=== PATIENT | female | born 1960 | race Two or more races ===

== ENCOUNTER 2024-09-30 10:41 | Inpatient (IN) | payer MEDICARE, SELFPAY ==
[2024-09-23 10:45] LABS: APTT 31.2 Sec (23.4-35.0); INR 0.97; PT 13.2 Sec (11.4-14.6)
[2024-09-23 10:46] LABS: Hematocrit 29.7 % (37.0-47.0); Hemoglobin 9.3 g/dL (12.0-16.0); Mean Corp Hgb Conc. 31.3 g/dL (33.0-37.0); Mean Corpuscular Hgb 27.7 pg (27.0-31.0); Mean Corpuscular Volume 88.4 fL (81.0-99.0); Mean Platelet Volume 10.7 fL (7.4-10.4); Platelet Count 271 10^3/uL (130-400); Red Blood Cell Count 3.36 10^6/uL (4.20-5.40); Red Cell Dist. Width 13.6 % (11.5-14.5); White Blood Cell Count 11.5 10^3/uL (4.8-10.8)
[2024-09-23 11:18] LABS: ALT (SGPT) 18 U/L (0-35); AST (SGOT) 22 U/L (14-36); Alkaline Phosphatase 56 U/L (38-126); Blood Urea Nitrogen 76 mg/dl (7-17); Calcium 9.8 mg/dl (8.4-10.2); Carbon Dioxide 19 mmol/L (22-30); Chloride 109 mmol/L (98-107); Glucose 121 mg/dl (70-99); Potassium 4.9 mmol/L (3.5-5.1); Sodium 141 mmol/L (135-145); Total Bilirubin 0.2 mg/dl (0.2-1.3); Total Protein 6.4 g/dl (6.3-8.2); eGFR 17.32
[2024-09-23 11:46] LABS: Glycohemoglobin (HgbA1c) 5.2 % (4.0-5.6)
[2024-09-23 13:53] VITALS: BMI 20.8
[2024-09-30] VITALS (9 sets, daily range): BP systolic 125–200; BP diastolic 72–98; BMI 20.8
[2024-09-30] MEDS: TYLENOL 1000 MG PO (11:43)
[2024-09-30] MEDS: ENTEREG 12 MG PO (11:43)
[2024-09-30] MEDS: HEPARIN 5000 UNITS SC (12:35)
[2024-09-30] MEDS: NORMOSOL-R/PLASMALYTE-A 1000 IV (12:53)
--- NOTE | 2024-09-30 16:44 | W.IMMPOSTOP ---
Surgical Immed Post Op Note
-
Primary Surgeon: Nacho Melendez MD
Glue Jointer Feeder: PRIYANK Concepcion
Pre-op Diagnosis: Recurrent rectal prolapse
Post-op Diagnosis: Same
Procedure Performed: Robotic ventral mesh rectopexy
Anesthesia Type: GET
Specimen / Cultures: None
Estimated Blood Loss: 15cc
Complications: None
Operative Findings: Rectal prolapse
Phasix ST mesh (tapered 4 to 3 cm x 10 cm)
[2024-09-30] MEDS: ZOFRAN 4 MG IV (16:52)
[2024-09-30] MEDS: DILAUDID 0.5 MG IV ×2 (16:54→17:09)
[2024-09-30] MEDS: APRESOLINE 5 MG IV (17:21)
[2024-09-30] MEDS: COMPAZINE 10 MG IV (17:23)
[2024-09-30] MEDS: TOPROL XL 100 MG PO (19:44)
[2024-09-30] MEDS: NSS 1000 IV (19:44)
[2024-09-30] MEDS: TYLENOL 650 MG PO (19:45)
[2024-09-30] MEDS: APRESOLINE 100 MG PO (21:46)
[2024-09-30] MEDS: CATAPRES 0.6 MG PO (21:46)
[2024-09-30] MEDS: NORVASC 10 MG PO (21:46)
[2024-09-30] MEDS: TYLENOL PO (23:24)
[2024-10-01 03:24] VITALS: BP 145/62
[2024-10-01] MEDS: TYLENOL 650 MG PO ×4 (04:06→19:51)
[2024-10-01] MEDS: NSS 1000 IV (05:10)
[2024-10-01] MEDS: ULTRAM 50 MG PO ×2 (05:13→22:41)
[2024-10-01 06:08] LABS: % Basophils 0.1 % (0-2); % Immature Granulocytes 0.6 % (0-0.5); % Lymphocytes 7.6 % (20.5-51.1); % Monocytes 9.7 % (1.7-9.3); Absolute Immature Granulocytes 0.1 10^3/uL (0-0.05); Absolute Lymphocytes 0.7 10^3/uL (1.2-3.4); Absolute Monocytes 0.8 10^3/uL (0.1-0.6); Hematocrit 24.3 % (37.0-47.0); Hemoglobin 7.6 g/dL (12.0-16.0); Mean Corp Hgb Conc. 31.3 g/dL (33.0-37.0); Mean Corpuscular Hgb 26.8 pg (27.0-31.0); Mean Corpuscular Volume 85.6 fL (81.0-99.0); Mean Platelet Volume 10.9 fL (7.4-10.4); Nucleated Red Blood Cells % 0 %; Platelet Count 219 10^3/uL (130-400); Red Blood Cell Count 2.84 10^6/uL (4.20-5.40); Red Cell Dist. Width 13.2 % (11.5-14.5); White Blood Cell Count 8.6 10^3/uL (4.8-10.8)
[2024-10-01 06:24] LABS: Blood Urea Nitrogen 46 mg/dl (7-17); Calcium 8.4 mg/dl (8.4-10.2); Carbon Dioxide 20 mmol/L (22-30); Chloride 107 mmol/L (98-107); Estimated Creatinine Clearance 22 ml/min; Glucose 121 mg/dl (70-99); Potassium 3.4 mmol/L (3.5-5.1); Sodium 138 mmol/L (135-145); eGFR 28.76
[2024-10-01 06:49] VITALS: BMI 21.4
[2024-10-01 07:30] VITALS: BP 108/73
[2024-10-01] MEDS: LIPITOR 20 MG PO (07:43)
[2024-10-01] MEDS: ORETIC 25 MG PO (07:43)
--- NOTE | 2024-10-01 09:32 | W.PN.GS2 ---
Today's Communication / Plan
-
-- LRD
-- Pain control: Tylenol, Tramadol
-- HLIV this afternoon after tolerating diet
-- Remove Rodriguez
-- Repeat labs in AM
Assessment / Plan
-
Patient is a 64 yo F POD#1 s/p robotic ventral mesh rectopexy with Phasix ST
AVSS
Labs notable for acute on chronic anemia likely secondary to CKD combined with operative blood loss and hemodilution, no evidence of acute blood loss based on HR and BP, hypokalemia (CKD with hyperkalemia noted preoperatively plan to monitor for
now), improved creatinine
Recovering well overall. Crampy abdominal discomfort not unsurprising and likely related to insufflation combined with RL BF. Plan for dietary advancement. Plan to monitor in the hospital setting given laboratory abnormalities noted above.
-- LRD
-- Pain control: Tylenol, Tramadol
-- HLIV this afternoon after tolerating diet
-- Remove Rodriguez
-- Home meds
-- DVT: SQH
-- Repeat labs in AM
Subjective Data
-
Date of Service: October 01, 2024
No major complaints. Reports some crampy upper abdominal discomfort. No nausea or vomiting. Passing small amounts of flatus, no BM. Minimal ambulation. Rodriguez in place.
Objective Data
-
Intake and Output
09/30/24 10/01/24 10/02/24
06:59 06:59 06:59
Intake Total 1860 / 1860
Output Total 725 / 725
Balance 1135 / 1135
Intake:
Oral fluids 900 / 900
IV fluids (Total) 960 / 960
Output:
Urine, Voided 725 / 725
Vital Signs
Temp Pulse Resp BP Pulse Ox
97.4 F 75 16 108/73 96
10/01/24 07:30 10/01/24 07:30 10/01/24 07:30 10/01/24 07:43 10/01/24 07:30
Lab Results
10/01/24 05:22
10/01/24 05:22
Calcium 8.4 mg/dl (8.4-10.2) 10/01/24 05:22
Total Bilirubin 0.2 mg/dl (0.2-1.3) 09/23/24 09:40
AST 22 U/L (14-36) 09/23/24 09:40
ALT 18 U/L (0-35) 09/23/24 09:40
Alkaline Phosphatase 56 U/L (38-126) 09/23/24 09:40
Total Protein 6.4 g/dl (6.3-8.2) 09/23/24 09:40
Albumin 4.0 g/dl (3.5-5.0) 09/23/24 09:40
Physical Exam
-
Gen: NAD
Abd: soft, mild tenderness, mild distension, non-peritoneal, incisions c/d/i - no erythema, ecchymosis or drainage
[2024-10-01 11:25] VITALS: BP 127/73
--- NOTE | 2024-10-01 11:58 | CM ---
Patient seen at bedside. Patient states that her son and his family lives with her. Patient states home is a 2 story home with a first floor set up for her. Patient states that she plans to go home with no needs but is open to having [facility] care if
needed as her daughter works for them. Patient PCP is Dr. Kolb and Dr. Ding. Patient is trying to stay off of HD. Patient stated that she would like to go home if possible. CM will continue to follow for discharge planning needs.
Plan; home with VN; would be open to [facility].
[2024-10-01] MEDS: CATAPRES PO (13:01)
[2024-10-01] MEDS: DIOVAN PO (13:01)
[2024-10-01] MEDS: APRESOLINE PO (13:01)
[2024-10-01] MEDS: HEPARIN SC (14:51)
[2024-10-01] MEDS: HEPARIN 5000 UNITS SC (14:52)
[2024-10-01] MEDS: TOPROL XL 100 MG PO ×2 (14:52→20:49)
[2024-10-01 15:30] VITALS: BP 150/91
[2024-10-01] MEDS: APRESOLINE 100 MG PO ×2 (16:22→22:41)
[2024-10-01] MEDS: TYLENOL PO (16:23)
[2024-10-01] MEDS: CATAPRES 0.6 MG PO ×2 (16:23→22:42)
--- NOTE | 2024-10-01 17:17 | PTCARENOTE ---
pt BP 108/73 during AM med pass. The only one med given was Hydrochlothiazide...she did not receive Metropl, Valsartan, Clonidine, Hydralazine. DRY CHARGE PROCESS ATTENDANT aware placed parameters on all meds. Also pt having multiple loose stools, Rodriguez removed. diet to LR
[2024-10-01 22:25] VITALS: BP 175/80
[2024-10-01] MEDS: NORVASC 10 MG PO (22:41)
[2024-10-02] MEDS: TYLENOL PO
[2024-10-02] MEDS: HEPARIN 5000 UNITS SC ×2 (00:12→08:23)
[2024-10-02] MEDS: TYLENOL 650 MG PO ×2 (04:03→08:19)
[2024-10-02 04:06] VITALS: BMI 21.6
[2024-10-02 05:47] LABS: Hematocrit 27.6 % (37.0-47.0); Hemoglobin 8.9 g/dL (12.0-16.0); Mean Corp Hgb Conc. 32.2 g/dL (33.0-37.0); Mean Corpuscular Hgb 27.6 pg (27.0-31.0); Mean Corpuscular Volume 85.7 fL (81.0-99.0); Mean Platelet Volume 10.9 fL (7.4-10.4); Platelet Count 224 10^3/uL (130-400); Red Blood Cell Count 3.22 10^6/uL (4.20-5.40); Red Cell Dist. Width 13.3 % (11.5-14.5); White Blood Cell Count 10.2 10^3/uL (4.8-10.8)
[2024-10-02 06:12] LABS: Blood Urea Nitrogen 41 mg/dl (7-17); Calcium 8.6 mg/dl (8.4-10.2); Carbon Dioxide 21 mmol/L (22-30); Chloride 110 mmol/L (98-107); Estimated Creatinine Clearance 23 ml/min; Glucose 102 mg/dl (70-99); Phosphorus 2.7 mg/dl (2.5-4.5); Potassium 3.7 mmol/L (3.5-5.1); Sodium 139 mmol/L (135-145); eGFR 30.69
[2024-10-02 07:05] VITALS: BP 173/80
[2024-10-02] MEDS: DIOVAN 320 MG PO (08:18)
[2024-10-02] MEDS: APRESOLINE 100 MG PO (08:19)
[2024-10-02] MEDS: LIPITOR 20 MG PO (08:19)
[2024-10-02] MEDS: CATAPRES 0.6 MG PO (08:20)
[2024-10-02] MEDS: ORETIC 25 MG PO (08:20)
[2024-10-02] MEDS: TOPROL XL 100 MG PO (08:21)
--- NOTE | 2024-10-02 08:38 | W.PN.GS2 ---
Addendum entered and electronically signed by Jaspal Chaudhary MD 10/02/24 08:52:
Patient seen and examined. Agree with assessment plan as documented below.
No complaints. Pain well-controlled. No nausea or vomiting. Passing flatus and loose stools. Ambulating. Voiding.
Gen: NAD
Abd: soft, mild tenderness, ND, non-peritoneal, incisions c/d/i - no erythema, ecchymosis or drainage
Patient is a 64 yo F POD#2 s/p robotic ventral mesh rectopexy with Phasix ST
AVSS
Labs notable for acute on chronic anemia likely secondary to CKD combined with operative blood loss and hemodilution, stable today
Hypokalemia resolved, Cr stable
Recovering well overall.
Evidence of good bowel recovery
Pain well managed
-- LRD
-- Pain control: Tylenol, Tramadol
-- Home meds
-- DVT: SQH
-- DC home
Original Note:
Today's Communication / Plan
-
dispo planning
Assessment / Plan
-
Patient is a 64 yo F POD#2 s/p robotic ventral mesh rectopexy with Phasix ST
AVSS
Labs notable for acute on chronic anemia likely secondary to CKD combined with operative blood loss and hemodilution, stable today
hypokalemia resolved, Cr stable
Recovering well overall.
Evidence of good bowel recovery
Pain well managed
-- LRD
-- Pain control: Tylenol, Tramadol
-- Home meds
-- DVT: SQH
-- Discharge to home
Subjective Data
-
Date of Service: October 02, 2024
Patient seen and examined at bedside with Dr. Chaudhary. Denies n/v. Tolerating diet. Passing flatus and some loose stools. Pain present to incision but well controlled. Voiding without difficulty.
Objective Data
-
Intake and Output
10/01/24 10/02/24 10/03/24
06:59 06:59 06:59
Intake Total 1860 / 1860 2300 / 2300
Output Total 725 / 725 950 / 950
Balance 1135 / 1135 1350 / 1350
Intake:
Oral fluids 900 / 900 1500 / 1500
IV fluids (Total) 960 / 960 800 / 800
Output:
Urine, Rodriguez 750 / 750
Urine, Voided 725 / 725 200 / 200
Other:
Number of approximated MODERATE 2
amounts of urine
Vital Signs
Temp Pulse Resp BP Pulse Ox
97.1 F 80 16 173/80 92
10/02/24 07:05 10/02/24 07:05 10/02/24 07:05 10/02/24 08:18 10/02/24 07:05
Lab Results
10/02/24 05:18
10/02/24 05:18
Calcium 8.6 mg/dl (8.4-10.2) 10/02/24 05:18
Phosphorus 2.7 mg/dl (2.5-4.5) 10/02/24 05:18
Magnesium 2.0 mg/dl (1.6-2.3) 10/02/24 05:18
Total Bilirubin 0.2 mg/dl (0.2-1.3) 09/23/24 09:40
AST 22 U/L (14-36) 09/23/24 09:40
ALT 18 U/L (0-35) 09/23/24 09:40
Alkaline Phosphatase 56 U/L (38-126) 09/23/24 09:40
Total Protein 6.4 g/dl (6.3-8.2) 09/23/24 09:40
Albumin 4.0 g/dl (3.5-5.0) 09/23/24 09:40
Physical Exam
-
Gen: NAD
Abd: soft, mild tenderness, no distension, non-peritoneal, incisions c/d/i - no erythema, ecchymosis or drainage
--- NOTE | 2024-10-02 10:30 | CM ---
Patient for discharge home today. [facility] aware and to follow. Patient with ride home and IMM completed, signed form on chart. CM will continue to follow for discharge planning needs.
Plan; home with home care to follow
--- NOTE | 2024-10-02 10:37 | CM ---
Patient seen at bedside. patient for discharge home today. Patient son to transport. Patient declined VN services, IMM completed and signed form on chart. CM will continue to follow for discharge planning needs.
Plan; home with no needs.
[2024-10-02] MEDS: ULTRAM 50 MG PO (10:51)
--- NOTE | 2024-10-02 11:09 | W.DCSUMMARY ---
Discharge Summary
Discharge Data
Date of Admission: 09/30/24
Date of Discharge: 10/02/24
-
Pending Results: No
Hospital Course
This is a 64 yo female with a history of recurrent rectal prolapse who presented for robotic ventral mesh rectopexy. Post operatively, she had good bowel recovery and diet was able to be advanced and well tolerated. Pain was well managed post
operatively. She was discharged to home with outpatient follow up planning in the coming weeks.
Discharge Plan
-
Patient Disposition: Home (Routine Discharge)
Discharge Diagnosis/Procedures: Robotic ventral mesh rectopexy
Condition: Good
Diet: As tolerated and Low Fiber
Activity: No strenuous activity
Additional Activity: Do no lift more than 10lbs (gallon of milk)
Driving Restrictions: Wait until comfortable twisting/off narcotics
Bathing Restrictions: OK to Shower
Wound Care: The glue will flake off your incisions over the next 2-3 weeks. Avoid scrubbing or picking it off.
Activity Restrictions/Additional Instructions:
Call your surgeon if you have worsening pain, nausea with vomiting or a fever >100.5
Referrals:
Pablo Melendez MD [Active] - in two to four weeks
Surekha Kolb DO [Family Provider] -
Additional Discharge Medication Instructions: Avoid straining for BM's. Take Miralax over the counter if your stools become hard or you are not passing daily BM's
Prescriptions:
Continued
cyclobenzaprine 10 mg Tablet
10 mg PO PRN PRN (Reason: sciatica)
atorvastatin 20 mg Tablet
20 mg PO DAILY
clonidine HCl 0.3 mg Tablet
0.6 mg PO TID
metoprolol succinate 100 mg Tablet Extended Release 24 Hr
100 mg PO BID
clopidogrel [Plavix] 75 mg Tablet
75 mg PO DAILY
tramadol 50 mg Tablet
50 mg PO BIDPRN PRN (Reason: pain)
amlodipine 10 mg Tablet
10 mg PO HS
hydralazine 100 mg Tablet
100 mg PO TID
acetaminophen 500 mg Capsule
1,000 mg PO Q6H PRN (Reason: pain)
valsartan-hydrochlorothiazide 320-25 mg Tablet
1 tab PO DAILY
Rx Instructions:
320-25mg
cholecalciferol (vitamin D3) [Vitamin D3] 25 mcg (1,000 unit) Tablet
25 mcg PO DAILY
av-zq-usoi-FA-Ca carb-vit K 18 mg iron-400 mcg-500 mg Tablet
1 tab PO DAILY
Discharge Orders:
Discharge Patient (As Directed); Ordered 10/02/24
Ordered By: Judith Varghese
Discharge Date and Time
Print Language: KITTITIAN
== END 2024-10-02 11:45 | disposition home or self-care (01) | DRG 330 ==
LOC: 2 SOUTH 10:41
PROVIDERS: Registered Nurse; ADMITTING PHYSICIAN Surgery; FAMILY PHYSICIAN Family Medicine
PROC: 0DUP4JZ Supplement Rectum with Synthetic Substitute, Percutaneous Endoscopic Approach (ICD-10-PCS; 2024-09-30)
PROC: 8E0W4CZ Robotic Assisted Procedure of Trunk Region, Percutaneous Endoscopic Approach (ICD-10-PCS; 2024-09-30)
PROC: 0DJD8ZZ Inspection of Lower Intestinal Tract, Via Natural or Artificial Opening Endoscopic (ICD-10-PCS; 2024-09-30)
PROC: 0DSP4ZZ Reposition Rectum, Percutaneous Endoscopic Approach (ICD-10-PCS; 2024-09-30)
DX: K62.3 Rectal prolapse (principal); D62 Acute posthemorrhagic anemia; Q43.8 Other specified congenital malformations of intestine; E78.00 Pure hypercholesterolemia, unspecified; I73.9 Peripheral vascular disease, unspecified; I12.9 Hypertensive chronic kidney disease with stage 1 through stage 4 chronic kidney disease, or unspecified chronic kidney disease; D63.1 Anemia in chronic kidney disease; E87.6 Hypokalemia; Z96.643 Presence of artificial hip joint, bilateral; N18.30 Chronic kidney disease, stage 3 unspecified; Z95.828 Presence of other vascular implants and grafts; Z79.02 Long term (current) use of antithrombotics/antiplatelets; Z79.899 Other long term (current) drug therapy; Z88.2 Allergy status to sulfonamides; Z95.820 Peripheral vascular angioplasty status with implants and grafts; Z87.891 Personal history of nicotine dependence
CPT/HCPCS: 36415; 80048; 80053; 83036; 83735; 84100; 85025; 85027; 85610; 85730; 86850; 86900; 86901; 93005; C1781; J1335

== ENCOUNTER 2024-10-24 20:37 | Inpatient (IN) | payer MEDICARE, SELFPAY ==
[2024-10-24 20:30] VITALS: BP 181/98
[2024-10-24 21:02] VITALS: BMI 21.6
--- NOTE | 2024-10-24 21:48 | HPS.HSE ---
Family Physician
-
Family Physician: Avril Leong MD
Chief Complaint
-
abdominal pain
History of Present Illness
64-year-old female past medical history of recurrent rectal prolapse status post ventral mesh rectopexy, hypertension, peripheral vascular disease, hypercholesteremia, anemia, CKD, renal artery stenosis status post left renal stent presenting as a
transfer from [facility] for abscess near sigmoid colon.
Patient originally had surgery for rectal prolapse more than a decade ago at [facility]. She has been having recurrent rectal prolapse and recently underwent repair on 09/[address] Melendez. She was started on fiber after the surgery and was
constipated. Approximately 6 days ago she developed severe abdominal pain across the lower belly associate with nausea vomiting and fevers and chills. She has had minimal bowel movements since this time and had a little bit of hard stool
yesterday. Pain radiates up to her lower chest.
She went to [facility] today and was found to have bowel perforation and was transferred here.
She drinks alcohol occasionally. Quit smoking 5 years ago.
Medical History
Past Medical History
Past Medical History: Reports Other (recurrent rectal prolapse status post ventral mesh rectopexy, hypertension, peripheral vascular disease, hypercholesteremia, anemia, CKD, renal artery stenosis status post left renal stent)
Past Surgical History: Reports Other (ventral mesh rectopexy, )
Social History
Tobacco: Former Smoker
Alcohol: Occasional
Drug: None
Family History
Family History: Not pertinent
Allergies / Home Medications
Allergies reflects when Allergies were last updated in [facility].
Home Medications with original date entered in [facility]
Allergy/Medication List:
Allergies
Allergy/AdvReac Type Severity Reaction Status Date / Time
NSAIDS (Non-Steroidal Allergy UNABLE TO Verified 09/30/24 11:32
Anti-Inflamma TAKE D/T
KIDNEY
INSUFFICIENCY
Sulfa (Sulfonamide Allergy Rash Verified 09/30/24 11:32
Antibiotics)
Home Medications
acetaminophen 500 mg capsule 1,000 mg PO Q6H PRN pain 09/26/24
amlodipine 10 mg tablet 10 mg PO HS 09/26/24
atorvastatin 20 mg tablet 20 mg PO DAILY 09/26/24
cholecalciferol (vitamin D3) 25 mcg (1,000 unit) tablet (Vitamin D3) 25 mcg PO DAILY 09/26/24
clonidine HCl 0.3 mg tablet 0.6 mg PO TID 09/26/24
clopidogrel 75 mg tablet (Plavix) 75 mg PO DAILY 09/26/24
cyclobenzaprine 10 mg tablet 10 mg PO PRN PRN sciatica 09/26/24
hydralazine 100 mg tablet 100 mg PO TID 09/26/24
metoprolol succinate 100 mg tablet,extended release 24 hr 100 mg PO BID 09/26/24
oinosvwb-xeq-mhbu-FA-Ca carb-vit K 18 mg iron-400 mcg-500 mg tablet 1 tab PO DAILY 09/26/24
tramadol 50 mg tablet 50 mg PO BIDPRN PRN pain 09/26/24
valsartan 320 mg-hydrochlorothiazide 25 mg tablet 1 tab PO DAILY 09/26/24
Review of Systems
-
History Source: Patient
A 12 point ROS was completed and negative except as noted: Yes
Constitutional: Reports No Symptoms
EENT: Reports No Symptoms
Respiratory: Reports No Symptoms
Cardiac: Reports No Symptoms
Abdomen/GI: Reports See HPI
: Reports No Symptoms
Musculoskeletal: Reports No Symptoms
Skin: Reports No Symptoms
Neurological: Reports No Symptoms
Endocrine: Reports No Symptoms
Hematologic/Lymphatic: Reports No Symptoms
Psych: Reports No Symptoms
Physical Exam
Vital Signs
Vital Signs
Temp Pulse Resp BP Pulse Ox
98.4 F 120 16 181/98 97
10/24/24 20:30 10/24/24 20:30 10/24/24 20:30 10/24/24 20:30 10/24/24 20:30
Physical Exam
General: Well Developed, Well Nourished and No Apparent Distress
HEENT: NormoCephalic, Moist mucous membranes and Atraumatic
Respiratory: Clear
Cardiac: S1/S2 and Regular Rhythm; No Murmur or Rub
GI: Soft, Non Distended, Normal Bowel Sounds and Tender; No Organomegaly
Rectal: Deferred by Provider
Musculoskeletal: No Clubbing, No Cyanosis and No Edema
Skin: No Rash
Neuro: Nonfocal/grossly intact
Data Reviewed
-
Lab Data: Labs Reviewed by me
Old Records: Reviewed
Impression/Plan
-
IMPRESSION:
PLAN:
# Perforated sigmoid colon with adjacent abscess formation
# History of recurrent rectal prolapse status post ventral mesh rectopexy with recent repair
# Likely partial small bowel obstruction
-Hemodynamically stable
-N.p.o. including oral medication
-IV fluids
-Zosyn
-Zofran
-Dilaudid
-Colorectal surgery consulted
# Uncontrolled hypertension secondary to pain
-IV Dilaudid
-As needed hydralazine if needed
# JACOB on CKD
-Creatinine at [facility] was reportedly 4 this morning, baseline of 2
-Recheck labs now
#Renal artery stenosis status post left renal artery stent more than 10 years ago
-Hold Plavix
Peripheral vascular disease
Hypercholesterolemia
-Hold statin
Chronic anemia
-Check CBC now
Former smoker
Full code
DVT prophylaxis�SCDs
N.p.o.
[2024-10-24] MEDS: NSS 1000 IV (22:05)
[2024-10-24] MEDS: DILAUDID 0.5 MG IV (22:05)
[2024-10-24] MEDS: ZOSYN 50 IV (22:06)
[2024-10-24 22:32] LABS: PT 14.5 Sec (11.4-14.6)
[2024-10-24 22:33] LABS: APTT 32.1 Sec (23.4-35.0)
[2024-10-24 22:41] LABS: Lactic Acid 1.2 mmol/L (0.7-2.0)
[2024-10-24 22:48] LABS: % Basophils 0.4 % (0-2); % Immature Granulocytes 0.4 % (0-0.5); % Lymphocytes 3.3 % (20.5-51.1); % Monocytes 7.3 % (1.7-9.3); % Neutrophils 88.6 % (42.2-75.2); Absolute Basophils 0.1 10^3/uL (0-0.2); Absolute Immature Granulocytes 0.1 10^3/uL (0-0.05); Absolute Lymphocytes 0.4 10^3/uL (1.2-3.4); Absolute Monocytes 0.9 10^3/uL (0.1-0.6); Absolute Neutrophils 11.2 10^3/uL (1.4-6.5); Hematocrit 34.6 % (37.0-47.0); Hemoglobin 11.4 g/dL (12.0-16.0); Mean Corp Hgb Conc. 32.9 g/dL (33.0-37.0); Mean Corpuscular Hgb 26.9 pg (27.0-31.0); Mean Corpuscular Volume 81.6 fL (81.0-99.0); Mean Platelet Volume 11.1 fL (7.4-10.4); Nucleated Red Blood Cells % 0.3 %; Platelet Count 358 10^3/uL (130-400); Red Blood Cell Count 4.24 10^6/uL (4.20-5.40); Red Cell Dist. Width 13.2 % (11.5-14.5); White Blood Cell Count 12.7 10^3/uL (4.8-10.8)
[2024-10-24 22:54] LABS: ALT (SGPT) 14 U/L (0-35); AST (SGOT) 26 U/L (14-36); Albumin 3.4 g/dl (3.5-5.0); Alkaline Phosphatase 155 U/L (38-126); Blood Urea Nitrogen 88 mg/dl (7-17); Calcium 8.7 mg/dl (8.4-10.2); Carbon Dioxide 15 mmol/L (22-30); Chloride 104 mmol/L (98-107); Estimated Creatinine Clearance 13 ml/min; Glucose 155 mg/dl (70-99); Potassium 3.2 mmol/L (3.5-5.1); Sodium 137 mmol/L (135-145); Total Bilirubin 0.4 mg/dl (0.2-1.3); Total Protein 6.1 g/dl (6.3-8.2); eGFR 15.39
[2024-10-24 23:15] VITALS: BP 199/104
[2024-10-24] MEDS: KCL 270 MEQ IV (23:32)
[2024-10-24 23:35] VITALS: BP 199/104
[2024-10-24 23:41] LABS: Magnesium 2.1 mg/dl (1.6-2.3)
[2024-10-24] MEDS: LOPRESSOR 5 MG IV (23:48)
[2024-10-25] VITALS (42 sets, daily range): BP systolic 94–209; BP diastolic 60–129; BMI 19.9
[2024-10-25] MEDS: NSS (PRESERVATIVE FREE) 0.25 ML IV ×2 (00:06→06:11)
[2024-10-25] MEDS: ATIVAN 0.5 MG IV ×2 (00:06→06:10)
--- NOTE | 2024-10-25 00:26 | TRANSFER ---
Received report from [facility] ED. Received patient in stretcher at 2034 dx post op infection. Pt AAOx3, able to make all needs known. c/o pain 07/21 to abdomen. Pt had sx in September (x4 lap sites EDIL w glue), belly is round and slightly distended. Pt
also reported using heating pad to manage abdominal pain at home and developed mottled skin as a result - the mottling extends over B/L upper anterior thighs and is not TTP. Hospitalist saw patient and placed new orders. Assessment ongoing.
[2024-10-25] MEDS: NSS 1000 IV ×2 (01:09→02:04)
[2024-10-25] MEDS: APRESOLINE 10 MG IV ×3 (01:26→07:45)
[2024-10-25] MEDS: ZOSYN 50 IV ×4 (04:09→22:58)
[2024-10-25] MEDS: DILAUDID 0.5 MG IV ×2 (05:02→16:43)
[2024-10-25] MEDS: LOPRESSOR 5 MG IV ×2 (05:02→06:31)
[2024-10-25] MEDS: CARDIZEM 125 IV (05:34)
--- NOTE | 2024-10-25 05:45 | W.PN.UPDATE ---
Update Note
Progress Note Update
Hx renal artery stenosis, CKD #3 baseline creatinine 1.51-1.54 now is 3.2 (awaiting am labs) NPO for poss OR for perf sig colon. other issue is bp takes amlodipine 10 mg HS, clonidine 0.6 mg TID, [id number] mg TID, Metoprolol succinate 100 mg
BID and ValsartanHCTZ daily (all po)so using IV lopressor 5mg q 6 and q4 prn, hydralazine 10 mg IV q4 prn with minimal improvement in bp (170-190/100-110) HR is 120s.ST with PVCs on EKG. Possible reflex tachycardia. Will send her to IMU for closer
monitoring. will add cardizem infusion at 15mg. Nephrology consult placed. Discussed bp via TT and recommendation was to titrate hydralazine IV doses to effectiveness. She does c/o VANEGAS so [facility] added, Ativan IV for anxiety and encouraged her to use
dilaudid IV if needed prn until bp stable.
[2024-10-25 06:00] LABS: ALT (SGPT) 13 U/L (0-35); AST (SGOT) 25 U/L (14-36); Alkaline Phosphatase 150 U/L (38-126); Blood Urea Nitrogen 84 mg/dl (7-17); Calcium 8.5 mg/dl (8.4-10.2); Carbon Dioxide 13 mmol/L (22-30); Chloride 110 mmol/L (98-107); Estimated Creatinine Clearance 14 ml/min; Glucose 155 mg/dl (70-99); Potassium 3.5 mmol/L (3.5-5.1); Sodium 141 mmol/L (135-145); Total Bilirubin 0.4 mg/dl (0.2-1.3); Total Protein 5.6 g/dl (6.3-8.2); eGFR 17.32
--- NOTE | 2024-10-25 06:10 | TRANSFER ---
Pt transferred to ICU for higher level of care. Report given to ASHU Camacho.
[2024-10-25 06:11] LABS: Hematocrit 31.4 % (37.0-47.0); Hemoglobin 10.7 g/dL (12.0-16.0); Mean Corp Hgb Conc. 34.1 g/dL (33.0-37.0); Mean Corpuscular Volume 79.3 fL (81.0-99.0); Mean Platelet Volume 11.1 fL (7.4-10.4); Platelet Count 315 10^3/uL (130-400); Red Blood Cell Count 3.96 10^6/uL (4.20-5.40); Red Cell Dist. Width 12.9 % (11.5-14.5); White Blood Cell Count 13.1 10^3/uL (4.8-10.8)
[2024-10-25] MEDS: OFIRMEV 100 IV (06:19)
--- NOTE | 2024-10-25 06:45 | PTCARENOTE ---
Received patient in room 3366 on Cardizem gtt at 15 mg/hr (15ml/hr) via 20g left hand, and normal saline at 125ml/hr via 20g right AC. Patient transferred to ICU bed. AAOx3 and able to make her needs known. MAEx4. Pupils are +3 and reactive. Plan of
care for the remainder of the shift reviewed with the patient.Sinus tach on the monitor with HR 115-120. SBP 187/89. Temp 98.4. Clear but diminished breath sounds. SpO2 at 96% on room air. Hypoactive bowel sounds. Abdomen is tender to light
palpation. 4x lap site is cdi with surgical glue intact and slight bruising. Bilateral thighs and abdomen are mottled. Patient cleansed with CHG bath wipes. The patient turns and repositions herself. Call cota and personal belongings are within
reach.
[id number]: Savanna Cabrera paged regarding Pt's SBP 180s/190s. Plan to continue hydralazine prn. PRN Lopressor and hydralazine administered. Cardizem gtt discontinued. Sodium bicarb 150mg in in sterile water 1000 ml ordered for Co2 13.
Hydralazine prn changed to Q1h per FLORY. Pt's SBP remains in the 200. Report provided to incoming RN. Awaiting Bicarb gtt from pharmacy.
[2024-10-25] MEDS: SODIUM BICARBONATE 1150 MEQ IV (07:45)
[2024-10-25] MEDS: ZOFRAN 4 MG IV (08:00)
--- NOTE | 2024-10-25 08:03 | PTCARENOTE ---
report received, assessments per work list. patient c/o mild abdominal tenderness, nausea. flat affect. monitor sinus tachycardia with pvc's. blood pressures remain elevated in spite of prn medications, scheduled medications administered. additional
hydralazine prn dose administered, Zofran administered. Hospitalist updated regarding unmanaged hypertension. orders pending. IVF changed to fluids with bicarb. skin with brown mottling across thighs, abdomen. lungs diminished at bases. pure wick in
place. call cota in reach
[2024-10-25] MEDS: CARDENE 200 IV (08:44)
--- NOTE | 2024-10-25 08:48 | CON.INTV ---
Consultation
Consultation Request
Date/Time Consultation Requested: 10/25/2024-9 AM
Date/Time Consultation Performed: 10/25/2024-9:30 AM
Requesting Provider: Hospitalist
Performing Provider: Dr. Villela
Reason for Consultation: Bowel perforation/abscess/critical care management
Medical History
-
Chief Complaint: Abdominal pain
History of Present Illness:
64-year-old female with history of hypertension, PAD, hyperlipidemia, chronic renal disease, renal artery stenosis status post stent who had a recent ventral mesh rectal plasty 09/30/2024 who presented to [facility] with abdominal
pain found to have perforation and abscess transferred back to [facility] and logging superintendent consulted for abdominal abscess/hypertensive emergency/critical care management 10/25/2024. Patient is easily arousable, no complaints of shortness of breath at
rest, chest congestion, productive cough, or pleurisy does admit to abdominal pain that is somewhat diffuse. She does not complain of focal weakness but has generalized weakness. She does not complain of increased leg swelling.
Past Medical History
Past Medical History: None (Hypertension. Hyperlipidemia. Anemia. PAD. Chronic kidney disease. Renal artery stenosis/stent. Ventral mesh rectopexy 09/30/2024.)
Social History
Tobacco: Former Smoker ([id number] quit 5 years ago)
Alcohol: Occasional
Drug: None
Living: With Family
Occupational Exposures: No known asbestos exposure
Environmental Exposures: No known tuberculosis exposure
Family History
Family History: Reviewed & Not Pertinent
Allergies / Home Medications
Allergies
Allergy/AdvReac Type Severity Reaction Status Date / Time
NSAIDS (Non-Steroidal Allergy UNABLE TO Verified 09/30/24 11:32
Anti-Inflamma TAKE D/T
KIDNEY
INSUFFICIENCY
Sulfa (Sulfonamide Allergy Rash Verified 09/30/24 11:32
Antibiotics)
Home Medications
�Medication �Instructions �Recorded �Confirmed �Last Taken �Type
acetaminophen 500 mg capsule 1,000 mg PO Q6H PRN pain 09/26/24 09/30/24 10/23/24 06:00 History
amlodipine 10 mg tablet 10 mg PO HS 09/26/24 09/30/24 10/23/24 22:00 History
atorvastatin 20 mg tablet 20 mg PO DAILY 09/26/24 09/30/24 10/24/24 06:00 History
cholecalciferol (vitamin D3) 25 25 mcg PO DAILY 09/26/24 09/30/24 10/24/24 06:00 History
mcg (1,000 unit) tablet (Vitamin
D3)
clonidine HCl 0.3 mg tablet 0.6 mg PO TID 09/26/24 09/30/24 10/24/24 06:00 History
clopidogrel 75 mg tablet (Plavix) 75 mg PO DAILY 09/26/24 09/30/24 10/24/24 06:00 History
cyclobenzaprine 10 mg tablet 10 mg PO PRN PRN sciatica 09/26/24 09/30/24 09/23/24 History
hydralazine 100 mg tablet 100 mg PO TID 09/26/24 09/30/24 10/24/24 06:00 History
metoprolol succinate 100 mg 100 mg PO BID 09/26/24 09/30/24 10/24/24 06:00 History
tablet,extended release 24 hr
bvupnlnh-uvs-oscr-FA-Ca carb-vit K 1 tab PO DAILY 09/26/24 09/30/24 10/23/24 06:00 History
18 mg iron-400 mcg-500 mg tablet
tramadol 50 mg tablet 50 mg PO BIDPRN PRN pain 09/26/24 09/30/24 10/24/24 06:00 History
valsartan 320 1 tab PO DAILY 09/26/24 09/30/24 10/24/24 06:00 History
mg-hydrochlorothiazide 25 mg tablet
Review of Systems
-
Unable to Obtain full review of systems at this time due to: Other (Per HPI)
Vitals / Labs / Diagnostic Testing
Vital Signs
Temp Pulse Resp BP Pulse Ox
99.4 F 114 22 200/92 93
10/25/24 08:00 10/25/24 07:45 10/25/24 07:15 10/25/24 07:45 10/25/24 07:01
Lab Data
10/25/24 05:16
10/25/24 05:16
Laboratory Results
10/24/24
22:15
PT 14.5
INR 1.10
APTT 32.1
Diagnostic Testing:
Physical Exam
-
Exam:
Well-nourished and well-developed in no apparent distress
HEENT-atraumatic, normocephalic
Neck-supple, no JVD, no bruit
Heart-regular rate and rhythm-no murmurs, rubs or gallops
Chest with diminished breath sounds, no crackles or wheezes
Back without tenderness
Abdomen-soft, mild distention, tenderness, no rebound or guarding
Extremities-no cyanosis, clubbing, edema and good peripheral pulses
Integument-intact, no rashes, lesions or ecchymosis
Neurology-alert and oriented, nonfocal motor and sensory exam
Assessment
-
64-year-old female with history of hypertension, PAD, hyperlipidemia, chronic renal disease, renal artery stenosis status post stent who had a recent ventral mesh rectal plasty 09/30/2024 who presented to [facility] with abdominal
pain found to have perforation and abscess transferred back to [facility] and logging superintendent consulted for abdominal abscess/hypertensive emergency/critical care management 10/25/2024.
Hypertensive emergency
Perforated sigmoid colon with pericolonic abscess and partial small bowel obstruction
Sepsis without hypotension
JACOB
Metabolic acidosis
Leukocytosis
Jbwkdi-idadsoyajw-lvwhdriaxv 10.7
Hyperglycemia
Conditions present prior to admission:
Hypertension.
Hyperlipidemia.
Anemia.
PAD.
Chronic kidney disease.
Renal artery stenosis/stent.
Former [id number]
Rectal prolapse/ventral mesh rectopexy 09/30/2024.
Plan
Patient will be admitted to medical intensive care
Supplemental oxygen if needed
Incentive spirometry
Nebulizers if needed-currently not bronchospastic
Monitor for end organ effect of severe hypertension
Hydralazine as needed
Labetalol as needed
Begin nicardipine drip
Nitroprusside less attractive with potential for cyanide toxicity especially with renal insufficiency
Nitroglycerin if cardiac issues
Nephrology evaluation
Monitor renal function
Intravenous fluids
Follow lactate
Norepinephrine and vasopressin if needed
Bicarb drip if needed
Consider workup of secondary causes including renal vascular/primary hyperaldosteronism/Carlos Alberto's/pheochromocytoma/etc. if hypertension is difficult to control
Report of CT abdomen from [facility]
Colorectal surgery consult
Probable OR 10/25/2024
Check cultures
Empiric antibiotics to cover abdominal sources
Monitor hemoglobin
Transfuse if needed
Monitor blood sugar
Insulin supplementation as needed
DVT prophylaxis
Early nutrition
Early mobilization
Outpatient pulm evaluation-with smoking history, PFT, yearly low-dose lung cancer screening CT chest
Critical care statement: A total of 40 minutes of critical care time was provided for this patient today. This includes management of unstable vital signs, evaluation of the patient at bedside, reviewing the patient's pertinent medical records
including radiographs, microbiology, laboratory evaluations, and discussion with primary team, consultants, pharmacy, nutrition, physical therapy, case management, charge nurse, critical care nursing, and respiratory therapy.
Diagnostic data:
Chest x-ray 10/25/2024-NAD
Data Reviewed
-
EKG: Report reviewed by me
Radiology: Image personally visualized and interpreted and Report reviewed by me
CT Scan: Report reviewed by me
Medical Tests (Nuc Med, Echo etc): Report reviewed by me
Labs: Labs reviewed by me
Old Records: Reviewed
Critical Care Time (in minutes): 65
--- NOTE | 2024-10-25 09:36 | WOUNDNOTE ---
WON RN NOTE: Stoma sited patient as requested, assessed lying and sitting, nurse assisted. Abdomen and thighs with chronic cox mottled skin due to heating pad use patient states. Identified rectus muscle, avoided creases and scars. Unable to site
lower quadrants, too many creases that became worse when sitting. LUQ marked 5.5cm from midline, 7cm proximal from umbilical line. RUQ marked 6.5cm from midline and 6cm proximal from umbilical line. Explained my role to patient and aware that
surgeon has final decision of ostomy location if needed. Will follow post op for any ostomy needs.
--- NOTE | 2024-10-25 09:40 | WOUNDNOTE ---
WON RN NOTE: Stoma sited patient as requested, assessed lying and sitting, nurse assisted. Abdomen and thighs with chronic cox mottled skin due to heating pad use patient states. Turned to sides, sacrum and heels intact, no discoloration of skin.
Identified rectus muscle, avoided creases and scars. Unable to site lower quadrants, too many creases that became worse when sitting. WENDY Wilcox made aware. LUQ marked 5.5cm from midline, 7cm proximal from umbilical line. RUQ marked 6.5cm
from midline and 6cm proximal from umbilical line. Explained my role to patient and aware that surgeon has final decision of ostomy location if needed. Will follow post op for any ostomy needs.
--- NOTE | 2024-10-25 09:43 | WOUNDNOTE ---
ABDOMEN AND UPPER THIGHS FROM HEATING PAD USE
--- NOTE | 2024-10-25 09:47 | W.PN.HOSP.TC ---
Today's Communication/Plan
-
Cardene drip for BP management
NPO/IVF/pain control/IV Abx; for urgent OR today for colonic perf/abscess
Assessment / Plan
Assessment / Plan
Assessment:
Accelerated hypertension with risk of developing hypertensive emergency
History of underlying Accelerated HTN with multi-drug regimen and history of PARI s/p L Renal artery stenting
- OP regimen includes Amlodipine, Clonidine, Hydralazine, Metoprolol, ARB, HCTZ
- currently NPO for acute abdomen with OR planned
- Started IV Cardene drip; requires monitoring per protocol for obtain SBP 140-160 range. Patient did not respond to multiple IV Hydralazine and BB doses.
- consider Clonidine patch; defer to nephrology
Perforated sigmoid colon with pericolonic abscess formation with partial SBO
Acute Sepsis (tachycardia, leukocytosis) from acute GI colonic source
- NPO
- IVF (bicarbonate)
- IV Zosyn
- pain control, anti-emetics
- CRS consulted; for urgent ex-lap surgery this morning
History of recurrent rectal prolapse status post ventral mesh rectopexy with recent repair
JACOB on CKD stage 3b
Acute metabolic acidosis
- suspect driven by accelerated HTN and critical illness
- Nephrology consulted
- continue IVF (bicarbonate)
history of PARI s/p L Renal artery stenting
Peripheral vascular disease
Hypercholesterolemia
- hold Plavix/Statin
Hypokalemia - replete prn
Chronic anemia
- follow CBC
Former smoker
DVT ppx: SCDs
Code: Full
Total Critical Care Time 45 minutes. I was immediately available to the patient and staff. I personally examined, reviewed labs, diagnostic images/reports, interpretations, treatment plans, discussed patient care with other providers and family
or caregivers (if patient is unable to make decisions), entered orders as appropriate and documented the medical record.
Anticipated Discharge: > 48 hours
Subjective/Interval History
-
Date of Service: October 25, 2024
no acute complaints
BP better controlled on Cardene drip started this AM
Objective Data
-
Labs:
Laboratory Results
10/24/24 10/24/24 10/24/24
21:41 21:42 22:15
WBC Cancelled 12.7 H
Hgb Cancelled 11.4 L
Hct Cancelled 34.6 L
Plt Count Cancelled 358
PT 14.5
INR 1.10
APTT 32.1
Sodium Cancelled 137
Potassium Cancelled 3.2 L
Chloride Cancelled 104
Carbon Dioxide Cancelled 15 L
BUN Cancelled 88 H
Creatinine Cancelled 3.2 H
Glucose Cancelled 155 H
Calcium Cancelled 8.7
Total Bilirubin Cancelled 0.4
AST Cancelled 26
ALT Cancelled 14
Alkaline Phosphatase Cancelled 155 H
10/25/24
05:16
WBC 13.1 H
Hgb 10.7 L
Hct 31.4 L
Plt Count 315
PT
INR
APTT
Sodium 141
Potassium 3.5
Chloride 110 H
Carbon Dioxide 13 L*
BUN 84 H
Creatinine 2.9 H
Glucose 155 H
Calcium 8.5
Total Bilirubin 0.4
AST 25
ALT 13
Alkaline Phosphatase 150 H
Vital Signs:
Vital Signs
Temp Pulse Resp BP Pulse Ox
99.4 F 116 12 159/81 95
10/25/24 08:00 10/25/24 09:15 10/25/24 09:15 10/25/24 09:15 10/25/24 09:15
I&O
10/24/24 10/25/24 10/26/24
06:59 06:59 06:59
Intake Total 1000 / 1000 320 / 320
Output Total 0 / 0
Balance 999 / 999 320 / 320
Physical Exam
-
General: No Apparent Distress
HEENT: Normocephalic and Atraumatic
Respiratory: Clear to Auscultation; Negative Wheezes
Cardiac: Regular Rhythm, S1/S2 and Tachycardic
GI: Nondistended and Tender
Musculoskeletal: No Edema
Neuro: AO x 3
Psych: Calm
Data Reviewed
-
Critical Care Time (in minutes): 45
Labs: Labs Reviewed by me
[2024-10-25 10:22] LABS: % Basophils 0.4 % (0-2); % Immature Granulocytes 0.6 % (0-0.5); % Lymphocytes 1.9 % (20.5-51.1); % Monocytes 7.3 % (1.7-9.3); % Neutrophils 89.8 % (42.2-75.2); Absolute Basophils 0.1 10^3/uL (0-0.2); Absolute Immature Granulocytes 0.1 10^3/uL (0-0.05); Absolute Lymphocytes 0.3 10^3/uL (1.2-3.4); Absolute Neutrophils 11.8 10^3/uL (1.4-6.5); Nucleated Red Blood Cells % 0.3 %
--- NOTE | 2024-10-25 10:57 | CON.CRS ---
Consultation
-
Date/Time Consultation Requested: 10/24/2024, 21:51
Date/Time Consultation Performed: 10/25/2024, 08:30
Requesting Provider: Avril Leong MD
Performing Provider: Galo Pat MD
Reason for Consultation: bowel perforation
Medical History
-
Chief Complaint: abdominal pain
History of Present Illness:
64-year-old female, with a past medical history of recent ventral mesh rectopexy by Dr. Melendez on 09/30/2024, was transferred from [facility] due to a 'perforation found on her CT scan'. Originally the patient had undergone a rectal
prolapse repair over 10 years ago at [facility] and due to recurrent rectal prolapse, underwent a ventral mesh rectopexy by Dr. Melendez on 09/30/2024. She tolerated the procedure well and was discharged 2 days later. About 6 days ago she had
developed severe abdominal pain that has worsened since yesterday. She states it was all across her lower abdomen and also upwards towards her rib cage. She had fevers and chills yesterday with associated nausea and vomiting. Due to the worsening
pain, she went to [facility] emergency room. There was a perforation noted in the sigmoid colon (no report available) and she was transferred to [facility] [address]. On admission to [facility] [address], her WBC was 12.7 and is 13.1 today. She has
remained afebrile. She has been hypertensive as high as 200/92. She has been started on a Cardene drip. She has remained tachycardic since her admission in the 110s to 120s. She is on Plavix at home and her last dose was yesterday. Given all
the above, we have been consulted for further surgical opinion.
Past Medical History
Past Medical History: Other (recurrent rectal prolapse status post ventral mesh rectopexy, hypertension, peripheral vascular disease, hypercholesteremia, anemia, CKD, renal artery stenosis status post left renal stent)
Past Surgical History: Other (ventral mesh rectopexy - Dr. Melendez 09/30/2024)
Social History
Tobacco: Former Smoker
Alcohol: Occasional
Drug: None
Family History
Family History: Reviewed & Not Pertinent
Allergies / Home Medications
Allergy/AdvReac Type Severity Reaction Status Date / Time
NSAIDS (Non-Steroidal Allergy UNABLE TO Verified 09/30/24 11:32
Anti-Inflamma TAKE D/T
KIDNEY
INSUFFICIENCY
Sulfa (Sulfonamide Allergy Rash Verified 09/30/24 11:32
Antibiotics)
�Medication �Instructions �Recorded �Confirmed �Type
acetaminophen 500 mg capsule 1,000 mg PO Q6H PRN pain 09/26/24 09/30/24 History
amlodipine 10 mg tablet 10 mg PO HS 09/26/24 09/30/24 History
atorvastatin 20 mg tablet 20 mg PO DAILY 09/26/24 09/30/24 History
cholecalciferol (vitamin D3) 25 25 mcg PO DAILY 09/26/24 09/30/24 History
mcg (1,000 unit) tablet (Vitamin
D3)
clonidine HCl 0.3 mg tablet 0.6 mg PO TID 09/26/24 09/30/24 History
clopidogrel 75 mg tablet (Plavix) 75 mg PO DAILY 09/26/24 09/30/24 History
cyclobenzaprine 10 mg tablet 10 mg PO PRN PRN sciatica 09/26/24 09/30/24 History
hydralazine 100 mg tablet 100 mg PO TID 09/26/24 09/30/24 History
metoprolol succinate 100 mg 100 mg PO BID 09/26/24 09/30/24 History
tablet,extended release 24 hr
mdpqgzzi-ovv-glcj-FA-Ca carb-vit K 1 tab PO DAILY 09/26/24 09/30/24 History
18 mg iron-400 mcg-500 mg tablet
tramadol 50 mg tablet 50 mg PO BIDPRN PRN pain 09/26/24 09/30/24 History
valsartan 320 1 tab PO DAILY 09/26/24 09/30/24 History
mg-hydrochlorothiazide 25 mg tablet
Review of Systems
-
History Source: Patient
Constitutional: Fever and Chills
Abdomen/GI: Abdominal Pain, Nausea and Vomiting
A 10 point review of systems was completed, and was negative except as per HPI.
Physical Exam
Vital Signs
Temp 99.4 F 10/25/24 08:00
Pulse 112 10/25/24 10:00
Resp Rate 24 10/25/24 10:00
Blood pressure 157/66 10/25/24 10:00
SaO2 94 10/25/24 10:00
10/24/24 10/25/24 10/26/24
06:59 06:59 06:59
Actual Weight 47.7 kg
Body Mass Index (BMI) 19.9
Lab Results / Allergies
10/25/24 05:16
10/25/24 05:16
WBC 13.1 10^3/uL (4.8-10.8) H 10/25/24 05:16
Hgb 10.7 g/dL (12.0-16.0) L 10/25/24 05:16
Hct 31.4 % (37.0-47.0) L 10/25/24 05:16
Plt Count 315 10^3/uL (130-400) 10/25/24 05:16
Abs Immat Gran (auto) 0.1 10^3/uL (0-0.05) H 10/25/24 05:16
Neutrophils % 89.8 % (42.2-75.2) H 10/25/24 05:16
Allergy/AdvReac Type Severity Reaction Status Date / Time
NSAIDS (Non-Steroidal Allergy UNABLE TO Verified 09/30/24 11:32
Anti-Inflamma TAKE D/T
KIDNEY
INSUFFICIENCY
Sulfa (Sulfonamide Allergy Rash Verified 09/30/24 11:32
Antibiotics)
Physical Exam
General: Well Developed and No Apparent Distress
GI: Tender (diffuse, more prominent on the right)
Skin: Warm and Dry
Neuro: AO x 3
Data Reviewed
-
CT Scan: Image Personally Visualized and interpreted, Discussed with Physician, Discussed with Nurse and Discussed with Patient
Labs: Labs Reviewed by me
Old Records: Reviewed
Assessment / Plan
-
Assessment: 64-year-old female, with recent ventral hernia repair with mesh, transferred to [facility] [address] due to a perforation found on CT at [facility]
Plan:
-CT from [facility] was interpreted by Dr. Philip and Dr. Pat. There appears to be a large amount of stool within the abdominal cavity. Given this finding, patient will need surgery today for a colectomy with possible stoma.
Discussed with this with the patient who is in agreement.
-Continue IV antibiotics.
-Stoma nurse has been consulted for stoma markings.
-Appreciate reinforced steel placing supervisor.
-Cardene per reinforced steel placing supervisor.
-Remain NPO.
-OR arrangements in this place for late morning/early afternoon.
--- NOTE | 2024-10-25 11:09 | W.CON.NEPH ---
Consultation
-
Date/Time Consultation Requested: October 25, 2024 at 2300 hrs.
Date/Time Consultation Performed: October 25, 2024 at 11 AM
Requesting Provider: Savanna RUTH
Performing Provider: Dr. Terrance coy
Reason for Consultation: Acute on chronic kidney disease
Medical History
-
Chief Complaint: Acute on chronic kidney disease
History of Present Illness:
64-year-old female past medical history of recurrent rectal prolapse status post ventral mesh rectopexy, hypertension, peripheral vascular disease, hypercholesteremia, anemia, CKD, renal artery stenosis status post left renal stent presenting as a
transfer from [facility] for abscess near sigmoid colon possible perforation.
Renal consult for acute on chronic kidney disease she follows with Dr. Edson Ding hand mounter [place]
Baseline creatinine appears to be between 1.8 and 2.0. She presented with a creatinine of 3.2 and a metabolic acidosis
She is on Cardene drip for hypertensive urgency unable to take p.o. medications as well as a bicarbonate drip
She is awake lethargic has a mild abdominal pain. She was seen in the ICU
Past Medical History
rectal prolapse status post ventral mesh rectopexy, hypertension, peripheral vascular disease, hypercholesteremia, anemia, CKD, renal artery stenosis status post left renal stent
Social History
Tobacco: Non-Smoker
Alcohol: None
Family History
Family History: Not Pertinent
Allergies / Home Medications
Allergy/AdvReac Type Severity Reaction Status Date / Time
NSAIDS (Non-Steroidal Allergy UNABLE TO Verified 09/30/24 11:32
Anti-Inflamma TAKE D/T
KIDNEY
INSUFFICIENCY
Sulfa (Sulfonamide Allergy Rash Verified 09/30/24 11:32
Antibiotics)
�Medication �Instructions �Recorded �Confirmed �Type
acetaminophen 500 mg capsule 1,000 mg PO Q6H PRN pain 09/26/24 09/30/24 History
amlodipine 10 mg tablet 10 mg PO HS 09/26/24 09/30/24 History
atorvastatin 20 mg tablet 20 mg PO DAILY 09/26/24 09/30/24 History
cholecalciferol (vitamin D3) 25 25 mcg PO DAILY 09/26/24 09/30/24 History
mcg (1,000 unit) tablet (Vitamin
D3)
clonidine HCl 0.3 mg tablet 0.6 mg PO TID 09/26/24 09/30/24 History
clopidogrel 75 mg tablet (Plavix) 75 mg PO DAILY 09/26/24 09/30/24 History
cyclobenzaprine 10 mg tablet 10 mg PO PRN PRN sciatica 09/26/24 09/30/24 History
hydralazine 100 mg tablet 100 mg PO TID 09/26/24 09/30/24 History
metoprolol succinate 100 mg 100 mg PO BID 09/26/24 09/30/24 History
tablet,extended release 24 hr
qbdqflyx-qdv-jjbs-FA-Ca carb-vit K 1 tab PO DAILY 09/26/24 09/30/24 History
18 mg iron-400 mcg-500 mg tablet
tramadol 50 mg tablet 50 mg PO BIDPRN PRN pain 09/26/24 09/30/24 History
valsartan 320 1 tab PO DAILY 09/26/24 09/30/24 History
mg-hydrochlorothiazide 25 mg tablet
Review of Systems
-
Lethargic with mild abdominal pain
All other systems: Negative unless noted
Physical Exam
Vital Signs
Vital Signs
Temp Pulse Resp BP Pulse Ox
99.4 F 112 24 157/66 94
10/25/24 08:00 10/25/24 10:00 10/25/24 10:00 10/25/24 10:00 10/25/24 10:00
Lab Results
WBC 13.1 10^3/uL (4.8-10.8) H 10/25/24 05:16
RBC 3.96 10^6/uL (4.20-5.40) L 10/25/24 05:16
Hgb 10.7 g/dL (12.0-16.0) L 10/25/24 05:16
Hct 31.4 % (37.0-47.0) L 10/25/24 05:16
Plt Count 315 10^3/uL (130-400) 10/25/24 05:16
Sodium 141 mmol/L (135-145) 10/25/24 05:16
Potassium 3.5 mmol/L (3.5-5.1) 10/25/24 05:16
Chloride 110 mmol/L (98-107) H 10/25/24 05:16
Carbon Dioxide 13 mmol/L (22-30) L* 10/25/24 05:16
BUN 84 mg/dl (7-17) H 10/25/24 05:16
Creatinine 2.9 mg/dL (0.6-1.0) H 10/25/24 05:16
eGFR 17.32 10/25/24 05:16
Glucose 155 mg/dl (70-99) H 10/25/24 05:16
Calcium 8.5 mg/dl (8.4-10.2) 10/25/24 05:16
Albumin 3.0 g/dl (3.5-5.0) L 10/25/24 05:16
Physical Exam
General no acute distress
HEENT no cephalic atraumatic extraocular muscle intact no scleral icterus no JVD neck supple
lungs clear to auscultation bilateral
heart regular S1-S2 positive
abdomen bowel sounds present tender to palpation
extremities no edema pulses present bilateral
Neurologically nonfocal alert and oriented x 3
Skin no lesions no abrasions no petechiae
Psych normal affect no bizarre behavior
Data Reviewed
-
Radiology: Image Personally Visualized and interpreted (No acute pathology chest x-ray)
Critical Care Time (in minutes): 35
Assessment/Plan
-
4-year-old female past medical history of recurrent rectal prolapse status post ventral mesh rectopexy, hypertension, peripheral vascular disease, hypercholesteremia, anemia, CKD, renal artery stenosis status post left renal stent presenting as a
transfer from [facility] for abscess near sigmoid colon possible perforation.
Renal consult for acute on chronic kidney disease she follows with Dr. Edson Ding hand mounter [place]
Baseline creatinine appears to be between 1.8 and 2.0. She presented with a creatinine of 3.2 and a metabolic acidosis
Impression:
Acute on chronic kidney disease.
Acute metabolic acidosis.
Hypertensive urgency.
Pericolonic abscess.
History of renal artery stenosis with left stent.
.
Plan:
Acuity of JACOB likely hemodynamically mediated with a blood pressure 200+ systolic
She is on Cardene drip for hypertensive urgency unable to take p.o. medications
Place Rodriguez catheter for critical I's and O
Pending OR.
Continue bicarbonate drip.
Continue Cardene.
Antibiotics.
Continue with IV antihypertensives
Consider Catapres transdermal going forward but will use IV for now until we see her for prognosis post OR
No acute need for dialysis at this time
Discussed with critical care team
Total Time Spent with Patient (in minutes): 35
--- NOTE | 2024-10-25 11:34 | PTCARENOTE ---
Addendum entered by Fern Montesinos RN 10/25/24 11:50:
transported to PACU/or holding area. hand off to BLOW DOWN OPERATOR
Original Note:
preop care provided, cardene titration per work list. telephone report given to OR staff
[2024-10-25] MEDS: LOPRESSOR IV ×2 (12:08→18:36)
--- NOTE | 2024-10-25 12:35 | PTCARENOTE ---
Pt recived from [facility], pt waiting in PACU to go to OR, Cardene drip infusing, titrated to keep SBP 140-160, sleeps if undisturbed.
--- NOTE | 2024-10-25 12:53 | W.PN.UPDATE ---
Update Note
Progress Note Update
The patient was seen and examined, and I reviewed the images and medical record. She appears to have a perforated colon possibly due to stercoral colitis. She does have a history of constipation but was not taking narcotics postoperatively. Other
possibilities include, but are not limited to, diverticulitis (she does have a history), ischemia given her PVD, or secondary to the surgery. I reviewed the current findings and recommend surgery. Without surgery her condition is unlikely to
improve. Surgery will involve a laparotomy with a possible bowel resection and ostomy (temporary). Risks include, but are not limited to, bleeding, infection, injury to other structures, hernias, adhesions, DVT, cardiopulmonary complications, mesh
infection, organ dysfunction, risks of anesthesia, and possibly . I also reviewed the possible recovery both in and out of the hospital, and the functional results. All questions answered and she wishes to proceed. Arrangement are in progress
for the OR.
--- NOTE | 2024-10-25 13:28 | CM ---
CM following re: discharge planning.
Reviewed pt's chart, met with pt.
Pt is a 64 year old female, admitted with primary dx of Abdominal pain. Per chart review, OR today.
Pt reports she lives with son and his family 2SH, 2 steps to enter, has 1st floor set up, known to [facility].
PCP: Salo Huffman
Pharmacy: [facility]
D/C byers: uncertain at this time and will depend on pt's progress.
CM will follow with discharge plan updates as hospitalization progresses
--- NOTE | 2024-10-25 16:08 | W.IMMPOSTOP ---
Documented by User: Renay Marcano STPA 10/25/24 16:19
Surgical Immed Post Op Note
-
Primary Surgeon: Nacho Melendez MD
Agricultural Equipment Operator: Carlos Bob
Pre-op Diagnosis: bowel perforation
Post-op Diagnosis: same, sigmoid colon secondary to stercoral colitis
Procedure Performed: exploratory laparotomy, open sigmoid colectomy, incidental appendectomy, and end sigmoid ostomy
Anesthesia Type: GET
Specimen / Cultures: sigmoid colon, appendix
Estimated Blood Loss: 100 cc
Complications: None
Operative Findings: sigmoid colon perforation
stercoral colitis

Documented by User: Pablo Melendez MD 10/25/24 16:40
Surgical Immed Post Op Note
-
Primary Surgeon: Nacho Melendez MD
Agricultural Equipment Operator: Carlos Bob
Pre-op Diagnosis: bowel perforation
Post-op Diagnosis: same, sigmoid colon secondary to stercoral colitis
Procedure Performed: exploratory laparotomy, open sigmoid colectomy, incidental appendectomy, and end sigmoid ostomy
Anesthesia Type: GET
Specimen / Cultures: sigmoid colon, appendix
Estimated Blood Loss: 100 cc
Complications: None
Operative Findings: sigmoid colon perforation
stercoral colitis
Left message on Jesus's voicemail
[2024-10-25 16:51] LABS: Hematocrit 23.5 % (37.0-47.0); Hemoglobin 7.9 g/dL (12.0-16.0); Mean Corp Hgb Conc. 33.6 g/dL (33.0-37.0); Mean Corpuscular Hgb 27.1 pg (27.0-31.0); Mean Corpuscular Volume 80.8 fL (81.0-99.0); Mean Platelet Volume 10.7 fL (7.4-10.4); Platelet Count 274 10^3/uL (130-400); Red Blood Cell Count 2.91 10^6/uL (4.20-5.40); Red Cell Dist. Width 13.1 % (11.5-14.5); White Blood Cell Count 4.4 10^3/uL (4.8-10.8)
[2024-10-25 17:02] LABS: Blood Urea Nitrogen 79 mg/dl (7-17); Carbon Dioxide 15 mmol/L (22-30); Chloride 106 mmol/L (98-107); Estimated Creatinine Clearance 14 ml/min; Glucose 182 mg/dl (70-99); Potassium 3.4 mmol/L (3.5-5.1); Sodium 136 mmol/L (135-145); eGFR 17.32
--- NOTE | 2024-10-25 17:03 | W.PN.UPDATE ---
Update Note
Progress Note Update
Upon awakening in the OR she was complaining of left leg pain. The leg is cool but not much different than the right. She has no sensation in the left foot, thigh and distal thigh. There is a calcified left femoral artery with no appreciable doppler
in the femoral and distal extremity. She is able to move the thigh and bend her knee. The right side has a palpable pulse in the femoral (?graft) and popliteal/DP/AT signals. She was supine during the operation and no retraction near the
iliacs/femoral artery. I consulted vascular surgery and Dr. Rodriguez is at the bedside. I updated the patient's son, Jesus.
[2024-10-25 17:11] LABS: Calcium 7.1 mg/dl (8.4-10.2)
--- NOTE | 2024-10-25 17:27 | CON.VAS ---
Addendum entered and electronically signed by Sonny Rodriguez III, MD 10/25/24 18:14:
This patient was seen and examined in the ICU with FLORY Henry. I agree with the history and physical exam as well as the assessment and plan.
Called emergently by Dr. Melendez to evaluate patient. Immediately postop from exploratory laparotomy with sigmoid colectomy and end colostomy. History of significant peripheral arterial disease. Previously cared for at [facility]
Patient complaining of 10 out of 10 left lower extremity pain immediately postop
Unable to move left foot or toes. No dorsiflexion. No plantarflexion. No gross sensation in the left foot.
With support of the thigh she is able to flex/extend at the knee but is weak compared to the right
Unable to obtain Doppler signals at the left popliteal, DP or PT
Nonpalpable left femoral pulse
Palpable right femoral pulse
Left foot pale compared to the right
Stat CTA of the abdomen, pelvis and bilateral lower extremity runoff obtained. I personally reviewed the images. The patient has an aortobifemoral bypass. The left iliac limb is thrombosed. The left common femoral artery is thrombosed. The
proximal profunda femoral artery and superficial femoral artery are thrombosed but distal reconstitution is identified in both. There is an occlusion of the popliteal artery distally. No enhancement of the tibial arteries is identified even on
delayed phase imaging.
I explained the imaging findings to the patient as well as her son Jesus via telephone. My recommendation is that we proceed to the operating room immediately for revascularization attempts. The technical aspects of this procedure were discussed
with her and her son in detail. The benefits and rationale for this approach were discussed with both of them in detail. Operative risks were discussed with them in detail including but not limited to bleeding/need for blood transfusion, heart
attack, , stroke, limb loss, infection, wound healing complications, distal embolization, need for additional procedures. I was very clear with both of them and explained that her risk of limb loss is high.
She expressed a clear understanding of our conversation as did her son Jesus over the telephone and both agreed to proceed with surgery as detailed above.
Sonny Rodriguez III, MD
[facility]
[phone] (cell)
Original Note:
Consultation
Consultation Request
Performing Provider: Michael
Reason for Consultation: Left lower extremity ischemia
Medical History
-
Chief Complaint: Left lower extremity pain
History of Present Illness:
64-year-old female with past medical history of recurrent rectal prolapse status post ventral mesh rectoplasty, hypertension, PVD, hypercholesterolemia, anemia, CKD, renal artery stent. Patient transferred here from [facility] for abscess near
the sigmoid colon. Patient having having recurrent rectal prolapse and recently underwent repair on 09/[address] Melendez. About 6 days ago patient had developed severe abdominal pain associated nausea/vomiting/fevers/chills. Patient had presented
to [facility] with the symptoms and was found to have a bowel perforation and was transferred here for surgery. Today patient had exploratory laparotomy, open sigmoid colectomy, incidental appendectomy, and end sigmoid ostomy with Dr. Melendez.
Upon waking from surgery patient was noted to have left lower extremity weakness/pain and left foot drop. Patient was also noted not have any Doppler signals in the left lower extremity. Vascular consulted for these findings
Patient seen at bedside in the ICU with Dr. Rodriguez. Upon examination we could not appreciate any Doppler signals of the left lower extremity, foot is slightly cooler than right. Patient is able to kick the leg up from the knee but cannot move the
foot at the ankle.
Past Medical History
Past Medical History: Other (See above)
Past Surgical History: Other (See above)
Social History
Tobacco: Former Smoker (Quit 5 years ago)
Family History
Family History: Reviewed & Not Pertinent
Allergies / Home Medications
Allergy/AdvReac Type Severity Reaction Status Date / Time
NSAIDS (Non-Steroidal Allergy UNABLE TO Verified 09/30/24 11:32
Anti-Inflamma TAKE D/T
KIDNEY
INSUFFICIENCY
Sulfa (Sulfonamide Allergy Rash Verified 09/30/24 11:32
Antibiotics)
�Medication �Instructions �Recorded �Confirmed �Type
acetaminophen 500 mg capsule 1,000 mg PO Q6H PRN pain 09/26/24 09/30/24 History
amlodipine 10 mg tablet 10 mg PO HS 09/26/24 09/30/24 History
atorvastatin 20 mg tablet 20 mg PO DAILY 09/26/24 09/30/24 History
cholecalciferol (vitamin D3) 25 25 mcg PO DAILY 09/26/24 09/30/24 History
mcg (1,000 unit) tablet (Vitamin
D3)
clonidine HCl 0.3 mg tablet 0.6 mg PO TID 09/26/24 09/30/24 History
clopidogrel 75 mg tablet (Plavix) 75 mg PO DAILY 09/26/24 09/30/24 History
cyclobenzaprine 10 mg tablet 10 mg PO PRN PRN sciatica 09/26/24 09/30/24 History
hydralazine 100 mg tablet 100 mg PO TID 09/26/24 09/30/24 History
metoprolol succinate 100 mg 100 mg PO BID 09/26/24 09/30/24 History
tablet,extended release 24 hr
ildleeeo-idh-kdxp-FA-Ca carb-vit K 1 tab PO DAILY 09/26/24 09/30/24 History
18 mg iron-400 mcg-500 mg tablet
tramadol 50 mg tablet 50 mg PO BIDPRN PRN pain 09/26/24 09/30/24 History
valsartan 320 1 tab PO DAILY 09/26/24 09/30/24 History
mg-hydrochlorothiazide 25 mg tablet
Review of Systems
-
Unable to obtain full review of systems at this time due to: Acuity
History Source: Patient
Vascular: Reports Leg Pain / Claudication (?) and Numbness
Physical Exam
Vital Signs
Temp Pulse Resp BP Pulse Ox
99.3 F 142 19 115/67 100
10/25/24 11:39 10/25/24 16:08 10/25/24 16:08 10/25/24 16:08 10/25/24 16:08
Lab Results
10/25/24 16:43
Physical Exam
General: Pain
HEENT: Normocephalic and Atraumatic
Respiratory: Non Labored Respirations (On mask)
Cardiac: Negative JVD
GI: Soft, Tender and Other (JEAN drain and dressing from today surgery intact)
Musculoskeletal: No Clubbing, Cyanosis and No Edema
Skin: Other
Neuro: Awake, Alert and Oriented
Psych: Agitated
Pulses: Right Femoral: +2
Assessment / Plan
-
64-year-old female here with bowel perforation status post exploratory laparotomy, open sigmoid colectomy, incidental appendectomy, and end sigmoid ostomy with Dr. Melendez today
Now has left lower extremity ischemia
Plan:
-CTA with runoff stat
-May require open surgical procedure to reperfuse left lower extremity
-Will follow-up after scan
Data Reviewed
-
Labs: Labs Reviewed by me
--- NOTE | 2024-10-25 18:18 | PTCARENOTE ---
patient received from OR direst back@1630. patient received writhing in bed, increase pain left leg. numb to above knee, unable to move left leg. +foot drop. Dr Melendez at bedside, only able to obtain femoral pulse by Doppler. leg cool. stat consult
to vascular MD. vascular team at bedside.medicated with dilaudid without efect. patient sinus tachycardia, rate 140's with frequent pvc. left radial arterial line with cuff correlation. stat labs sent. right abdomen JEAN with large amount bloody
drainage. Dr Melendez at bedside, aware. colostomy in place, small amount stool in bag. jorge draining scant urine. taken and returned from CT scan. Dr Jorge at bedside. patient to return to OR. Dr jorge updated son on phone, consent obtained. report
given to vascular OR team, unit PRBC initiated. care transfer to vascular OR team who have transported patient to vascular OR
--- NOTE | 2024-10-25 18:46 | W.SUR.PREOP ---
Pre-Operative Surgical Note
-
I have examined this patient prior to the performance of the scheduled procedure.
The patient's condition is unchanged from the time of the current History and
Physical and the patient is able to undergo the scheduled procedure.
[2024-10-25 19:14] LABS: B.E. - POC -8.5 mmol/L; Glucose - POC 166 mg/dl (70-99); HCO3 - POC 18 mmol/L (21-28); Hematocrit - POC 23 % PCV (37-47); Hemodilution- POC No; Hemoglobin Calculated - POC 7.9; Ionized Calcium - POC 0.99 mmol/L (1.15-1.33); Lactate - POC 1.35 mmol/L (0.36-0.75); O2 Saturation %Calculated-POC 99.8 % (94-98); PCO2 - POC 43 mmHg (35-48); PO2 - POC 258 mmHg (83-108); Potassium - POC 3.1 mmol/L (3.5-5.1); Sodium - POC 138 mmol/L (136-145); Specimen Type - POC Arterial; pH - POC 7.24 (7.35-7.45)
[2024-10-25 20:01] LABS: ACT-LR - POC 265 Seconds (116-155)
[2024-10-25 20:24] LABS: Glucose - POC 151 mg/dl (70-99); HCO3 - POC 19 mmol/L (21-28); Hematocrit - POC 26 % PCV (37-47); Hemodilution- POC Yes; Hemoglobin Calculated - POC 8.7; Ionized Calcium - POC 1.13 mmol/L (1.15-1.33); Lactate - POC 1.07 mmol/L (0.36-0.75); O2 Saturation %Calculated-POC 99.8 % (94-98); PCO2 - POC 33 mmHg (35-48); PO2 - POC 250 mmHg (83-108); Potassium - POC 4.3 mmol/L (3.5-5.1); Sodium - POC 139 mmol/L (136-145); Specimen Type - POC Arterial; pH - POC 7.38 (7.35-7.45)
--- NOTE | 2024-10-25 21:52 | OR.RPT ---
Operative Report
Operative Report
Date of Operation: 10/25/2024
Pre Op Diagnosis:
1. Acute limb ischemia, left lower extremity
2. Occlusion of left iliac limb of aortobifemoral bypass
3. Occlusion of left common femoral artery, profunda femoral artery and superficial femoral artery
Post Op Diagnosis:
1. Acute limb ischemia, left lower extremity
2. Occlusion of left iliac limb of aortobifemoral bypass
3. Occlusion of left common femoral artery, profunda femoral artery and superficial femoral artery
Procedure:
1. Thrombectomy of occluded left iliac limb of aortobifemoral bypass
2. Left common femoral artery endarterectomy
3. Revision of left femoral anastomosis of aortobifemoral bypass using 8 mm Dacron graft
4. Balloon angioplasty and stenting of left iliac limb of aortobifemoral bypass using 2 overlapping 8 mm x 59 mm [place] VBX stents
5. Left lower extremity arteriogram
6. Reoperation, left groin from prior aortobifemoral bypass
Surgeon: Sonny Rodriguez III, MD
Bull Gang Worker: Colby Dumont MD PGY1:
Anesthesia: General
Complications: None
Estimated Blood Loss: 150 cc
History and Indications for Procedure: 64-year-old female with acute limb ischemia following exploratory laparotomy, colectomy and colostomy creation. Cross-sectional imaging demonstrated occlusion of the left iliac limb of her aortobifemoral
bypass.
Procedure in Detail: Radha Aguilera was correctly identified and placed supine on the operating table. After adequate induction of anesthesia her lower abdomen, pelvis, bilateral groins and left lower extremity circumferentially were prepped
and draped in the usual sterile fashion. She received preoperative antibiotics. A timeout procedure was performed with nursing and anesthesia staff confirming the patient's identity as well as the nature and laterality of the procedure.
Systemic heparin was administered at the beginning of the case. A vertical incision was made in the left groin. Electrocautery and sharp dissection were used to expose the left femoral anastomosis of the aortobifemoral bypass. The graft in the
left groin was exposed first and proximal control was obtained with a vessel loop under the inguinal ligament. There was no pulse in the graft. The femoral anastomosis to the common femoral artery was exposed with careful sharp dissection. The
common femoral artery was diffusely and densely calcified. Sharp dissection continued distally to expose the femoral bifurcation, proximal superficial femoral artery and proximal profunda femoral artery. The proximal superficial femoral artery and
profunda femoral artery were soft and each was encircled with a vessel loop.
A therapeutic ACT was confirmed. I made a transverse incision on the lacey of the graft at the left femoral anastomosis. Well-organized chronic appearing thrombus was visualized in the graft and in the common femoral artery at the anastomosis.
This was removed with forceps. A #5 Bassam catheter was passed retrograde through the iliac limb. Multiple passes were made with the #5 Bassam balloon. A mix of chronic appearing thrombus and more acute thrombus was removed from the left iliac
limb. Multiple passes were made with this Bassam catheter until no further thrombus was retrieved. On each pass I met resistance within the left iliac limb that did not resolve. Weak pulsatile inflow was obtained. The limb was flushed with
heparinized saline and a clamp was applied.
I then opened the graft distally onto the common femoral artery using an 11 blade and Rosa scissors. Dense calcified plaque was encountered in the common femoral artery extending to the femoral bifurcation. I extended the arteriotomy onto the
proximal superficial femoral artery beyond the plaque. The femoral anastomotic suture line was removed with scissors and an 11 blade. The graft anastomosis was disconnected. An endarterectomy was performed with a Derwent elevator. There were
several points of extremely thinned out common femoral artery along the back wall with a few full-thickness tears and therefore I elected not to proceed with patch angioplasty. I completed the femoral endarterectomy at the femoral bifurcation. The
plaque was everted from the proximal profunda femoral artery. Backbleeding was demonstrated from the proximal profunda femoral artery. I did pass a #3 Bassam balloon down the profunda femoral artery but did not return any thrombus. The artery
was flushed with heparinized saline solution and the Vesseloops secured. The distal plaque endpoint feathered quite nicely on the proximal superficial femoral artery with no distal intimal flap identified. Similarly I passed the #3 Bassam balloon
down the superficial femoral artery. The Bassam balloon catheter was easily advanced until it was hubbed. Several passes were made with the #3 Bassam balloon catheter but no thrombus was returned. Backbleeding was identified. The superficial
femoral artery was then flushed with heparinized saline solution and the vessel loop reapplied.
I brought onto the field and 8 mm Dacron graft. The distal end of the 8 mm graft was beveled in a cobra head fashion to match the size of the endarterectomized femoral bifurcation and proximal superficial femoral artery. This anastomosis was
created using a running 5-0 Prolene suture. Following this anastomosis the proximal aspect of this graft was shortened appropriately. The distal end of the old iliac limb of the aorto by femoral bypass was shortened. An end-to-end anastomosis was
created between these 2 grafts using a running 5-0 Prolene suture. Prior to the completion of this end to end anastomosis the proximal clamp was temporarily released as well as the distal vessel loops. The area under the anastomosis was flushed
vigorously with heparinized saline solution to remove any potential thrombus or debris. The anastomosis was completed. The proximal clamp and the distal vessel loops were released. There was a very weak pulse in the graft consistent with the
prior inflow following thrombectomy. I therefore proceeded with endovascular evaluation of the left iliac limb.
Under direct visualization I punctured the graft in the left groin in a retrograde orientation using a micropuncture needle. I then upsized to a 7 Irish sheath over a Bentson wire. The Bentson wire was easily navigated into the abdominal aorta.
A esposito's hook catheter was advanced into the abdominal aorta and a diagnostic aortobiiliac arteriogram was performed. The abdominal aorta was patent. A small peripherally calcified abdominal aortic aneurysm was identified. The proximal
anastomosis of the aortobifemoral bypass was patent with no stenosis. The right iliac limb was patent. At the proximal aspect of the left iliac limb there was residual thrombus identified with poor distal flow.
I exchanged out for a [place] wire. Under roadmap guidance I then relined the left iliac limb from the flow divider down to the inguinal ligament using 2 overlapping 8 mm x 59 mm [place] VBX stents. Following deployment of the stents there was an
excellent pulse within the graft in the left groin. Strong pulses were easily palpable in the proximal profunda femoral artery and superficial femoral artery. A completion arteriogram demonstrated widely patent left iliac limb stents with no
residual stenosis identified. A runoff arteriogram of the left lower extremity was performed which demonstrated widely patent left femoral anastomotic reconstruction with brisk outflow through the profunda femoral artery and superficial femoral
artery. The popliteal artery was patent. Three-vessel tibial artery runoff was identified in the proximal calf. The peroneal artery was patent to the ankle. The posterior tibial artery continued across the ankle and into the foot. Sluggish flow
was identified through the anterior tibial artery.
Satisfied with this result we then concluded the endovascular portion of the procedure. The 7 Irish sheath and wire were removed from the access site. The graft puncture site was repaired primarily with 5-0 Prolene suture. All suture lines were
closely inspected for hemostasis which was achieved. Protamine was administered. Hemostasis was achieved in the wound bed. The left groin wound was irrigated with copious amounts of warm saline solution. The wound was then closed in multiple
layers and a sterile JAYME dressing was applied.
The patient tolerated the procedure well and was taken to the intensive care unit in stable condition. DP and PT Doppler signals in the left foot were marked at the skin.
Attestation: I was present and responsible for the entire procedure
Signed:
Sonny Rodriguez III, MD
[facility] Surgery
[phone] (cell)
--- NOTE | 2024-10-25 22:01 | W.IMMPOSTOP ---
Surgical Immed Post Op Note
-
Primary Surgeon: Michael
Assisting Surgeon: Julia
Pre-op Diagnosis: Acute limb threatening ischemia
Post-op Diagnosis: Acute limb threatening ischemia of L aorto-fem graft
Procedure Performed: L fem graft embolectomy, fem graft endarterectomy with graft repair
Anesthesia Type: General
Specimen / Cultures: None
Estimated Blood Loss: 100 cc
Complications: None
Operative Findings: Acute on chronic thrombus in L aorto-fem graft. Embolectomy with endarterectomy and graft repair.
[2024-10-25] MEDS: SUBLIMAZE 50 MCG IV (22:56)
[2024-10-25] MEDS: SUBLIMAZE 100 IV (22:57)
[2024-10-25] MEDS: LR 1000 IV (23:19)
[2024-10-25 23:31] LABS: B.E. -8.5 mmol/L; HCO3 17.3 mmol/L (21-28); O2 Saturation % 99.1 % (94-98); PCO2 36 mmHg (32-35); PO2 206 mmHg (83-108); pH 7.29 (7.35-7.45)
[2024-10-25 23:37] LABS: O2 Therapy VENT
[2024-10-25 23:41] LABS: Hematocrit 28.9 % (37.0-47.0); Hemoglobin 9.6 g/dL (12.0-16.0); Mean Corp Hgb Conc. 33.2 g/dL (33.0-37.0); Mean Corpuscular Hgb 28.2 pg (27.0-31.0); Mean Corpuscular Volume 84.8 fL (81.0-99.0); Mean Platelet Volume 10.9 fL (7.4-10.4); Platelet Count 218 10^3/uL (130-400); Red Blood Cell Count 3.41 10^6/uL (4.20-5.40); Red Cell Dist. Width 14.7 % (11.5-14.5); White Blood Cell Count 11.4 10^3/uL (4.8-10.8)
[2024-10-25 23:50] LABS: Blood Urea Nitrogen 72 mg/dl (7-17); Calcium 7.3 mg/dl (8.4-10.2); Carbon Dioxide 17 mmol/L (22-30); Chloride 103 mmol/L (98-107); Glucose 185 mg/dl (70-99); Magnesium 2.4 mg/dl (1.6-2.3); Phosphorus 6.3 mg/dl (2.5-4.5); Potassium 4.6 mmol/L (3.5-5.1); Sodium 136 mmol/L (135-145)
[2024-10-26] LABS: Estimated Creatinine Clearance 16 ml/min; eGFR 19.74
--- NOTE | 2024-10-26 | PTCARENOTE ---
received pt from OR around 2244 and got bedside report, pt intubated, levo gtt off, L rad A-line was disconnected with mod amount of blood loss, OR nurse retightened A-line and zeroed, pt unresponsive pupils 4 sluggish, B/L wrist restraints applied,
no movement of extremities, Sinus tach on the monitor, doppler left pedal, weak left popliteal, normal left fem, weak right pedal, trace anasarca, #7 ETT 22 @ lip on R, AC 14/400/5/50 SpO2 100% lungs diminished and coarse, BSx4 hypoactive, NGT 65cm
R nare to continuos suction per order, jorge yellow output, R JEAN emptied for 80ml, wounds per worklist, R IJ TL, 20G L hand and wrist, 20G RAC, otherwise refer to documentation.
[2024-10-26] MEDS: LOPRESSOR 5 MG IV ×4 (00:15→23:21)
[2024-10-26] MEDS: SODIUM BICARBONATE 1150 MEQ IV (00:21)
[2024-10-26] MEDS: SUBLIMAZE 50 MCG IV ×5 (00:50→07:52)
[2024-10-26] MEDS: SODIUM BICARBONATE 50 MEQ IV (01:23)
[2024-10-26] MEDS: NSS 1000 IV (01:23)
[2024-10-26] MEDS: CALCIUM GLUCONATE 100 IV (01:40)
[2024-10-26] MEDS: ZOSYN 50 IV ×4 (03:40→23:21)
[2024-10-26 03:52] LABS: B.E. -0.9 mmol/L; HCO3 23.2 mmol/L (21-28); O2 Saturation % 99.4 % (94-98); PCO2 35 mmHg (32-35); PO2 196 mmHg (83-108); pH 7.43 (7.35-7.45)
[2024-10-26 03:58] LABS: Hematocrit 24.7 % (37.0-47.0); Hemoglobin 8.3 g/dL (12.0-16.0); Mean Corp Hgb Conc. 33.6 g/dL (33.0-37.0); Mean Corpuscular Hgb 27.9 pg (27.0-31.0); Mean Corpuscular Volume 82.9 fL (81.0-99.0); Mean Platelet Volume 10.6 fL (7.4-10.4); Platelet Count 186 10^3/uL (130-400); Red Blood Cell Count 2.98 10^6/uL (4.20-5.40); Red Cell Dist. Width 14.5 % (11.5-14.5); White Blood Cell Count 9.6 10^3/uL (4.8-10.8)
[2024-10-26 04:25] LABS: ALT (SGPT) 117 U/L (0-35); AST (SGOT) 231 U/L (14-36); Albumin 1.6 g/dl (3.5-5.0); Alkaline Phosphatase 180 U/L (38-126); Blood Urea Nitrogen 70 mg/dl (7-17); Calcium 7.3 mg/dl (8.4-10.2); Carbon Dioxide 25 mmol/L (22-30); Chloride 105 mmol/L (98-107); Estimated Creatinine Clearance 15 ml/min; Glucose 87 mg/dl (70-99); Magnesium 2.1 mg/dl (1.6-2.3); Potassium 3.5 mmol/L (3.5-5.1); Sodium 141 mmol/L (135-145); Total Bilirubin 0.5 mg/dl (0.2-1.3); Total Protein 3.2 g/dl (6.3-8.2); eGFR 18.06
[2024-10-26] MEDS: ATIVAN 0.5 MG IV (04:47)
--- NOTE | 2024-10-26 04:51 | PTCARENOTE ---
systems reviewed, pt restless mouthing when is the tube coming out, pain meds given per MAR and education provided, WASH TANK TENDER @ bedside pt mouthed for something to calm her down, Ativan given per order, gtts titrated per worklist, pt making 5ml/hr of urine
WASH TANK TENDER made aware, otherwise refer to documentation
[2024-10-26] MEDS: NSS (PRESERVATIVE FREE) 0.25 ML IV (05:21)
[2024-10-26] MEDS: LOPRESSOR IV (05:25)
[2024-10-26] MEDS: PRECEDEX 100 IV (05:26)
[2024-10-26 05:29] VITALS: BMI 19.9
[2024-10-26] MEDS: ALBUMIN 5% 250 IV ×2 (06:23→08:07)
[2024-10-26] MEDS: KCL 160 MEQ IV (06:29)
--- NOTE | 2024-10-26 07:15 | PTCARENOTE ---
Received pt intubated, with bilateral soft wrist restraints intact. Right IL TL CVC with Fentanyl @75mcg/hr, Precedex@0.9mcg/kg/hr, IVF @125ml/hr. Handoff NV assessment with + bilateral DP/PT pulses, weak palpable left femoral pulse with PICOT
dressing. She is awake and RODARTE. Mouthing words. PERRLA +2, sluggishly reactive. Right AC#20g site flushed and patent, Left wrist #22g and left hand #20g both flushed and patent. Lungs CTA posteriorly dim in the bases. #7 ETT secured 22cm left lip.
AC 14/400/.40/+5. Absent BSX4. Right Nare Dodge Sump secured 65cm, to continuous wall suction @80mmHg. Scant amount of green bilious secretions. Flushed as ordered. Indwelling Rodriguez catheter secured. Scant amount of yellow urine in collection bag.
Abdominal incision TICKET CLERK with anju approximated. Left abdominal colostomy moderate amount of brown stool and gas. Unable to visualize bud due to stool. Right lower abdominal JEAN drain with SS drainage. Gauze dressing CDI. She had a patterned
discoloration to her abdomen and upper thighs bilaterally. Fatuma hugger to her L/E's on moderate setting. Rectal temperature 98.1. Optifoam dressing to her sacrum intact. She was informed of the plan of care to wake her up a bit and place her on an
SBT via the ventilator and hopefully remove the endotracheal tube later today. SHe was continuing to mouth words and use hand gestures. Safe environment maintained.
--- NOTE | 2024-10-26 07:35 | W.PN.INTV ---
Today's Communication / Plan
Recommendations
Spontaneous breathing trial
Analgesia-avoid oversedation
Neurovascular checks of left lower extremity revascularization
Nasogastric tube per surgery
Antibiotics
Intravenous fluids
Assessment
-
64-year-old female with history of hypertension, PAD, hyperlipidemia, chronic renal disease, renal artery stenosis status post stent who had a recent ventral mesh rectal plasty 09/30/2024 who presented to [facility] with abdominal
pain found to have perforation and abscess transferred back to [facility] and automatic fancy machine operator consulted for abdominal abscess/hypertensive emergency/critical care management 10/25/2024.
Hypertensive emergency
Perforated sigmoid colon with pericolonic abscess and partial small bowel obstruction
Status post exploratory laparotomy, sigmoid colon resection with end colostomy and incidental appendectomy
Postoperative acute limb ischemia-left lower extremity with occlusion left iliac limb of aortobifem bypass
Status post emergent revascularization-thrombectomy of occluded left iliac limb of aortofemoral bypass, left common femoral endarterectomy, revision of femoral anastomosis and balloon angioplasty-Dr. Rodriguez-10/25/2024
Ventilator dependent respiratory failure postoperatively
Intubated 10/25/2024
Extubated
Sepsis without hypotension
JACOB
Metabolic acidosis
Leukocytosis
[id number]-[id number] 10.7
Hyperglycemia
Conditions present prior to admission:
Hypertension.
Hyperlipidemia.
Anemia.
PAD.
Chronic kidney disease.
Renal artery stenosis/stent.
Former [id number] 2019
Rectal prolapse/ventral mesh rectopexy 09/30/2024.
Plan
Patient remains critically ill on a ventilator postoperatively
Ventilator settings reviewed
Pulmonary airway pressures reviewed
ABGs reviewed
Attempt spontaneous breathing trial
Hope to extubate
Supplemental oxygen if needed
Incentive spirometry
Nebulizers if needed-currently not bronchospastic
Monitor blood pressure closely
Hydralazine as needed
Labetalol as needed
Monitor renal function
Nephrology following-correspondence reviewed
Nicardipine drip if needed
Norepinephrine and vasopressin if needed postoperatively
Bicarb drip if needed
Report of CT abdomen from [facility] noted
Colorectal surgery following-operation 10/25/2024 noted and summarized above
Vascular surgery following-postoperative limb ischemia
Status post revascularization 10/25/2024
Neurovascular checks
Cultures reviewed
Abdominal abscess nqogqjb-uykm-rtfchbmo bacilli
Empiric antibiotics to cover abdominal sources
Monitor hemoglobin
Transfuse if needed
Monitor blood sugar
Insulin supplementation as needed
DVT prophylaxis-on heparin drip
GI prophylaxis if on ventilator greater than 24 hours with hypotension
Early nutrition
Early mobilization
Outpatient pulm evaluation-with smoking history, PFT, yearly low-dose lung cancer screening CT chest
Critical care statement: A total of 45 minutes of critical care time was provided for this patient today. This includes management of unstable vital signs, evaluation of the patient at bedside, reviewing the patient's pertinent medical records
including radiographs, ventilator management, spontaneous breathing trial management, pressor management, microbiology, laboratory evaluations, and discussion with primary team, consultants, pharmacy, nutrition, physical therapy, case management,
charge nurse, critical care nursing, and respiratory therapy.
Diagnostic data:
Chest x-ray 10/25/2024-NAD
Subjective Dataa
Subjective Data
Date of Service:
Date of Service: October 26, 2024
Chief Complaint: Hatchery Manager Follow Up, Pulmonary Follow Up and Vent Management Follow Up
Subjective:
Events noted, no increase secretions, now arousable, blood pressure stable, pain controlled
Review of Systems
General: Unobtainable - Sedation
Objective Data
Data Reviewed
Vital Signs / I&O / Oxygen:
Vital Signs
Temp Pulse Resp BP Pulse Ox
98.2 F 85 14 104/59 100
10/26/24 07:24 10/26/24 06:00 10/26/24 06:00 10/26/24 05:25 10/26/24 06:00
Intake and Output
10/25/24 10/26/24 10/27/24
06:59 06:59 06:59
Intake Total 1000 / 1000 4060.9 / 4060.9
Output Total 800 / 800
Balance 1000 / 1000 3260.9 / 3260.9
SaO2 [A/C] 100
SaO2 100
Physical Exam
General: Respiratory Distress (n) and Comfortable
HEENT: Normocephalic, Anicteric and Moist Mucous Membranes
Cardiovascular: Regular Rhythm
Respiratory: Wheeze (n), Crackles, Rhonchi (n), Non-Labored Respirations, Accessory Resp Muscle Use (n) and ET Tube
GI: Soft and Distended
Neurology: Awake, Alert and No Motor Deficits
Skin: Warm, Good Color, Cyanosis (n) and Jaundice (n)
Labs/Micro/Reports
Lab Data
10/26/24 03:46
10/26/24 03:46
Laboratory Results
10/25/24 10/26/24
23:26 03:46
pH 7.29 L 7.43
pCO2 36 H 35
pO2 206 H 196 H
HCO3 17.3 L 23.2
O2 Delivery Level Vent
Microbiology
10/25/24 14:11 Abdomen Gram Stain - Preliminary
--- NOTE | 2024-10-26 08:10 | W.PN.NEPH.PH ---
Today's Communication / Plan
-
Follow BMP
Maintain MAP of 65 or greater
Closely monitoring hemodynamics
Assessment/Plan
-
4^-year-old female past medical history of recurrent rectal prolapse status post ventral mesh rectopexy, hypertension, peripheral vascular disease, hypercholesteremia, anemia, CKD, renal artery stenosis status post left renal stent presenting as a
transfer from [facility] for abscess near sigmoid colon possible perforation.
Renal consult for acute on chronic kidney disease she follows with Dr. Edson Ding pattern generator operator [place]
Baseline creatinine appears to be between 1.8 and 2.0. She presented with a creatinine of 3.2 and a metabolic acidosis
Impression:
Acute on chronic kidney disease.
Acute metabolic acidosis.
Hypertensive urgency.
Pericolonic abscess.
History of renal artery stenosis with left stent.
.
Plan:
Status post OR last evening with left lower extremity requiring thrombectomy of occluded left iliac limb of aortobifemoral bypass with left common femoral artery enterectomy
Acuity of JACOB likely hemodynamically mediated with a blood pressure 200+ systolic
More hypotensive now, creatinine at 2.8, oliguric, on norepinephrine
BP remains labile
Metabolic acidosis corrected following bicarbonate administration
Zosyn renally dosed
Maintain Rodriguez catheter
Will likely require reinitiation of IV antihypertensives once her blood pressure recovers
Would add Catapres transdermal going forward once bp rebounds as she is on unbelievably high doses of clonidine as outpatient
No acute need for dialysis at this time but given multiple nephrotoxic insults will have to be monitored closely
Discussed with critical care nursing
Patient critically ill with pressor requiring hypotension intubation
Maintain MAP of 65 or greater to augment renal artery perfusion
Total Time Spent with Patient (in minutes): 31-minute
-
-
Date of Service: October 26, 2024
CC / HPI / ROS
-
Chief Complaint:
JACOB
History of Present Illness:
Creatinine at 2.8
Blood pressure profoundly hemodynamically labile now on norepinephrine for hypotension overnight
Remains intubated but awake and alert
Review of Systems:
Oliguric via Rodriguez catheter
No fevers
FiO2 stable on vent
Weight stable
Labs
-
Labs:
WBC 9.6 10^3/uL (4.8-10.8) 10/26/24 03:46
RBC 2.98 10^6/uL (4.20-5.40) L 10/26/24 03:46
Hgb 8.3 g/dL (12.0-16.0) L 10/26/24 03:46
Hct 24.7 % (37.0-47.0) L 10/26/24 03:46
Plt Count 186 10^3/uL (130-400) 10/26/24 03:46
Sodium 141 mmol/L (135-145) 10/26/24 03:46
Potassium 3.5 mmol/L (3.5-5.1) 10/26/24 03:46
Chloride 105 mmol/L (98-107) 10/26/24 03:46
Carbon Dioxide 25 mmol/L (22-30) 10/26/24 03:46
BUN 70 mg/dl (7-17) H 10/26/24 03:46
Creatinine 2.8 mg/dL (0.6-1.0) H 10/26/24 03:46
eGFR 18.06 10/26/24 03:46
Glucose 87 mg/dl (70-99) 10/26/24 03:46
Calcium 7.3 mg/dl (8.4-10.2) L 10/26/24 03:46
Phosphorus 6.3 mg/dl (2.5-4.5) H 10/25/24 23:26
Albumin 1.6 g/dl (3.5-5.0) L 10/26/24 03:46
Physical Exam
-
Vital Signs:
Vital Signs
Temp Pulse Resp BP Pulse Ox
98.2 F 85 14 104/59 100
10/26/24 07:24 10/26/24 06:00 10/26/24 06:00 10/26/24 05:25 10/26/24 07:36
Cardiovascular:: Regular rate and rhythm
Respiratory:: Bilateral: CTA
Lung Excursion:: Normal
Abdomen:: Distended and Tender
Bowel Sounds:: Decreased
Extremity Edema:: None: Bilateral:
Rodriguez Catheter: Yes
Other Findings::
General: Intubated but awake and alert and interactive
--- NOTE | 2024-10-26 08:34 | W.PN.VS ---
Addendum entered and electronically signed by Sloitario Hodges MD 10/26/24 12:24:
Seen and examined earlier this a.m. with COLDFUSION Cortes. Agree with findings as noted below. Patient still intubated at that time. Abdomen soft. Left groin dressing clean dry and intact. No hematoma. Feet both warm. Palpable DP pulse bilaterally.
Calf compartments left leg soft. Plan/as discussed and noted below. Note hemoglobin returned as very low subsequent to seeing her. Will transfuse blood. Will initiate heparin as well given thrombotic event.
Original Note:
Today's Communication / Plan
-
Patient seen and examined at bedside with Dr. Solitario Hodges, below plan reviewed with attending.
Assessment/Plan
-
Assessment: 64-year-old female POD #1 Thrombectomy of occluded left iliac limb of aortobifemoral bypass. Left common femoral artery endarterectomy. Revision of left femoral anastomosis of aortobifemoral bypass using 8 mm Dacron graft. Balloon
angioplasty and stenting of left iliac limb of aortobifemoral bypass using 2 overlapping 8 mm x 59 mm [place] VBX stents. Left lower extremity arteriogram. Reoperation, left groin from prior aortobifemoral bypass for occlusion of left iliac limb of
aortobifemoral bypass, left common femoral artery, left profunda artery, and left superficial femoral artery following colorectal surgery.
Plan:
Given occlusion from acute thrombectomy would prefer to initiate anticoagulation as soon as possible, reviewed with colorectal surgeon Dr. Melendez who cleared for initiation of heparin at low dose 12 units/kg with no bolus
Continue neurovascular checks
Appreciate slurry man for management of ventilator
Once tolerating p.o. intake should reinitiate antiplatelet medication
Subjective Data
-
Date of Service: October 26, 2024
Patient seen and examined at bedside, remains intubated. Does attempt to mouth words over ET tube and moves all extremities.
Objective Data
-
Vital Signs
Temp Pulse Resp BP Pulse Ox
98.2 F 85 14 104/59 100
10/26/24 07:24 10/26/24 06:00 10/26/24 06:00 10/26/24 05:25 10/26/24 08:10
Intake and Output
10/25/24 10/26/24 10/27/24
06:59 06:59 06:59
Intake Total 1000 / 1000 4060.9 / 4204.7 143.8 / 143.8
Output Total 800 / 800
Balance 1000 / 1000 3260.9 / 3404.7 143.8 / 143.8
Intake:
IV fluids (Total) 1000 / 1000 3620.9 / 3764.7 143.8 / 143.8
LR bolus 1000 / 1000
NS bolus 1000 / 1000
Nss 1,000 ml @ 125 mls/hr IV . 250 / 250
Q8H LAKEISHA Rx#:[id number]
Sterile Water For Injection 1200 / 1325 125 / 125
1000 ml 1,000 ml @ 125 mls/hr
IV .Q9H12M LAKEISHA with Sodium
Bicarbonate 150 Meq Rx#:
[id number]
cardene 47.5 / 47.5
dex 60.9 / 72.2 11.3 / 11.3
fent 47.5 / 55.0 7.5 / 7.5
levo
IV piggybacks 350 / 350
Amount instilled into GI Tube (
Total)
Gautier Sump 90 /
Output:
Drain Output (Total) 570 / 570
Right Abdomen Shamar-Adams 570 / 570
Urine, Rodriguez 230 / 230
Urine, Voided 0 / 0
Other:
Number of approximated SMALL 1
amounts of urine
How many times incontinent 1
SMALL amount urine
Lab Results
10/26/24 03:46
10/26/24 03:46
Calcium 7.3 mg/dl (8.4-10.2) L 10/26/24 03:46
Phosphorus 6.3 mg/dl (2.5-4.5) H 10/25/24 23:26
Magnesium 2.1 mg/dl (1.6-2.3) 10/26/24 03:46
Total Bilirubin 0.5 mg/dl (0.2-1.3) 10/26/24 03:46
AST 231 U/L (14-36) H 10/26/24 03:46
ALT 117 U/L (0-35) H 10/26/24 03:46
Alkaline Phosphatase 180 U/L (38-126) H 10/26/24 03:46
Total Protein 3.2 g/dl (6.3-8.2) L D 10/26/24 03:46
Albumin 1.6 g/dl (3.5-5.0) L 10/26/24 03:46
Physical Exam
-
Intubated on Precedex infusion and fentanyl infusion, moves all extremities
No tachycardia
Left groin dressing CDI, no evidence of hematoma, extremity warm, warm, patient with full range of motion at left foot, calf soft
Left DP pulse palpable
--- NOTE | 2024-10-26 10:04 | W.PN.CRS1 ---
Today's Communication / Plan
-
extubate per primary team
hep gtt starting today
continue antibiotics
wound RN
continue NGT
Assessment/Plan
-
POD#1 open sigmoid colectomy, incidental appendectomy, and end sigmoid ostomy
POD#1 Thrombectomy of occluded left iliac limb of aortobifemoral bypass/Left common femoral artery endarterectomy
WBC: 9.6 (11.4), Hgb 8.3 (9.6)
Vitals: hypotensive (on norepi), afebrile (on sin hugger due to temp 96), mildly tachy 100's
-Extubation per Prescription Clerk
-Wean norepi gtt
-OOB per vascular (okay from our perspective)
-Wound RN for colostomy care
-Keep NGT if extubated
-OR pathology pending
-Heparin gtt starting by vascular today - discussed with vascular
-Continue jorge for I/O's
-Continue IV antibiotics
-Surgical JEAN drain in place
-Appreciate hospitalist, vascular, nephrology, cold roll packer sheet iron
Subjective Data
Procedure
10/25/2024- open sigmoid colectomy, incidental appendectomy, and end sigmoid ostomy
10/25/2024- Thrombectomy of occluded left iliac limb of aortobifemoral bypass/Left common femoral artery endarterectomy
Subjective Data
Date of Service: October 26, 2024
Patient is intubated and partially sedated. When asked if she has pain, she nods her head 'no'. Otherwise, she is not able to communicate. She is in no acute distress.
Objective Data
-
Vital Signs
Temp Pulse Resp BP Pulse Ox
98.2 F 104 15 104/59 100
10/26/24 07:24 10/26/24 08:45 10/26/24 08:45 10/26/24 05:25 10/26/24 08:45
Intake & Output
10/25/24 10/26/24 10/27/24
06:59 06:59 06:59
Intake Total 1000 / 1000 4060.9 / 4204.7 567.6 / 567.6
Output Total 800 / 800 / 65
Balance 1000 / 1000 3260.9 / 3404.7 502.6 / 502.6
Intake:
IV fluids (Total) 1000 / 1000 3620.9 / 3764.7 287.6 / 287.6
LR bolus 1000 / 1000
NS bolus 1000 / 1000
Nss 1,000 ml @ 125 mls/hr IV . 250 / 250
Q8H LAKEISHA Rx#:[id number]
Sterile Water For Injection 1200 / 1325 250 / 250
1000 ml 1,000 ml @ 125 mls/hr
IV .Q9H12M LAKEISHA with Sodium
Bicarbonate 150 Meq Rx#:
[id number]
cardene 47.5 / 47.5
dex 60.9 / 72.2 22.6 / 22.6
fent 47.5 / 55.0 15.0 / 15.0
levo
IV piggybacks 350 / 350 250 / 250
Amount instilled into GI Tube ( 90 / 90 30 / 30
Total)
Nunda Sump 90 / 90 30 / 30
Output:
Drain Output (Total) 570 / 570
Right Abdomen Shamar-Adams 570 / 570
Urine, Jorge 230 / 230
Urine, Voided 0 / 0
Other:
Number of approximated SMALL 1
amounts of urine
How many times incontinent 1
SMALL amount urine
Lab Results
10/26/24 03:46
Physical Exam
-
General: No Acute Distress and Other (intubated)
Abdomen: Soft, Non Distended, Non Tender and Other (colostomy warm, stool in bag)
Wound: Dressing in Place
Incision: Clear, Dry, Intact
[2024-10-26] MEDS: LR 1000 IV (10:45)
[2024-10-26] MEDS: HEPARIN 25000 UNITS/250 ML IV ×2 (10:46→11:25)
[2024-10-26 11:01] LABS: Hematocrit 19.8 % (37.0-47.0); Hemoglobin 6.8 g/dL (12.0-16.0); Mean Corp Hgb Conc. 34.3 g/dL (33.0-37.0); Mean Corpuscular Hgb 27.9 pg (27.0-31.0); Mean Corpuscular Volume 81.1 fL (81.0-99.0); Mean Platelet Volume 10.9 fL (7.4-10.4); Platelet Count 158 10^3/uL (130-400); Red Blood Cell Count 2.44 10^6/uL (4.20-5.40); Red Cell Dist. Width 13.9 % (11.5-14.5); White Blood Cell Count 11.5 10^3/uL (4.8-10.8)
[2024-10-26 11:03] LABS: APTT 37.4 Sec (23.4-35.0)
[2024-10-26 11:43] VITALS: BP 166/78
--- NOTE | 2024-10-26 11:48 | W.PN.HOSP.TC ---
Today's Communication/Plan
-
2 unit PRBC
continue NPO/NGT
continue IV Zosyn
continue IV heparin
possible extubation today
Assessment / Plan
Assessment / Plan
Assessment:
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
- Thrombectomy of occluded left iliac limb of aortobifemoral bypass/Left common femoral artery endarterectomy performed 10/25
- continue IV Heparin - requires intensive monitoring of PTTs
- continue neurovascular checks
- Vascular following
Perforated sigmoid colon with pericolonic abscess formation with partial SBO
Acute Sepsis (tachycardia, leukocytosis) from acute GI colonic source
- s/p open sigmoid colectomy, incidental appendectomy, and end sigmoid ostomy 10/25
- continue IV Zosyn, day 2
- continue NPO/NGT
- pain control, anti-emetics
- CRS following
Intubation for acute surgical procedures
VDRF
- extubation planned today
Acute blood loss anemia on chronic anemia
- 2 unit PRBC ordered; monitor Hb
Shock - multifactorial from hemorrhagic and sepsis
- wean pressors as able
Accelerated hypertension with risk of developing hypertensive emergency
History of underlying Accelerated HTN with multi-drug regimen and history of PARI s/p L Renal artery stenting
- OP regimen includes Amlodipine, Clonidine, Hydralazine, Metoprolol, ARB, HCTZ
- currently NPO
- consider resumption of IV Cardene drip; requires monitoring per protocol for obtain SBP 140-160 range. Patient did not respond to multiple IV Hydralazine and BB doses.
- consider Clonidine patch; defer to nephrology
History of recurrent rectal prolapse status post ventral mesh rectopexy with recent repair
JACOB on CKD stage 3b
Acute metabolic acidosis
- suspect driven by accelerated HTN and critical illness
- Nephrology following
- maintain Rodriguez for critical I/Os
history of PARI s/p L Renal artery stenting
Peripheral vascular disease
Hypercholesterolemia
- hold Plavix/Statin
Hypokalemia - replete prn
Former smoker
DVT ppx: SCDs
Code: Full
Total Critical Care Time 42 minutes. I was immediately available to the patient and staff. I personally examined, reviewed labs, diagnostic images/reports, interpretations, treatment plans, discussed patient care with other providers and family
or caregivers (if patient is unable to make decisions), entered orders as appropriate and documented the medical record.
Anticipated Discharge: > 48 hours
Subjective/Interval History
-
Date of Service: October 26, 2024
s/p colorectal and urgent vascular thrombectomy/endarterectomy procedure last evening
remains intubated, lightly sedated
Hb 6.8 - 2 units ordered and IV heparin dose reduced
Objective Data
-
Labs:
Laboratory Results
10/25/24 10/25/24 10/26/24
17:16 23:26 03:46
WBC Cancelled 9.6
Hgb Cancelled 8.3 L
Hct Cancelled 24.7 L
Plt Count Cancelled 186
APTT
HCO3 23.2
Sodium 136 141
Potassium 4.6 D 3.5
Chloride 103 105
Carbon Dioxide 17 L 25
BUN 72 H 70 H
Creatinine 2.6 H 2.8 H
Glucose 185 H 87
Calcium 7.3 L 7.3 L
Total Bilirubin 0.5
AST 231 H
ALT 117 H
Alkaline Phosphatase 180 H
10/26/24 10/26/24
10:42 16:45
WBC 11.5 H
Hgb 6.8 L*
Hct 19.8 L*
Plt Count 158
APTT 37.4 H Pending
HCO3
Sodium
Potassium
Chloride
Carbon Dioxide
BUN
Creatinine
Glucose
Calcium
Total Bilirubin
AST
ALT
Alkaline Phosphatase
Vital Signs:
Vital Signs
Temp Pulse Resp BP Pulse Ox
99.1 F 117 11 166/78 100
10/26/24 11:43 10/26/24 11:43 10/26/24 11:43 10/26/24 11:43 10/26/24 11:43
I&O
10/25/24 10/26/24 10/27/24
06:59 06:59 06:59
Intake Total 1000 / 1000 4060.9 / 4204.7 838.9 / 838.9
Output Total 800 / 807 80 / 80
Balance 1000 / 1000 3260.9 / 3397.7 758.9 / 758.9
Physical Exam
-
General: Intubated
HEENT: Normocephalic and Atraumatic
Respiratory: Negative Wheezes
Cardiac: Regular Rhythm
GI: Soft and Tender
Musculoskeletal: No Edema
Neuro: AO x 3
Psych: Calm
Data Reviewed
-
Critical Care Time (in minutes): 42
Labs: Labs Reviewed by me
[2024-10-26 11:58] VITALS: BP 182/85
--- NOTE | 2024-10-26 12:08 | CM ---
CM following re: discharge planning.
Discussed in Rounds, reviewed pt's chart, met with pt.
Per rounds meeting, pt is POD#1 open sigmoid colectomy, POD#1 Thrombectomy of occluded left iliac limb of aortobifemoral bypass, intubated yesterday, plan to extubate today, continue supportive care.
Pt lives with son and his family 2SH, 2 steps to enter, has 1st floor set up, known to [facility].
D/C byers: uncertain at this time and will depend on pt's progress.
CM will follow with discharge plan updates as hospitalization progresses
[2024-10-26] MEDS: CARDENE 200 IV (12:19)
[2024-10-26 12:24] LABS: ACT-LR - POC > 397 Seconds (116-155)
[2024-10-26] MEDS: SUBLIMAZE 25 MCG IV ×5 (13:07→18:05)
[2024-10-26 13:17] VITALS: BP 142/72
--- NOTE | 2024-10-26 13:30 | WOUNDNOTE ---
WOC RN NOTE: Patient with new colostomy, currently intubated. Ostomy functioning with brownish/green liquid output. Appliance intact, ostomy supplies at bedside. Will continue to follow with patient for ostomy care/teaching.
[2024-10-26 13:35] LABS: B.E. -0.3 mmol/L; O2 Saturation % 98.9 % (94-98); PCO2 37 mmHg (32-35); PO2 146 mmHg (83-108); pH 7.42 (7.35-7.45)
[2024-10-26 13:44] VITALS: BP 138/73
[2024-10-26 14:02] VITALS: BP 145/71
--- NOTE | 2024-10-26 14:06 | PTCARENOTE ---
pt extubated to 5 liters nasal cannula. Immediately asked for 'something for my throat'. She was provided another oral swab. Restraints also removed at this time. She was instructed not to pull at any of her tubes, IV's or tubings. She verbalized
her understanding.
--- NOTE | 2024-10-26 15:23 | W.PN.ANS.POP ---
Anesthesia Post Operative
- Anesthesia Post Op Note
Vital Signs Stable-See Nursing Note: Yes (cont on cardene gtt)
Airway Patent: Yes (extubated toleratihng NC O2)
Adequate Pain Control: Yes
Change in Mental Status: No
Current Postoperative Nausea & Vomiting: No
Anesthesia Complications: No
General Anesthetic Recall: No
Unplanned Admission: No
Post Op Hydration Adequate: Yes
[2024-10-26 15:38] VITALS: BP 125/66
[2024-10-26] MEDS: CATAPRES-TTS-3 0.3 MG TRANSDERM (16:39)
[2024-10-26 18:16] LABS: Hematocrit 30.9 % (37.0-47.0); Hemoglobin 10.9 g/dL (12.0-16.0); Mean Corp Hgb Conc. 35.3 g/dL (33.0-37.0); Mean Corpuscular Hgb 28.7 pg (27.0-31.0); Mean Corpuscular Volume 81.3 fL (81.0-99.0); Mean Platelet Volume 10.4 fL (7.4-10.4); Platelet Count 182 10^3/uL (130-400); Red Cell Dist. Width 14.1 % (11.5-14.5); White Blood Cell Count 18.3 10^3/uL (4.8-10.8)
--- NOTE | 2024-10-26 18:28 | PTCARENOTE ---
No change in heparin drip for PTT 78, will obtain PTT in 6 hours per protocol. Pt was instructed on the use if the IS fr the prevention of PNA and atelectasis, especially since she had 2 surgeries, and has large abdominal incision with immobility.
SHe demonstrated the use of the IS to 500ml's.
[2024-10-26] MEDS: DILAUDID 1 MG IV ×2 (20:01→23:22)
--- NOTE | 2024-10-26 20:30 | PTCARENOTE ---
Assumed care, pt arousable verbally, drowsy and lethargic, RODARTE, Ox3, c/o 04/20 abd pain refer to MAR, Sinus tach c PVCs on the monitor, + radials, weak R pedal, + popliteal, weak L femoral, trace anasarca, L rad A-line zeroed, 94% on RA, lungs
diminished and coarse, BSx4 hypoactive L colostomy stoma budded with brown soft stool, R nare NGT 65cm continuos suction per order brown output, Rodriguez yellow output, RR abd JEAN, refer to worklist for wounds, Fatuma hugger off to low extremities core
temp 99.5, 20 L hand, 22 L wrist, 20 RAC, R TL IJ, dex, Cardene, hep, LR gtts titrated per worklist, call cota within reach, pt able to make needs known, otherwise refer to documentation.
[2024-10-27] VITALS (21 sets, daily range): BP systolic 137–189; BP diastolic 78–103; BMI 22.1
--- NOTE | 2024-10-27 00:09 | PTCARENOTE ---
systems reviewed, refer to MAR for pain management, gtts titrated per worklist, PTT sent, CHG bath mouth care, call cota within reach otherwise refer to documentation.
[2024-10-27] MEDS: CARDENE 200 IV (00:38)
[2024-10-27 00:59] LABS: APTT 76.1 Sec (23.4-35.0)
[2024-10-27] MEDS: DILAUDID 1 MG IV ×6 (02:47→23:38)
[2024-10-27] MEDS: ZOSYN 50 IV ×4 (02:55→21:31)
[2024-10-27] MEDS: LR 1000 IV (04:31)
[2024-10-27 05:35] LABS: Hemoglobin 10.6 g/dL (12.0-16.0); Mean Corp Hgb Conc. 34.2 g/dL (33.0-37.0); Mean Corpuscular Hgb 27.5 pg (27.0-31.0); Mean Corpuscular Volume 80.5 fL (81.0-99.0); Mean Platelet Volume 10.9 fL (7.4-10.4); Platelet Count 211 10^3/uL (130-400); Red Blood Cell Count 3.85 10^6/uL (4.20-5.40); Red Cell Dist. Width 14.5 % (11.5-14.5); White Blood Cell Count 23.5 10^3/uL (4.8-10.8)
[2024-10-27] MEDS: LOPRESSOR 5 MG IV ×4 (05:42→21:30)
[2024-10-27 05:50] LABS: APTT 75.8 Sec (23.4-35.0)
--- NOTE | 2024-10-27 05:58 | PTCARENOTE ---
systems reviewed, labs sent, A-line dressing changed, no change from previous assessment, otherwise refer to documentation.
[2024-10-27 06:55] LABS: ALT (SGPT) 203 U/L (0-35); AST (SGOT) 683 U/L (14-36); Albumin 2.3 g/dl (3.5-5.0); Alkaline Phosphatase 161 U/L (38-126); Blood Urea Nitrogen 78 mg/dl (7-17); Calcium 7.3 mg/dl (8.4-10.2); Carbon Dioxide 21 mmol/L (22-30); Chloride 104 mmol/L (98-107); Estimated Creatinine Clearance 12 ml/min; Glucose 50 mg/dl (70-99); Potassium 3.9 mmol/L (3.5-5.1); Sodium 142 mmol/L (135-145); Total Bilirubin 0.6 mg/dl (0.2-1.3); Total Protein 4.2 g/dl (6.3-8.2); eGFR 14.31
--- NOTE | 2024-10-27 07:08 | PTCARENOTE ---
Lab reported glucose 50, finger stick 52. Dr. Armijo notified via TT.
[2024-10-27] MEDS: DEXTROSE 50% SYRINGE 25 GRAMS IV (07:10)
[2024-10-27 07:15] LABS: Glucose - Point of Care 52 mg/dl (70-99)
[2024-10-27 07:38] LABS: Glucose - Point of Care 123 mg/dl (70-99)
[2024-10-27 07:48] LABS: Glucose - Point of Care 126 mg/dl (70-99)
--- NOTE | 2024-10-27 07:48 | W.PN.INTV ---
Today's Communication / Plan
Recommendations
Antibiotics
Monitor colostomy stoma-might require revision
Fluid bolus
Add D5
Heparin drip
Neurovascular left lower extremity checks
Keep in ICU
Assessment
-
64-year-old female with history of hypertension, PAD, hyperlipidemia, chronic renal disease, renal artery stenosis status post stent who had a recent ventral mesh rectal plasty 09/30/2024 who presented to [facility] with abdominal
pain found to have perforation and abscess transferred back to [facility] and corporate specialist consulted for abdominal abscess/hypertensive emergency/critical care management 10/25/2024.
Hypertensive emergency
Perforated sigmoid colon with pericolonic abscess and partial small bowel obstruction
Status post exploratory laparotomy, sigmoid colon resection with end colostomy and incidental appendectomy
Postoperative acute limb ischemia-left lower extremity with occlusion left iliac limb of aortobifem bypass
Status post emergent revascularization-thrombectomy of occluded left iliac limb of aortofemoral bypass, left common femoral endarterectomy, revision of femoral anastomosis and balloon angioplasty-Dr. Rodriguez-10/25/2024
Ventilator dependent respiratory failure postoperatively
Intubated 10/25/2024
Extubated
Sepsis without hypotension
JACOB
Metabolic acidosis
Leukocytosis
Ojtnnj-urjlrlujyc-czlbtcearj 10.7
Hyperglycemia
Conditions present prior to admission:
Hypertension.
Hyperlipidemia.
Anemia.
PAD.
Chronic kidney disease.
Renal artery stenosis/stent.
Former [id number]
Rectal prolapse/ventral mesh rectopexy 09/30/2024.
Plan
Patient remains critically ill off ventilator, hemodynamic instability and ischemic stoma
Tolerated extubation
Wean FiO2
Nebulizers if needed
Aspiration precautions
Monitor hemodynamics closely
Hydralazine as needed
Labetalol as needed
Monitor renal function
Nephrology following-correspondence reviewed
Nicardipine drip discontinued
Norepinephrine and vasopressin currently not needed
Bicarb drip as needed
Report of CT abdomen from [facility] noted
Colorectal surgery following-operation 10/25/2024 noted and summarized above
Stoma appears ischemic
Bedside scope with viable tissue below fascia-no emergent OR yet for revision
Vascular surgery following-postoperative limb ischemia-correspondence reviewed
Status post revascularization 10/25/2024
Neurovascular checks continue
Heparin drip continues-eventually transition to oral anticoagulant
Once tolerating p.o. intake should reinitiate antiplatelet therapy
Cultures reviewed
Abdominal abscess joqgsou-avql-pityryqj bacilli-E. coli and Streptococcus species
Empiric antibiotics to cover abdominal sources-Zosyn continues
Monitor leukocytosis
Monitor renal function
Lasix on hold
Nephrology following-correspondence reviewed
No acute dialysis requirements
Monitor hemoglobin
Transfuse if needed
Monitor blood sugar-episodes of hypoglycemia
Add D5
Insulin supplementation as needed
DVT prophylaxis-on heparin drip
GI prophylaxis if on ventilator greater than 24 hours with hypotension
Early nutrition
Early mobilization
Dr. Villela updated brother at the bedside in detail and on multidisciplinary rounds 10/27/2024
Outpatient pulm evaluation-with smoking history, PFT, yearly low-dose lung cancer screening CT chest
Critical care statement: A total of 42 minutes of critical care time was provided for this patient today. This includes management of unstable vital signs, evaluation of the patient at bedside, reviewing the patient's pertinent medical records
including radiographs, pressor management, microbiology, laboratory evaluations, and discussion with primary team, consultants, pharmacy, nutrition, physical therapy, case management, charge nurse, critical care nursing, and respiratory therapy.
Diagnostic data:
Chest x-ray 10/25/2024-NAD
CT abdomen 10/25/2024-occlusion of left limb aortobifem bypass
Subjective Dataa
Subjective Data
Date of Service:
Date of Service: October 27, 2024
Chief Complaint: [employer]ing [employer] Follow Up, Pulmonary Follow Up and Vent Management Follow Up
Subjective:
Tolerated extubation, complains of thirst, no complaints of chest pain, productive cough, abdominal pain controlled
Review of Systems
General: Other (Per HPI)
Objective Data
Data Reviewed
Vital Signs / I&O / Oxygen:
Vital Signs
Temp Pulse Resp BP Pulse Ox
99.1 F 107 15 138/61 94
10/27/24 07:32 10/27/24 06:00 10/27/24 06:00 10/27/24 05:42 10/27/24 07:32
Intake and Output
10/26/24 10/27/24 10/28/24
06:59 06:59 06:59
Intake Total 4060.9 / 4204.7 2998.9 / 2998.9
Output Total 800 / 807 1185 / 1185
Balance 3260.9 / 3397.7 1813.9 / 1813.9
SaO2 [CPAP/PSV] 100
SaO2 [A/C] 100
SaO2 94
Nasal Cannula flow liters per 3
minute
Physical Exam
General: Respiratory Distress (n) and Comfortable
HEENT: Normocephalic, Anicteric and Moist Mucous Membranes
Cardiovascular: Regular Rhythm
Respiratory: Wheeze (n), Crackles, Rhonchi (n), Non-Labored Respirations and Accessory Resp Muscle Use (n)
GI: Soft and Distended
Neurology: Awake, Alert and No Motor Deficits
Skin: Warm, Good Color, Cyanosis (n) and Jaundice (n)
Labs/Micro/Reports
Lab Data
10/27/24 05:22
10/27/24 05:22
Laboratory Results
10/26/24 10/26/24 10/26/24
10:42 13:17 18:02
APTT 37.4 H 78.0 H
pH 7.42
pCO2 37 H
pO2 146 H
HCO3 24.0
O2 Delivery Level
10/27/24 10/27/24
00:03 05:22
APTT 76.1 H 75.8 H
pH
pCO2
pO2
HCO3
O2 Delivery Level
Microbiology
10/25/24 14:11 Abdomen Wound Culture - Preliminary
Gram negative bacilli
10/25/24 14:11 Abdomen Gram Stain - Preliminary
10/25/24 14:11 Abdomen Anaerobic Culture - Preliminary
Culture pending. Anaerobic cultures are examined after 3
days incubation. Additional information to follow.
--- NOTE | 2024-10-27 07:49 | W.PN.VS ---
Addendum entered and electronically signed by Solitario Hodges MD 10/27/24 13:36:
Seen and examined earlier this a.m. with MATEUSZ Kobl. Agree with findings as noted below. Left groin flat, no hematoma. Dressing clean dry and intact. No evidence of bleeding. Feet both warm. Good Doppler signals. Calves soft bilaterally.
Plan/as discussed and noted below.
Original Note:
Today's Communication / Plan
-
Patient seen and examined at bedside with Dr. Solitario Hodges below plan reviewed with attending
Assessment/Plan
-
Assessment: 64-year-old female POD #2 Thrombectomy of occluded left iliac limb of aortobifemoral bypass. Left common femoral artery endarterectomy. Revision of left femoral anastomosis of aortobifemoral bypass using 8 mm Dacron graft. Balloon
angioplasty and stenting of left iliac limb of aortobifemoral bypass using 2 overlapping 8 mm x 59 mm [place] VBX stents. Left lower extremity arteriogram. Reoperation, left groin from prior aortobifemoral bypass for occlusion of left iliac limb of
aortobifemoral bypass, left common femoral artery, left profunda artery, and left superficial femoral artery following colorectal surgery.
Plan:
Hemoglobin responded appropriately following transfusion of 2 units packed red blood cell yesterday, continue monitoring with at least daily CBC
Continue heparin infusion until p.o. status initiated then will transition to oral anticoagulation
Once tolerating p.o. intake should reinitiate antiplatelet medication
Subjective Data
-
Date of Service: October 27, 2024
Patient seen and examined at bedside, denies pain at left foot or calf. Does endorse great desire for p.o. intake, otherwise does not offer any other complaints.
Objective Data
-
Vital Signs
Temp Pulse Resp BP Pulse Ox
99.1 F 107 15 138/61 94
10/27/24 07:32 10/27/24 06:00 10/27/24 06:00 10/27/24 05:42 10/27/24 07:32
Intake and Output
10/26/24 10/27/24 10/28/24
06:59 06:59 06:59
Intake Total 4060.9 / 4204.7 2998.9 / 2998.9
Output Total 800 / 807 1185 / 1185
Balance 3260.9 / 3397.7 1813.9 / 1813.9
Intake:
IV fluids (Total) 3620.9 / 3764.7 2048.9 / 2048.9
Heparin 90 / 90
LR bolus 1000 / 1000
Lr 1,000 ml @ 60 mls/hr IV . 1140 / 1140
[id number] [place] Rx#:[id number]
NS bolus 1000 / 1000
Nss 1,000 ml @ 125 mls/hr IV . 250 / 250
Q8H [place] Rx#:[id number]
Sterile Water For Injection 1200 / 1325 500 / 500
1000 ml 1,000 ml @ 125 mls/hr
IV .Q9H12M [place] with Sodium
Bicarbonate 150 Meq Rx#:
[id number]
cardene 47.5 / 47.5 215.0 / 215.0
dex 60.9 / 72.2 88.9 / 88.9
fent 47.5 / 55.0 15.0 / 15.0
levo 15 / 15
IV piggybacks 350 / 350 300 / 300
Amount instilled into GI Tube ( 90 / 90 150 / 150
Total)
[place] Sump 90 / 90 150 / 150
Blood Product Amount Infused ( 500 / 500
mL)
Packed Rbc Leukoreduced Unit 250 / 250
[id number]
Packed Rbc Leukoreduced Unit 250 / 250
[id number]
Output:
Liquid stool amount 460 / 460
Colostomy 460 / 460
Drain Output (Total) 570 / 570 260 / 260
Right Abdomen Shamar-Adams 570 / 570 260 / 260
Gastrointestinal tube output ( 50 / 50
Total)
[place] Sump 50 / 50
Urine, Rodriguez 230 / 237 415 / 415
Urine, Voided 0 / 0
Other:
How many times incontinent 1
SMALL amount urine
Lab Results
10/27/24 05:22
10/27/24 05:22
Calcium 7.3 mg/dl (8.4-10.2) L 10/27/24 05:22
Phosphorus 6.3 mg/dl (2.5-4.5) H 10/25/24 23:26
Magnesium 2.1 mg/dl (1.6-2.3) 10/26/24 03:46
Total Bilirubin 0.6 mg/dl (0.2-1.3) 10/27/24 05:22
AST 683 U/L (14-36) H* 10/27/24 05:22
ALT 203 U/L (0-35) H 10/27/24 05:22
Alkaline Phosphatase 161 U/L (38-126) H 10/27/24 05:22
Total Protein 4.2 g/dl (6.3-8.2) L D 10/27/24 05:22
Albumin 2.3 g/dl (3.5-5.0) L 10/27/24 05:22
Physical Exam
-
No apparent distress, awake and alert resting in bed comfortably
No dyspnea
NG tube to suction
Left groin dressing CDI, no evidence of hematoma, extremity warm, warm, patient with full range of motion at left foot, calf soft
Left DP/PT pulse by Doppler, right DP pulse by Doppler, bilateral feet warm
--- NOTE | 2024-10-27 08:52 | W.PN.NEPH.PH ---
Today's Communication / Plan
-
No acute dialysis requirement
Holding Lasix at this time
Blood pressure reasonable on IV metoprolol and clonidine patch
Okay to continue lactated Ringer's IVFs while npo
Assessment/Plan
-
4^-year-old female past medical history of recurrent rectal prolapse status post ventral mesh rectopexy, hypertension, peripheral vascular disease, hypercholesteremia, anemia, CKD, renal artery stenosis status post left renal stent presenting as a
transfer from [facility] for abscess near sigmoid colon possible perforation.
Renal consult for acute on chronic kidney disease she follows with Dr. Edson Ding television actor [place]
Baseline creatinine appears to be between 1.8 and 2.0. She presented with a creatinine of 3.2 and a metabolic acidosis
Impression:
Acute on chronic kidney disease.
Acute metabolic acidosis.
Hypertensive urgency.
Pericolonic abscess.
History of renal artery stenosis with left stent.
Postop sigmoid colectomy incidental appendectomy and end sigmoid ostomy
Postop thrombectomy of occluded left iliac limb of aortobifemoral bypass\\left common femoral artery endarterectomy
.
Plan:
Status post OR with left lower extremity agniogram requiring thrombectomy of occluded left iliac limb of aortobifemoral bypass with left common femoral artery enterectomy
Acuity of JACOB likely hemodynamically mediated with a blood pressure 200+ systolic and contrast inducted nephropathy
Creatinine worsening to 3.4, BUN up to 78, oliguric ~400cc,weights up
Patient now with blood coming from ostomy and may have to return to the OR
BP remains acceptable on clonidine patch, IV Lopressor (patient remains npo)
Metabolic acidosis corrected following bicarbonate administration
Zosyn renally dosed
Maintain Rodriguez catheter
Anemia improved following 2 unit transfusion on 10/26/2024
Remains on heparin infusion
No acute need for dialysis at this time but given multiple nephrotoxic insults will have to be monitored closely
Patient remains at high clinical risk with worsening renal failure
Okay to continue lactated Ringer's at this time, patient NPO, no hyperkalemia
Holding Lasix for now
High risk for continued renal decline and possible dialysis requirement within next 24 to 48 hours
Patient with possible underlying bleeding on heparin drip
Discussed with critical care nursing
-
-
Date of Service: October 27, 2024
CC / HPI / ROS
-
Chief Complaint:
JACOB
History of Present Illness:
Creatinine worsening to 3.4
Hemodynamically stable on IV metoprolol and clonidine patch
Now extubated
Hemoglobin up to 10.6 following 2 unit blood transfusion yesterday
Review of Systems:
Oliguric via Rodriguez catheter
No fevers
Black liquid stool in ostomy
Weight up
NG tube
Labs
-
Labs:
WBC 23.5 10^3/uL (4.8-10.8) H 10/27/24 05:22
RBC 3.85 10^6/uL (4.20-5.40) L 10/27/24 05:22
Hgb 10.6 g/dL (12.0-16.0) L 10/27/24 05:22
Hct 31.0 % (37.0-47.0) L 10/27/24 05:22
Plt Count 211 10^3/uL (130-400) 10/27/24 05:22
Sodium 142 mmol/L (135-145) 10/27/24 05:22
Potassium 3.9 mmol/L (3.5-5.1) 10/27/24 05:22
Chloride 104 mmol/L (98-107) 10/27/24 05:22
Carbon Dioxide 21 mmol/L (22-30) L 10/27/24 05:22
BUN 78 mg/dl (7-17) H 10/27/24 05:22
Creatinine 3.4 mg/dL (0.6-1.0) H 10/27/24 05:22
eGFR 14.31 10/27/24 05:22
Glucose 50 mg/dl (70-99) L* 10/27/24 05:22
Calcium 7.3 mg/dl (8.4-10.2) L 10/27/24 05:22
Phosphorus 6.3 mg/dl (2.5-4.5) H 10/25/24 23:26
Albumin 2.3 g/dl (3.5-5.0) L 10/27/24 05:22
Physical Exam
-
Vital Signs:
Vital Signs
Temp Pulse Resp BP Pulse Ox
99.1 F 107 15 138/61 94
10/27/24 07:32 10/27/24 06:00 10/27/24 06:00 10/27/24 05:42 10/27/24 07:32
Cardiovascular:: Regular rate and rhythm
Respiratory:: Bilateral: CTA
Lung Excursion:: Normal
Abdomen:: Distended and Tender
Bowel Sounds:: None
Extremity Edema:: None: Bilateral:
Rodriguez Catheter: Yes
Other Findings::
HEENT: NGT
Ostomy with black liquid stool
--- NOTE | 2024-10-27 09:00 | PTCARENOTE ---
Notified by colorectal team of black stoma. Awaiting orders for possible surgical intervention, for now will continue with Heparin drip. Pt and her brother is also aware of the plan of care.
--- NOTE | 2024-10-27 09:00 | PTCARENOTE ---
Receive pt with Precedex & Cardene off. Heparin @ 500units/hr and LR@60ml/hr. Pt asking for physician to drink. She was informed that typically pt's are NPO for several days to allow bowels to heal and wake up. She was informed of the plan of care
to remove arterial line and increase bed mobility. She verbalized her understanding.
[2024-10-27 09:56] LABS: Glucose - Point of Care 79 mg/dl (70-99)
--- NOTE | 2024-10-27 10:18 | PTCARENOTE ---
Preparing for bedside scope. Summer NGUYEN & Dr. Espinoza @ bedside. Pt aware of the plan of care.
[2024-10-27] MEDS: ZOFRAN 4 MG IV ×2 (10:33→20:00)
[2024-10-27] MEDS: DILAUDID 0.5 MG IV (10:33)
[2024-10-27] MEDS: LR 500 IV (11:02)
[2024-10-27] MEDS: D5LR 1000 IV ×2 (11:03→22:05)
--- NOTE | 2024-10-27 11:09 | W.PN.HOSP.TC ---
Today's Communication/Plan
-
continue IV Heparin
continue IV Zosyn
continue IV Metoprolol/Clonidine patch
monitor Labs
Assessment / Plan
Assessment / Plan
Assessment:
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
- Thrombectomy of occluded left iliac limb of aortobifemoral bypass/Left common femoral artery endarterectomy performed 10/25
- continue IV Heparin - requires intensive monitoring of PTTs
- continue neurovascular checks
- Vascular following
Perforated sigmoid colon with pericolonic abscess formation with partial SBO
Acute Sepsis (tachycardia, leukocytosis) from acute GI colonic source
- s/p open sigmoid colectomy, incidental appendectomy, and end sigmoid ostomy 10/25
- continue IV Zosyn, day 3
- continue NPO/NGT
- pain control, anti-emetics
- CRS following
- 10/27: concern for bleeding/necrosis of bowel; await final report of bedside scope
Intubation for acute surgical procedures
VDRF
- s/p extubation 10/26
Acute blood loss anemia on chronic anemia
- s/p 2 unit PRBCs; Hb 10.6 most recently.
Shock - multifactorial from hemorrhagic and sepsis
- wean pressors as able
Accelerated hypertension with risk of developing hypertensive emergency
History of underlying Accelerated HTN with multi-drug regimen and history of PARI s/p L Renal artery stenting
- OP regimen includes Amlodipine, Clonidine, Hydralazine, Metoprolol, ARB, HCTZ.
- currently NPO
- continue IV Metoprolol and Clonidine patch. s/p Cardene drip.
History of recurrent rectal prolapse status post ventral mesh rectopexy with recent repair
JACOB on CKD stage 3b
Acute metabolic acidosis
- suspect driven by accelerated HTN and critical illness
- Nephrology following
- maintain Rodriguez for critical I/Os
- continue IVF
history of PARI s/p L Renal artery stenting
Peripheral vascular disease
Hypercholesterolemia
- hold Plavix/Statin
Hypokalemia - replete prn
Former smoker
Hypoglycemia
- check accu-checks q6h
- dextrose IVF
DVT ppx: SCDs
Code: Full
Total Critical Care Time 47 minutes. I was immediately available to the patient and staff. I personally examined, reviewed labs, diagnostic images/reports, interpretations, treatment plans, discussed patient care with other providers and family
or caregivers (if patient is unable to make decisions), entered orders as appropriate and documented the medical record.
Anticipated Discharge: > 48 hours
Subjective/Interval History
-
Date of Service: October 27, 2024
concern for stoma bleeding/necrosis but verbally reported that bedside scope with viable bowel; no need for OR
reports neck pain, anxiety
Objective Data
-
Labs:
Laboratory Results
10/27/24 10/27/24
00:03 05:22
WBC 23.5 H
Hgb 10.6 L
Hct 31.0 L
Plt Count 211
APTT 76.1 H 75.8 H
Sodium 142
Potassium 3.9
Chloride 104
Carbon Dioxide 21 L
BUN 78 H
Creatinine 3.4 H
Glucose 50 L*
Calcium 7.3 L
Total Bilirubin 0.6
AST 683 H*
ALT 203 H
Alkaline Phosphatase 161 H
Vital Signs:
Vital Signs
Temp Pulse Resp BP Pulse Ox
99.1 F 116 17 150/87 96
10/27/24 07:32 10/27/24 10:00 10/27/24 10:00 10/27/24 08:44 10/27/24 10:00
I&O
10/26/24 10/27/24 10/28/24
06:59 06:59 06:59
Intake Total 4060.9 / 4204.7 2998.9 / 3063.9 320 / 320
Output Total 800 / 807 1185 / 1198 129 / 129
Balance 3260.9 / 3397.7 1813.9 / 1865.9 191 / 191
Physical Exam
-
General: No Apparent Distress
HEENT: Normocephalic, Atraumatic and Other (+NGT)
Respiratory: Clear to Auscultation; Negative Wheezes or Rales
Cardiac: Regular Rhythm and S1/S2
GI: Soft and Ostomy
Neuro: AO x 3
Psych: Calm
Data Reviewed
-
Critical Care Time (in minutes): 47
Labs: Labs Reviewed by me
--- NOTE | 2024-10-27 11:17 | PTCARENOTE ---
Pt c/o neck stiffness and insomnia, she also stated she was very anxious. Dr. Armijo arrived in the room and made aware of the pt's concern. IVF bolus infusing, IVF changed as ordered. Safe environment maintained.
[2024-10-27 11:21] LABS: Glucose - Point of Care 80 mg/dl (70-99)
--- NOTE | 2024-10-27 11:28 | W.PN.CRS1 ---
Today's Communication / Plan
-
flex sig
keep ngt, okay for ice chips
Assessment/Plan
-
POD#2 open sigmoid colectomy, incidental appendectomy, and end sigmoid ostomy
POD#2 Thrombectomy of occluded left iliac limb of aortobifemoral bypass/Left common femoral artery endarterectomy
WBC: 23.5 (18.3), Hgb 10.6 (10.9)
Vitals: hypertensive (on cardene), afebrile, tachy cardiac in the 100's
-Given the way the stoma looks in appearance, will plan on bedside flex/sig with Dr. Espinoza
-Wean cardene gtt
-OOB per vascular (okay from our perspective)
-Wound RN for colostomy care
-Continue NGT. Okay for ice chips.
-OR pathology pending
-On heparin gtt per vascular
-Continue jorge for I/O's
-Continue IV antibiotics
-Surgical JEAN drain in place
-Appreciate hospitalist, vascular, nephrology, revenue stamper
Subjective Data
Procedure
10/25/2024- open sigmoid colectomy, incidental appendectomy, and end sigmoid ostomy
10/25/2024- Thrombectomy of occluded left iliac limb of aortobifemoral bypass/Left common femoral artery endarterectomy
Subjective Data
Date of Service: October 27, 2024
Objective Data
-
Vital Signs
Temp Pulse Resp BP Pulse Ox
99.1 F 117 18 155/79 96
10/27/24 07:32 10/27/24 11:00 10/27/24 11:00 10/27/24 10:39 10/27/24 11:00
Intake & Output
10/26/24 10/27/24 10/28/24
06:59 06:59 06:59
Intake Total 4060.9 / 4204.7 2998.9 / 3063.9 905 / 905
Output Total 800 / 807 1185 / 1198 169 / 169
Balance 3260.9 / 3397.7 1813.9 / 1865.9 736 / 736
Intake:
IV fluids (Total) 3620.9 / 3764.7 2048.9 / 2113.9 345 / 345
D5lr 1,000 ml @ 80 mls/hr IV . 80 / 80
[id number] [place] Rx#:[id number]
Heparin 90 / 95 25 / 25
LR bolus 1000 / 1000
Lr 1,000 ml @ 60 mls/hr IV . 1140 / 1200 240 / 240
[id number] [place] Rx#:[id number]
NS bolus 1000 / 1000
Nss 1,000 ml @ 125 mls/hr IV . 250 / 250
Q8H [place] Rx#:[id number]
Sterile Water For Injection 1200 / 1325 500 / 500
1000 ml 1,000 ml @ 125 mls/hr
IV .Q9H12M [place] with Sodium
Bicarbonate 150 Meq Rx#:
[id number]
cardene 47.5 / 47.5 215.0 / 215.0
dex 60.9 / 72.2 88.9 / 88.9
fent 47.5 / 55.0 15.0 / 15.0
levo 15 / 15
IV piggybacks 350 / 350 300 / 300 500 / 500
Amount instilled into GI Tube ( 90 / 90 150 / 150 60 / 60
Total)
[place] Sump 90 / 90 150 / 150 60 / 60
Blood Product Amount Infused ( 500 / 500
mL)
Packed Rbc Leukoreduced Unit 250 / 250
[id number]
Packed Rbc Leukoreduced Unit 250 / 250
[id number]
Output:
Liquid stool amount 460 / 460
Colostomy 460 / 460
Drain Output (Total) 570 / 570 260 / 260 120 / 120
Right Abdomen Magda 570 / 570 260 / 260 120 / 120
Gastrointestinal tube output ( 50 / 50
Total)
[place] Sump 50 / 50
Urine, Jorge 230 / 237 415 / 428 49 / 49
Urine, Voided 0 / 0
Other:
How many times incontinent 1
SMALL amount urine
Lab Results
10/27/24 05:22
10/27/24 05:22
Physical Exam
-
General: No Acute Distress and AOx3
Abdomen: Soft, Non Distended, Tender (mild around incision) and Other (Stoma black, but warm, some stool in bag. JEAN drain serous. )
Skin: Warm and Dry
Wound: Dressing in Place
--- NOTE | 2024-10-27 11:32 | W.PN.INTV ---
Today's Communication / Plan
Recommendations
Flexible sigmoidoscopy tomorrow
Trend serum creatinine, as per nephro may require dialysis if creatinine continues to rise
Wean off nicardipine infusion
Blood sugar optimization
Hypoglycemia protocol
Assessment
-
IMPRESSION
Ms. Sheridan is a 64-year-old female ,drinks alcohol occasionally,quit smoking 5 years ago with past medical history of recurrent rectal prolapse status post ventral mesh rectopexy, hypertension, peripheral vascular disease, hypercholesteremia,
anemia, CKD, renal artery stenosis status post left renal stent presenting as a transfer from [facility] for an abscess near sigmoid colon.
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
Assessment
Perforated sigmoid colon with pericolonic abscess formation with partial SBO
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
s/p extubation 10/26
Acute blood loss anemia on chronic anemia
JACOB
Hyperglycemia
Plan
Perforated sigmoid colon with pericolonic abscess formation with partial SBO
As per colorectal surgery the possible causes were sterile coral colitis, diverticulitis, ischemia, consequence of the surgery
Patient underwent exploratory laprotomy for perforated sigmoid colon with bowel resection and temporary ostomy
Patient remained critically ill on a ventilator postoperatively-Extubated on 10/26/2024
Patient complained of nausea, decreased appetite, pain at the ostomy site
Colorectal surgery consult appreciated-bedside scope done through ostomy-lots of mucus sloughing, mucosa appears pink suggesting appropriate perfusion
Continue to observe on daily basis the ostomy site for any necrotic tissue/infection
Has NG tube in place, colorectal surgery gave okay for ice chips
Bedside flexible sigmoidoscopy planned tomorrow by colorectal surgery
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
Immediately post laparotomy, patient complained of pain in left leg, numb, painful movements, nonpalpable femoral pulse in left thigh
Stat CTA of abdomen pelvis and bilateral lower extremity runoff obtained, aorto bifemoral bypass was in place
Appreciate vascular surgery:Thrombectomy of occluded left iliac limb of aortobifemoral bypas done along with revision of left femoral anastomosis of aortobifemoral bypass
Heparin infusion was started
Plan to continue heparin infusion until patient able to tolerate oral anticoagulation
Based on vascular surgery evaluation, patient is recovering well with no evidence of hematoma, extremity being well-perfused and no issues at the moment
Continue neurovascular checks
s/p extubation 10/26
Patient underwent intubation for acute surgical procedures
Vent dependent respiratory failure
Able to extubate on 10/26
Currently maintaining saturation on 3 L of oxygen
Acute blood loss anemia/underlying chronic anemia
Patient had the laparotomy done on October 25, hemoglobin dropped significantly
Received 2 packs of RBC on October 26, 2024, responded appropriately with increase in hemoglobin by 2 g
Patient's hemoglobin currently stable around 10
Monitor hemoglobin
JACOB
Baseline creatinine between 1.8-2
Presented with creatinine of 3.2 and acute metabolic acidosis
Could be secondary to hypertensive emergency with a systolic blood pressure of 200
Received bicarb infusion for metabolic acidosis
Nephrology consult appreciated-suggested to keep mean arterial pressure of 65 or greater to augment renal artery perfusion
Patient is currently on IV metoprolol and clonidine patch as unable to tolerate oral medications
As per nephro-multiple nephrotoxic insults including fluctuating blood pressure, surgery, oliguria, stress, resulted in creatinine derangement
Lasix on hold
As per today-nephro suggested that there is a high risk for continued renal decline and possible dialysis requirement within the next 24-40
Hypertensive emergency
Monitor blood pressure closely
Initially patient presented with hypertensive emergency, then required vasopressors,Now,Blood pressures are on higher side
On nicardipine infusion-taper as able
Stable on IV metoprolol and clonidine patch
Shock -
multifactorial from hemorrhagic and sepsis
Patient is currently off vasopressors and maintaining blood pressure
Abdominal abscess idestrr-xfwo-beknllgc bacilli
Empiric antibiotics to cover abdominal sources
TLC count 23.5-rising trend
Source most likely the ostomy site
Continue IV Zosyn
History of diabetes mellitus
Initially blood sugar levels were high
September 2024, HbA1c 5.2
Morning BSR-50 mg, hypoglycemia protocol initiated
Monitor blood sugar levels and manage accordingly
Other medical conditions
Hypertension. Taper off nicardipine
Hyperlipidemia. Continue meds as able
PAD. History of biaortofemoral bypass
Chronic kidney disease. Baseline creatinine 1.8-2
Renal artery stenosis/stent.
Former [id number] 2019
Rectal prolapse/ventral mesh rectopexy 09/30/2024.
DVT prophylaxis-on heparin drip
Full code
Subjective Dataa
Subjective Data
Date of Service:
Date of Service: October 27, 2024
Chief Complaint: Fuel Manager Follow Up, Pulmonary Follow Up and Vent Management Follow Up
Objective Data
Data Reviewed
Vital Signs / I&O / Oxygen:
Vital Signs
Temp Pulse Resp BP Pulse Ox
99.1 F 117 18 155/79 96
10/27/24 07:32 10/27/24 11:00 10/27/24 11:00 10/27/24 10:39 10/27/24 11:00
Intake and Output
10/26/24 10/27/24 10/28/24
06:59 06:59 06:59
Intake Total 4060.9 / 4204.7 2998.9 / 3063.9 905 / 905
Output Total 800 / 807 1185 / 1198 169 / 169
Balance 3260.9 / 3397.7 1813.9 / 1865.9 736 / 736
SaO2 [CPAP/PSV] 100
SaO2 [A/C] 100
SaO2 96
Nasal Cannula flow liters per 3
minute
Physical Exam
General: Comfortable and Other (On 3 L of oxygen via nasal cannula)
HEENT: Normocephalic, Anicteric and Moist Mucous Membranes
Cardiovascular: S1-S2, Regular Rhythm and Murmur (No murmurs or rubs)
Respiratory: Clear and Non-Labored Respirations
GI: Soft, Tender and Other (Ostomy site painful)
Neurology: Awake, Alert and No Motor Deficits
Skin: Warm and Good Color
Labs/Micro/Reports
Lab Data
10/27/24 05:22
10/27/24 05:22
Laboratory Results
10/26/24 10/26/24 10/27/24
13:17 18:02 00:03
APTT 78.0 H 76.1 H
pH 7.42
pCO2 37 H
pO2 146 H
HCO3 24.0
O2 Delivery Level
10/27/24
05:22
APTT 75.8 H
pH
pCO2
pO2
HCO3
O2 Delivery Level
Microbiology
10/25/24 14:11 Abdomen Wound Culture - Preliminary
Escherichia coli
Streptococcus species
10/25/24 14:11 Abdomen Gram Stain - Preliminary
10/25/24 14:11 Abdomen Anaerobic Culture - Preliminary
Culture pending. Anaerobic cultures are examined after 3
days incubation. Additional information to follow.
[2024-10-27] MEDS: LIDOCAINE 4% PATCH 1 PATCH TOPICAL (11:54)
[2024-10-27] MEDS: VALIUM INJECTION 2 MG IV ×2 (11:58→21:31)
--- NOTE | 2024-10-27 13:07 | CM ---
CM following re: discharge planning.
Discussed in Rounds, reviewed pt's chart, met with pt.
Per rounds meeting, pt is POD#2 open sigmoid colectomy, POD#2 Thrombectomy of occluded left iliac limb of aortobifemoral bypass, extubated yesterday, continue supportive care.
Pt lives with son and his family 2SH, 2 steps to enter, has 1st floor set up, known to [facility].
PT and OT will evaluate the pt to determine a level of acre at discharge,.
D/C byers: possible home with resumptions of [facility] and family support. PT/OT to confirm.
CM will follow with discharge plan updates as hospitalization progresses
--- NOTE | 2024-10-27 13:30 | PTCARENOTE ---
Repositioned pt for comfort. Analgesia administered. Poor UOP despite fluid bolus. Ice pack to posterior neck. She was informed that analgesia can slow motility. Left abdominal colostomy with small amount loose brown/green stool. Right nare Daggett
sump intact to 80mHg continuous suction, green brown drainage with dark flecks noted.
--- NOTE | 2024-10-27 14:20 | PTCARENOTE ---
Judy Villela and Zofia aware poor UOP/oliguric despite IVF bolus and increase of IVF rate.
--- NOTE | 2024-10-27 15:40 | PTCARENOTE ---
pt with multiple brown stained tissues on her bedside table. She has not been over doing ice chips. Nora monterroso flushed, as ordered. Pt was instructed to hold off on any more ice chip for now Summer NGUYEN notified via TT.
--- NOTE | 2024-10-27 15:58 | OR.RPT ---
Operative Report
Operative Report
DATE OF OPERATION: 10/27/2024
SURGEON: Reid Espinoza MD
PREOPERATIVE DIAGNOSIS: Ischemia of colostomy, s/p Pathak's procedure, perforated stercoral colitis
POSTOPERATIVE DIAGNOSIS: Ischemia of colostomy, s/p Pathak's procedure, perforated stercoral colitis
OPERATION: Bedside ileoscopy
ASSISTANTS:
1. None
ANESTHESIA: None
ESTIMATED BLOOD LOSS: 0 mL
FINDINGS:
1. Significant stool and mucus within bowel lumen below the level of the fascia; irrigated and suctioned
2. Able to visualize bowel lumen circumferentially, which appeared pink and well-perfused up to the level of the skin; ischemia is limited to the colostomy bud, above the level of the skin
SPECIMENS:
1. None
DRAINS: None
COMPLICATIONS: No immediate complications.
INDICATIONS: The patient is a 64-year-old female who presented as a transfer from [facility] after discovery of perforated stercoral colitis at the level of the sigmoid colon. She underwent urgent exploratory laparotomy with sigmoidectomy and
creation of end colostomy. In the recovery room, she was found to have left leg pain with decreased pulses. She underwent urgent revascularization of her aortobifemoral bypass by vascular surgery on the same day. Postoperatively, she was
transferred to the ICU, had worsening JACOB, but her left lower extremity function started to improve. Due to hypertension, she required a Cardene drip. This morning, on evaluation of her colostomy, the bud appeared ischemic, purple/dhillon in color.
Therefore, I recommended further evaluation of the limb of the colostomy leading up to the abdominal wall for evidence of ischemia or necrosis. The procedure was discussed with the patient in detail, including the risks, benefits and alternatives.
My plan is to evaluate the colon lumen below the level of fascia to confirm adequate perfusion. Risks described included, but not limited to, bleeding, bloating, pain and colostomy perforation. The patient understood and agreed to proceed. The
consent was signed and placed in the chart.
PROCEDURE IN DETAIL: The patient was placed in supine position on her ICU bed. The endoscopic tower with gastroscope was assembled. A timeout was performed verifying the correct patient and procedure. The ostomy bag was removed from the wafer
and the colostomy was lubricated. A gastroscope was slowly advanced, maintaining adequate visualization of the lumen. I advanced about 5 cm and encountered thick mucus and stool. This was copiously irrigated in order to reveal the bowel lumen. I
removed the gastroscope and used a gloved finger to break up the mucus and stool immediately below the level of the fascia. I readvanced the gastroscope down the colostomy. My visualization was significantly improved. I advanced the gastroscope
about 10 cm before encountering stool that was too thick to work around. I slowly withdrew and visualized the colon mucosa, which appeared pink and well-perfused. There was no signs of ischemia or necrosis. Normal colon mucosa was seen until
encountering the bud at the level of the skin. This confirmed adequate perfusion to the intra-abdominal component of the colostomy as well as the colostomy within the abdominal wall. The procedure was complete. The gastroscope was removed. The
patient tolerated the procedure well without any pain.
The results of the procedure were discussed with the patient in real-time.
DICTATED BY: Reid Espinoza MD
--- NOTE | 2024-10-27 16:32 | W.PN.UPDATE ---
Update Note
Progress Note Update
UOP less then 400cc
will give 80mg IV times one to assess
[2024-10-27] MEDS: LASIX 80 MG IV (18:04)
[2024-10-27 18:45] LABS: Glucose - Point of Care 119 mg/dl (70-99)
--- NOTE | 2024-10-27 21:49 | PTCARENOTE ---
Received patient AAOx3, following commands, reporting 9/10 pain in abdomen, dilaudid given. Normal sinus/sinus tach 90s-100s, BP high 180s/80s, APPLICATIONS DEVELOPER aware, PRN metoprolol given. Doppler DP and PT pulses, normothermic. +2 LLE, +1 RLE. On 3 liters nasal
cannula, 92-95%. Lung sounds diminished. LUQ colostomy, putting out liquid brown stool. Stoma black. Right nare NG tube at 65 to continuous suction, flushed with tap water Q4. Right abdominal JEAN putting out serosanguineous fluid. Midline abdominal
incision, anju intact, ecchymosis surrounding incision. JAYME dressing on left groin with old drainage, blinking green. RIJ TL patent, WNL. IVF and heparin gtt ongoing per order. PIVs patent, WNL. Call cota within reach. Repositioned, jorge care
done.
[2024-10-28] VITALS (32 sets, daily range): BP systolic 95–189; BP diastolic 49–120; PULSE 107–108; O2SAT 94–95; BMI 22.9
[2024-10-28] MEDS: LOPRESSOR 5 MG IV ×5 (00:04→17:56)
[2024-10-28 00:14] LABS: Glucose - Point of Care 126 mg/dl (70-99)
--- NOTE | 2024-10-28 01:32 | PTCARENOTE ---
Dilaudid given for pain, scheduled metoprolol given. Otherwise patient assessment unchanged from previous.
[2024-10-28] MEDS: DILAUDID 1 MG IV ×3 (02:09→16:39)
[2024-10-28] MEDS: ZOSYN 50 IV ×2 (04:07→09:37)
--- NOTE | 2024-10-28 04:11 | PTCARENOTE ---
Labs sent, patient assessment unchanged from previous otherwise. Call cota within reach.
[2024-10-28 04:37] LABS: Hematocrit 30.1 % (37.0-47.0); Hemoglobin 10.4 g/dL (12.0-16.0); Mean Corp Hgb Conc. 34.6 g/dL (33.0-37.0); Mean Corpuscular Hgb 27.9 pg (27.0-31.0); Mean Corpuscular Volume 80.7 fL (81.0-99.0); Mean Platelet Volume 10.2 fL (7.4-10.4); Platelet Count 191 10^3/uL (130-400); Red Blood Cell Count 3.73 10^6/uL (4.20-5.40); Red Cell Dist. Width 14.6 % (11.5-14.5); White Blood Cell Count 28.8 10^3/uL (4.8-10.8)
[2024-10-28 04:46] LABS: APTT 99.9 Sec (23.4-35.0)
[2024-10-28 04:53] LABS: ALT (SGPT) 138 U/L (0-35); AST (SGOT) 490 U/L (14-36); Albumin 2.6 g/dl (3.5-5.0); Alkaline Phosphatase 190 U/L (38-126); Blood Urea Nitrogen 79 mg/dl (7-17); Calcium 7.8 mg/dl (8.4-10.2); Carbon Dioxide 28 mmol/L (22-30); Chloride 101 mmol/L (98-107); Glucose 139 mg/dl (70-99); Magnesium 2.2 mg/dl (1.6-2.3); Potassium 2.8 mmol/L (3.5-5.1); Sodium 142 mmol/L (135-145); Total Bilirubin 0.5 mg/dl (0.2-1.3); Total Protein 5.2 g/dl (6.3-8.2)
[2024-10-28 05:05] LABS: Estimated Creatinine Clearance 11 ml/min; eGFR 12.93
[2024-10-28] MEDS: KCL 100 IV (05:39)
[2024-10-28 06:41] LABS: Glucose - Point of Care 141 mg/dl (70-99)
--- NOTE | 2024-10-28 07:15 | PTCARENOTE ---
Patient received lying in bed, awake and alert. She is c/o pain in RLQ and nausea, she is anxious. Pain medication, Zofran and Valium given per order as needed. BLE pulses evaluated and detected via doppler. Left groin with PECO drain, green light.
RLQ JEAN drain with mostly serous drainage to bulb suction. Rodriguez catheter patent draining clear yellow urine. Midline Abdominal incision approximated with anju, CDI. No bowel sounds audible. NGT via right nare taped in place at 65cm. Currently not
connected to suction. Since patient c/o nausea, hooked NGT back to LCS. Large amount of dark bile drainage retrieved, flushed per protocol. P.A. Summer Wilcox notified. LUQ colostomy with dark stoma, dark brown loose stool output. BBS clear. S1S2
tachy, ST on CM. BP elevated. 180s/90s. Right IJ TLC with IVF and Heparin infusing. Krider currently infusing as well.
[2024-10-28] MEDS: HEPARIN 25000 UNITS/250 ML IV (07:20)
[2024-10-28 07:21] LABS: % Basophils 0.3 % (0-2); % Lymphocytes 3.3 % (20.5-51.1); % Monocytes 2.4 % (1.7-9.3); Absolute Basophils 0.1 10^3/uL (0-0.2); Absolute Immature Granulocytes 0.3 10^3/uL (0-0.05); Absolute Lymphocytes 0.9 10^3/uL (1.2-3.4); Absolute Monocytes 0.7 10^3/uL (0.1-0.6); Absolute Neutrophils 26.8 10^3/uL (1.4-6.5); Nucleated Red Blood Cells % 0.2 %
--- NOTE | 2024-10-28 07:43 | W.PN.INTV ---
Today's Communication / Plan
Recommendations
Continue antibiotics
Monitor colostomy stoma site
Heparin drip continues
Neurovascular checks
Assessment
-
64-year-old female with history of hypertension, PAD, hyperlipidemia, chronic renal disease, renal artery stenosis status post stent who had a recent ventral mesh rectal plasty 09/30/2024 who presented to [facility] with abdominal
pain found to have perforation and abscess transferred back to [facility] and [employer] fscm developer consulted for abdominal abscess/hypertensive emergency/critical care management 10/25/2024.
Hypertensive emergency
Perforated sigmoid colon with pericolonic abscess and partial small bowel obstruction
Status post exploratory laparotomy, sigmoid colon resection with end colostomy and incidental appendectomy
Postoperative acute limb ischemia-left lower extremity with occlusion left iliac limb of aortobifem bypass
Status post emergent revascularization-thrombectomy of occluded left iliac limb of aortofemoral bypass, left common femoral endarterectomy, revision of femoral anastomosis and balloon angioplasty-Dr. Rodriguez-10/25/2024
Ventilator dependent respiratory failure postoperatively
Intubated 10/25/2024
Extubated
Sepsis without hypotension
JACOB
Metabolic acidosis
Leukocytosis
Qowrca-dozmhprmty-wteufmclmm 10.7
Hyperglycemia
Conditions present prior to admission:
Hypertension.
Hyperlipidemia.
Anemia.
PAD.
Chronic kidney disease.
Renal artery stenosis/stent.
Former [id number] 2019
Rectal prolapse/ventral mesh rectopexy 09/30/2024.
Plan
Critically ill off ventilator, hemodynamic instability and ischemic stoma
Tolerated extubation
Wean FiO2
Incentive spirometry
Nebulizers if needed
Aspiration precautions
Chest x-ray 10/28/2024-minor atelectasis left lung base, no CHF or pneumonia
Monitor hemodynamics closely
Hydralazine as needed
Labetalol as needed
Monitor renal function
Nephrology following-correspondence reviewed
Nicardipine drip has been discontinued
Norepinephrine and vasopressin currently not needed
Bicarb drip as needed
Report of CT abdomen from [facility] noted
Colorectal surgery following-operation 10/25/2024 noted and summarized above
Stoma appears ischemic
Bedside scope 10/27/2024 with viable tissue below fascia-no emergent OR yet for revision
Vascular surgery following-postoperative limb ischemia-correspondence reviewed
Status post revascularization 10/25/2024
Neurovascular checks continue
Heparin drip continues-eventually transition to oral anticoagulant
Once tolerating p.o. intake should reinitiate antiplatelet therapy
Cultures reviewed
Abdominal abscess uoohxyl-kodx-twmhyqmv bacilli-E. coli and Streptococcus species
Empiric antibiotics to cover abdominal sources-Zosyn continues
Monitor leukocytosis
Monitor for additional intra-abdominal abscess formations-had significant fecal contamination with perforation
Repeat CT abdomen/pelvis if clinically indicated
Monitor renal function
Lasix on hold
Nephrology following-correspondence reviewed
No acute dialysis requirements
Monitor hemoglobin
Transfuse if needed
Monitor blood sugar-episodes of hypoglycemia
Add D5
Insulin supplementation as needed
DVT prophylaxis-on heparin drip
Nutrition per surgery
Bedside range of motion, eventual PT/OT
Dr. Villela updated brother at the bedside in detail and on multidisciplinary rounds 10/27/2024 and again in detail 10/28/2024
Outpatient pulm evaluation-with smoking history, PFT, yearly low-dose lung cancer screening CT chest
Critical care statement: A total of 45 minutes of critical care time was provided for this patient today. This includes management of unstable vital signs, evaluation of the patient at bedside, reviewing the patient's pertinent medical records
including radiographs, pressor management, microbiology, laboratory evaluations, and discussion with primary team, consultants, pharmacy, nutrition, physical therapy, case management, charge nurse, critical care nursing, and respiratory therapy.
Diagnostic data:
Chest x-ray 10/25/2024-NAD
Chest x-ray 10/28/2024-minor atelectasis left lung base, no CHF or pneumonia
CT abdomen 10/25/2024-occlusion of left limb aortobifem bypass
Subjective Dataa
Subjective Data
Date of Service:
Date of Service: October 28, 2024
Chief Complaint: Evaporator Helper Follow Up, Pulmonary Follow Up and Vent Management Follow Up
Subjective:
Alert, no complaints of shortness of breath, some chest congestion, minimal productive cough, states would like to have some chicken soup, abdominal pain controlled, hypertension labile
Review of Systems
General: Other (Per HPI)
Objective Data
Data Reviewed
Vital Signs / I&O / Oxygen:
Vital Signs
Temp Pulse Resp BP Pulse Ox
98.1 F 103 16 154/120 95
10/28/24 07:36 10/28/24 06:00 10/28/24 06:00 10/28/24 06:00 10/28/24 06:00
Intake and Output
10/27/24 10/28/24 10/29/24
06:59 06:59 06:59
Intake Total 2998.9 / 3063.9 2820 / 2820
Output Total 1185 / 1198 2463 / 2463
Balance 1813.9 / 1865.9 357 / 357
SaO2 [CPAP/PSV] 100
SaO2 [A/C] 100
SaO2 95
Nasal Cannula flow liters per 2
minute
Physical Exam
General: Respiratory Distress, Comfortable and Other (On 3 L of oxygen via nasal cannula)
HEENT: Normocephalic, Anicteric and Moist Mucous Membranes
Cardiovascular: Regular Rhythm and Murmur (No murmurs or rubs)
Respiratory: Clear and Non-Labored Respirations
GI: Soft, Distended, Tender and Other (Ostomy site painful)
Neurology: Awake, Alert and No Motor Deficits
Skin: Warm, Good Color, Cyanosis (n) and Jaundice (n)
Labs/Micro/Reports
Lab Data
10/28/24 04:17
Laboratory Results
10/28/24
04:17
APTT 99.9 H
Microbiology
10/25/24 14:11 Abdomen Wound Culture - Preliminary
Escherichia coli
Streptococcus species
10/25/24 14:11 Abdomen Gram Stain - Preliminary
10/25/24 14:11 Abdomen Anaerobic Culture - Preliminary
Culture pending. Anaerobic cultures are examined after 3
days incubation. Additional information to follow.
[2024-10-28] MEDS: LIDOCAINE 4% PATCH 1 PATCH TOPICAL (08:21)
[2024-10-28] MEDS: DILAUDID 0.5 MG IV (08:23)
[2024-10-28] MEDS: VALIUM INJECTION 2 MG IV (08:30)
[2024-10-28] MEDS: ZOFRAN 4 MG IV (08:31)
--- NOTE | 2024-10-28 09:49 | PN.CDI ---
CDI
- -
CDI:
Physician Documentation Request
Admit Date: 10/24/24 20:37
Dear Doctor Al,
Please review the following and provide your response in the progress notes.
Clinical Indicators:
Pt admitted with sepsis /perforation of intestine/abscess of colon /PSBO due to stercoral colitis
Documented per operative report , ' DESCRIPTION OF FINDINGS: 1. Large amount of formed stool in the pelvis secondary to a perforation of the distal sigmoid colon. 2. Large amount of inspissated stool proximally....found alarge amount of stool in
the pelvis. It is unclear if this was from the sigmoid colon or cecum. The cecum was severely distended...Upon exploration of the pelvis, there was approximately a 2 cm perforation of the distal sigmoid colon with stool emanating from it...The stool
was all brought out of the pelvis and around the abdomen. Copiousirrigation was performed. Once most of the contamination was under control..... She had a fair amount of inflammatory peel in the pelvis indicating this had been present most likely
for at least a couple of days....'
Pt on IV Zosyn /Wound culture abdomen Ecoli/Strep positive
Please provide a diagnosis for the above findings/ ABX use:
Bacterial peritonitis
Acute Generalized Peritonitis
Other ( please specify)
Use of terms such as suspected, likely, concern for, or probable (associated with a specific diagnosis that is being evaluated, monitored, or treated as if it exists) are acceptable and can be coded in the inpatient setting, when documented at the
time of discharge.
Thank you,
Yuliana Mascorro RN
CDI Specialist
[facility] [employer]
Please use your independent medical judgment in providing your response.
--- NOTE | 2024-10-28 10:00 | PTCARENOTE ---
Due to leukocytosis, byers cultures done. CXR performed, BC x 2 sets, UA sent. Repeat BMP done.
[2024-10-28] MEDS: D5LR 1000 IV (10:03)
--- NOTE | 2024-10-28 10:09 | PN.CDI ---
CDI
- -
CDI:
Physician Documentation Request
Admit Date: 10/24/24 20:37
Dear Doctor Zofia,
Please review the following and provide your response in the progress notes.
Clinical Indicators:
Pt admitted with sepsis /perforation of intestine/abscess of colon /PSBO due to stercoral colitis
Progress note 10/26, ' Shock - multifactorial from hemorrhagic and sepsis wean pressors as able
Liver functions trended below
10/24/24 10/25/24 10/26/24
22:15 05:16 03:46
AST 26 25 231 H
ALT 14 13 117 H
10/27/24 10/28/24
05:22 04:17
AST 683 H* 490 H
ALT 203 H 138 H
Based on the above, could you clarify in the progress notes, the appropriate diagnosis, if significant, that supports the above abnormalities and additional evaluation, monitoring and/or treatment rendered:
Shock liver
Elevated LFTs only
Other ( please specify)
Use of terms such as suspected, likely, concern for, or probable (associated with a specific diagnosis that is being evaluated, monitored, or treated as if it exists) are acceptable and can be coded in the inpatient setting, when documented at the
time of discharge.
Thank you,
Yuliana Mascorro RN
CDI Specialist
[facility] [employer]
Please use your independent medical judgment in providing your response.
[2024-10-28 10:40] LABS: Urine Albumin Trace (Neg - Trace); Urine Bilirubin Negative (Negative); Urine Character Clear (Clear); Urine Color Yellow; Urine Glucose Negative (Negative); Urine Ketone Negative (Negative); Urine Leukocyte Negative (Negative); Urine Nitrite Negative (Negative); Urine Occult Blood 4+ (Negative); Urine Urobilinogen Negative (Neg - 1+)
--- NOTE | 2024-10-28 11:00 | PTCARENOTE ---
Shift Leader, psychodramatist, vascular have all seen patient. Updated with patient status.
--- NOTE | 2024-10-28 11:09 | W.PN.VS ---
Addendum entered and electronically signed by Sonny Rodriguez III, MD 10/28/24 14:06:
This patient was seen and examined with FLORY Geronimo. I agree with the history and physical exam as well as the assessment and plan. I have the following additions:
Palpable left pedal pulses
Left foot warm
Motor sensory grossly intact
Left ortiz and calf soft and nontender.
Discussed antiplatelet administration with colorectal. Okay for rectal aspirin. Will ultimately plan for dual antiplatelet therapy but given n.p.o. status and presence of NG tube we will hold off on addition of Plavix for now. Continue heparin
drip along with aspirin for the time being.
We will follow along
Keep arias dressing for 7 days total. This will be EXTREMELY important in an effort to prevent surgical site contamination/infection from colostomy which is situated above the groin incision.
Call with clinical questions or concerns
Signed:
Sonny Rodriguez III, MD
[facility]
[phone] (yeje)
Original Note:
Today's Communication / Plan
-
Patient seen and examined at bedside with Dr. Sonny Rodriguez III, below plan reviewed with attending.
Assessment/Plan
-
Assessment: 64-year-old female POD #3 Thrombectomy of occluded left iliac limb of aortobifemoral bypass. Left common femoral artery endarterectomy. Revision of left femoral anastomosis of aortobifemoral bypass using 8 mm Dacron graft. Balloon
angioplasty and stenting of left iliac limb of aortobifemoral bypass using 2 overlapping 8 mm x 59 mm [place] VBX stents. Left lower extremity arteriogram. Reoperation, left groin from prior aortobifemoral bypass for occlusion of left iliac limb of
aortobifemoral bypass, left common femoral artery, left profunda artery, and left superficial femoral artery following colorectal surgery.
Plan:
Eventual plan once patient is tolerating p.o. is to initiate DAPT of Plavix 75 mg p.o. daily with aspirin 81 mg p.o. daily, in the meantime while patient is strict n.p.o. continue heparin infusion
Will place consult to infectious disease, patient with CT evidence of bowel perforation suspect contamination to pre-existing aortobifem patient will likely benefit from lifelong antibiotic suppression as she is at high risk of infection to aortic
graft
Arias dressings can continue for 7 days total, we will return Thursday to change arias dressing in place new arias on in hopes to protect left groin surgical incision from possible contaminants from ostomy
Subjective Data
-
Date of Service: October 28, 2024
Patient seen and examined at bedside, continues to report complete resolution of left foot pain and motor and sensation at baseline at left foot. Mostly concerned with n.p.o. intake and abdominal pain, but does endorse it is well-managed with
current pain medication regimen.
Objective Data
-
Vital Signs
Temp Pulse Resp BP Pulse Ox
98.1 F 109 18 126/108 93
10/28/24 07:36 10/28/24 09:30 10/28/24 09:30 10/28/24 09:00 10/28/24 09:30
Intake and Output
10/27/24 10/28/24 10/29/24
06:59 06:59 06:59
Intake Total 2998.9 / 3063.9 2820 / 2980 160 / 160
Output Total 1185 / 1198 2463 / 2463
Balance 1813.9 / 1865.9 357 / 517 160 / 160
Intake:
IV fluids (Total) 2048.9 / 2113.9 2070 / 2230 160 / 160
D5lr 1,000 ml @ 80 mls/hr IV . 1680 / 1760 80 / 80
[id number] [place] Rx#:[id number]
Heparin 90 / 95 125 / 130 5 / 5
Lr 1,000 ml @ 60 mls/hr IV . 1140 / 1200 240 / 240
[id number] [place] Rx#:[id number]
Sterile Water For Injection 500 / 500
1000 ml 1,000 ml @ 125 mls/hr
IV .Q9H12M [place] with Sodium
Bicarbonate 150 Meq Rx#:
[id number]
cardene 215.0 / 215.0
dex 88.9 / 88.9
fent 15.0 / 15.0
kcl 25 / 100 75 / 75
IV piggybacks 300 / 300 600 / 600
Amount instilled into GI Tube ( 150 / 150 150 / 150
Total)
[place] Sump 150 / 150 150 / 150
Blood Product Amount Infused ( 500 / 500
mL)
Packed Rbc Leukoreduced Unit 250 / 250
[id number]
Packed Rbc Leukoreduced Unit 250 / 250
[id number]
Output:
Liquid stool amount 460 / 460 675 / 675
Colostomy 460 / 460 675 / 675
Drain Output (Total) 260 / 260 345 / 345
Right Abdomen Shamar-Adams 260 / 260 345 / 345
Gastrointestinal tube output ( 50 / 50 185 / 185
Total)
[place] Sump 50 / 50 185 / 185
Urine, Rodriguez 415 / 428 1258 / 1258
Lab Results
10/28/24 04:17
Calcium Cancelled 10/28/24 10:18
Phosphorus 6.3 mg/dl (2.5-4.5) H 10/25/24 23:26
Magnesium 2.2 mg/dl (1.6-2.3) 10/28/24 04:17
Total Bilirubin 0.5 mg/dl (0.2-1.3) 10/28/24 04:17
AST 490 U/L (14-36) H 10/28/24 04:17
ALT 138 U/L (0-35) H 10/28/24 04:17
Alkaline Phosphatase 190 U/L (38-126) H 10/28/24 04:17
Total Protein 5.2 g/dl (6.3-8.2) L D 10/28/24 04:17
Albumin 2.6 g/dl (3.5-5.0) L 10/28/24 04:17
Physical Exam
-
No apparent distress, awake and alert resting in bed comfortably
No dyspnea
NG tube to suction
Left groin arias dressing CDI, no evidence of hematoma, extremity warm, warm, patient with full range of motion at left foot, calf soft
Left DP palpable, bilateral feet warm
--- NOTE | 2024-10-28 11:20 | W.PN.INTV ---
Documented by User: Monica Marcus MD, Resident 10/28/24 11:34
Today's Communication / Plan
Recommendations
Continue to monitor blood pressures
Trend TLC count and temperature charting
Work with colorectal surgery to assess for secondary abscesses in the abdomen
Continue Zosyn
Repeat BMP, and replete electrolytes as needed
Assessment
-
IMPRESSION
Ms. Sheridan is a 64-year-old female ,drinks alcohol occasionally,quit smoking 5 years ago with past medical history of recurrent rectal prolapse status post ventral mesh rectopexy, hypertension, peripheral vascular disease, hypercholesteremia,
anemia, CKD, renal artery stenosis status post left renal stent presenting as a transfer from [facility] for an abscess near sigmoid colon.
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
Assessment
Perforated sigmoid colon with pericolonic abscess formation with partial SBO
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
s/p extubation 10/26
Acute blood loss anemia on chronic anemia
JACOB
Hyperglycemia
Plan
#Perforated sigmoid colon with pericolonic abscess formation with partial SBO
As per colorectal surgery the possible causes were sterile coral colitis, diverticulitis, ischemia, consequence of the surgery
Patient underwent exploratory laprotomy for perforated sigmoid colon with bowel resection and temporary ostomy
Patient remained critically ill on a ventilator postoperatively-Extubated on 10/26/2024
Patient complained of nausea, decreased appetite, pain at the ostomy site
Colorectal surgery consult appreciated-bedside scope done through ostomy-lots of mucus sloughing, mucosa appears pink suggesting appropriate perfusion
Continue to observe on daily basis the ostomy site for any necrotic tissue/infection
Has NG tube in place, colorectal surgery gave okay for ice chips
Bedside flexible sigmoidoscopy planned today by colorectal surgery
#Acute vascular occlusions of L iliac limb of aortofem bypass
Immediately post laparotomy, patient complained of pain in left leg, numb, painful movements, nonpalpable femoral pulse in left thigh
Stat CTA of abdomen pelvis and bilateral lower extremity runoff obtained, aorto bifemoral bypass was in place
Appreciate vascular surgery:Thrombectomy of occluded left iliac limb of aortobifemoral bypas done along with revision of left femoral anastomosis of aortobifemoral bypass
Heparin infusion was started
Plan to continue heparin infusion until patient able to tolerate oral anticoagulation
Based on vascular surgery evaluation, patient is recovering well with no evidence of hematoma, extremity being well-perfused and no issues at the moment
Continue neurovascular checks
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
#s/p extubation 10/26
Patient underwent intubation for acute surgical procedures
Vent dependent respiratory failure
Able to extubate on 10/26
Currently maintaining saturation on 3 L of oxygen
#Acute blood loss anemia/underlying chronic anemia
Patient had the laparotomy done on October 25, hemoglobin dropped significantly
Received 2 packs of RBC on October 26, 2024, responded appropriately with increase in hemoglobin by 2 g
Patient's hemoglobin currently stable around 10
Monitor hemoglobin
#JACOB
Baseline creatinine between 1.8-2
Presented with creatinine of 3.2 and acute metabolic acidosis
Could be secondary to hypertensive emergency with a systolic blood pressure of 200
Received bicarb infusion for metabolic acidosis
Nephrology consult appreciated-suggested to keep mean arterial pressure of 65 or greater to augment renal artery perfusion
Patient is currently on IV metoprolol and clonidine patch as unable to tolerate oral medications
As per nephro-multiple nephrotoxic insults including fluctuating blood pressure, surgery, oliguria, stress, resulted in creatinine derangement
Patient responded well to single 80mg lasix dose yesterday,monitor rfts and consider diuresis
As per today-nephro suggested that there is a high risk for continued renal decline and possible dialysis requirement within the next 24-40
Patient's serum potassium dropped to 2.8 at 4am, 40 mEq potassium replaced, replete another 40 mEq and repeat BMP
Hypertensive emergency
Monitor blood pressure closely
Initially patient presented with hypertensive emergency, then required vasopressors,Now,Blood pressures are on higher side
On nicardipine infusion-taper as able
Stable on IV metoprolol and clonidine patch,
Patient's blood pressure running on higher side with a systolic blood pressure of greater than 180, if patient continues to have high blood pressure can consider IV hydralazine
Shock -
multifactorial from hemorrhagic and sepsis
Patient is currently off vasopressors and maintaining blood pressure
Abdominal abscess [id number] bacilli
Empiric antibiotics to cover abdominal sources
TLC count 28.8-rising trend
Source most likely the ostomy site
Continue IV Zosyn as the blood culture is sensitive to Zosyn and there are no signs of decompensation, could be secondary to abscess formation given the bowel perforation
History of diabetes mellitus
Initially blood sugar levels were high
September 2024, HbA1c 5.2
Morning BSR-50 mg, hypoglycemia protocol initiated
Monitor blood sugar levels and manage accordingly
Morning blood sugar today is 139
Other medical conditions
Hypertension. Taper off nicardipine
Hyperlipidemia. Continue meds as able
PAD. History of biaortofemoral bypass
Chronic kidney disease. Baseline creatinine 1.8-2
Renal artery stenosis/stent.
Former [id number]
Rectal prolapse/ventral mesh rectopexy 09/30/2024.
DVT prophylaxis-on heparin drip
Full code
Subjective Dataa
Subjective Data
Date of Service:
Date of Service: October 28, 2024
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
Subjective:
Patient had nausea and abdominal pain especially on the left side
Review of Systems
General: Other (Reviewed and negative)
Objective Data
Data Reviewed
Vital Signs / I&O / Oxygen:
Vital Signs
Temp Pulse Resp BP Pulse Ox
98.8 F 109 18 126/108 93
10/28/24 11:20 10/28/24 09:30 10/28/24 09:30 10/28/24 09:00 10/28/24 09:30
Intake and Output
10/27/24 10/28/24 10/29/24
06:59 06:59 06:59
Intake Total 2998.9 / 3063.9 2820 / 2980 160 / 160
Output Total 1185 / 1198 2463 / 2463
Balance 1813.9 / 1865.9 357 / 517 160 / 160
SaO2 [CPAP/PSV] 100
SaO2 [A/C] 100
SaO2 93
Nasal Cannula flow liters per 2
minute
Physical Exam
General: Pain (Very weak and cachectic, appears chronically ill and has pain in left side of abdomen) and Other (On 3 L of oxygen via nasal cannula)
HEENT: Normocephalic, Anicteric, Moist Mucous Membranes and Other (breathing on 3 liters of oxygen via nasal cannula)
Cardiovascular: S1-S2, Regular Rhythm and Murmur (No murmurs or rubs)
Respiratory: Clear and Non-Labored Respirations
GI: Soft, Tender and Other (Ostomy site painful, has greenish output through the nasogastric tube)
Neurology: No Motor Deficits and Lethargic (very weak and lethargic given her chronic condition)
Skin: Warm and Good Color
Labs/Micro/Reports
Lab Data
10/28/24 04:17
Laboratory Results
10/28/24
04:17
APTT 99.9 H
Microbiology
10/25/24 14:11 Abdomen Wound Culture - Preliminary
Escherichia coli
Streptococcus species
10/25/24 14:11 Abdomen Gram Stain - Preliminary
10/25/24 14:11 Abdomen Anaerobic Culture - Preliminary
Culture pending. Anaerobic cultures are examined after 3
days incubation. Additional information to follow.

Documented by User: Gamaliel Villela MD 10/28/24 12:59
Assessment
-
IMPRESSION
Ms. Sheridan is a 64-year-old female ,drinks alcohol occasionally,quit smoking 5 years ago with past medical history of recurrent rectal prolapse status post ventral mesh rectopexy, hypertension, peripheral vascular disease, hypercholesteremia,
anemia, CKD, renal artery stenosis status post left renal stent presenting as a transfer from [facility] for an abscess near sigmoid colon.
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
Assessment
Perforated sigmoid colon with pericolonic abscess formation with partial SBO
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
s/p extubation 10/26
Acute blood loss anemia on chronic anemia
JACOB
Hyperglycemia
Plan
#Perforated sigmoid colon with pericolonic abscess formation with partial SBO
As per colorectal surgery the possible causes were sterile coral colitis, diverticulitis, ischemia, consequence of the surgery
Patient underwent exploratory laprotomy for perforated sigmoid colon with bowel resection and temporary ostomy
Patient remained critically ill on a ventilator postoperatively-Extubated on 10/26/2024
Patient complained of nausea, decreased appetite, pain at the ostomy site
Colorectal surgery consult appreciated-bedside scope done through ostomy-lots of mucus sloughing, mucosa appears pink suggesting appropriate perfusion
Continue to observe on daily basis the ostomy site for any necrotic tissue/infection
Has NG tube in place, colorectal surgery gave okay for ice chips
Bedside flexible sigmoidoscopy planned today by colorectal surgery
#Acute vascular occlusions of L iliac limb of aortofem bypass
Immediately post laparotomy, patient complained of pain in left leg, numb, painful movements, nonpalpable femoral pulse in left thigh
Stat CTA of abdomen pelvis and bilateral lower extremity runoff obtained, aorto bifemoral bypass was in place
Appreciate vascular surgery:Thrombectomy of occluded left iliac limb of aortobifemoral bypas done along with revision of left femoral anastomosis of aortobifemoral bypass
Heparin infusion was started
Plan to continue heparin infusion until patient able to tolerate oral anticoagulation
Based on vascular surgery evaluation, patient is recovering well with no evidence of hematoma, extremity being well-perfused and no issues at the moment
Continue neurovascular checks
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
#s/p extubation 10/26
Patient underwent intubation for acute surgical procedures
Vent dependent respiratory failure
Able to extubate on 10/26
Currently maintaining saturation on 3 L of oxygen
#Acute blood loss anemia/underlying chronic anemia
Patient had the laparotomy done on October 25, hemoglobin dropped significantly
Received 2 packs of RBC on October 26, 2024, responded appropriately with increase in hemoglobin by 2 g
Patient's hemoglobin currently stable around 10
Monitor hemoglobin
#JACOB
Baseline creatinine between 1.8-2
Presented with creatinine of 3.2 and acute metabolic acidosis
Could be secondary to hypertensive emergency with a systolic blood pressure of 200
Received bicarb infusion for metabolic acidosis
Nephrology consult appreciated-suggested to keep mean arterial pressure of 65 or greater to augment renal artery perfusion
Patient is currently on IV metoprolol and clonidine patch as unable to tolerate oral medications
As per nephro-multiple nephrotoxic insults including fluctuating blood pressure, surgery, oliguria, stress, resulted in creatinine derangement
Patient responded well to single 80mg lasix dose yesterday,monitor rfts and consider diuresis
As per today-nephro suggested that there is a high risk for continued renal decline and possible dialysis requirement within the next 24-40
Patient's serum potassium dropped to 2.8 at 4am, 40 mEq potassium replaced, replete another 40 mEq and repeat BMP
Hypertensive emergency
Monitor blood pressure closely
Initially patient presented with hypertensive emergency, then required vasopressors,Now,Blood pressures are on higher side
On nicardipine infusion-taper as able
Stable on IV metoprolol and clonidine patch,
Patient's blood pressure running on higher side with a systolic blood pressure of greater than 180, if patient continues to have high blood pressure can consider IV hydralazine
Shock -
multifactorial from hemorrhagic and sepsis
Patient is currently off vasopressors and maintaining blood pressure
Abdominal abscess drytsqp-nimu-pbcdzvlz bacilli
Empiric antibiotics to cover abdominal sources
TLC count 28.8-rising trend
Source most likely the ostomy site
Continue IV Zosyn as the blood culture is sensitive to Zosyn and there are no signs of decompensation, could be secondary to abscess formation given the bowel perforation
History of diabetes mellitus
Initially blood sugar levels were high
September 2024, HbA1c 5.2
Morning BSR-50 mg, hypoglycemia protocol initiated
Monitor blood sugar levels and manage accordingly
Morning blood sugar today is 139
Other medical conditions
Hypertension. Taper off nicardipine
Hyperlipidemia. Continue meds as able
PAD. History of biaortofemoral bypass
Chronic kidney disease. Baseline creatinine 1.8-2
Renal artery stenosis/stent.
Former [id number] 2019
Rectal prolapse/ventral mesh rectopexy 09/30/2024.
DVT prophylaxis-on heparin drip
Full code
I reviewed this patients case independently and in conjunction with the resident. I personally examined the patient. Patient's complex medical history, laboratory evaluations, events over the last 24 hours, radiographs, microbiological data were
all personally reviewed.
Agree with documented assessment and plan
Gamaliel Villela MD, FCCP, [facility]
[2024-10-28 11:26] LABS: Urine Bacteria Few (Negative); Urine Squamous Cell 0-2 /LPF (Few); Urine White Cell 0-2 /HPF (0-5)
--- NOTE | 2024-10-28 11:30 | PTCARENOTE ---
Wound care here, evaluated, changed colostomy appliance. Partial cares performed, linens changed. Perineal care, jorge care. Skin care, back rub.
[2024-10-28 11:51] LABS: Glucose - Point of Care 135 mg/dl (70-99)
--- NOTE | 2024-10-28 12:00 | PTCARENOTE ---
Little change in patient assessment. BP slightly improved with occasional elevation.
--- NOTE | 2024-10-28 12:07 | W.PN.NEPH.PH ---
Today's Communication / Plan
-
Continue monitor urine output with hemodynamic support as indicated no acute need for dialysis at this time
Assessment/Plan
-
4^-year-old female past medical history of recurrent rectal prolapse status post ventral mesh rectopexy, hypertension, peripheral vascular disease, hypercholesteremia, anemia, CKD, renal artery stenosis status post left renal stent presenting as a
transfer from [facility] for abscess near sigmoid colon possible perforation.
Renal consult for acute on chronic kidney disease she follows with Dr. Edson Ding technical support director [place]
Baseline creatinine appears to be between 1.8 and 2.0. She presented with a creatinine of 3.2 and a metabolic acidosis
Impression:
Acute on chronic kidney disease.
Acute metabolic acidosis.
Hypertensive urgency.
Pericolonic abscess.
History of renal artery stenosis with left stent.
Postop sigmoid colectomy incidental appendectomy and end sigmoid ostomy
Postop thrombectomy of occluded left iliac limb of aortobifemoral bypass\\left common femoral artery endarterectomy
.
Plan:
Status post OR with left lower extremity agniogram requiring thrombectomy of occluded left iliac limb of aortobifemoral bypass with left common femoral artery enterectomy
Acuity of JACOB likely hemodynamically mediated with a blood pressure 200+ systolic and contrast inducted nephropathy
Creatinine worsening to 3.4>3.7 oliguric ~
BP remains acceptable on clonidine patch, IV Lopressor (patient remains npo)
Metabolic acidosis corrected following bicarbonate administration
Zosyn renally dosed
Maintain Rodriguez catheter
Anemia improved following 2 unit transfusion on 10/26/2024
Remains on heparin infusion
No acute need for dialysis at this time but given multiple nephrotoxic insults will have to be monitored closely
Patient remains at high clinical risk with worsening renal failure
Okay to continue lactated Ringer's at this time, patient NPO, no hyperkalemia
Holding Lasix for now
High risk for continued renal decline and possible dialysis requirement
Responded to 80 mg of IV Lasix yesterday
Having said that her creatinine has increased we will continue to monitor this
Total Time Spent with Patient (in minutes): 32
-
-
Date of Service: October 28, 2024
CC / HPI / ROS
-
Chief Complaint:
JACOB
History of Present Illness:
Creatinine worsening
Hemodynamically stable on IV metoprolol and clonidine patch
Now extubated
Hemoglobin up to 10.6 following 2 unit blood transfusion yesterday
Review of Systems:
Oliguric via Rodriguez catheter
No fevers
Black liquid stool in ostomy
Weight up
NG tube
Labs
-
Labs:
WBC 28.8 10^3/uL (4.8-10.8) H 10/28/24 04:17
RBC 3.73 10^6/uL (4.20-5.40) L 10/28/24 04:17
Hgb 10.4 g/dL (12.0-16.0) L 10/28/24 04:17
Hct 30.1 % (37.0-47.0) L 10/28/24 04:17
Plt Count 191 10^3/uL (130-400) 10/28/24 04:17
eGFR Cancelled 10/28/24 10:18
Phosphorus 6.3 mg/dl (2.5-4.5) H 10/25/24 23:26
Albumin 2.6 g/dl (3.5-5.0) L 10/28/24 04:17
Physical Exam
-
Vital Signs:
Vital Signs
Temp Pulse Resp BP Pulse Ox
98.8 F 109 18 126/108 93
10/28/24 11:20 10/28/24 09:30 10/28/24 09:30 10/28/24 09:00 10/28/24 09:30
Cardiovascular:: Regular rate and rhythm
Respiratory:: Bilateral: CTA
Lung Excursion:: Normal
Abdomen:: Distended and Tender
Bowel Sounds:: None
Extremity Edema:: None: Bilateral:
Rodriguez Catheter: Yes
Other Findings::
HEENT: NGT
Ostomy with black liquid stool
--- NOTE | 2024-10-28 12:09 | WOUNDNOTE ---
[facility] RN note: Patient s/p colostomy surgery 10/25/2024 and s/p bedside ileoscopy on 10/27 for necrotic appearing stoma.
See H&P for complete history.
PMH: HTN, hyperlipidemia, rectal prolapse, CKD
Ostomy location and type: Upper left quadrant colostomy
Instructed patient on pouch emptying and changing appliance using Dalton wafer #[id number] and barrier #[id number] and [place] seal. Peristomal skin intact, stoma flat and necrotic appearing. Per chart review, 10/27 ileoscopy revealed viable ostomy although
stoma is necrotic appearing. Patient agreeable to have Dalton Starter kit ordered to home. Will continue to follow with patient for ostomy teaching as able. Sacrum and heels intact. Will continue to follow as needed. Ostomy supplies at bedside
follow up with pouch change next or Thu.
Note to case management: VN services recommended for ostomy teaching if patient does not go to SNF.
Nursing care plan updated, will follow as needed.
--- NOTE | 2024-10-28 12:12 | W.PN.HOSP.TC ---
Today's Communication/Plan
-
ID consult
follow infectious workup, consider CT in 24-48 hours . Follow CRS
continue NGT
NPO
PT/OT
prn Hydralazine
Assessment / Plan
Assessment / Plan
Assessment:
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
- Thrombectomy of occluded left iliac limb of aortobifemoral bypass/Left common femoral artery endarterectomy performed 10/25
- continue IV Heparin - requires intensive monitoring of PTTs
- continue neurovascular checks
- Vascular following
Perforated sigmoid colon with pericolonic abscess formation with partial SBO
Acute Sepsis (tachycardia, leukocytosis) from acute GI colonic source
- s/p open sigmoid colectomy, incidental appendectomy, and end sigmoid ostomy 10/25
- continue IV Zosyn, day 4
- continue NPO/NGT
- pain control, anti-emetics
- CRS following; discussed further infectious workup. UA clear. CXR without PNA. Bcx pending. possible repeat CT imaging; defer to surgery. ID consulted
- 10/27: concern for bleeding/necrosis of bowel; bedside scope report indicates viable tissue beneath skin
Intubation for acute surgical procedures
VDRF
- s/p extubation 10/26
Acute blood loss anemia on chronic anemia
- s/p 2 unit PRBCs; Hb 10.4 most recently.
Shock - multifactorial from hemorrhagic and sepsis
- wean pressors as able
Accelerated hypertension with risk of developing hypertensive emergency
History of underlying Accelerated HTN with multi-drug regimen and history of PARI s/p L Renal artery stenting
- OP regimen includes Amlodipine, Clonidine, Hydralazine, Metoprolol, ARB, HCTZ.
- currently NPO
- continue IV Metoprolol and Clonidine patch. s/p Cardene drip. prn Hydralazine
History of recurrent rectal prolapse status post ventral mesh rectopexy with recent repair
JACOB on CKD stage 3b
Acute metabolic acidosis
- suspect driven by accelerated HTN and critical illness
- Nephrology following
- maintain Rodriguez for critical I/Os
- s/p IV Lasix x 1 yesterday
- continue IVF
history of PARI s/p L Renal artery stenting
Peripheral vascular disease
Hypercholesterolemia
- hold Plavix/Statin
Hypokalemia - replete prn
Former smoker
Hypoglycemia
- accu-checks q6h
- dextrose IVF
Elevated LFTs from shock liver
- trend
DVT ppx: SCDs
Code: Full
Total Critical Care Time 41 minutes. I was immediately available to the patient and staff. I personally examined, reviewed labs, diagnostic images/reports, interpretations, treatment plans, discussed patient care with other providers and family
or caregivers (if patient is unable to make decisions), entered orders as appropriate and documented the medical record.
Anticipated Discharge: > 48 hours
Subjective/Interval History
-
Date of Service: October 28, 2024
no new complaints presently
RN reports earlier NG clamped but had to be placed back on with 400 cc in container
Objective Data
-
Labs:
Laboratory Results
10/28/24 10/28/24 10/28/24
04:17 10:18 10:54
WBC 28.8 H
Hgb 10.4 L
Hct 30.1 L
Plt Count 191
APTT 99.9 H
Sodium 142 Cancelled Pending
Potassium 2.8 L D Cancelled Pending
Chloride 101 Cancelled Pending
Carbon Dioxide 28 Cancelled Pending
BUN 79 H Cancelled Pending
Creatinine 3.7 H Cancelled Pending
Glucose 139 H Cancelled Pending
Calcium 7.8 L Cancelled Pending
Total Bilirubin 0.5
AST 490 H
ALT 138 H
Alkaline Phosphatase 190 H
Vital Signs:
Vital Signs
Temp Pulse Resp BP Pulse Ox
98.8 F 109 18 126/108 93
10/28/24 11:20 10/28/24 09:30 10/28/24 09:30 10/28/24 09:00 10/28/24 09:30
I&O
10/27/24 10/28/24 10/29/24
06:59 06:59 06:59
Intake Total 2998.9 / 3063.9 2820 / 2980 160 / 160
Output Total 1185 / 1198 2463 / 2463
Balance 1813.9 / 1865.9 357 / 517 160 / 160
Physical Exam
-
General: No Apparent Distress
HEENT: Normocephalic, Atraumatic and Other (+NGT)
Respiratory: Negative Wheezes
Cardiac: Regular Rhythm, S1/S2 and Tachycardic
GI: Tender and Distended
Genito-urinary: No Costovertebral Tender
Musculoskeletal: No Edema
Neuro: AO x 3
Psych: Calm
Data Reviewed
-
Critical Care Time (in minutes): 41
Labs: Labs Reviewed by me
--- NOTE | 2024-10-28 12:30 | W.PN.CRS1 ---
Today's Communication / Plan
-
NG tube clamping trial
ID consult
Assessment/Plan
-
POD# 3 open sigmoid colectomy, incidental appendectomy, and end sigmoid ostomy
POD# 3 thrombectomy of occluded left iliac limb of aortobifemoral bypass/Left common femoral artery endarterectomy
POD #1 bedside flexible sigmoidoscopy revealing pink mucosa under the fascial level
WBC: 28.8 from 23.5, 10.4 from 10.6
Vitals: hypertensive, slightly tachycardic in the 100s, afebrile
-Monitor stoma appearance
-OOB as tolerated from our perspective
-Wound RN for colostomy care
-NG tube clamping trial today
-OR pathology pending
-On heparin gtt per vascular
-Continue jorge for I/O's
-Continue IV antibiotics
-Surgical JEAN drain in place
-Appreciate hospitalist, vascular, nephrology, archival studies professor
-ID consult placed
-Blood cultures pending
Subjective Data
Procedure
10/25/2024- open sigmoid colectomy, incidental appendectomy, and end sigmoid ostomy
10/25/2024- Thrombectomy of occluded left iliac limb of aortobifemoral bypass/Left common femoral artery endarterectomy
Subjective Data
Date of Service: October 28, 2024
Patient's pain is about the same. She has no nausea or vomiting. The NG tube is in place.
Objective Data
-
Vital Signs
Temp Pulse Resp BP Pulse Ox
98.8 F 109 18 126/108 93
10/28/24 11:20 10/28/24 09:30 10/28/24 09:30 10/28/24 09:00 10/28/24 09:30
Intake & Output
10/27/24 10/28/24 10/29/24
06:59 06:59 06:59
Intake Total 2998.9 / 3063.9 2820 / 2980 160 / 160
Output Total 1185 / 1198 2463 / 2463
Balance 1813.9 / 1865.9 357 / 517 160 / 160
Intake:
IV fluids (Total) 2048.9 / 2113.9 2070 / 2230 160 / 160
D5lr 1,000 ml @ 80 mls/hr IV . 1680 / 1760 80 / 80
[id number] LAKEISHA Rx#:[id number]
Heparin 90 / 95 125 / 130 5 / 5
Lr 1,000 ml @ 60 mls/hr IV . 1140 / 1200 240 / 240
[id number] LAKEISHA Rx#:[id number]
Sterile Water For Injection 500 / 500
1000 ml 1,000 ml @ 125 mls/hr
IV .Q9H12M LAKEISHA with Sodium
Bicarbonate 150 Meq Rx#:
[id number]
cardene 215.0 / 215.0
dex 88.9 / 88.9
fent 15.0 / 15.0
kcl 25 / 100 75 / 75
IV piggybacks 300 / 300 600 / 600
Amount instilled into GI Tube ( 150 / 150 150 / 150
Total)
Harrison Sump 150 / 150 150 / 150
Blood Product Amount Infused ( 500 / 500
mL)
Packed Rbc Leukoreduced Unit 250 / 250
[id number]
Packed Rbc Leukoreduced Unit 250 / 250
[id number]
Output:
Liquid stool amount 460 / 460 675 / 675
Colostomy 460 / 460 675 / 675
Drain Output (Total) 260 / 260 345 / 345
Right Abdomen Shamar-Adams 260 / 260 345 / 345
Gastrointestinal tube output ( 50 / 50 185 / 185
Total)
Harrison Sump 50 / 50 185 / 185
Urine, Jorge 415 / 428 1258 / 1258
Lab Results
10/28/24 04:17
Physical Exam
-
General: No Acute Distress and AOx3
Abdomen: Soft, Non Distended, Tender (Around incisions) and Other (Stoma is black with stool in bag, JEAN drain serous)
Skin: Warm
Incision: Clear, Dry, Intact
[2024-10-28 12:39] LABS: Blood Urea Nitrogen 76 mg/dl (7-17); Carbon Dioxide 30 mmol/L (22-30)
[2024-10-28] MEDS: ASPIRIN 300 MG RECTAL (13:08)
[2024-10-28 13:33] LABS: Calcium 7.2 mg/dl (8.4-10.2); Chloride 102 mmol/L (98-107); Estimated Creatinine Clearance 12 ml/min; Glucose 130 mg/dl (70-99); Potassium 3.3 mmol/L (3.5-5.1); Sodium 143 mmol/L (135-145); eGFR 13.36
--- NOTE | 2024-10-28 13:45 | PTCARENOTE ---
BMP results with K+ 3.3, Dr Marcus notified, new orders received. KCL ordered and given IVPB.
[2024-10-28] MEDS: APRESOLINE 5 MG IV (14:09)
--- NOTE | 2024-10-28 14:09 | CON.ID ---
Consultation
-
Date/Time Consultation Requested: 10/28/2024 1124
Date/Time Consultation Performed: 10/28/2024 1350
Requesting Provider: Bianca Kolb
Performing Provider: Dr. Srivastava
Reason for Consultation: Fecal peritonitis
Chief Complaint / Past History
History of Present Illness
Radha Aguilera is a 64-year-old female being evaluated at the request of Bianca Kolb regarding leukocytosis and potentially infected vascular graft. History is obtained from chart review, along with patient interview.
The patient has a significant past medical history of recurrent rectal prolapse and ventral mesh rectopexy who presented to [facility] from [facility] secondary to noted abscess near her sigmoid colon. According to reviewed notes the
patient underwent surgery for her rectal prolapse more than 10 years ago at an OSH. She had had recurrent prolapse and underwent repair on 09/30/2024 by CRS (Dr. Melendez). She developed severe abdominal pain around 10/17/2024 with associated nausea,
vomiting, fevers and chills. She initially went to [facility], found to have a perforated sigmoid colon, with pericolonic abscess and partial SBO, and was transferred to [facility] for further care. She was taken to the OR on 10/25 for ex lap,
open sigmoid colectomy, appendectomy and end sigmoid ostomy. Following the OR she complained of left leg pain. Dopplers were performed, without significant blood flow noted to the left extremity. She thereafter underwent angiography, with the
finding of occlusion of the left iliac limb of the aortobifemoral bypass. She underwent thrombectomy, left common femoral artery endarterectomy and revision of the left femoral anastomosis of the aortobifemoral bypass. The patient underwent
additional surgery on 10/27 secondary to ischemia of the colostomy. Prior intraoperative cultures have revealed growth of strep species, along with a pansensitive E. coli. Infectious Diseases is asked to comment upon further antimicrobial selection
and management.
Past History
Additional Past Medical History:
Recurrent rectal prolapse
HTN
PVD
Dyslipidemia
Anemia
CKD
Renal artery stenosis
Additional Past Surgical History:
Ventral mesh rectopexy
Left renal stenting
Allergy History:
NSAIDS (Non-Steroidal Anti-Inflamma Allergy (Verified 09/30/24 11:32)
UNABLE TO TAKE D/T KIDNEY INSUFFICIENCY
Sulfa (Sulfonamide Antibiotics) Allergy (Verified 09/30/24 11:32)
Rash
Medications Reviewed: Yes
Current Antibiotics:
Zosyn 2.25 g IV every 8 hours (day #5)
Social History
Tobacco: Former Smoker
Alcohol: Occasional
Drug: None
Living: With Family
Family History
Family History: Not Pertinent
Review of Systems
Vital Signs
Temp Pulse Resp BP Pulse Ox
98.8 F 106 16 189/98 93
10/28/24 11:20 10/28/24 14:00 10/28/24 14:00 10/28/24 14:00 10/28/24 14:00
Physical Exam
Physical Exam
Constitutional: Comfortable, Chronically Ill and Non-toxic
Head: Normocephalic
Eyes: Pupils Equal, Pupils Round, No Conjunctival Hemorrhage and Sclera Anicteric
Oral: Other (NG tube in place.)
Cardiovascular: Regular Rate and S1/S2; Negative S3/S4
Pulmonary: Clear and Non Labored; Negative Wheezes or Rales
Gastrointestinal: Soft, Tender, Distended (Mild), Decreased Bowel Sounds and Other (Right lower quadrant JEAN drain with cloudy serous drainage. Ostomy in place.)
Extremities: Edema; Negative Cyanosis or Erythema
Skin: Warm and Dry
Wound: Other (Anterior abdominal wound with anju in place. No periwound erythema. Left groin incisional wound with arias VAC in place)
Neurological: Awake and Alert
Psychological: Calm
Lab / Diagnostic Study Results
10/28/24 04:17
10/28/24 10:54
Abs Immat Gran (auto) 0.3 10^3/uL (0-0.05) H 10/28/24 04:17
Absolute Neuts (auto) 26.8 10^3/uL (1.4-6.5) H 10/28/24 04:17
Absolute Lymphs (auto) 0.9 10^3/uL (1.2-3.4) L 10/28/24 04:17
Absolute Monos (auto) 0.7 10^3/uL (0.1-0.6) H 10/28/24 04:17
Absolute Basos (auto) 0.1 10^3/uL (0-0.2) 10/28/24 04:17
Immature Gran % 1.0 % (0-0.5) H 10/28/24 04:17
Neutrophils % 93.0 % (42.2-75.2) H 10/28/24 04:17
Lymphocytes % 3.3 % (20.5-51.1) L 10/28/24 04:17
Monocytes % 2.4 % (1.7-9.3) 10/28/24 04:17
Eosinophils % 0.0 % (0-6) 10/28/24 04:17
Basophils % 0.3 % (0-2) 10/28/24 04:17
PT 14.5 Sec (11.4-14.6) 10/24/24 22:15
INR 1.10 10/24/24 22:15
Lactic Acid 1.2 mmol/L (0.7-2.0) 10/24/24 22:15
Ur Squamous Epith Cells 0-2 /LPF (Few) 10/28/24 09:48
Microbiology Results
Micro:
10/28/24 10:18 Blood Culture - Pending
Blood/Venous
10/25/24 14:11 Anaerobic Culture - Preliminary
Abdomen Culture pending. Anaerobic cultures are examined after 3
days incubation. Additional information to follow.
10/28/24 10:34 Blood Culture - Pending
Blood/Venous
10/25/24 14:11 Wound Culture - Preliminary
Abdomen Escherichia coli
Streptococcus species
Gram Stain - Preliminary
Imaging:
10/25/2024 CT abdomen angio with runoff: Occlusion of left limb of aorto femoral bypass. Severe stenosis along the proximal and distal right superficial femoral artery. There has been postevacuation of previously seen large volume extraluminal
stool within the pelvis. S/p partial colectomy with left-sided colostomy. Please see full dictation for additional detail.
Assessment / Plan
Sigmoid colon perforation secondary to stercoral colitis
- s/p ex lap/sig. colectomy/ end-sigmoid ostomy 10/25/24
Critical limb ischemia left leg (following above procedure)
- s/p (L) fem graft embolectomy, fem graft endarterectomy with graft repair 10/25/24
Fecal peritonitis
Leukocytosis; rising
JACOB on CKD
Transaminitis
HTN
Dyslipidemia
Anemia
Hx renal artery stenosis
Recommendations:
Rising white count concerning for possible developing intra-abdominal process.
Will empirically broaden to meropenem. Given jackelin stool noted in abdominal cavity, will add micafungin empirically
Trend white count. If continues to rise would consider repeat abdominal imaging.
Follow temperature curve.
--- NOTE | 2024-10-28 14:15 | PTCARENOTE ---
BP 189/98, Hydralazine given prn. Pain medication prn. NGT bridle loose, NGT maintained position, retaped. OOB to chair with PT. Repositioned for comfort. Po ice chips in small amounts as tolerated. Continues to drain from NGT. Dr. Bryant at bedside
to assess, updated with patient status.
[2024-10-28] MEDS: KCL 160 MEQ IV (14:29)
--- NOTE | 2024-10-28 15:02 | CM ---
CM following re: discharge planning.
Discussed in Rounds, reviewed pt's chart, met with pt.
Per rounds meeting, pt is POD#3 open sigmoid colectomy, POD#3 Thrombectomy of occluded left iliac limb of aortobifemoral bypass, NJ tube, JEAN drain, continue supportive care.
Pt lives with son and his family 2SH, 2 steps to enter, has 1st floor set up, known to [facility] care .
PT and OT will evaluate the pt hen clinically appropriate to determine a level of care at discharge.
CM spoke to pt's son Praneeth and pt's brother Alexis [phone] and both stated that will not be able to return back home if she needs help expressed their concerns regarding next level of care. Both pt's son and brother Alexis were assured that pt
probably will need a short term rehab. A list provided and pt's brother stated he will decide with pt by Thursday.
D/C byers: Preferred SNF.
CM will follow with discharge plan updates as hospitalization progresses
--- NOTE | 2024-10-28 16:00 | PTCARENOTE ---
Bowel sounds audible but hypoactive. NGT drainage has slowed. Occasional nausea persists. Currently OOB to chair. Tolerating fair to poor.
[2024-10-28] MEDS: MYCAMINE 105 MG IV (16:20)
[2024-10-28] MEDS: STERILE WATER FOR INJECTION 10 ML IV (16:24)
[2024-10-28] MEDS: MERREM 500 MG IV (16:25)
[2024-10-28 17:53] LABS: Glucose - Point of Care 149 mg/dl (70-99)
--- NOTE | 2024-10-28 19:05 | PTCARENOTE ---
Report given verbally to ASHU Amin. Questions answered.
[2024-10-28] MEDS: APRESOLINE 10 MG IV (20:30)
[2024-10-29] VITALS (27 sets, daily range): BP systolic 152–199; BP diastolic 71–136; BMI 23.0
[2024-10-29 00:08] LABS: Glucose - Point of Care 106 mg/dl (70-99)
[2024-10-29] MEDS: LOPRESSOR 5 MG IV ×6 (00:38→23:30)
[2024-10-29] MEDS: DILAUDID 1 MG IV ×2 (00:38→19:24)
[2024-10-29] MEDS: D5LR 1000 IV ×2 (00:50→13:37)
[2024-10-29 04:30] LABS: Hemoglobin 10.5 g/dL (12.0-16.0); Mean Corpuscular Hgb 28.5 pg (27.0-31.0); Mean Corpuscular Volume 81.5 fL (81.0-99.0); Mean Platelet Volume 10.3 fL (7.4-10.4); Platelet Count 187 10^3/uL (130-400); Red Blood Cell Count 3.68 10^6/uL (4.20-5.40); Red Cell Dist. Width 14.6 % (11.5-14.5); White Blood Cell Count 23.5 10^3/uL (4.8-10.8)
--- NOTE | 2024-10-29 04:36 | PTCARENOTE ---
received pt from [facility], assessment completed and charted, pt offers no c/o pain only tenderness to abdomen. patient c/o not being able to nap today because so many people in her room, wants pain medicine so she can sleep tonight.
abdominal inc jerald, anju intact, JAYME drain functioning/light on, JEAN drain patent for scant serosang fluid. colostomy bag emptied/burped for gas and small amount of dark black/green liquid stool.
NG tube clamped per GI, will trial to see if pt can tolerate being clamped for a few hours
--- NOTE | 2024-10-29 04:40 | PTCARENOTE ---
pt requesting PRN pain medication, effective results obtained, however pt is c/\\o nausea - hooked pt back up to int. suction, immediately 300ml off dark green liquid emptied from NG tube,
with in 15 min, pt states nausea is gone- abdomen feels much better, no need for zofran.
wanted to change sheets and bath patient, she refused said they were done today, when i told her there was a stain, pt states she does not want her linens changed or a bath at this time
0500- labs sent, no new orderers, patient sleeping
[2024-10-29] MEDS: MERREM 500 MG IV ×2 (05:00→16:20)
[2024-10-29] MEDS: STERILE WATER FOR INJECTION 10 ML IV ×2 (05:00→16:20)
[2024-10-29 06:07] LABS: APTT 93.1 Sec (23.4-35.0)
[2024-10-29 06:09] LABS: Blood Urea Nitrogen 71 mg/dl (7-17); Calcium 7.6 mg/dl (8.4-10.2); Carbon Dioxide 30 mmol/L (22-30); Chloride 103 mmol/L (98-107); Estimated Creatinine Clearance 15 ml/min; Glucose 118 mg/dl (70-99); Potassium 2.9 mmol/L (3.5-5.1); Sodium 144 mmol/L (135-145); eGFR 18.87
[2024-10-29 06:26] LABS: Glucose - Point of Care 123 mg/dl (70-99)
--- NOTE | 2024-10-29 07:19 | W.PN.ID1 ---
Date of Service
Date of Service: October 29, 2024
Today's Communication
Continue antibiotics.
Assessment / Plan
Sigmoid colon perforation secondary to stercoral colitis
- s/p ex lap/sig. colectomy/ end-sigmoid ostomy 10/25/24
Critical limb ischemia left leg (following above procedure)
- s/p (L) fem graft embolectomy, fem graft endarterectomy with graft repair 10/25/24
Fecal peritonitis
Leukocytosis; rising
JACOB on CKD
Transaminitis
HTN
Dyslipidemia
Anemia
Hx renal artery stenosis
Recommendations:
Leukocytosis somewhat improved today. Prior elevation may have been reactive, but will need to be followed quite closely.
Continue with meropenem and micafungin.
Trend white count. If remains elevated or begins to rise, would consider repeat abdominal imaging.
Follow temperature curve.
����������������������������������������������������������
Chief Complaint
-: Leukocytosis and Other (Perforated viscus (sigmoid colon); critical limb ischemia; fecal peritonitis)
Subjective / Review of Systems
Patient seen and examined. No significant changes overnight. NG tube remains in place.
Review of Systems: No Fever, No Chills and Abdominal Pain (Mild)
Vital Signs / Physical Exam
Vital Signs
Vital Signs
Temp Pulse Resp BP Pulse Ox
98.0 F 116 20 190/95 93
10/29/24 03:30 10/29/24 05:57 10/29/24 04:30 10/29/24 05:57 10/29/24 04:30
Physical Exam
Constitutional: No Acute Distress, Comfortable, Chronically Ill and Non-toxic
Eyes: No Conjunctival Hemorrhage and Sclera Anicteric
Oropharyngeal: Other (NG tube in place)
Cardiovascular: Regular Rate (Tachycardic) and S1/S2; Negative S3/S4
Pulmonary: Clear and Non Labored
Gastrointestinal: Soft, Tender, Non Distended, Decreased Bowel Sounds, No Guarding and Other (Ostomy in place. Right lower quadrant JEAN drain with cloudy serous drainage.)
Extremities: Edema; Negative Cyanosis or Erythema
Wound: Other (Anterior abdominal wound with anju in place. No periwound erythema. Left groin incisional wound with arias VAC in place)
Neurological: Awake and Alert
Psychological: Calm
Objective Data
Lab Data
Lab Results
10/29/24 03:57
10/29/24 03:57
PT 14.5 Sec (11.4-14.6) 10/24/24 22:15
INR 1.10 10/24/24 22:15
APTT 93.1 Sec (23.4-35.0) H 10/29/24 05:33
Estimated Creat Clear 15 ml/min 10/29/24 03:57
Lactic Acid 1.2 mmol/L (0.7-2.0) 10/24/24 22:15
Total Bilirubin 0.5 mg/dl (0.2-1.3) 10/28/24 04:17
AST 490 U/L (14-36) H 10/28/24 04:17
ALT 138 U/L (0-35) H 10/28/24 04:17
Alkaline Phosphatase 190 U/L (38-126) H 10/28/24 04:17
Most recent labs reviewed.
Micro Results:
10/28/24 10:18 Blood Culture - Pending
Blood/Venous
10/25/24 14:11 Anaerobic Culture - Preliminary
Abdomen Culture pending. Anaerobic cultures are examined after 3
days incubation. Additional information to follow.
10/28/24 10:34 Blood Culture - Pending
Blood/Venous
10/25/24 14:11 Wound Culture - Preliminary
Abdomen Escherichia coli
Streptococcus species
Gram Stain - Preliminary
Imaging:
10/25/2024 CT abdomen angio with runoff: Occlusion of left limb of aorto femoral bypass. Severe stenosis along the proximal and distal right superficial femoral artery. There has been postevacuation of previously seen large volume extraluminal
stool within the pelvis. S/p partial colectomy with left-sided colostomy. Please see full dictation for additional detail.
--- NOTE | 2024-10-29 08:24 | W.PN.INTV ---
Today's Communication / Plan
Recommendations
Continue to monitor blood pressure - may need to start cardene gtt, give prn IV meds for now
Trend WBC count
Abx per ID
Postoperative management as per vascular + colorectal surgery
Pain control
Starting PPI due to dark, black stool seen in ostomy bag
Trend sCr and monitor UOP
NPO for now; defer starting diet to surgery
Continue ICU level care for now, and if BP improved by tomorrow and she remains clinically stable then can consider downgrading to IMU vs tele
Assessment
-
64-year-old female with history of hypertension, PAD, hyperlipidemia, chronic renal disease, renal artery stenosis status post stent who had a recent ventral mesh rectal plasty 09/30/2024 who presented to [facility] with abdominal
pain found to have perforation and abscess transferred back to [facility] and metal cut off saw tender consulted for abdominal abscess/hypertensive emergency/critical care management 10/25/2024.
Hypertensive urgency
Perforated sigmoid colon with pericolonic abscess and partial small bowel obstruction
Status post exploratory laparotomy, sigmoid colon resection with end colostomy and incidental appendectomy
Postoperative acute limb ischemia-left lower extremity with occlusion left iliac limb of aortobifem bypass
Status post emergent revascularization-thrombectomy of occluded left iliac limb of aortofemoral bypass, left common femoral endarterectomy, revision of femoral anastomosis and balloon angioplasty-Dr. Rodriguez-10/25/2024
Ventilator dependent respiratory failure postoperatively - now on room air
Sepsis without hypotension
JACOB
Metabolic acidosis -resolved
Leukocytosis
[id number] 10.7
Hyperglycemia
Conditions present prior to admission:
Hypertension.
Hyperlipidemia.
Anemia.
PAD.
Chronic kidney disease.
Renal artery stenosis/stent.
Former [id number]
Rectal prolapse/ventral mesh rectopexy 09/30/2024.
Plan
Patient is improving although still having high blood pressure with hypertensive urgency
Previously tolerated extubation
Keep SpO2 >90%
Incentive spirometry
Nebulizers if needed
Aspiration precautions
Chest x-ray 10/28/2024-minor atelectasis left lung base, no CHF or pneumonia
Monitor hemodynamics closely
Hydralazine as needed
Labetalol as needed
Monitor renal function
Nephrology following-correspondence reviewed
Nicardipine drip has been discontinued
Norepinephrine and vasopressin currently not needed
Bicarb drip not needed as serum bicarbonate level is [address] abdomen [facility] noted
Colorectal surgery following-operation 10/25/2024 noted and summarized above
Stoma appears ischemic
Bedside scope 10/27/2024 with viable tissue below fascia-no emergent OR yet for revision
Vascular surgery following-postoperative limb ischemia-correspondence reviewed
Status post revascularization 10/25/2024
Neurovascular checks continue
Heparin drip continues-eventually transition to oral anticoagulant
Once tolerating p.o. intake should reinitiate antiplatelet therapy if cleared by surgery
Cultures reviewed
Abdominal abscess cqafgjo-lzak-npnnolrg bacilli-E. coli and Streptococcus species
Empiric antibiotics to cover abdominal sources-Zosyn changed to meropenem on 10/28/2024, and she is also now on micafungin since 10/28/2024 per ID
Monitor leukocytosis
Monitor for additional intra-abdominal abscess formations-had significant fecal contamination with perforation
Repeat CT abdomen/pelvis if clinically indicated
Monitor renal function
Lasix on hold
Nephrology following-correspondence reviewed
No acute dialysis requirements
Monitor hemoglobin
Transfuse if needed
Her stool inside her ostomy bag is very dark/black - PPI 40 mg IV twice daily started today
Monitor blood sugar with goal BG 140-180
Monitor for hypoglycemia
Insulin supplementation as needed
DVT prophylaxis-on heparin drip
Nutrition per surgery
Bedside range of motion, eventual PT/OT
Dr. Villela updated brother at the bedside in detail and on multidisciplinary rounds 10/27/2024 and again in detail 10/28/2024
Outpatient pulm evaluation-with smoking history, PFT, yearly low-dose lung cancer screening CT chest
Given patient's severely high blood pressure with possible need to restart Cardene drip, and severe sepsis with multiple recent procedures, continue with ICU level care.
Total time spent today was 76 minutes for this encounter. Time includes reviewing laboratory test/imaging results, reviewing pertinent medical records, obtaining and reviewing medical history, performing an appropriate exam, ordering medications,
tests and procedures. Time also includes documentation of this encounter, coordinating patient care and communicating with other healthcare professionals. Total time does not include separately billed tests performed on this date of service.
Diagnostic data:
Chest x-ray 10/25/2024-NAD
Chest x-ray 10/28/2024-minor atelectasis left lung base, no CHF or pneumonia
CT abdomen 10/25/2024-occlusion of left limb aortobifem bypass
Subjective Dataa
Subjective Data
Date of Service:
Date of Service: October 29, 2024
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
Subjective:
Patient seen and evaluated today at bedside. Eager to eat. Her son, Jesus, at bedside. All questions were answered. Currently, heart rate 114, BP 199/100, and saturating 95% on room air. Her NGT is on low intermittent wall suction. She denies
abdominal pain although does have some pain on exam during palpation. Also on heparin drip. Denies SOB, nausea, fevers or chills.
Review of Systems
General: Other (Negative unless mentioned above)
Objective Data
Data Reviewed
Vital Signs / I&O / Oxygen:
Vital Signs
Temp Pulse Resp BP Pulse Ox
98.3 F 108 18 190/99 95
10/29/24 08:03 10/29/24 07:30 10/29/24 07:30 10/29/24 07:00 10/29/24 07:30
Intake and Output
0110/29/24 10/30/24
06:59 06:59 06:59
Intake Total 2820 / 2980 2650 / 2735 170 / 170
Output Total 2463 / 2463 2755 / 2905 300 / 300
Balance 357 / 517 -105 / -170 -130 / -130
SaO2 [CPAP/PSV] 100
SaO2 [A/C] 100
SaO2 95
Nasal Cannula flow liters per 2
minute
Physical Exam
General: Respiratory Distress (negative), Comfortable, Chills (negative), Sweats (negative) and Other
HEENT: Normocephalic and Anicteric
Cardiovascular: S1-S2, Murmur (negative), Peripheral Edema (negative) and Other (Tachycardic)
Respiratory: Clear, Wheeze (negative), Crackles (negative), Rhonchi (negative) and Non-Labored Respirations
GI: Soft, Distended, Tender (Mildly tender to palpation in the periumbilical area) and Other (Ostomy site with loose, dark stool seen; hypoactive bowel sounds)
Neurology: AO x 3 and Tremors (negative)
Skin: Warm, Dry, Cyanosis (n) and Jaundice (n)
Labs/Micro/Reports
Lab Data
10/29/24 03:57
10/29/24 03:57
Laboratory Results
10/29/24
05:33
APTT 93.1 H
Microbiology
10/25/24 14:11 Abdomen Anaerobic Culture - Preliminary
Culture pending. Anaerobic cultures are examined after 3
days incubation. Additional information to follow.
10/25/24 14:11 Abdomen Wound Culture - Preliminary
Escherichia coli
Streptococcus species
10/25/24 14:11 Abdomen Gram Stain - Preliminary
[2024-10-29 08:30] LABS: % Basophils 0.3 % (0-2); % Immature Granulocytes 1.8 % (0-0.5); % Lymphocytes 3.1 % (20.5-51.1); % Monocytes 2.7 % (1.7-9.3); % Neutrophils 92.1 % (42.2-75.2); Absolute Basophils 0.1 10^3/uL (0-0.2); Absolute Immature Granulocytes 0.4 10^3/uL (0-0.05); Absolute Lymphocytes 0.7 10^3/uL (1.2-3.4); Absolute Monocytes 0.6 10^3/uL (0.1-0.6); Absolute Neutrophils 21.7 10^3/uL (1.4-6.5); Nucleated Red Blood Cells % 0.6 %
[2024-10-29] MEDS: KCL 100 IV (08:30)
[2024-10-29] MEDS: LIDOCAINE 4% PATCH 1 PATCH TOPICAL (08:30)
[2024-10-29] MEDS: ASPIRIN 300 MG RECTAL (08:30)
--- NOTE | 2024-10-29 08:31 | PTCARENOTE ---
0700 assumed care . pt in bed. heparin at 500/5ml PTT this am therapeutic. Next PTT tomorrow am infusing via brown port; D5LR at 80/hr via blue port.
AAO x3 Neuro check (see neuro check form )
ST 114; BP via Left UA: 152/82 MAP 104 RR 20; Core temp 98.4; 95RA
RR: RA Lungs diminished. RR even non labor. IS 250 will encourage
GI: Hypoactive BS. denies nausea. No vomiting. RT NJ to low intermittent suction dark brown output . Will monitor output ; RT Ostomy : stoma dusky dark( per report physician aware ) output dark brown liquid
Indwelli jorge draining clear yellow urine. Jorge care done . Will monitor Output
RT JEAN output light pink; PICCO left; Midline abdominal incision.
+2 edema b/l LE pedal pulses present via Doppler. b/l LE warm to touch. pt NPO
K-CL 40mew in 100cc adm for K 2.9. Mg WNL in am
call cota within reach
--- NOTE | 2024-10-29 09:15 | W.PN.VS ---
Today's Communication / Plan
-
start PO AC / DAPT when tolerating PO
Assessment/Plan
-
Assessment: 64-year-old female POD #4 Thrombectomy of occluded left iliac limb of aortobifemoral bypass. Left common femoral artery endarterectomy. Revision of left femoral anastomosis of aortobifemoral bypass using 8 mm Dacron graft. Balloon
angioplasty and stenting of left iliac limb of aortobifemoral bypass using 2 overlapping 8 mm x 59 mm Seneca VBX stents. Left lower extremity arteriogram. Reoperation, left groin from prior aortobifemoral bypass for occlusion of left iliac limb of
aortobifemoral bypass, left common femoral artery, left profunda artery, and left superficial femoral artery following colorectal surgery.
Plan:
Eventual plan once patient is tolerating p.o. is to initiate DAPT of Plavix 75 mg p.o. daily with aspirin 81 mg p.o. daily, in the meantime while patient is strict n.p.o. continue heparin infusion
f/u ID
Arias dressings can continue for 7 days total, we will return Thursday to change arisa dressing in place new arias on in hopes to protect left groin surgical incision from possible contaminants from ostomy
Subjective Data
-
Date of Service: October 29, 2024
NAEO. stool and gas in ostomy. Palpable DP
Objective Data
-
Vital Signs
Temp Pulse Resp BP Pulse Ox
98.3 F 108 18 190/99 95
10/29/24 08:03 10/29/24 07:30 10/29/24 07:30 10/29/24 07:00 10/29/24 07:30
Intake and Output
10/28/24 10/29/24 10/30/24
06:59 06:59 06:59
Intake Total 2820 / 2980 2650 / 2735 170 / 170
Output Total 2463 / 2463 2755 / 2905 300 / 300
Balance 357 / 517 -105 / -170 -130 / -130
Intake:
Oral fluids 120 / 120
IV fluids (Total) 2069 / 2199 170 / 170
D5lr 1,000 ml @ 80 mls/hr IV . 1680 / 1760 1919 / 1999 160 / 160
[id number] LA[place]HA Rx#:[id number]
Heparin 125 / 130 120 / 125 10 / 10
Lr 1,000 ml @ 60 mls/hr IV . 240 / 240
[id number] [place] Rx#:[id number]
kcl 25 / 100 75 / 75
IV piggybacks 600 / 600 265 / 265
Amount instilled into GI Tube ( 150 / 150 150 / 150
Total)
[place] Sump 150 / 150 150 / 150
Output:
Liquid stool amount 675 / 675
Colostomy 675 / 675
Drain Output (Total) 345 / 345 105 / 105
Right Abdomen Shamar-Adams 345 / 345 105 / 105
Gastrointestinal tube output ( 185 / 185 300 / 300
Total)
[place] Sump 185 / 185 300 / 300
Urine, Rodriguez 1258 / 1258 2350 / 2500 300 / 300
Lab Results
10/29/24 03:57
10/29/24 03:57
Calcium 7.6 mg/dl (8.4-10.2) L 10/29/24 03:57
Phosphorus 6.3 mg/dl (2.5-4.5) H 10/25/24 23:26
Magnesium 2.0 mg/dl (1.6-2.3) 10/29/24 03:57
Total Bilirubin 0.5 mg/dl (0.2-1.3) 10/28/24 04:17
AST 490 U/L (14-36) H 10/28/24 04:17
ALT 138 U/L (0-35) H 10/28/24 04:17
Alkaline Phosphatase 190 U/L (38-126) H 10/28/24 04:17
Total Protein 5.2 g/dl (6.3-8.2) L D 10/28/24 04:17
Albumin 2.6 g/dl (3.5-5.0) L 10/28/24 04:17
Physical Exam
-
LLE: incision C/D/I; palpable DP
--- NOTE | 2024-10-29 09:35 | W.PN.HOSP.TC ---
Addendum entered and electronically signed by Mayo Armijo MD 10/29/24 09:50:
correction, Merrem not Zosyn
Original Note:
Today's Communication/Plan
-
continue Zosyn/Micafungin
treat BP
encourage PT/OT/OOBTC
Assessment / Plan
Assessment / Plan
Assessment:
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
- Thrombectomy of occluded left iliac limb of aortobifemoral bypass/Left common femoral artery endarterectomy performed 10/25
- continue IV Heparin - requires intensive monitoring of PTTs
- continue neurovascular checks
- Vascular following
Perforated sigmoid colon with pericolonic abscess formation with partial SBO
Acute Sepsis (tachycardia, leukocytosis) from acute GI colonic source
- s/p open sigmoid colectomy, incidental appendectomy, and end sigmoid ostomy 10/25
- continue IV Zosyn day 5, Micafungin day 2. ID consulted.
- continue NPO/NGT
- pain control, anti-emetics
- CRS following
- 10/27: concern for bleeding/necrosis of bowel; bedside scope report indicates viable tissue beneath skin
Intubation for acute surgical procedures
VDRF
- s/p extubation 10/26
Acute blood loss anemia on chronic anemia
- s/p 2 unit PRBCs; Hb 10.5 most recently.
Shock - multifactorial from hemorrhagic and sepsis
- wean pressors as able
Accelerated hypertension with risk of developing hypertensive emergency
History of underlying Accelerated HTN with multi-drug regimen and history of PARI s/p L Renal artery stenting
- OP regimen includes Amlodipine, Clonidine, Hydralazine, Metoprolol, ARB, HCTZ.
- currently NPO
- continue IV Metoprolol and Clonidine patch. s/p Cardene drip. prn Hydralazine 10mg q4h prn and prn Metoprolol
History of recurrent rectal prolapse status post ventral mesh rectopexy with recent repair
JACOB on CKD stage 3b
Acute metabolic acidosis
- suspect driven by accelerated HTN and critical illness
- Nephrology following
- maintain Rodriguez for critical I/Os
- s/p IV Lasix x 1
- continue IVF
history of PARI s/p L Renal artery stenting
Peripheral vascular disease
Hypercholesterolemia
- hold Plavix/Statin
Hypokalemia - replete prn
Former smoker
Hypoglycemia
- accu-checks q6h
- dextrose IVF
Elevated LFTs from shock liver
- trend
DVT ppx: SCDs
Code: Full
Total Critical Care Time 41 minutes. I was immediately available to the patient and staff. I personally examined, reviewed labs, diagnostic images/reports, interpretations, treatment plans, discussed patient care with other providers and family
or caregivers (if patient is unable to make decisions), entered orders as appropriate and documented the medical record.
Anticipated Discharge: > 48 hours
Subjective/Interval History
-
Date of Service: October 29, 2024
resting comfortably, no complaints
RN reports dark material in ostomy output, Hb stable
Objective Data
-
Labs:
Laboratory Results
10/29/24 10/29/24
03:57 05:33
WBC 23.5 H
Hgb 10.5 L
Hct 30.0 L
Plt Count 187
APTT 93.1 H
Sodium 144
Potassium 2.9 L
Chloride 103
Carbon Dioxide 30
BUN 71 H
Creatinine 2.7 H
Glucose 118 H
Calcium 7.6 L
Vital Signs:
Vital Signs
Temp Pulse Resp BP Pulse Ox
98.3 F 108 18 190/99 95
10/29/24 08:03 10/29/24 07:30 10/29/24 07:30 10/29/24 07:00 10/29/24 07:30
I&O
10/28/24 10/29/24 10/30/24
06:59 06:59 06:59
Intake Total 2820 / 2980 2650 / 2735 170 / 170
Output Total 2463 / 2463 2755 / 2905 300 / 300
Balance 357 / 517 -105 / -170 -130 / -130
Physical Exam
-
General: No Apparent Distress
HEENT: Normocephalic and Atraumatic
Respiratory: Negative Wheezes
Cardiac: Regular Rhythm and S1/S2
GI: Soft, Nontender and Ostomy
Genito-urinary: No Costovertebral Tender
Musculoskeletal: No Edema
Neuro: AO x 3
Hematologic / Lymphatic: No Lymphadenopathy
Psych: Calm
Data Reviewed
-
Critical Care Time (in minutes): 41
Labs: Labs Reviewed by me
[2024-10-29] MEDS: LOPRESSOR IV (10:01)
[2024-10-29 10:39] LABS: ALT (SGPT) 137 U/L (0-35); AST (SGOT) 416 U/L (14-36); Albumin 2.2 g/dl (3.5-5.0); Alkaline Phosphatase 209 U/L (38-126); Total Bilirubin 0.3 mg/dl (0.2-1.3); Total Protein 4.6 g/dl (6.3-8.2)
--- NOTE | 2024-10-29 11:11 | W.PN.NEPH.PH ---
Today's Communication / Plan
-
Continue to monitor urine output maintenance IV fluid no changes from renal stand
Assessment/Plan
-
4^-year-old female past medical history of recurrent rectal prolapse status post ventral mesh rectopexy, hypertension, peripheral vascular disease, hypercholesteremia, anemia, CKD, renal artery stenosis status post left renal stent presenting as a
transfer from [facility] for abscess near sigmoid colon possible perforation.
Renal consult for acute on chronic kidney disease she follows with Dr. Edson [employer]
Baseline creatinine appears to be between 1.8 and 2.0. She presented with a creatinine of 3.2 and a metabolic acidosis
Impression:
Acute on chronic kidney disease.
Acute metabolic acidosis.
Hypertensive urgency.
Pericolonic abscess.
History of renal artery stenosis with left stent.
Postop sigmoid colectomy incidental appendectomy and end sigmoid ostomy
Postop thrombectomy of occluded left iliac limb of aortobifemoral bypass\\left common femoral artery endarterectomy
.
Plan:
Status post OR with left lower extremity agniogram requiring thrombectomy of occluded left iliac limb of aortobifemoral bypass with left common femoral artery enterectomy
Acuity of JACOB likely hemodynamically mediated with a blood pressure 200+ systolic and contrast inducted nephropathy
Creatinine peaked at 3.7 improving
BP remains acceptable on clonidine patch, IV Lopressor (patient remains npo)
Metabolic acidosis corrected following bicarbonate administration
Zosyn renally dosed
Maintain Rodriguez catheter
Anemia improved following 2 unit transfusion on 10/26/2024
Remains on heparin infusion
No acute need for dialysis at this time but given multiple nephrotoxic insults will have to be monitored closely
Good urine output over the last 24 hours..
Creatinine has improved down to 2.7.
Total Time Spent with Patient (in minutes): 32
-
-
Date of Service: October 29, 2024
CC / HPI / ROS
-
Chief Complaint:
JACOB
History of Present Illness:
Creatinine improved status post JACOB postoperative
Review of Systems:
Oliguric via Rodriguez catheter
No fevers
Black liquid stool in ostomy
NG tube
Labs
-
Labs:
WBC 23.5 10^3/uL (4.8-10.8) H 10/29/24 03:57
RBC 3.68 10^6/uL (4.20-5.40) L 10/29/24 03:57
Hgb 10.5 g/dL (12.0-16.0) L 10/29/24 03:57
Hct 30.0 % (37.0-47.0) L 10/29/24 03:57
Plt Count 187 10^3/uL (130-400) 10/29/24 03:57
Sodium 144 mmol/L (135-145) 10/29/24 03:57
Potassium 2.9 mmol/L (3.5-5.1) L 10/29/24 03:57
Chloride 103 mmol/L (98-107) 10/29/24 03:57
Carbon Dioxide 30 mmol/L (22-30) 10/29/24 03:57
BUN 71 mg/dl (7-17) H 10/29/24 03:57
Creatinine 2.7 mg/dL (0.6-1.0) H 10/29/24 03:57
eGFR 18.87 10/29/24 03:57
Glucose 118 mg/dl (70-99) H 10/29/24 03:57
Calcium 7.6 mg/dl (8.4-10.2) L 10/29/24 03:57
Phosphorus 6.3 mg/dl (2.5-4.5) H 10/25/24 23:26
Albumin 2.2 g/dl (3.5-5.0) L 10/29/24 03:57
Physical Exam
-
Vital Signs:
Vital Signs
Temp Pulse Resp BP Pulse Ox
98.3 F 114 18 186/94 95
10/29/24 08:03 10/29/24 10:01 10/29/24 07:30 10/29/24 10:01 10/29/24 07:30
Cardiovascular:: Regular rate and rhythm
Respiratory:: Bilateral: CTA
Lung Excursion:: Normal
Abdomen:: Soft
Bowel Sounds:: Decreased
Extremity Edema:: None: Bilateral:
Rodriguez Catheter: Yes
Other Findings::
HEENT: NGT
Ostomy with black liquid stool
[2024-10-29 12:24] LABS: Glucose - Point of Care 119 mg/dl (70-99)
[2024-10-29] MEDS: NSS (PRESERVATIVE FREE) 10 ML IV ×2 (13:44→19:24)
[2024-10-29] MEDS: PROTONIX IV 40 MG IV ×2 (13:44→19:24)
[2024-10-29] MEDS: DILAUDID 0.5 MG IV (13:45)
[2024-10-29] MEDS: APRESOLINE 10 MG IV ×2 (13:49→22:09)
[2024-10-29] MEDS: KCL 270 MEQ IV (14:03)
--- NOTE | 2024-10-29 14:03 | PTCARENOTE ---
BP 199/100. St 104 Metoprolol standard order and Hydralazine PRN order adm Rodriguez output 600
--- NOTE | 2024-10-29 14:57 | W.PN.GS2 ---
Addendum entered and electronically signed by Praneeth Ortiz MD 10/29/24 15:21:
Patient seen and examined. Son at bedside.
Complains of NG tube.
Denies abdominal pain.
No nausea, requesting p.o. intake
AF, stable tachycardia, normotensive
NG tube in place with dark gastric contents modest amount within canister
ABD: Soft, not overly distended, mild tenderness on palpation.
Left-sided ostomy with cyanotic mucosa but no retraction. Significant liquid stool and air within ostomy appliance.
A/P: Added PPI twice daily with NG tube in place and some pink color output
Continue to monitor returning GI function, likely will be able to remove NG tube tomorrow
Original Note:
Today's Communication / Plan
-
NPO/NGT
Assessment / Plan
-
Ms Sheridan is a 64 yo female s/ rectopexy on 09/30 who presented this admission with perforated sigmoid colon secondary to stercoral colitis taken for emergent exploratory laparotomy with left lower limb ischemia noted in pacu
POD# 4 open sigmoid colectomy, incidental appendectomy, and end sigmoid ostomy
POD# 4 thrombectomy of occluded left iliac limb of aortobifemoral bypass/Left common femoral artery endarterectomy
POD #2 necrotic layer over stoma; bedside flexible sigmoidoscopy revealing pink mucosa under the fascial level
Afebrile, tachycardic with hypertension
Leukocytosis present but trending down
H/H stable on heparin gtt
Hypokalemia present, elevated cr
NGT/Stool dark/suspect an element of GIB secondary to local irritation from NGT
Stoma pale but productive of stool/flatus. NGT clamp trial unsuccessful d/t high bilious residual
--Continue NPO/NGT at this time. If continues to do well, may be able to remove NGT tomorrow and start clears
--NPO, ok for some sips of clears for comfort
--Trend labs. Continue ABX as per ID
--Jroge as per nephrology
--IV PPI BID initiated
--IVF as per nephrology/ICU team
--Continue anticoagulation/antiplatelet therapy and ambulation as per vascular surgery
--Stoma/wound nurse following for stoma care
Subjective Data
-
Date of Service: October 29, 2024
Patient seen and examined at bedside with Dr. Ortiz. Denies n/v. Denies pain. Eager to have PO intake.
Objective Data
-
Intake and Output
10/28/24 10/29/24 10/30/24
06:59 06:59 06:59
Intake Total 2820 / 2980 2650 / 2735 595 / 595
Output Total 2463 / 2463 2755 / 2905 900 / 900
Balance 357 / 517 -105 / -170 -305 / -305
Intake:
Oral fluids 120 / 120
IV fluids (Total) 2070 / 2230 2115 / 2200 595 / 595
D5lr 1,000 ml @ 80 mls/hr IV . 1680 / 1760 1920 / 2000 560 / 560
[id number] [place] Rx#:[id number]
Heparin 125 / 130 120 / 125 35 / 35
Lr 1,000 ml @ 60 mls/hr IV . 240 / 240
[id number] [place] Rx#:[id number]
kcl 25 / 100 75 / 75
IV piggybacks 600 / 600 265 / 265
Amount instilled into GI Tube ( 150 / 150 150 / 150
Total)
[place] Sump 150 / 150 150 / 150
Output:
Liquid stool amount
Colostomy
Drain Output (Total) 345 / 345 105 / 105
Right Abdomen Shamar-Adams 345 / 345 105 / 105
Gastrointestinal tube output ( 185 / 185 300 / 300
Total)
[place] Sump 185 / 185 300 / 300
Urine, Jorge 1258 / 1258 2350 / 2500 900 / 900
Vital Signs
Temp Pulse Resp BP Pulse Ox
98.3 F 115 26 165/82 94
10/29/24 08:03 10/29/24 13:55 10/29/24 13:55 10/29/24 13:55 10/29/24 13:55
Lab Results
10/29/24 03:57
10/29/24 03:57
Calcium 7.6 mg/dl (8.4-10.2) L 10/29/24 03:57
Phosphorus 6.3 mg/dl (2.5-4.5) H 10/25/24 23:26
Magnesium 2.0 mg/dl (1.6-2.3) 10/29/24 03:57
Total Bilirubin 0.3 mg/dl (0.2-1.3) 10/29/24 03:57
AST 416 U/L (14-36) H 10/29/24 03:57
ALT 137 U/L (0-35) H 10/29/24 03:57
Alkaline Phosphatase 209 U/L (38-126) H 10/29/24 03:57
Total Protein 4.6 g/dl (6.3-8.2) L 10/29/24 03:57
Albumin 2.2 g/dl (3.5-5.0) L 10/29/24 03:57
Physical Exam
-
NAD
ABD soft, minimal distention, nt, NGT with coffee ground stained bile
Stoma pale with dark liquid stool/flatus outputs in appliance
Midline incision with intact staple line, well approximated
Jorge with clear, yellow urine
Patient has a jorge catheter: Yes
Patient has a central line: Yes
[2024-10-29] MEDS: TRANDATE 10 MG IV (16:18)
--- NOTE | 2024-10-29 16:24 | PTCARENOTE ---
labetolol
BP 183/87 SR 98 labetolol 10 mg IV per one time order adm
[2024-10-29] MEDS: MYCAMINE 105 MG IV (18:21)
[2024-10-29 18:37] LABS: Glucose - Point of Care 117 mg/dl (70-99)
--- NOTE | 2024-10-29 20:56 | PTCARENOTE ---
Pt received awake alert and oriented. c/o 8/10 pain lower abdomen-med with dilaudid IV. NG in place. Placed to suction as ordered. Flushed as ordered. L pedal pulse palpable. R pedal pulse weak on palpation. Assessment as charted.
[2024-10-29 23:41] LABS: Glucose - Point of Care 107 mg/dl (70-99)
[2024-10-30] VITALS (25 sets, daily range): BP systolic 90–189; BP diastolic 49–104; BMI 21.7
[2024-10-30] MEDS: D5LR 1000 IV ×2 (02:03→12:50)
[2024-10-30] MEDS: STERILE WATER FOR INJECTION 10 ML IV ×2 (03:23→17:01)
[2024-10-30] MEDS: APRESOLINE 10 MG IV ×2 (03:23→09:06)
[2024-10-30] MEDS: MERREM 500 MG IV ×2 (03:23→17:01)
[2024-10-30] MEDS: LOPRESSOR 5 MG IV (05:37)
[2024-10-30 05:38] LABS: % Basophils 0.2 % (0-2); % Eosinophils 0.1 % (0-6); % Immature Granulocytes 3.5 % (0-0.5); % Lymphocytes 3.7 % (20.5-51.1); % Monocytes 3.8 % (1.7-9.3); % Neutrophils 88.7 % (42.2-75.2); Absolute Immature Granulocytes 0.6 10^3/uL (0-0.05); Absolute Lymphocytes 0.7 10^3/uL (1.2-3.4); Absolute Monocytes 0.7 10^3/uL (0.1-0.6); Absolute Neutrophils 16.2 10^3/uL (1.4-6.5); Hemoglobin 8.2 g/dL (12.0-16.0); Mean Corp Hgb Conc. 32.8 g/dL (33.0-37.0); Mean Corpuscular Hgb 27.6 pg (27.0-31.0); Mean Corpuscular Volume 84.2 fL (81.0-99.0); Mean Platelet Volume 10.6 fL (7.4-10.4); Nucleated Red Blood Cells % 0.5 %; Platelet Count 194 10^3/uL (130-400); Red Blood Cell Count 2.97 10^6/uL (4.20-5.40); Red Cell Dist. Width 14.9 % (11.5-14.5); White Blood Cell Count 18.2 10^3/uL (4.8-10.8)
[2024-10-30 05:44] LABS: APTT 93.7 Sec (23.4-35.0)
[2024-10-30 06:22] LABS: AST (SGOT) 336 U/L (14-36); Blood Urea Nitrogen 50 mg/dl (7-17); Calcium 7.3 mg/dl (8.4-10.2); Carbon Dioxide 31 mmol/L (22-30); Chloride 107 mmol/L (98-107); Estimated Creatinine Clearance 21 ml/min; Glucose 111 mg/dl (70-99); Total Bilirubin 0.3 mg/dl (0.2-1.3); Total Protein 4.3 g/dl (6.3-8.2); eGFR 27.04
[2024-10-30 06:43] LABS: ALT (SGPT) 112 U/L (0-35); Alkaline Phosphatase 163 U/L (38-126); Potassium 3.1 mmol/L (3.5-5.1); Sodium 144 mmol/L (135-145)
--- NOTE | 2024-10-30 07:17 | W.PN.ID1 ---
Date of Service
Date of Service: October 30, 2024
Today's Communication
Continue antibiotics.
Assessment / Plan
Sigmoid colon perforation secondary to stercoral colitis
- s/p ex lap/sig. colectomy/ end-sigmoid ostomy (10/25/24)
Critical limb ischemia left leg (following above procedure)
- s/p (L) fem graft embolectomy, fem graft endarterectomy with graft repair (10/25/24)
Fecal peritonitis
-Cultures with E. coli and strep species
Leukocytosis;
JACOB on CKD
Transaminitis
HTN
Dyslipidemia
Anemia
Hx renal artery stenosis
Recommendations:
Leukocytosis with continued improvement today. Prior elevation may have been reactive, but will need to be followed quite closely.
Continue with meropenem and micafungin for today.
Trend white count.
Follow temperature curve.
����������������������������������������������������������
Chief Complaint
-: Leukocytosis and Other (Perforated viscus (sigmoid colon); critical limb ischemia; fecal peritonitis)
Subjective / Review of Systems
Patient seen and examined. Denies specific pain at this time. Notes ongoing NG tube discomfort.
Review of Systems: No Fever
Vital Signs / Physical Exam
Vital Signs
Vital Signs
Temp Pulse Resp BP Pulse Ox
99.5 F 103 25 181/89 93
10/30/24 04:00 10/30/24 06:00 10/30/24 06:00 10/30/24 06:00 10/30/24 06:00
Physical Exam
Constitutional: No Acute Distress, Comfortable, Chronically Ill and Non-toxic
Eyes: No Conjunctival Hemorrhage and Sclera Anicteric
Oropharyngeal: Other (NG tube in place)
Cardiovascular: Regular Rate (Tachycardic) and S1/S2; Negative S3/S4
Pulmonary: Clear and Non Labored
Gastrointestinal: Soft, Decreased Bowel Sounds and Other (Ostomy in place. Right lower quadrant JEAN drain with cloudy serous drainage.)
Extremities: Edema; Negative Cyanosis or Erythema
Skin: Warm and Dry
Wound: Other (Anterior abdominal wound with anju in place. No periwound erythema. Left groin incisional wound with arias VAC in place)
Neurological: Awake and Alert
Psychological: Calm
Objective Data
Lab Data
Lab Results
10/30/24 04:57
10/30/24 04:57
PT 14.5 Sec (11.4-14.6) 10/24/24 22:15
INR 1.10 10/24/24 22:15
APTT 93.7 Sec (23.4-35.0) H 10/30/24 04:57
Estimated Creat Clear 21 ml/min 10/30/24 04:57
Lactic Acid 1.2 mmol/L (0.7-2.0) 10/24/24 22:15
Total Bilirubin 0.3 mg/dl (0.2-1.3) 10/30/24 04:57
AST 336 U/L (14-36) H 10/30/24 04:57
ALT 112 U/L (0-35) H 10/30/24 04:57
Alkaline Phosphatase 163 U/L (38-126) H 10/30/24 04:57
Most recent labs reviewed.
Micro Results:
10/28/24 10:34 Blood Culture - Preliminary
Blood/Venous No Growth in 24 hours- Final report to follow
10/28/24 10:18 Blood Culture - Preliminary
Blood/Venous No Growth in 24 hours- Final report to follow
10/25/24 14:11 Anaerobic Culture - Preliminary
Abdomen Culture pending. Anaerobic cultures are examined after 3
days incubation. Additional information to follow.
10/25/24 14:11 Wound Culture - Preliminary
Abdomen Escherichia coli
Streptococcus species
Gram Stain - Preliminary
Imaging:
10/25/2024 CT abdomen angio with runoff: Occlusion of left limb of aorto femoral bypass. Severe stenosis along the proximal and distal right superficial femoral artery. There has been postevacuation of previously seen large volume extraluminal
stool within the pelvis. S/p partial colectomy with left-sided colostomy. Please see full dictation for additional detail.
--- NOTE | 2024-10-30 08:10 | W.PN.INTV ---
Today's Communication / Plan
Recommendations
Continue to monitor blood pressure with goal <140/90
Trend WBC count
Abx per ID
Postoperative management as per vascular + colorectal surgery
Pain control
Continue PPI per surgery due to dark, black stool seen in ostomy bag
Trend sCr and monitor UOP
Surgery okay with trial of clear liquids today, continue to monitor; ADAT per surgery
Patient is stable for downgrade out of ICU to IMU. She is on room air, saturating >95% and has no complaints of shortness of breath. No additional recommendations at this time. Tissue Inserter/Pulmonary service will now sign off. Please reconsult if
there are any additional questions/concerns, or if patient's respiratory status deteriorates.
Assessment
-
64-year-old female with history of hypertension, PAD, hyperlipidemia, chronic renal disease, renal artery stenosis status post stent who had a recent ventral mesh rectal plasty 09/30/2024 who presented to [facility] with abdominal
pain found to have perforation and abscess transferred back to [facility] and corporate counselor consulted for abdominal abscess/hypertensive emergency/critical care management 10/25/2024.
Impression:
Hypertensive urgency
Perforated sigmoid colon with pericolonic abscess and partial small bowel obstruction
Status post exploratory laparotomy, sigmoid colon resection with end colostomy and incidental appendectomy
Postoperative acute limb ischemia-left lower extremity with occlusion left iliac limb of aortobifem bypass
Status post emergent revascularization-thrombectomy of occluded left iliac limb of aortofemoral bypass, left common femoral endarterectomy, revision of femoral anastomosis and balloon angioplasty-Dr. Rodriguez-10/25/2024
Ventilator dependent respiratory failure postoperatively - now extubated and on room air
Sepsis without hypotension
JACOB
Metabolic acidosis -resolved
Leukocytosis
Anemia-microcytic
Hyperglycemia - resolved
Conditions present prior to admission:
Hypertension.
Hyperlipidemia.
Anemia.
PAD.
Chronic kidney disease.
Renal artery stenosis/stent.
Former [id number]
Rectal prolapse/ventral mesh rectopexy 09/30/2024.
Plan
Patient is improving, also with improved blood pressure
Previously tolerated extubation
Keep SpO2 >90% - now on room air and breathing comfortably
Nebulizers if needed
Aspiration precautions
Chest x-ray 10/28/2024-minor atelectasis left lung base, no CHF or pneumonia --> encourage incentive spirometer q1hr while awake
Monitor BP with goal <140/90mmHg
Hydralazine as needed
Labetalol as needed
Home meds resumed
Monitor renal function
Nephrology following-correspondence reviewed
Nicardipine drip has been discontinued
Norepinephrine and vasopressin currently not needed
Bicarb drip not needed as serum bicarbonate level is now [address] abdomen from [facility] noted
Colorectal surgery following-operation 10/25/2024 noted and summarized above
Stoma appears ischemic
Bedside scope 10/27/2024 with viable tissue below fascia-no emergent OR yet for revision
Postoperative management as per colorectal surgery
Pain control
Vascular surgery following-postoperative limb ischemia-correspondence reviewed
Status post revascularization 10/25/2024
Neurovascular checks continue
Heparin drip continues-eventually transition to oral anticoagulant
Once tolerating p.o. intake should reinitiate antiplatelet therapy if cleared by surgery
Postoperative management as per vascular surgery
Cultures reviewed
Abdominal abscess [id number] bacilli-E. coli and Streptococcus species
Empiric antibiotics to cover abdominal sources-Zosyn changed to meropenem on 10/28/2024, and she is also now on micafungin since 10/28/2024 per ID
Monitor leukocytosis
Monitor for additional intra-abdominal abscess formations-had significant fecal contamination with perforation
Repeat CT abdomen/pelvis if clinically indicated
Monitor renal function
Lasix on hold
Nephrology following-correspondence reviewed
No acute dialysis requirements
Monitor hemoglobin
Transfuse if needed to keep Hb>7g/dL; keep plt>50k (given her dark stool)
Her stool inside her ostomy bag is very dark/black - PPI 40 mg IV twice daily started today
Monitor blood sugar with goal BG 140-180
Monitor for hypoglycemia
DC D5-LR IVF now that she is eating
Insulin supplementation as needed
DVT prophylaxis-on heparin drip
Nutrition per surgery
Bedside range of motion; recommend PT/OT
Dr. Villela updated brother at the bedside in detail and on multidisciplinary rounds 10/27/2024 and again in detail 10/28/2024
Outpatient pulm evaluation-with smoking history, PFT, yearly low-dose lung cancer screening CT chest
.
Patient is stable for downgrade out of ICU to IMU. She is on room air, saturating >95% and has no complaints of shortness of breath. No additional recommendations at this time. Tissue Inserter/Pulmonary service will now sign off. Thank you for
allowing us to be involved in the care of this patient. Please reconsult if there are any additional questions/concerns, or if patient's respiratory status deteriorates.
Total time spent today was 37 minutes for this encounter. Time includes reviewing laboratory test/imaging results, reviewing pertinent medical records, obtaining and reviewing medical history, performing an appropriate exam, ordering medications,
tests and procedures. Time also includes documentation of this encounter, coordinating patient care and communicating with other healthcare professionals. Total time does not include separately billed tests performed on this date of service.
Diagnostic data:
Chest x-ray 10/25/2024-NAD
Chest x-ray 10/28/2024-minor atelectasis left lung base, no CHF or pneumonia
CT abdomen 10/25/2024-occlusion of left limb aortobifem bypass
Subjective Dataa
Subjective Data
Date of Service:
Date of Service: October 30, 2024
Chief Complaint: Tissue Inserter Follow Up and Pulmonary Follow Up
Subjective:
Patient seen today at bedside. Started on clears and tolerating it well. Sitting in chair and in no acute distress on room air breathing comfortably, saturating 97% with heart rate 109, BP: 155/81. Currently on heparin drip. Denies chest pain,
SOB, nausea, fevers or chills.
Review of Systems
General: Other (Negative unless mentioned above)
Objective Data
Data Reviewed
Vital Signs / I&O / Oxygen:
Vital Signs
Temp Pulse Resp BP Pulse Ox
99.5 F 105 25 170/82 93
10/30/24 08:16 10/30/24 09:06 10/30/24 06:00 10/30/24 09:06 10/30/24 06:00
Intake and Output
10/29/24 10/30/24 10/31/24
06:59 06:59 06:59
Intake Total 2650 / 2735 2120 / 2120
Output Total 2755 / 2905 3325 / 3325
Balance -105 / -170 -1205 / -1205
SaO2 [CPAP/PSV] 100
SaO2 [A/C] 100
SaO2 93
Nasal Cannula flow liters per 2
minute
Physical Exam
General: Respiratory Distress (negative), Comfortable, Chills (negative) and Sweats (negative)
HEENT: Normocephalic and Anicteric
Cardiovascular: S1-S2, Murmur (negative), Peripheral Edema (negative) and Other (Tachycardic)
Respiratory: Wheeze ([place] upon expiration in the left anterior hemithorax), Crackles (negative), Rhonchi (negative), Non-Labored Respirations and Stridor (n)
GI: Soft, Distended, Tender (Mildly tender to palpation in the periumbilical area) and Other (Ostomy site with loose, dark stool seen; hypoactive bowel sounds)
Neurology: AO x 3 and Tremors (negative)
Skin: Warm, Dry, Cyanosis (n) and Jaundice (n)
Labs/Micro/Reports
Lab Data
10/30/24 04:57
10/30/24 04:57
Laboratory Results
10/30/24
04:57
APTT 93.7 H
Microbiology
10/28/24 10:34 Blood/Venous Blood Culture - Preliminary
No Growth in 24 hours- Final report to follow
10/28/24 10:18 Blood/Venous Blood Culture - Preliminary
No Growth in 24 hours- Final report to follow
10/25/24 14:11 Abdomen Anaerobic Culture - Preliminary
Culture pending. Anaerobic cultures are examined after 3
days incubation. Additional information to follow.
10/25/24 14:11 Abdomen Wound Culture - Preliminary
Escherichia coli
Streptococcus species
10/25/24 14:11 Abdomen Gram Stain - Preliminary
[2024-10-30] MEDS: ASPIRIN 300 MG RECTAL (09:05)
[2024-10-30] MEDS: NSS (PRESERVATIVE FREE) 10 ML IV ×2 (09:06→19:10)
[2024-10-30] MEDS: PROTONIX IV 40 MG IV ×2 (09:06→19:10)
[2024-10-30] MEDS: KCL 270 MEQ IV (09:06)
[2024-10-30] MEDS: LIDOCAINE 4% PATCH 1 PATCH TOPICAL (09:08)
[2024-10-30] MEDS: HEPARIN 25000 UNITS/250 ML IV (09:09)
--- NOTE | 2024-10-30 09:23 | W.PN.VS ---
Today's Communication / Plan
-
start oral AC/DAPT when tolerating PO
Assessment/Plan
-
Assessment: 64-year-old female POD #5 Thrombectomy of occluded left iliac limb of aortobifemoral bypass. Left common femoral artery endarterectomy. Revision of left femoral anastomosis of aortobifemoral bypass using 8 mm Dacron graft. Balloon
angioplasty and stenting of left iliac limb of aortobifemoral bypass using 2 overlapping 8 mm x 59 mm Snyder VBX stents. Left lower extremity arteriogram. Reoperation, left groin from prior aortobifemoral bypass for occlusion of left iliac limb of
aortobifemoral bypass, left common femoral artery, left profunda artery, and left superficial femoral artery following colorectal surgery.
Plan:
Eventual plan once patient is tolerating p.o. is to initiate DAPT of Plavix 75 mg p.o. daily with aspirin 81 mg p.o. daily, in the meantime while patient is strict n.p.o. continue heparin infusion
f/u ID
Arias dressings can continue for 7 days total, we will return Thursday to change arias dressing in place new arias on in hopes to protect left groin surgical incision from possible contaminants from ostomy
Subjective Data
-
Date of Service: October 30, 2024
NAEO. resting comfortably. WBC trending down
Objective Data
-
Vital Signs
Temp Pulse Resp BP Pulse Ox
99.5 F 105 25 170/82 93
10/30/24 08:16 10/30/24 09:06 10/30/24 06:00 10/30/24 09:06 10/30/24 06:00
Intake and Output
10/29/24 10/30/24 10/31/24
06:59 06:59 06:59
Intake Total 2650 / 2735 2120 / 2120
Output Total 2755 / 2905 3325 / 3325
Balance -105 / -170 -1205 / -1205
Intake:
Oral fluids 120 / 120
IV fluids (Total) 2114
D5lr 1,000 ml @ 80 mls/hr IV . 1919
[id number] [facility] Rx#:[id number]
Heparin 120 / 125 120 / 120
kcl 75 / 75
IV piggybacks 265 / 265
Amount instilled into GI Tube ( 150 / 150 80 / 80
Total)
[place] Sump 150 / 150 80 / 80
Output:
Liquid stool amount 350 / 350
Colostomy 350 / 350
Drain Output (Total) 105 / 105 400 / 400
Right Abdomen Shamar-Adams 105 / 105 400 / 400
Gastrointestinal tube output ( 300 / 300 450 / 450
Total)
[place] Sump 300 / 300 450 / 450
Urine, Rodriguez 2350 / 2500 2124
Lab Results
10/30/24 04:57
10/30/24 04:57
Calcium 7.3 mg/dl (8.4-10.2) L 10/30/24 04:57
Phosphorus 6.3 mg/dl (2.5-4.5) H 10/25/24 23:26
Magnesium 2.0 mg/dl (1.6-2.3) 10/29/24 03:57
Total Bilirubin 0.3 mg/dl (0.2-1.3) 10/30/24 04:57
AST 336 U/L (14-36) H 10/30/24 04:57
ALT 112 U/L (0-35) H 10/30/24 04:57
Alkaline Phosphatase 163 U/L (38-126) H 10/30/24 04:57
Total Protein 4.3 g/dl (6.3-8.2) L 10/30/24 04:57
Albumin 2.0 g/dl (3.5-5.0) L 10/30/24 04:57
Physical Exam
-
L groin - ARIAS in place
Left leg - warm and well perfused
--- NOTE | 2024-10-30 10:24 | W.PN.GS2 ---
Addendum entered and electronically signed by Praneeth Ortiz MD 10/30/24 10:46:
Patient seen and examined.
Denies nausea or vomiting
Postoperative abdominal incisional pain controlled
Thirsty
Afebrile, stable low-grade tachycardia
NAD AAOx3
ABD: Soft, nondistended. Midline laparotomy incision clean with anju. NG tube with light bilious, no blood or coffee-ground
Left lower quadrant ostomy superficially sloughing but not necrotic. Ostomy is not retracted either. Dark stool contents in ostomy bag
A/P: Remove NG tube
Trial of clear liquids today
Continue JEAN
Continue PPI
Original Note:
Today's Communication / Plan
-
D/C NGT and trial on clears
Assessment / Plan
-
Ms Sheridan is a 64 yo female s/ rectopexy on 09/30 who presented this admission with perforated sigmoid colon secondary to stercoral colitis taken for emergent exploratory laparotomy with left lower limb ischemia noted in pacu
POD# 5 open sigmoid colectomy, incidental appendectomy, and end sigmoid ostomy
POD# 5 thrombectomy of occluded left iliac limb of aortobifemoral bypass/Left common femoral artery endarterectomy
POD #3 necrotic layer over stoma; bedside flexible sigmoidoscopy revealing pink mucosa under the fascial level
Afebrile, tachycardic with hypertension
Leukocytosis present but continues to trend down
H/H dropped overnight, likely given GI losses.
NGT without evidence of further bleeding since initiation of PPI. Stool dark but more green tinged today
Stoma pale but productive of stool/flatus.
--D/C NGT and start clear liquids
--Trend labs. Continue ABX as per ID
--Continue PPI BID
--IVF/jorge as per nephrology/ICU team
--C/W JEAN drain
--Continue anticoagulation/antiplatelet therapy and ambulation as per vascular surgery
--Stoma/wound nurse following for stoma care
Subjective Data
-
Date of Service: October 30, 2024
Patient seen and examined at bedside with Dr. Ortiz. Notes she is quite thirsty. Denies pain, nausea or vomiting.
Objective Data
-
Intake and Output
10/29/24 10/30/24 10/31/24
06:59 06:59 06:59
Intake Total 2650 / 2735 2119
Output Total 2755 / 2905 3325 / 3325
Balance -105 / -170 -1205 / -1205
Intake:
Oral fluids 120 / 120
IV fluids (Total) 2114
D5lr 1,000 ml @ 80 mls/hr IV . 1919
[id number] [facility] Rx#:[id number]
Heparin 120 / 125 120 / 120
kcl 75 / 75
IV piggybacks 265 / 265
Amount instilled into GI Tube ( 150 / 150 80 / 80
Total)
[place] Sump 150 / 150 80 / 80
Output:
Liquid stool amount 350 / 350
Colostomy 350 / 350
Drain Output (Total) 105 / 105 400 / 400
Right Abdomen Shamar-Adams 105 / 105 400 / 400
Gastrointestinal tube output ( 300 / 300 450 / 450
Total)
Davis Sump 300 / 300 450 / 450
Urine, Jorge 2350 / 2500 2124
Vital Signs
Temp Pulse Resp BP Pulse Ox
99.5 F 105 25 170/82 93
10/30/24 08:16 10/30/24 09:06 10/30/24 06:00 10/30/24 09:06 10/30/24 06:00
Lab Results
10/30/24 04:57
10/30/24 04:57
Calcium 7.3 mg/dl (8.4-10.2) L 10/30/24 04:57
Phosphorus 6.3 mg/dl (2.5-4.5) H 10/25/24 23:26
Magnesium 2.0 mg/dl (1.6-2.3) 10/29/24 03:57
Total Bilirubin 0.3 mg/dl (0.2-1.3) 10/30/24 04:57
AST 336 U/L (14-36) H 10/30/24 04:57
ALT 112 U/L (0-35) H 10/30/24 04:57
Alkaline Phosphatase 163 U/L (38-126) H 10/30/24 04:57
Total Protein 4.3 g/dl (6.3-8.2) L 10/30/24 04:57
Albumin 2.0 g/dl (3.5-5.0) L 10/30/24 04:57
Physical Exam
-
NAD
ABD soft, ND, nt, NGT with light green outputs
Stoma pale but now slightly pink, functional with dark liquid green stool/flatus outputs in appliance
Midline incision with intact staple line, well approximated, JEAN with SSF
Jorge with clear, yellow urine
Patient has a jorge catheter: Yes
Patient has a central line: Yes
--- NOTE | 2024-10-30 10:36 | W.PN.HOSP.TC ---
Addendum entered and electronically signed by Mayo Armijo MD 10/30/24 10:45:
correction, Merrem not Zosyn
Original Note:
Today's Communication/Plan
-
continue IV heparin
resume PO hydralazine and Metoprolol (short acting)
continue Clonidine patch
prn anti-hypertensives
s/p NGT. clears
PT/OT
transfer IMU
Assessment / Plan
Assessment / Plan
Assessment:
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
- Thrombectomy of occluded left iliac limb of aortobifemoral bypass/Left common femoral artery endarterectomy performed 10/25
- continue IV Heparin - requires intensive monitoring of PTTs
- continue neurovascular checks
- Vascular following
Perforated sigmoid colon with pericolonic abscess formation with partial SBO
Acute Sepsis (tachycardia, leukocytosis) from acute GI colonic source
- s/p open sigmoid colectomy, incidental appendectomy, and end sigmoid ostomy 10/25
- continue IV Zosyn day 6, Micafungin day 3. ID following.
- s/p NGT
- diet: clears
- pain control, anti-emetics
- CRS following
- 10/27: concern for bleeding/necrosis of bowel; bedside scope report indicates viable tissue beneath skin
Intubation for acute surgical procedures
VDRF
- s/p extubation 10/26
Acute blood loss anemia on chronic anemia
- s/p 2 unit PRBCs; Hb 8.2 most recently (likely diluational drop)
Shock - multifactorial from hemorrhagic and sepsis
- off pressors
Accelerated hypertension with risk of developing hypertensive emergency
History of underlying Accelerated HTN with multi-drug regimen and history of PARI s/p L Renal artery stenting
- OP regimen includes Amlodipine, Clonidine, Hydralazine, Metoprolol, ARB, HCTZ.
- with diet started, will introduct back PO Hydralazine, shorting acting BB. continue Clonidine patch. s/p Cardene drip. prn Hydralazine 10mg q4h prn and prn Metoprolol
History of recurrent rectal prolapse status post ventral mesh rectopexy with recent repair
JACOB on CKD stage 3b
Acute metabolic acidosis
- suspect driven by accelerated HTN and critical illness
- Nephrology following
- maintain Rodriguez for critical I/Os
- s/p IV Lasix x 1
- continue IVF, Cr improving
history of PARI s/p L Renal artery stenting
Peripheral vascular disease
Hypercholesterolemia
- hold Plavix/Statin
Hypokalemia - replete prn
Former smoker
Hypoglycemia
- accu-checks q6h
- dextrose IVF
Elevated LFTs from shock liver
- trend
DVT ppx: SCDs
Code: Full
Total Critical Care Time 41 minutes. I was immediately available to the patient and staff. I personally examined, reviewed labs, diagnostic images/reports, interpretations, treatment plans, discussed patient care with other providers and family
or caregivers (if patient is unable to make decisions), entered orders as appropriate and documented the medical record.
Anticipated Discharge: > 48 hours
Subjective/Interval History
-
Date of Service: October 30, 2024
sitting in chair
NGT removed, clears started
denies any other complaints
Objective Data
-
Labs:
Laboratory Results
10/30/24
04:57
WBC 18.2 H
Hgb 8.2 L D
Hct 25.0 L
Plt Count 194
APTT 93.7 H
Sodium 144
Potassium 3.1 L
Chloride 107
Carbon Dioxide 31 H
BUN 50 H
Creatinine 2.0 H
Glucose 111 H
Calcium 7.3 L
Total Bilirubin 0.3
AST 336 H
ALT 112 H
Alkaline Phosphatase 163 H
Vital Signs:
Vital Signs
Temp Pulse Resp BP Pulse Ox
99.5 F 105 25 170/82 93
10/30/24 08:16 10/30/24 09:06 10/30/24 06:00 10/30/24 09:06 10/30/24 06:00
I&O
10/29/24 10/30/24 10/31/24
06:59 06:59 06:59
Intake Total 2650 / 2735 2120 / 2120
Output Total 2755 / 2905 3325 / 3325
Balance -105 / -170 -1205 / -1205
Physical Exam
-
General: No Apparent Distress
HEENT: Normocephalic and Atraumatic
Respiratory: Negative Wheezes
Cardiac: Regular Rhythm and S1/S2
GI: Soft
Genito-urinary: No Costovertebral Tender
Neuro: AO x 3
Hematologic / Lymphatic: No Lymphadenopathy
Psych: Calm
Data Reviewed
-
Critical Care Time (in minutes): 41
Labs: Labs Reviewed by me
--- NOTE | 2024-10-30 11:36 | PTCARENOTE ---
0700 assumed care. patient in bed. SBP 170's
Transfer to chair one person assist Rodriguez draining clear kasey urine. NJ tube removed by surgery team. pt tolerating clear liquid diet without nausea and vomiting. Left PICCO dressing intact. RT JEAN serocenquincess drainage. +2 edema to b/l LE
pulses check via doppler
[2024-10-30 11:47] LABS: Glucose - Point of Care 145 mg/dl (70-99)
--- NOTE | 2024-10-30 11:53 | W.PN.NEPH.PH ---
Today's Communication / Plan
-
Change Catapres patch to p.o. clonidine
Assessment/Plan
-
4^-year-old female past medical history of recurrent rectal prolapse status post ventral mesh rectopexy, hypertension, peripheral vascular disease, hypercholesteremia, anemia, CKD, renal artery stenosis status post left renal stent presenting as a
transfer from [facility] for abscess near sigmoid colon possible perforation.
Renal consult for acute on chronic kidney disease she follows with Dr. Edson Ding advertisement compositor [place]
Baseline creatinine appears to be between 1.8 and 2.0. She presented with a creatinine of 3.2 and a metabolic acidosis
Impression:
Acute on chronic kidney disease.
Acute metabolic acidosis.
Hypertensive urgency.
Pericolonic abscess.
History of renal artery stenosis with left stent.
Postop sigmoid colectomy incidental appendectomy and end sigmoid ostomy
Postop thrombectomy of occluded left iliac limb of aortobifemoral bypass\\left common femoral artery endarterectomy
.
Plan:
Status post OR with left lower extremity agniogram requiring thrombectomy of occluded left iliac limb of aortobifemoral bypass with left common femoral artery enterectomy
Acuity of JACOB likely hemodynamically mediated with a blood pressure 200+ systolic and contrast inducted nephropathy
Creatinine peaked at 3.7 improving
BP remains acceptable on clonidine patch, IV Lopressor (patient remains npo)
Metabolic acidosis corrected following bicarbonate administration
Zosyn renally dosed
okay with discontinuing Rodriguez cath
Anemia improved following 2 unit transfusion on 10/26/2024
Remains on heparin infusion
No acute need for dialysis at this time but given multiple nephrotoxic insults will have to be monitored closely
Good urine output over the last 24 hours..
Creatinine has improved down to 2.7.>2
Now tolerating clear liquids back on her p.o. medication
I will discontinue the Catapres patch and put her back on her clonidine at 0.3 3 times daily she is on significantly high doses of 0.6 3 times daily but will work her way up with that
-
-
Date of Service: October 30, 2024
CC / HPI / ROS
-
Chief Complaint:
JACOB
History of Present Illness:
Creatinine improved status post JACOB postoperative
Review of Systems:
nonOliguric via Rodriguez catheter
No fevers
NG tube tolerate p.o.
Labs
-
Labs:
WBC 18.2 10^3/uL (4.8-10.8) H 10/30/24 04:57
RBC 2.97 10^6/uL (4.20-5.40) L 10/30/24 04:57
Hgb 8.2 g/dL (12.0-16.0) L D 10/30/24 04:57
Hct 25.0 % (37.0-47.0) L 10/30/24 04:57
Plt Count 194 10^3/uL (130-400) 10/30/24 04:57
Sodium 144 mmol/L (135-145) 10/30/24 04:57
Potassium 3.1 mmol/L (3.5-5.1) L 10/30/24 04:57
Chloride 107 mmol/L (98-107) 10/30/24 04:57
Carbon Dioxide 31 mmol/L (22-30) H 10/30/24 04:57
BUN 50 mg/dl (7-17) H 10/30/24 04:57
Creatinine 2.0 mg/dL (0.6-1.0) H 10/30/24 04:57
eGFR 27.04 10/30/24 04:57
Glucose 111 mg/dl (70-99) H 10/30/24 04:57
Calcium 7.3 mg/dl (8.4-10.2) L 10/30/24 04:57
Phosphorus 6.3 mg/dl (2.5-4.5) H 10/25/24 23:26
Albumin 2.0 g/dl (3.5-5.0) L 10/30/24 04:57
Physical Exam
-
Vital Signs:
Vital Signs
Temp Pulse Resp BP Pulse Ox
99.5 F 105 25 170/82 93
10/30/24 08:16 10/30/24 09:06 10/30/24 06:00 10/30/24 09:06 10/30/24 06:00
Cardiovascular:: Regular rate and rhythm
Respiratory:: Bilateral: CTA
Lung Excursion:: Normal
Abdomen:: Soft
Bowel Sounds:: Decreased
Extremity Edema:: None: Bilateral:
Rodriguez Catheter: Yes
--- NOTE | 2024-10-30 12:47 | PTCARENOTE ---
Catapres patch Left shoulder
Catatpres patch left shoulder removed
[2024-10-30] MEDS: LOPRESSOR 25 MG PO ×2 (12:50→18:20)
[2024-10-30] MEDS: APRESOLINE 100 MG PO ×3 (12:51→21:22)
[2024-10-30] MEDS: DILAUDID 0.5 MG IV (12:55)
[2024-10-30] MEDS: CATAPRES 0.3 MG PO ×2 (17:01→21:23)
[2024-10-30] MEDS: MYCAMINE 105 MG IV (17:06)
[2024-10-30 17:19] LABS: Glucose - Point of Care 105 mg/dl (70-99)
--- NOTE | 2024-10-30 19:00 | PTCARENOTE ---
Vital signs pulled from 0700. Unable to verify vitals from [id number].
[2024-10-30 21:37] LABS: Glucose - Point of Care 106 mg/dl (70-99)
[2024-10-31] VITALS (35 sets, daily range): BP systolic 90–144; BP diastolic 46–86
[2024-10-31] MEDS: LOPRESSOR PO ×3 (01:05→23:59)
[2024-10-31] MEDS: STERILE WATER FOR INJECTION 10 ML IV ×2 (03:56→15:34)
[2024-10-31] MEDS: MERREM 500 MG IV ×2 (03:56→15:34)
[2024-10-31 04:32] LABS: % Basophils 0.2 % (0-2); % Eosinophils 0.2 % (0-6); % Immature Granulocytes 2.7 % (0-0.5); % Lymphocytes 5.5 % (20.5-51.1); % Neutrophils 88.4 % (42.2-75.2); Absolute Immature Granulocytes 0.5 10^3/uL (0-0.05); Absolute Lymphocytes 0.9 10^3/uL (1.2-3.4); Absolute Monocytes 0.5 10^3/uL (0.1-0.6); Absolute Neutrophils 15.1 10^3/uL (1.4-6.5); Hematocrit 21.6 % (37.0-47.0); Mean Corp Hgb Conc. 32.4 g/dL (33.0-37.0); Mean Corpuscular Hgb 27.7 pg (27.0-31.0); Mean Corpuscular Volume 85.4 fL (81.0-99.0); Mean Platelet Volume 10.7 fL (7.4-10.4); Nucleated Red Blood Cells % 0.6 %; Platelet Count 198 10^3/uL (130-400); Red Blood Cell Count 2.53 10^6/uL (4.20-5.40); Red Cell Dist. Width 15.2 % (11.5-14.5); White Blood Cell Count 17.1 10^3/uL (4.8-10.8)
[2024-10-31 04:43] LABS: APTT 67.8 Sec (23.4-35.0)
[2024-10-31 04:51] LABS: ALT (SGPT) 76 U/L (0-35); AST (SGOT) 202 U/L (14-36); Albumin 1.9 g/dl (3.5-5.0); Alkaline Phosphatase 133 U/L (38-126); Blood Urea Nitrogen 39 mg/dl (7-17); Calcium 7.1 mg/dl (8.4-10.2); Carbon Dioxide 26 mmol/L (22-30); Chloride 106 mmol/L (98-107); Estimated Creatinine Clearance 22 ml/min; Glucose 93 mg/dl (70-99); Potassium 2.9 mmol/L (3.5-5.1); Sodium 139 mmol/L (135-145); Total Bilirubin 0.2 mg/dl (0.2-1.3); Total Protein 4.1 g/dl (6.3-8.2); eGFR 28.76
--- NOTE | 2024-10-31 05:55 | PTCARENOTE ---
FELI Salamanca notified of Low Hgb 7.0. Also Potassium 2.9. New orders received to repeat H/H. Also Hemoccult testing of stool. Stool OB positive.
[2024-10-31 07:15] LABS: Hematocrit 18.4 % (37.0-47.0); Hemoglobin 6.1 g/dL (12.0-16.0)
--- NOTE | 2024-10-31 07:27 | PTCARENOTE ---
Report given verbally to RN assuming care Ian. Questions answered.
--- NOTE | 2024-10-31 08:03 | W.PN.VS ---
Addendum entered and electronically signed by Solitario Hodges MD 10/31/24 08:27:
Seen and examined with MATEUSZ Kolb. Agree with findings as noted below. Patient without specific complaints on evaluation this a.m. Denies any abdominal pain. On exam her abdomen is soft, nondistended, nontender. Incision is clean dry and intact.
Her ostomy output appears green. Nonbloody. Left groin dressing (Arias) is clean dry and intact. Groin is flat. No hematoma. Left foot is warm. Compartments left calf soft. Plan/as discussed and noted below. Hemoglobin dropped, would
recommend transfusion. Will hold heparin. Continue aspirin. Ideally dual antiplatelet, but if bleeding risks is outweighing the benefit can consider otherwise. CT scan noncontrast abdomen/pelvis for now to rule out any RP bleeding source.
Addendum entered and electronically signed by FLORY Geronimo 10/31/24 08:22:
Although low suspicion for arterial bleed given physical exam will out of an abundance of caution yet CT abdomen pelvis without contrast to evaluate for RP bleed.
Original Note:
Today's Communication / Plan
-
Patient seen and examined at bedside with Dr. Solitario Hodges, below plan reviewed with attending.
Assessment/Plan
-
Assessment: 64-year-old female POD #5 Thrombectomy of occluded left iliac limb of aortobifemoral bypass. Left common femoral artery endarterectomy. Revision of left femoral anastomosis of aortobifemoral bypass using 8 mm Dacron graft. Balloon
angioplasty and stenting of left iliac limb of aortobifemoral bypass using 2 overlapping 8 mm x 59 mm Lad[place]mith VBX stents. Left lower extremity arteriogram. Reoperation, left groin from prior aortobifemoral bypass for occlusion of left iliac limb of
aortobifemoral bypass, left common femoral artery, left profunda artery, and left superficial femoral artery following colorectal surgery.
Plan:
Patient with noted decreased hemoglobin this a.m. to 6.1, agree with transfusion, unclear of source but no evidence of bleeding at left surgical incision site, would recommend to continue trend of hemoglobin
Given patient is tolerating p.o. will discontinue heparin infusion/rectal aspirin, and add DAPT of Plavix 75 mg p.o. daily with aspirin 81 mg p.o. daily
Arias dressings can continue for 7 days total, we will return Thursday to change arias dressing in place new arias on in hopes to protect left groin surgical incision from possible contaminants from ostomy
Subjective Data
-
Date of Service: October 31, 2024
Patient seen and examined at bedside, does endorse pain to left lower extremity surgical incisions with ambulation but otherwise reports well-managed postoperative pain and denies pain in left lower extremity with rest. Endorses that she is
improving with ambulation and has at least walked around her room. Reports she is tolerating p.o. intake.
Objective Data
-
Vital Signs
Temp Pulse Resp BP Pulse Ox
99.8 F 104 31 93/52 98
10/31/24 07:06 10/31/24 06:50 10/31/24 05:00 10/31/24 06:50 10/31/24 05:00
Intake and Output
10/30/24 10/31/24 11/01/24
06:59 06:59 06:59
Intake Total 2119 518 / 518
Output Total 3325 / 3325 1505 / 1505
Balance -1205 / -1205 -987 / -987
Intake:
Oral fluids 420 / 420
IV fluids (Total) 2039 98 / 98
D5lr 1,000 ml @ 80 mls/hr IV . 1919 0 / 0
[id number] LAKEISHA Rx#:[id number]
Heparin 120 / 120
Amount instilled into GI Tube ( 80 / 80
Total)
[place] Sump 80 / 80
Output:
Liquid stool amount 350 / 350 750 / 750
Colostomy 350 / 350 750 / 750
Drain Output (Total) 400 / 400 5 / 5
Right Abdomen Shamar-Adams 400 / 400 5 / 5
Gastrointestinal tube output ( 450 / 450
Total)
[place] Sump 450 / 450
Urine, Rodriguez 5 / 5 750 / 750
Lab Results
10/31/24 06:41
10/31/24 04:02
Calcium 7.1 mg/dl (8.4-10.2) L 10/31/24 04:02
Phosphorus 6.3 mg/dl (2.5-4.5) H 10/25/24 23:26
Magnesium 2.0 mg/dl (1.6-2.3) 10/29/24 03:57
Total Bilirubin 0.2 mg/dl (0.2-1.3) 10/31/24 04:02
AST 202 U/L (14-36) H 10/31/24 04:02
ALT 76 U/L (0-35) H 10/31/24 04:02
Alkaline Phosphatase 133 U/L (38-126) H 10/31/24 04:02
Total Protein 4.1 g/dl (6.3-8.2) L 10/31/24 04:02
Albumin 1.9 g/dl (3.5-5.0) L 10/31/24 04:02
Physical Exam
-
No apparent distress, awake and alert resting in bed comfortably
No dyspnea
Left groin arias dressing CDI, no evidence of hematoma, extremity warm, warm, patient with full range of motion at left foot, calf soft
Left DP palpable, bilateral feet warm
--- NOTE | 2024-10-31 08:25 | W.PN.HOSP.TC ---
Today's Communication/Plan
-
2 unit PRBC
Replace potassium
Follow-up CT AP report
Follow-up hemoglobin/potassium level
Continue clear liquid diet
Assessment / Plan
Assessment / Plan
Acute left limb threatening ischemia
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
- Thrombectomy of occluded left iliac limb of aortobifemoral bypass/Left common femoral artery endarterectomy performed 10/25
- Discussed with vascular surgeon and patient will be switched to aspirin/Plavix. Patient having some likely luminal GI blood loss and anemic today, requiring 2 units of blood transfusion.
- CT a/p has been ordered
Perforated sigmoid colon with pericolonic abscess formation with partial SBO
Acute Sepsis (tachycardia, leukocytosis) from acute GI colonic source
- s/p open sigmoid colectomy, incidental appendectomy, and end sigmoid ostomy 10/25
- 10/27: concern for bleeding/necrosis of bowel; bedside scope report indicates viable tissue beneath skin
- Currently on Merrem/micafungin, ID managing and help appreciated. Day 8 of abx today.
- NGT has been removed and on CL diet.
- CRS following
Intubation for acute surgical procedures
VDRF
- s/p extubation 10/26
- on RA
Acute blood loss anemia on chronic anemia
- Patient having Hemoccult positive stool. Black liquid stool in the bag in the morning as
- For hemoglobin of 6.1, 2 more units of PRBC ordered 10/31
Hypokalemia
- replace with 60meq of K for K 2.9 in AM today.
Shock - multifactorial from hemorrhagic and sepsis
- off pressors
Accelerated hypertension with risk of developing hypertensive emergency
History of underlying Accelerated HTN with multi-drug regimen and history of PARI s/p L Renal artery stenting
- OP regimen includes Amlodipine, Clonidine, Hydralazine, Metoprolol, ARB, HCTZ.
- with diet started, will introduct back PO Hydralazine, shorting acting BB. continue Clonidine patch. s/p Cardene drip. prn Hydralazine 10mg q4h prn and prn Metoprolol
History of recurrent rectal prolapse status post ventral mesh rectopexy with recent repair
JACOB on CKD stage 3b
Acute metabolic acidosis
- suspect driven by accelerated HTN and critical illness
- Nephrology following
- maintain Rodriguez for critical I/Os
- s/p IV Lasix x 1
- Cr peak of 3.7, trending down and 1.9 today
history of PARI s/p L Renal artery stenting
Peripheral vascular disease
Hypercholesterolemia
- plavix being resumed on 10/31
Former smoker
Hypoglycemia
- accu-checks q6h
- dextrose IVF
Elevated LFTs from shock liver
- trend
DVT ppx: SCDs
Code: Full
Case discussed with CRS
Total time spent : 52 mins
I personally saw and examined the patient.
I have reviewed all diagnostic interpretations and treatment plans as written.
Time includes patient management by me, time spent at the patients bedside, time to review lab and imaging results, discussing patient care, documentation in the medical record, and time spent with the family or caregiver and discussing care plan
with RN/Consultants.
Anticipated Discharge: > 48 hours
Subjective/Interval History
-
Date of Service: October 31, 2024
Resting comfortably in bed
Denies having any dyspnea
No dizziness/chest discomfort
Patient have liquid black stool in the stoma bag
Afebrile overnight
Objective Data
-
Labs:
Laboratory Results
10/31/24 10/31/24
04:02 06:41
WBC 17.1 H
Hgb 7.0 L 6.1 L*
Hct 21.6 L 18.4 L*
Plt Count 198
APTT 67.8 H
Sodium 139
Potassium 2.9 L
Chloride 106
Carbon Dioxide 26
BUN 39 H
Creatinine 1.9 H
Glucose 93
Calcium 7.1 L
Total Bilirubin 0.2
AST 202 H
ALT 76 H
Alkaline Phosphatase 133 H
Vital Signs:
Vital Signs
Temp Pulse Resp BP Pulse Ox
99.8 F 104 31 93/52 98
10/31/24 07:06 10/31/24 06:50 10/31/24 05:00 10/31/24 06:50 10/31/24 05:00
I&O
10/30/24 10/31/24 11/01/24
06:59 06:59 06:59
Intake Total 2120 / 2120 518 / 518
Output Total 3325 / 3325 1505 / 1505
Balance -1205 / -1205 -987 / -987
Review of Systems
-
Respiratory: Reports No Symptoms
Cardiac: Reports No Symptoms
Abdomen/GI: Denies Abdominal Pain, Nausea or Vomiting
Physical Exam
-
General: Comfortable
HEENT: Negative Oxygen
Cardiac: Regular Rhythm, S1/S2 and Tachycardic; Negative Murmur
GI: Soft, Ostomy (Black liquid stool ) and Other (Midline surgical scar with anju, )
Genito-urinary: Other (Left groin dressing in place with JAYME drain)
Neuro: Awake, Alert, Oriented and No Motor Deficits
Psych: Calm
--- NOTE | 2024-10-31 08:46 | W.PN.CRS1 ---
Today's Communication / Plan
-
continue clears
2 units prbcs
trend hemoglobin
Assessment/Plan
-
64 yo female s/ rectopexy on 09/30 who presented this admission with perforated sigmoid colon secondary to stercoral colitis taken for emergent exploratory laparotomy with left lower limb ischemia noted in pacu
POD# 6 open sigmoid colectomy, incidental appendectomy, and end sigmoid ostomy
POD# 6 thrombectomy of occluded left iliac limb of aortobifemoral bypass/Left common femoral artery endarterectomy
POD #4 necrotic layer over stoma; bedside flexible sigmoidoscopy revealing pink mucosa under the fascial level
Afebrile, tachycardic with hypotension
WBC 17.1 from 18.2
Hgb 6.1 from 7.0
Stoma dusky, flatus in bag
--Continue clear liquid diet
--Getting 2 units PRBCs, continue to trend hemoglobin
--Trend labs. Continue ABX as per ID
--Continue PPI BID
--IVF/jorge as per nephrology/ICU team
--C/W JEAN drain, will remove prior to d/c
--Continue anticoagulation/antiplatelet therapy and ambulation as per vascular surgery
--Stoma/wound nurse following for stoma care
Subjective Data
Procedure
10/25/2024- open sigmoid colectomy, incidental appendectomy, and end sigmoid ostomy
10/25/2024- Thrombectomy of occluded left iliac limb of aortobifemoral bypass/Left common femoral artery endarterectomy
Subjective Data
Date of Service: October 31, 2024
Patient states she feels 'pretty good'. She has the same abdominal pain as before, unchanged. She denies nausea or vomiting. She has been tolerating clears.
Objective Data
-
Vital Signs
Temp Pulse Resp BP Pulse Ox
99.8 F 104 31 93/52 98
10/31/24 07:06 10/31/24 06:50 10/31/24 05:00 10/31/24 06:50 10/31/24 05:00
Intake & Output
10/30/24 10/31/24 11/01/24
06:59 06:59 06:59
Intake Total 2119 518 / 518
Output Total 3325 / 3325 1505 / 1505
Balance -1205 / -1205 -987 / -987
Intake:
Oral fluids 420 / 420
IV fluids (Total) 2039 98 98
D5lr 1,000 ml @ 80 mls/hr IV . 1919 0 / 0
[id number] LAKEISHA Rx#:[id number]
Heparin 120 / 120
Amount instilled into GI Tube ( 80 / 80
Total)
[place] Sump 80 / 80
Output:
Liquid stool amount 350 / 350 750 / 750
Colostomy 350 / 350 750 / 750
Drain Output (Total) 400 / 400 5 / 5
Right Abdomen Shamar-Adams 400 / 400 5 / 5
Gastrointestinal tube output ( 450 / 450
Total)
[place] Sump 450 / 450
Urine, Jorge 5 / 212 750 / 750
Lab Results
10/31/24 06:41
10/31/24 04:02
Physical Exam
-
General: No Acute Distress and AOx3
Abdomen: Soft, Non Distended, Tender (mild lower quadrants) and Other (ileostomy dusky, JEAN serous)
Skin: Warm and Dry
Incision: Clear, Dry, Intact (anju in place)
[2024-10-31] MEDS: CATAPRES 0.3 MG PO ×3 (09:11→21:51)
[2024-10-31] MEDS: APRESOLINE 100 MG PO ×3 (09:11→21:50)
[2024-10-31] MEDS: NSS (PRESERVATIVE FREE) 10 ML IV ×2 (09:11→19:50)
[2024-10-31] MEDS: PROTONIX IV 40 MG IV ×2 (09:11→19:50)
--- NOTE | 2024-10-31 09:11 | W.PN.UPDATE ---
Update Note
Progress Note Update
CT scan reviewed. There does appear to be a hematoma in the right retroperitoneum. It looks to be more so in the right upper retroperitoneum just inferior to the margin of the liver (which is intraperitoneal, but it is about at that level). I am
not sure that this is a vascular phenomenon, related to any of her intervention. Her surgical site was in the left groin performing thrombectomy. Stent was placed in the left common iliac. There does not appear to be any hematoma around the
sites. However, given recent bowel surgery, certainly wonder rule out any evidence of graft infection. It seems less likely based on my interpretation of the CT scan presence of hematoma and location. However cannot rule it out. I think it is
imperative therefore that we get the CT angiogram especially given that such a situation would be potentially catastrophic if not identified. Therefore I think the risk of contrast outweighs the risk of renal issues with contrast administration. I
have updated colorectal surgery team as well to the finding. We will all follow-up on CT scan imaging.
[2024-10-31] MEDS: LIDOCAINE 4% PATCH 1 PATCH TOPICAL (09:12)
[2024-10-31 09:17] LABS: Glucose - Point of Care 102 mg/dl (70-99)
--- NOTE | 2024-10-31 09:17 | W.PN.NEPH.PH ---
Today's Communication / Plan
-
follow BMP
Assessment/Plan
-
64-year-old female past medical history of recurrent rectal prolapse status post ventral mesh rectopexy, hypertension, peripheral vascular disease, hypercholesteremia, anemia, CKD, renal artery stenosis status post left renal stent presenting as a
transfer from [facility] for abscess near sigmoid colon possible perforation.
Renal consult for acute on chronic kidney disease she follows with Dr. Edson Ding oil and gas drafter [place]
Baseline creatinine appears to be between 1.8 and 2.0. She presented with a creatinine of 3.2 and a metabolic acidosis
Impression:
Acute on chronic kidney disease.
Acute metabolic acidosis.
Hypertensive urgency.
Pericolonic abscess.
History of renal artery stenosis with left stent.
Postop sigmoid colectomy incidental appendectomy and end sigmoid ostomy
Postop thrombectomy of occluded left iliac limb of aortobifemoral bypass\\left common femoral artery endarterectomy
Plan:
meds continue for BP
transfuse PRBC
for CTA. will give bicarb IVF with CT contrast
follow BMP carefully
follow CBC
-
-
Date of Service: October 31, 2024
CC / HPI / ROS
-
Chief Complaint:
JACOB
History of Present Illness:
Creatinine improved status post JACOB postoperative to 1.9
BP low today on many drugs
K low 2.9
Hgb dropping to 6.[address] with hematoma
Review of Systems:
nonoliguric via Rodriguez catheter
No fevers
tolerating clears
Labs
-
Labs:
WBC 17.1 10^3/uL (4.8-10.8) H 10/31/24 04:02
RBC 2.53 10^6/uL (4.20-5.40) L 10/31/24 04:02
Hgb 6.1 g/dL (12.0-16.0) L* 10/31/24 06:41
Hct 18.4 % (37.0-47.0) L* 10/31/24 06:41
Plt Count 198 10^3/uL (130-400) 10/31/24 04:02
Sodium 139 mmol/L (135-145) 10/31/24 04:02
Potassium 2.9 mmol/L (3.5-5.1) L 10/31/24 04:02
Chloride 106 mmol/L (98-107) 10/31/24 04:02
Carbon Dioxide 26 mmol/L (22-30) 10/31/24 04:02
BUN 39 mg/dl (7-17) H 10/31/24 04:02
Creatinine 1.9 mg/dL (0.6-1.0) H 10/31/24 04:02
eGFR 28.76 10/31/24 04:02
Glucose 93 mg/dl (70-99) 10/31/24 04:02
Calcium 7.1 mg/dl (8.4-10.2) L 10/31/24 04:02
Phosphorus 6.3 mg/dl (2.5-4.5) H 10/25/24 23:26
Albumin 1.9 g/dl (3.5-5.0) L 10/31/24 04:02
Physical Exam
-
Vital Signs:
Vital Signs
Temp Pulse Resp BP Pulse Ox
99.8 F 104 31 93/52 98
10/31/24 07:06 10/31/24 06:50 10/31/24 05:00 10/31/24 06:50 10/31/24 05:00
Cardiovascular:: Regular rate and rhythm
Respiratory:: Bilateral: Coarse
Lung Excursion:: Normal
Abdomen:: Nontender and Soft
Bowel Sounds:: Normal
Extremity Edema:: None: Bilateral:
--- NOTE | 2024-10-31 09:49 | W.PN.ID1 ---
Date of Service
Date of Service: October 31, 2024
Today's Communication
Continue antibiotics
Assessment / Plan
Sigmoid colon perforation secondary to stercoral colitis
- s/p ex lap/sig. colectomy/ end-sigmoid ostomy (10/25/24)
Critical limb ischemia left leg (following above procedure)
- s/p (L) fem graft embolectomy, fem graft endarterectomy with graft repair (10/25/24)
Fecal peritonitis
-Cultures with E. coli and Strep spp.
Leukocytosis
JACOB on CKD
Transaminitis
Anemia
HTN
Dyslipidemia
Anemia
Hx renal artery stenosis
Recommendations:
Leukocytosis with continued improvement today. Prior elevation may have been reactive, but will need to be followed quite closely.
Continue with meropenem and micafungin for today.
LFTs slowly improving.
Trend white count / Hb
Follow temperature curve.
����������������������������������������������������������
Chief Complaint
-: Leukocytosis and Other (Perforated viscus (sigmoid colon); critical limb ischemia; fecal peritonitis)
Subjective / Review of Systems
Patient seen and examined. Reports no complaints this a.m. No fevers or chills, but patient notes she always feels cold.
Review of Systems: No Fever
Vital Signs / Physical Exam
Vital Signs
Vital Signs
Temp Pulse Resp BP Pulse Ox
99.8 F 104 31 93/52 98
10/31/24 07:06 10/31/24 06:50 10/31/24 05:00 10/31/24 06:50 10/31/24 05:00
Physical Exam
Constitutional: No Acute Distress, Comfortable, Chronically Ill and Non-toxic
Eyes: No Conjunctival Hemorrhage and Sclera Anicteric
Cardiovascular: Regular Rate (Tachycardic) and S1/S2; Negative S3/S4
Pulmonary: Coarse and Non Labored
Gastrointestinal: Soft, Decreased Bowel Sounds and Other (Ostomy in place. Right lower quadrant JEAN drain with cloudy serous drainage.)
Extremities: Edema; Negative Cyanosis or Erythema
Skin: Warm and Dry
Wound: Other (Anterior abdominal wound with anju in place. No periwound erythema. Left groin incisional wound with arias VAC in place)
Neurological: Awake and Alert
Psychological: Calm
Objective Data
Lab Data
Lab Results
10/31/24 06:41
10/31/24 04:02
PT 14.5 Sec (11.4-14.6) 10/24/24 22:15
INR 1.10 10/24/24 22:15
APTT 67.8 Sec (23.4-35.0) H 10/31/24 04:02
Estimated Creat Clear 22 ml/min 10/31/24 04:02
Lactic Acid 1.2 mmol/L (0.7-2.0) 10/24/24 22:15
Total Bilirubin 0.2 mg/dl (0.2-1.3) 10/31/24 04:02
AST 202 U/L (14-36) H 10/31/24 04:02
ALT 76 U/L (0-35) H 10/31/24 04:02
Alkaline Phosphatase 133 U/L (38-126) H 10/31/24 04:02
Most recent labs reviewed.
Micro Results:
10/28/24 10:34 Blood Culture - Preliminary
Blood/Venous No Growth in 48 hours- Final report to follow
10/25/24 14:11 Wound Culture - Final
Abdomen Escherichia coli
Streptococcus species
Gram Stain - Final
10/25/24 14:11 Anaerobic Culture - Final
Abdomen
10/28/24 10:18 Blood Culture - Preliminary
Blood/Venous No Growth in 48 hours- Final report to follow
Imaging:
10/25/2024 CT abdomen angio with runoff: Occlusion of left limb of aorto femoral bypass. Severe stenosis along the proximal and distal right superficial femoral artery. There has been postevacuation of previously seen large volume extraluminal
stool within the pelvis. S/p partial colectomy with left-sided colostomy. Please see full dictation for additional detail.
[2024-10-31] MEDS: SODIUM BICARBONATE 1150 MEQ IV (09:53)
[2024-10-31] MEDS: PLAVIX PO (09:56)
[2024-10-31] MEDS: LOW STRENGTH ASPIRIN 81 MG PO (09:56)
[2024-10-31] MEDS: KCL 40 MEQ PO (09:57)
[2024-10-31] MEDS: ASPIRIN RECTAL (11:58)
--- NOTE | 2024-10-31 12:18 | W.PN.UPDATE ---
Update Note
Progress Note Update
CT angiogram images reviewed. Patent aortobifemoral bypass and stented left iliac limb. No obvious signs of any graft infection or anastomotic issues. No evidence of active extravasation into the hematoma which sits in the retroperitoneum just
inferior to the right kidney. Does not appear to be related to major vascular issue. I have asked colorectal to take a look to see if it may be related to recent surgery combined with the administration of anticoagulation. Continue to hold
anticoagulation for now.
[2024-10-31] MEDS: KCL 20 MEQ PO (13:19)
[2024-10-31] MEDS: LOPRESSOR 25 MG PO ×2 (13:19→17:51)
[2024-10-31 13:56] LABS: Glucose - Point of Care 108 mg/dl (70-99)
--- NOTE | 2024-10-31 14:13 | CM ---
CM following re: discharge planning.
Discussed in Rounds, reviewed pt's chart, met with pt.
Pt lives with son and his family 2SH, 2 steps to enter, has 1st floor set up, known to [facility].
PT and OT evaluations noted - SNF vs VN recommended. Pt reports she is very weak and she preferred going to a SNF for a short term rehab. A list of SNFs provided to the pt and she preferred following SNFs in [facility]: [facility],
[facility].
A referral to above SNFs made. Awaiting for determination.
D/C [place]: Preferred SNF when medically stable. .
CM will follow with discharge plan updates as hospitalization progresses
[2024-10-31] MEDS: MYCAMINE 105 MG IV (15:35)
[2024-10-31] MEDS: DILAUDID 1 MG IV (15:40)
[2024-10-31 17:11] LABS: Hematocrit 25.3 % (37.0-47.0); Hemoglobin 8.8 g/dL (12.0-16.0)
--- NOTE | 2024-10-31 18:00 | PTCARENOTE ---
Pt received in bed @ 0700. AAOx3. PRN Dilaudid 2mg IV given x1 for pain throughout shift. Otherwise pt stating abdominal pain as 'tolerable.' SaO2 96% on room air. Harsh nonproductive moist cough. Sinus tach/Sinus rhythm throughout shift. +2 LE
edema. All scheduled antihypertensives administered. MAP > 65 without pressors. Neurovascular assessment as documented. Colostomy with liquid mucoidal stool output. Tested heme (+). Rodriguez catheter removed. 500ml yellow urine for shift. Due to void
by midnight.
Morning Hgb resulted 6.1 Heparin gtt discontinued. 2 units of PRBC's administered without reaction. Follow up Hgb resulted 8.8. CT abd/pelv angio obtained. Sodium Bicarb gtt hung per Nephro for CT Angio contrast now completed.
[2024-10-31 18:04] LABS: Glucose - Point of Care 111 mg/dl (70-99)
[2024-10-31] MEDS: DILAUDID 0.5 MG IV (20:00)
--- NOTE | 2024-10-31 20:00 | PTCARENOTE ---
Patient received Lying in bed, appears to be sleeping comfortably with eyes closed, lying still, respirations nonlabored. She rouses easily to name called. Afebrile, VSS.. She c/o RLQ/right sided abdominal discomfort 04/20. Prn Dilaudid given. BBS
clear except Right base diminished with crackles. Saturating well on RA. Encouraged to use IS and deep breathe and cough. Left groin JAYME dressing, green light. RLQ JEAN drain to bulb suction with small amount of serous drainage. BLE pedal/ankle edema
2+. RLE pulses weak, LLE pulses normal. Midline abdominal incision with anju CDI. LUQ colostomy with dark mucoid liquid stool. Stoma remains dark. S1S2 regular with positive murmur, PN60s-KZ low 100s on CM, occasional to frequent PVCs,
quadrigeminy PVCs. Right IJ TLC with all ports flushing easily. Right AC SL flushes well.
[2024-10-31 22:11] LABS: Glucose - Point of Care 130 mg/dl (70-99)
--- NOTE | 2024-10-31 23:45 | PTCARENOTE ---
Patient is requesting medication for anxiety and c/o Lower abdominal discomfort 06/21. States, 'I just want to sleep.' Prn Dilaudid and prn Ativan given per order. Labs drawn. Hgb noted stable, K 3.5. Calcium 6.5--critical low. GIRLS TENNIS COACH Sc[place]horn
notified, new orders received for Calcium Gluconate.
[2024-11-01] VITALS (24 sets, daily range): BP systolic 93–132; BP diastolic 49–109; PULSE 78–86; O2SAT 98–100; BMI 23.4
[2024-11-01] MEDS: DILAUDID 1 MG IV ×2 (00:07→07:12)
[2024-11-01] MEDS: ATIVAN 0.5 MG IV ×2 (00:08→13:01)
[2024-11-01 00:52] LABS: Hematocrit 24.6 % (37.0-47.0); Hemoglobin 8.6 g/dL (12.0-16.0); Mean Corpuscular Hgb 28.9 pg (27.0-31.0); Mean Corpuscular Volume 82.6 fL (81.0-99.0); Platelet Count 153 10^3/uL (130-400); Red Blood Cell Count 2.98 10^6/uL (4.20-5.40); Red Cell Dist. Width 14.7 % (11.5-14.5); White Blood Cell Count 15.4 10^3/uL (4.8-10.8)
[2024-11-01 01:02] LABS: Blood Urea Nitrogen 36 mg/dl (7-17); Calcium 6.5 mg/dl (8.4-10.2); Carbon Dioxide 27 mmol/L (22-30); Chloride 101 mmol/L (98-107); Estimated Creatinine Clearance 25 ml/min; Glucose 91 mg/dl (70-99); Potassium 3.5 mmol/L (3.5-5.1); Sodium 132 mmol/L (135-145); eGFR 32.87
[2024-11-01] MEDS: MERREM 500 MG IV ×2 (03:31→15:35)
[2024-11-01] MEDS: CALCIUM GLUCONATE 100 IV ×2 (03:31→13:01)
[2024-11-01] MEDS: STERILE WATER FOR INJECTION 10 ML IV ×2 (03:32→15:35)
[2024-11-01] MEDS: LOPRESSOR 25 MG PO ×3 (06:13→17:39)
[2024-11-01 06:34] LABS: % Basophils 0.2 % (0-2); % Eosinophils 0.7 % (0-6); % Immature Granulocytes 1.8 % (0-0.5); % Lymphocytes 6.7 % (20.5-51.1); % Monocytes 4.5 % (1.7-9.3); % Neutrophils 86.1 % (42.2-75.2); Absolute Eosinophils 0.1 10^3/uL (0-0.7); Absolute Immature Granulocytes 0.3 10^3/uL (0-0.05); Absolute Lymphocytes 1.1 10^3/uL (1.2-3.4); Absolute Monocytes 0.8 10^3/uL (0.1-0.6); Absolute Neutrophils 14.5 10^3/uL (1.4-6.5); Hematocrit 25.1 % (37.0-47.0); Hemoglobin 8.8 g/dL (12.0-16.0); Mean Corp Hgb Conc. 35.1 g/dL (33.0-37.0); Mean Corpuscular Hgb 28.9 pg (27.0-31.0); Mean Corpuscular Volume 82.3 fL (81.0-99.0); Mean Platelet Volume 10.8 fL (7.4-10.4); Nucleated Red Blood Cells % 0.3 %; Platelet Count 159 10^3/uL (130-400); Red Blood Cell Count 3.05 10^6/uL (4.20-5.40); White Blood Cell Count 16.8 10^3/uL (4.8-10.8)
[2024-11-01 06:53] LABS: ALT (SGPT) 48 U/L (0-35); AST (SGOT) 104 U/L (14-36); Albumin 1.6 g/dl (3.5-5.0); Alkaline Phosphatase 97 U/L (38-126); Blood Urea Nitrogen 35 mg/dl (7-17); Calcium 6.7 mg/dl (8.4-10.2); Carbon Dioxide 29 mmol/L (22-30); Chloride 102 mmol/L (98-107); Estimated Creatinine Clearance 22 ml/min; Glucose 78 mg/dl (70-99); Potassium 3.5 mmol/L (3.5-5.1); Sodium 135 mmol/L (135-145); Total Bilirubin 0.4 mg/dl (0.2-1.3); Total Protein 3.7 g/dl (6.3-8.2); eGFR 28.76
--- NOTE | 2024-11-01 07:39 | PTCARENOTE ---
Report given verbally to oncoming shift, ASHU Patel. Questions answers.
--- NOTE | 2024-11-01 08:00 | PTCARENOTE ---
recd handoff in room, aware of plans for the day, no distress, med for pain per pt request.
[2024-11-01] MEDS: CATAPRES 0.3 MG PO ×3 (08:04→22:03)
[2024-11-01] MEDS: LOW STRENGTH ASPIRIN 81 MG PO (08:05)
[2024-11-01] MEDS: APRESOLINE 100 MG PO ×3 (08:05→22:02)
[2024-11-01] MEDS: LIDOCAINE 4% PATCH 1 PATCH TOPICAL (08:07)
[2024-11-01] MEDS: PROTONIX IV 40 MG IV ×2 (08:07→19:30)
[2024-11-01] MEDS: NSS (PRESERVATIVE FREE) 10 ML IV ×2 (08:07→19:30)
--- NOTE | 2024-11-01 08:51 | W.PN.CRS1 ---
Today's Communication / Plan
-
As below
Assessment/Plan
-
64-year-old female with PMH of recurrent rectal prolapse (first prolapse repair 20 years ago, recent robotic VMR by Dr. Melendez on 09/30/2025), HTN, HLD, PVD s/p aortobifem bypass, CKD, renal artery stenosis s/p left renal stent, [id number] smoking
history who developed constipation and abdominal pain 6 days prior to admission. She went to [facility] and a CT scan was done showing contained sigmoid perforation. She was transferred to [place]. Upon review with [place] radiology,
there was a sigmoid perforation with likely spillage of stool. She was taken urgently to the operating room for likely perforated stercoral colitis.
POD 6 ex lap, sigmoid resection with end colostomy, incidental appendectomy; found to have left leg pain with decreased pulses in PACU
POD 6 thrombectomy of left iliac limb of aortobifem bypass with revision of the left femoral anastomosis and stenting of the left iliac limb, left SPOTLIGHT OPERATOR endarterectomy
10/31 - drop in Hb and BP, CTA - large right RP hematoma, no active extrav; s/p pRBCx2
AF, HR and SBP wnl
WBC WBC 16.8 from 15.4 (from 17.1 yesterday), Hb 8.8 from 8.6 from 8.8 from 6.1, Cr 1.9
�R RP hematoma, no active extrav; s/p pRBC x2
-Hb now stable
-Uncertain etiology; hold AC except ASA, appreciate vascular; would favor holding AC for total of 48hours prior to restarting
� Ischemia of colostomy bud, s/p endoscopy with adequate perfusion below the level of the skin
�Still with ischemic changes but improving and sloughing
� Advance to low residue
� JACOB, improving
� Persistent leukocytosis, currently asymptonatic (ie- tolerating diet with ostomy function)
-Continue IV antibiotics with meropenem and micafungin, appreciate ID
� Continue pain control with Dilaudid as needed
� Appreciate hospitalist/x ray equipment servicer
Subjective Data
Procedure
10/25/2024- open sigmoid colectomy, incidental appendectomy, and end sigmoid ostomy
10/25/2024- Thrombectomy of occluded left iliac limb of aortobifemoral bypass/Left common femoral artery endarterectomy
Subjective Data
Date of Service: November 01, 2024
Pain controlled.
Denies nausea/vomiting, feeling hungry. Tolerating diet.
+ Ostomy function +voiding
Pt is OOB.
Objective Data
-
Vital Signs
Temp Pulse Resp BP Pulse Ox
99.2 F 90 23 131/66 95
11/01/24 04:00 11/01/24 08:05 11/01/24 08:00 11/01/24 08:05 11/01/24 08:00
Intake & Output
10/31/24 11/01/24 11/02/24
06:59 06:59 06:59
Intake Total 518 / 518 2100 / 2100
Output Total 1505 / 1505 1025 / 1025
Balance -987 / -987 1075 / 1075
Intake:
Oral fluids 420 / 420 600 / 600
IV fluids (Total)
D5lr 1,000 ml @ 80 mls/hr IV . 0 / 0
[id number] [facility] Rx#:[id number]
Heparin 98 / 98
IV piggybacks 1000 / 1000
Blood Product Amount Infused ( 500 / 500
mL)
Packed Rbc Leukoreduced Unit 250 / 250
[id number]
Packed Rbc Leukoreduced Unit 250 / 250
[id number]
Output:
Liquid stool amount 750 / 750 375 / 375
Colostomy 750 / 750 375 / 375
Drain Output (Total) 5 / 5 0 / 0
Right Abdomen Shamar-Adams 5 / 5 0 / 0
Urine, Rodriguez 750 / 750 500 / 500
Urine, Voided 150 / 150
Lab Results
11/01/24 06:22
11/01/24 06:22
Physical Exam
-
General: No Acute Distress and AOx3
Abdomen: Soft, Distended (Minimally to mildly distended, not tympanitic), Tender (Appropriately tender), No Guarding, No Rebound and Other (Ostomy dhillon/white with sloughing of the mucosa)
Skin: Warm and Dry
Wound: No Signs of Infection, No Skin Erythema and Other (JEAN-minimal output; midline incision with intermittent anju, well-approximated without erythema or drainage; left groin dressing intact without strikethrough)
--- NOTE | 2024-11-01 09:24 | W.PN.VS ---
Addendum entered and electronically signed by Sonny Rodriguez III, MD 11/01/24 11:04:
This patient was seen and examined with FLORY Geronimo and FLORY Henry. I agree with the history and physical exam as well as the assessment and plan.
CT angiogram from yesterday reviewed. Left iliac limb stents widely patent. Left femoral reconstruction widely patent. No evidence of stenosis. No evidence of suture line extravasation in the left groin.
Continue aspirin monotherapy for now.
Resume dual antiplatelet therapy when safe from colorectal perspective
JAYME dressing. Protect incision in left groin from ostomy contamination at all times.
Signed:
Sonny Rodriguez III, MD
[facility]
[phone] (wskh)
Original Note:
Today's Communication / Plan
-
See below.
Assessment/Plan
-
Assessment: 64-year-old female POD #6 Thrombectomy of occluded left iliac limb of aortobifemoral bypass. Left common femoral artery endarterectomy. Revision of left femoral anastomosis of aortobifemoral bypass using 8 mm Dacron graft. Balloon
angioplasty and stenting of left iliac limb of aortobifemoral bypass using 2 overlapping 8 mm x 59 mm [place] VBX stents. Left lower extremity arteriogram. Reoperation, left groin from prior aortobifemoral bypass for occlusion of left iliac limb of
aortobifemoral bypass, left common femoral artery, left profunda artery, and left superficial femoral artery following colorectal surgery.
Plan:
Hemoglobin remained stable following transfusion of 2 units packed red blood cell, CT angio with no evidence of active extravasation, Plavix 75 mg p.o. currently on hold until cleared for reinitiation by colorectal/hospitalist team, please continue
81 mg of aspirin p.o. daily while Plavix is on hold, and then when safe to reinitiate she is to continue on DAPT of aspirin 81 mg p.o. daily with Plavix 75 mg p.o. daily
Jayme dressing replaced, this is a 7-day dressing and will stay in place until 11/08/2024 at that time he can be removed and completely discarded including battery pack and surgical site can be left open to air or covered with gauze if concern for
ostomy contamination
Patient is cleared for PT and OT from vascular surgery standpoint, restriction of no lifting greater than 10 pounds
Follow-up appointment placed in discharge instructions
We will sign off please call with questions or concerns
Subjective Data
-
Date of Service: November 01, 2024
Patient seen and examined at bedside, offers no complaints. Reports well-managed postoperative pain at left groin site. Endorses she is excited that she has been cleared for solid food.
Objective Data
-
Vital Signs
Temp Pulse Resp BP Pulse Ox
98.0 F 90 23 131/66 95
11/01/24 07:30 11/01/24 08:05 11/01/24 08:00 11/01/24 08:05 11/01/24 08:00
Intake and Output
10/31/24 11/01/24 11/02/24
06:59 06:59 06:59
Intake Total 518 / 518 2100 / 2100
Output Total 1505 / 1505 1025 / 1025
Balance -987 / -987 1075 / 1075
Intake:
Oral fluids 420 / 420 600 / 600
IV fluids (Total)
D5lr 1,000 ml @ 80 mls/hr IV . 0 / 0
[id number] [facility] Rx#:[id number]
Heparin
IV piggybacks 1000 / 1000
Blood Product Amount Infused ( 500 / 500
mL)
Packed Rbc Leukoreduced Unit 250 / 250
[id number]
Packed Rbc Leukoreduced Unit 250 / 250
[id number]
Output:
Liquid stool amount 750 / 750 375 / 375
Colostomy 750 / 750 375 / 375
Drain Output (Total) 0 / 0
Right Abdomen Shamar-Adams 0 / 0
Urine, Rodriguez 750 / 750 500 / 500
Urine, Voided 150 / 150
Lab Results
11/01/24 06:22
11/01/24 06:22
Calcium 6.7 mg/dl (8.4-10.2) L* 11/01/24 06:22
Phosphorus 6.3 mg/dl (2.5-4.5) H 10/25/24 23:26
Magnesium 2.0 mg/dl (1.6-2.3) 10/29/24 03:57
Total Bilirubin 0.4 mg/dl (0.2-1.3) 11/01/24 06:22
AST 104 U/L (14-36) H 11/01/24 06:22
ALT 48 U/L (0-35) H 11/01/24 06:22
Alkaline Phosphatase 97 U/L (38-126) 11/01/24 06:22
Total Protein 3.7 g/dl (6.3-8.2) L 11/01/24 06:22
Albumin 1.6 g/dl (3.5-5.0) L 11/01/24 06:22
Physical Exam
-
No apparent distress, awake and alert resting in bed comfortably
No dyspnea
Left groin jayme dressing removed, staple sites CDI and well-approximated, no evidence of hematoma or seroma, extremity warm, warm, patient with full range of motion at left foot, calf soft, jayme dressing replaced with new
Left DP palpable, bilateral feet warm
--- NOTE | 2024-11-01 10:36 | PTCARENOTE ---
oob in recliner, room dark, comfortable at present. Using IS, 750-1000 with encouragement. ambulated with PT and RW
[2024-11-01] MEDS: DILAUDID 0.5 MG IV (11:22)
[2024-11-01 11:57] LABS: Glucose - Point of Care 146 mg/dl (70-99)
--- NOTE | 2024-11-01 12:07 | CM ---
CM following re: discharge planning.
Discussed in Rounds, reviewed pt's chart, met with pt. Pt is POD #6 Thrombectomy of occluded left iliac limb of aortobifemoral bypass, continue supportive care.
Pt lives with son and his family 2SH, 2 steps to enter, has 1st floor set up, known to [facility].
PT and OT continue recommending SNF level of care. Pt reports she is very weak and she preferred going to a SNF for a short term rehab. A referral made yesterday to following SNFs in [facility] area: [facility],
[facility].
[facility] SNF denied a referral.
[facility] offered a bed.
CM spoke to [facility] liaison Betsy, pt's face sheet faxed to [phone]. Awaiting for determination.
D/C byers: Preferred SNF when medically stable: [facility] or [facility].
CM will follow with discharge plan updates as hospitalization progresses
--- NOTE | 2024-11-01 12:12 | W.PN.NEPH.PH ---
Today's Communication / Plan
-
follow BMP
Assessment/Plan
-
64-year-old female past medical history of recurrent rectal prolapse status post ventral mesh rectopexy, hypertension, peripheral vascular disease, hypercholesteremia, anemia, CKD, renal artery stenosis status post left renal stent presenting as a
transfer from [facility] for abscess near sigmoid colon possible perforation.
Renal consult for acute on chronic kidney disease she follows with Dr. Edson Ding radiation physicist daniels
Baseline creatinine appears to be between 1.8 and 2.0. She presented with a creatinine of 3.2 and a metabolic acidosis
Impression:
Acute on chronic kidney disease.
Acute metabolic acidosis.
Hypertensive urgency.
Pericolonic abscess.
History of renal artery stenosis with left stent.
Postop sigmoid colectomy incidental appendectomy and end sigmoid ostomy
Postop thrombectomy of occluded left iliac limb of aortobifemoral bypass\\left common femoral artery endarterectomy
Plan:
meds continue for BP
transfuse PRBC prn
s/p bicarb IVF for CTA 10/31
follow BMP carefully
replete calcium
-
-
Date of Service: November 01, 2024
CC / HPI / ROS
-
Chief Complaint:
JACOB
History of Present Illness:
JACOB/Cr stable 1.9
s/p CTA LE 10/31
BP low stable
K better at 3.5
Hgb stable 8.8
Review of Systems:
nonoliguric via Rodriguez catheter
No fevers
tolerating clears
Labs
-
Labs:
WBC 16.8 10^3/uL (4.8-10.8) H 11/01/24 06:22
RBC 3.05 10^6/uL (4.20-5.40) L 11/01/24 06:22
Hgb 8.8 g/dL (12.0-16.0) L 11/01/24 06:22
Hct 25.1 % (37.0-47.0) L 11/01/24 06:22
Plt Count 159 10^3/uL (130-400) 11/01/24 06:22
Sodium 135 mmol/L (135-145) 11/01/24 06:22
Potassium 3.5 mmol/L (3.5-5.1) 11/01/24 06:22
Chloride 102 mmol/L (98-107) 11/01/24 06:22
Carbon Dioxide 29 mmol/L (22-30) 11/01/24 06:22
BUN 35 mg/dl (7-17) H 11/01/24 06:22
Creatinine 1.9 mg/dL (0.6-1.0) H 11/01/24 06:22
eGFR 28.76 11/01/24 06:22
Glucose 78 mg/dl (70-99) 11/01/24 06:22
Calcium 6.7 mg/dl (8.4-10.2) L* 11/01/24 06:22
Phosphorus 6.3 mg/dl (2.5-4.5) H 10/25/24 23:26
Albumin 1.6 g/dl (3.5-5.0) L 11/01/24 06:22
Physical Exam
-
Vital Signs:
Vital Signs
Temp Pulse Resp BP Pulse Ox
98.0 F 89 19 102/55 95
11/01/24 07:30 11/01/24 11:22 11/01/24 09:00 11/01/24 11:22 11/01/24 08:00
Cardiovascular:: Regular rate and rhythm
Respiratory:: Bilateral: Coarse
Lung Excursion:: Normal
Abdomen:: Nontender and Soft
Bowel Sounds:: Normal
Extremity Edema:: +1: Bilateral:
--- NOTE | 2024-11-01 13:16 | PTCARENOTE ---
back to bed, gait slow, steady. positioned for comfort, all pillows placed, call cota/phone/tissues in reach. med with ativan for anxiety.
--- NOTE | 2024-11-01 13:23 | W.PN.ID1 ---
Date of Service
Date of Service: November 01, 2024
Today's Communication
Continue antibiotics
Assessment / Plan
Sigmoid colon perforation secondary to stercoral colitis
- s/p ex lap/sig. colectomy/ end-sigmoid ostomy (10/25/24)
Critical limb ischemia left leg (following above procedure)
- s/p (L) fem graft embolectomy, fem graft endarterectomy with graft repair (10/25/24)
Fecal peritonitis
-Cultures with E. coli and Strep spp.
Leukocytosis
JACOB on CKD
Transaminitis
Anemia
HTN
Dyslipidemia
Anemia
Hx renal artery stenosis
Recommendations:
Leukocytosis with continued improvement today. Prior elevation may have been reactive, but will need to be followed quite closely.
Continue with meropenem (d#5) and micafungin (d#5) for today.
LFTs slowly improving.
Trend white count / Hb
Follow temperature curve.
����������������������������������������������������������
Chief Complaint
-: Leukocytosis and Other (Perforated viscus (sigmoid colon); critical limb ischemia; fecal peritonitis)
Subjective / Review of Systems
Patient seen and examined. Reports feeling somewhat improved today overall.
Review of Systems: No Fever and No Chills
Vital Signs / Physical Exam
Vital Signs
Vital Signs
Temp Pulse Resp BP Pulse Ox
97.5 F 88 22 115/58 99
11/01/24 11:35 11/01/24 13:00 11/01/24 13:00 11/01/24 13:00 11/01/24 13:00
Physical Exam
Constitutional: No Acute Distress, Comfortable and Non-toxic
Eyes: No Conjunctival Hemorrhage and Sclera Anicteric
Cardiovascular: Regular Rate (Tachycardic) and S1/S2; Negative S3/S4
Pulmonary: Coarse and Non Labored
Gastrointestinal: Soft, Normal Bowel Sounds and Other (Ostomy in place. )
Extremities: Edema; Negative Cyanosis or Erythema
Skin: Warm and Dry
Neurological: Awake and Alert
Psychological: Calm
Objective Data
Lab Data
Lab Results
11/01/24 06:22
11/01/24 06:22
PT 14.5 Sec (11.4-14.6) 10/24/24 22:15
INR 1.10 10/24/24 22:15
APTT 67.8 Sec (23.4-35.0) H 10/31/24 04:02
Estimated Creat Clear 22 ml/min 11/01/24 06:22
Lactic Acid 1.2 mmol/L (0.7-2.0) 10/24/24 22:15
Total Bilirubin 0.4 mg/dl (0.2-1.3) 11/01/24 06:22
AST 104 U/L (14-36) H 11/01/24 06:22
ALT 48 U/L (0-35) H 11/01/24 06:22
Alkaline Phosphatase 97 U/L (38-126) 11/01/24 06:22
Most recent labs reviewed.
Micro Results:
10/28/24 10:34 Blood Culture - Preliminary
Blood/Venous No Growth in 4 days- Final report to follow
10/28/24 10:18 Blood Culture - Preliminary
Blood/Venous No Growth in 4 days- Final report to follow
10/25/24 14:11 Wound Culture - Final
Abdomen Escherichia coli
Streptococcus species
Gram Stain - Final
10/25/24 14:11 Anaerobic Culture - Final
Abdomen
Imaging:
10/25/2024 CT abdomen angio with runoff: Occlusion of left limb of aorto femoral bypass. Severe stenosis along the proximal and distal right superficial femoral artery. There has been postevacuation of previously seen large volume extraluminal
stool within the pelvis. S/p partial colectomy with left-sided colostomy. Please see full dictation for additional detail.
--- NOTE | 2024-11-01 15:26 | WOUNDNOTE ---
WON RN NOTE: Appliance changed today, patient very groggy, unable to do more teaching with patient today. Nurse Deonna stated patient had something for anxiety earlier. Stoma cleaned revealing pink on proximal part of stoma, remainder slough- see
photo. Convex wafer with Mello seal and pouch applied. Will follow for further teaching when patient more alert towards end of week if able.
[2024-11-01] MEDS: MYCAMINE 105 MG IV (15:36)
--- NOTE | 2024-11-01 16:02 | W.PN.HOSP.TC ---
Today's Communication/Plan
-
Monitor hemoglobin
Pain medication adjusted
PT OT ordered
abx per ID
Assessment / Plan
Assessment / Plan
Acute left limb threatening ischemia
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
-Thrombectomy of occluded left iliac limb of aortobifemoral bypass/Left common femoral artery endarterectomy performed 10/25
-Jayme drain has been changed today,
-Vascular surgery was signed off
-Patient to be resumed back on Plavix once cleared from CRS
Perforated sigmoid colon with pericolonic abscess formation with partial SBO
Acute Sepsis (tachycardia, leukocytosis) from acute GI colonic source
- s/p open sigmoid colectomy, incidental appendectomy, and end sigmoid ostomy 10/25
- 10/27: concern for bleeding/necrosis of bowel; bedside scope report indicates viable tissue beneath skin
- Currently on Merrem/micafungin, ID managing and help appreciated. Day 8 of abx today.
- CRS following
- Diet has been advanced to low residue
Intubation for acute surgical procedures
VDRF
- s/p extubation 10/26
- on RA
Acute blood loss anemia on chronic anemia
Retroperitoneal hematoma
-CTAP on 10/31 showing right retroperitoneal hematoma and mild complex abdominal pelvic ascites/mobility
-Follow-up CT angio did not show any acute bleeder
-CRS recommended patient to be kept off of heparin drip/Plavix for 48 hours
-Patient got 2 unit of PRBC and hemoglobin 8.8 today, continue monitoring
Hypokalemia
- replace prn
Shock - multifactorial from hemorrhagic and sepsis
- off pressors
Accelerated hypertension with risk of developing hypertensive emergency
History of underlying Accelerated HTN with multi-drug regimen and history of PARI s/p L Renal artery stenting
-Required Cardene drip in ICU
-Blood pressure controlled on regimen of clonidine/hydralazine/metoprolol
History of recurrent rectal prolapse status post ventral mesh rectopexy with recent repair
JACOB on CKD stage 3b
Acute metabolic acidosis
- suspect driven by accelerated HTN and critical illness
- Nephrology following
- maintain Rodriguez for critical I/Os
- s/p IV Lasix x 1
- Cr peak of 3.7, trending down.
history of PARI s/p L Renal artery stenting
Peripheral vascular disease
Hypercholesterolemia
-plavix remains on hold
Former smoker
Hypoglycemia
- accu-checks q6h
- dextrose IVF
Elevated LFTs from shock liver
- trend
DVT ppx: SCDs
Code: Full
Case discussed with CRS
Total time spent : 53 mins
I personally saw and examined the patient.
I have reviewed all diagnostic interpretations and treatment plans as written.
Time includes patient management by me, time spent at the patients bedside, time to review lab and imaging results, discussing patient care, documentation in the medical record, and time spent with the family or caregiver and discussing care plan
with RN/Consultants.
Anticipated Discharge: > 48 hours
Subjective/Interval History
-
Date of Service: November 01, 2024
Denies having any abdominal pain/nausea/vomiting
Liquid black output from ostomy site
No acute issues reported overnight
Objective Data
-
Labs:
Laboratory Results
11/01/24
06:22
WBC 16.8 H
Hgb 8.8 L
Hct 25.1 L
Plt Count 159
Sodium 135
Potassium 3.5
Chloride 102
Carbon Dioxide 29
BUN 35 H
Creatinine 1.9 H
Glucose 78
Calcium 6.7 L*
Total Bilirubin 0.4
AST 104 H
ALT 48 H
Alkaline Phosphatase 97
Vital Signs:
Vital Signs
Temp Pulse Resp BP Pulse Ox
98.9 F 79 16 123/64 97
11/01/24 15:55 11/01/24 15:41 11/01/24 14:00 11/01/24 15:41 11/01/24 14:00
I&O
10/31/24 11/01/24 11/02/24
06:59 06:59 06:59
Intake Total 518 / 518 2099 / 2099
Output Total 1505 / 1505 1025 / 1025
Balance -987 / -987 1075 / 1075
Review of Systems
-
Respiratory: Reports No Symptoms
Cardiac: Reports No Symptoms
Abdomen/GI: Reports No Symptoms
Physical Exam
-
General: Comfortable
HEENT: Negative Oxygen
Cardiac: Regular Rhythm, S1/S2 and Tachycardic; Negative Murmur
GI: Soft, Ostomy (Black liquid stool ) and Other (Midline surgical scar with anju, )
Genito-urinary: Other (Left groin dressing in place with JAYME drain)
Neuro: Awake, Alert, Oriented and No Motor Deficits
Psych: Calm
[2024-11-01 16:33] LABS: Glucose - Point of Care 104 mg/dl (70-99)
--- NOTE | 2024-11-01 18:33 | PTCARENOTE ---
reluctantly OOB for dinner, to chair. legs weak initially, did much better on return to bed with RW. positioned for comfort. call cota in reach.
[2024-11-01] MEDS: ROXICODONE 10 MG PO (19:29)
--- NOTE | 2024-11-01 20:00 | PTCARENOTE ---
unable to locate lido patch
--- NOTE | 2024-11-01 20:37 | PTCARENOTE ---
On assessment pt AAOx3, denies pain and SOB at this time, SR on the monitor, 97% RA, colostomy with dark stoma aware from dayshift, purwick in place, L groin with JAYME dressing, midline with anju, R JEAN, call cota in reach
[2024-11-01 22:17] LABS: Glucose - Point of Care 138 mg/dl (70-99)
[2024-11-02] VITALS (13 sets, daily range): BP systolic 94–178; BP diastolic 53–86; BMI 24.1
[2024-11-02] MEDS: LOPRESSOR PO (00:07)
[2024-11-02] MEDS: STERILE WATER FOR INJECTION 10 ML IV ×2 (04:02→16:11)
[2024-11-02] MEDS: MERREM 500 MG IV ×2 (04:02→16:11)
[2024-11-02] MEDS: ROXICODONE 10 MG PO ×4 (04:02→23:18)
[2024-11-02 04:09] LABS: Hematocrit 23.8 % (37.0-47.0); Hemoglobin 8.2 g/dL (12.0-16.0); Mean Corp Hgb Conc. 34.5 g/dL (33.0-37.0); Mean Corpuscular Hgb 28.8 pg (27.0-31.0); Mean Corpuscular Volume 83.5 fL (81.0-99.0); Mean Platelet Volume 10.5 fL (7.4-10.4); Platelet Count 180 10^3/uL (130-400); Red Blood Cell Count 2.85 10^6/uL (4.20-5.40); Red Cell Dist. Width 15.8 % (11.5-14.5); White Blood Cell Count 14.3 10^3/uL (4.8-10.8)
[2024-11-02 04:43] LABS: Blood Urea Nitrogen 39 mg/dl (7-17); Calcium 6.8 mg/dl (8.4-10.2); Carbon Dioxide 24 mmol/L (22-30); Chloride 104 mmol/L (98-107); Estimated Creatinine Clearance 25 ml/min; Glucose 93 mg/dl (70-99); Potassium 3.3 mmol/L (3.5-5.1); Sodium 133 mmol/L (135-145); eGFR 32.87
--- NOTE | 2024-11-02 05:33 | PTCARENOTE ---
DIRECTOR OF EARLY CHILDHOOD EDUCATION paged about morning labs
calcium 6.8 and potassium 3.3
[2024-11-02] MEDS: LOPRESSOR 25 MG PO ×3 (06:47→17:45)
[2024-11-02] MEDS: CALCIUM GLUCONATE 100 IV (06:48)
[2024-11-02] MEDS: LOW STRENGTH ASPIRIN 81 MG PO (07:39)
[2024-11-02] MEDS: CATAPRES 0.3 MG PO ×3 (07:39→22:59)
[2024-11-02] MEDS: APRESOLINE 100 MG PO ×3 (07:39→22:59)
[2024-11-02] MEDS: PROTONIX IV 40 MG IV ×2 (07:40→19:45)
[2024-11-02] MEDS: LIDOCAINE 4% PATCH TOPICAL (07:40)
[2024-11-02] MEDS: NSS (PRESERVATIVE FREE) 10 ML IV ×2 (07:40→19:42)
--- NOTE | 2024-11-02 08:43 | PTCARENOTE ---
recd pt, repositioned in bed, ate part of breakfast in bed then incont. oob to chair with RW and 2 person min assist. using IS. med for pain as noted, initially requested IV but agreeable to oxy as ordered for pain rating 8. urine on pad was
kasey, mod amount. able to move about in bed, prefers bundled up and undisturbed. call cota in reach. presently finishing up breakfast in recliner chair. calcium rider infused, took am meds easily with sip water, denied need for lidoderm patch.
--- NOTE | 2024-11-02 09:13 | W.PN.CRS1 ---
Today's Communication / Plan
-
as below
Assessment/Plan
-
64-year-old female with PMH of recurrent rectal prolapse (first prolapse repair 20 years ago, recent robotic VMR by Dr. Melendez on 09/30/2025), HTN, HLD, PVD s/p aortobifem bypass, CKD, renal artery stenosis s/p left renal stent, [id number] smoking
history who developed constipation and abdominal pain 6 days prior to admission. She went to [facility] and a CT scan was done showing contained sigmoid perforation. She was transferred to [place]. Upon review with [place] radiology,
there was a sigmoid perforation with likely spillage of stool. She was taken urgently to the operating room for likely perforated stercoral colitis.
POD 6 ex lap, sigmoid resection with end colostomy, incidental appendectomy; found to have left leg pain with decreased pulses in PACU
POD 6 thrombectomy of left iliac limb of aortobifem bypass with revision of the left femoral anastomosis and stenting of the left iliac limb, left MINER endarterectomy
10/31 - drop in Hb and BP, CTA - large right RP hematoma, no active extrav; s/p pRBCx2
AFVSS
WBC 14.3 from 16.8, Hb 8.2 from 8.8, Cr 1.7
�R RP hematoma, no active extrav; s/p pRBC x2
-Hb overall stable; continue to trend daily
-Appreciate vascular for restarting AC; would prefer waiting 1 more day with repeat CBC tomorrow
� Ischemia of colostomy bud, s/p endoscopy with adequate perfusion below the level of the skin
�Mucosa now with evidence of improved perfusion
� Continue low residue
� JACOB, improving
-Continue IV antibiotics with meropenem and micafungin, appreciate ID
� Continue pain control with Dilaudid as needed
� Appreciate hospitalist/bag liner
Subjective Data
Procedure
10/25/2024- open sigmoid colectomy, incidental appendectomy, and end sigmoid ostomy
10/25/2024- Thrombectomy of occluded left iliac limb of aortobifemoral bypass/Left common femoral artery endarterectomy
Subjective Data
Date of Service: November 02, 2024
No overnight events.
Pain controlled.
Denies nausea/vomiting. Tolerating diet.
+ Ostomy function +voiding
Objective Data
-
Vital Signs
Temp Pulse Resp BP Pulse Ox
98.4 F 93 20 133/62 97
11/02/24 08:00 11/02/24 07:39 11/02/24 07:00 11/02/24 07:39 11/02/24 08:00
Intake & Output
11/01/24 11/02/24 11/03/24
06:59 06:59 06:59
Intake Total 2100 / 2100 960 / 960
Output Total 1025 / 1025 880 / 880
Balance 1075 / 1075 80 / 80
Intake:
Oral fluids 600 / 600 660 / 660
IV piggybacks 1000 / 1000 300 / 300
Blood Product Amount Infused ( 500 / 500
mL)
Packed Rbc Leukoreduced Unit 250 / 250
[id number]
Packed Rbc Leukoreduced Unit 250 / 250
[id number]
Output:
Liquid stool amount 375 / 375 625 / 625
Colostomy 375 / 375 625 / 625
Drain Output (Total) 0 / 0 5 / 5
Right Abdomen Shamar-Adams 0 / 0 5 / 5
Urine, Rodriguez 500 / 500
Urine, Voided 150 / 150 250 / 250
Lab Results
11/02/24 03:59
11/02/24 03:59
Physical Exam
-
General: No Acute Distress and AOx3
HEENT: Grossly Normal
Abdomen: Soft, Non Distended, Tender (Appropriately tender near midline incision) and Other (Ostomy with sloughing mucosa centrally, edges now pink, stool within bag; JEAN- 5mL serosang)
Skin: Warm and Dry
Wound: No Signs of Infection and No Skin Erythema (Midline incision well-approximated with intermittent anju, no surrounding erythema or drainage)
--- NOTE | 2024-11-02 09:53 | W.PN.NEPH.PH ---
Today's Communication / Plan
-
Follow BMP no change
Assessment/Plan
-
64-year-old female past medical history of recurrent rectal prolapse status post ventral mesh rectopexy, hypertension, peripheral vascular disease, hypercholesteremia, anemia, CKD, renal artery stenosis status post left renal stent presenting as a
transfer from [facility] for abscess near sigmoid colon possible perforation.
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
Baseline creatinine appears to be between 1.8 and 2.0. She presented with a creatinine of 3.2 and a metabolic acidosis
Impression:
Acute on chronic kidney disease.
Acute metabolic acidosis.
Hypertensive urgency.
Pericolonic abscess.
History of renal artery stenosis with left stent.
Postop sigmoid colectomy incidental appendectomy and end sigmoid ostomy
Postop thrombectomy of occluded left iliac limb of aortobifemoral bypass\\left common femoral artery endarterectomy
Plan:
meds continue for BP
transfuse PRBC prn
s/p bicarb IVF for CTA 10/31 with stable creatinine
Renal function remains stable she is oliguric but put out 625 from ostomy.
Total Time Spent with Patient (in minutes): 31
-
-
Date of Service: November 02, 2024
CC / HPI / ROS
-
Chief Complaint:
JACOB
History of Present Illness:
JACOB/Cr stable 1.9�1.7
s/p CTA LE 10/31
BP stable
Review of Systems:
nonoliguric via Rodriguez catheter
No fevers
Tolerating full diet
Labs
-
Labs:
WBC 14.3 10^3/uL (4.8-10.8) H 11/02/24 03:59
RBC 2.85 10^6/uL (4.20-5.40) L 11/02/24 03:59
Hgb 8.2 g/dL (12.0-16.0) L 11/02/24 03:59
Hct 23.8 % (37.0-47.0) L 11/02/24 03:59
Plt Count 180 10^3/uL (130-400) 11/02/24 03:59
Sodium 133 mmol/L (135-145) L 11/02/24 03:59
Potassium 3.3 mmol/L (3.5-5.1) L 11/02/24 03:59
Chloride 104 mmol/L (98-107) 11/02/24 03:59
Carbon Dioxide 24 mmol/L (22-30) 11/02/24 03:59
BUN 39 mg/dl (7-17) H 11/02/24 03:59
Creatinine 1.7 mg/dL (0.6-1.0) H 11/02/24 03:59
eGFR 32.87 11/02/24 03:59
Glucose 93 mg/dl (70-99) 11/02/24 03:59
Calcium 6.8 mg/dl (8.4-10.2) L* 11/02/24 03:59
Phosphorus 6.3 mg/dl (2.5-4.5) H 10/25/24 23:26
Albumin 1.6 g/dl (3.5-5.0) L 11/01/24 06:22
Physical Exam
-
Vital Signs:
Vital Signs
Temp Pulse Resp BP Pulse Ox
98.4 F 93 20 133/62 97
11/02/24 08:00 11/02/24 07:39 11/02/24 07:00 11/02/24 07:39 11/02/24 08:00
Cardiovascular:: Regular rate and rhythm
Respiratory:: Bilateral: CTA
Lung Excursion:: Normal
Abdomen:: Nontender and Soft
Bowel Sounds:: Normal
Extremity Edema:: +1: Bilateral:
--- NOTE | 2024-11-02 10:05 | PTCARENOTE ---
back to bed with 2 RNs and RW, brief moment of weak knees, required max assistance and lifting from crouching position back to bed. did not hit floor, no c/o during or afterward. Dr. Daniel and PT aware. presently resting in bed, call cota in
reach. had been incont again at transfer.
--- NOTE | 2024-11-02 11:26 | PTCARENOTE ---
requesting pain meds, not due at this time, refusing tylenol to bridge. awaiting lunch. off monitor, med surg level of care, VS noted stable.
[2024-11-02 11:33] LABS: Glucose - Point of Care 143 mg/dl (70-99)
--- NOTE | 2024-11-02 12:13 | W.PN.ID1 ---
Date of Service
Date of Service: November 02, 2024
Today's Communication
Continue antibiotics for today.
Assessment / Plan
Sigmoid colon perforation secondary to stercoral colitis
- s/p ex lap/sig. colectomy/ end-sigmoid ostomy (10/25/24)
Critical limb ischemia left leg (following above procedure)
- s/p (L) fem graft embolectomy, fem graft endarterectomy with graft repair (10/25/24)
Fecal peritonitis
-Cultures with E. coli and Strep spp.
Leukocytosis
JACOB on CKD
Transaminitis
Anemia
HTN
Dyslipidemia
Anemia
Hx renal artery stenosis
Recommendations:
Leukocytosis with continued improvement today. Prior elevation may have been reactive, but continuing to follow closely.
Continue with meropenem (d#6) and micafungin (d#6) for today.
LFTs slowly improving.
Trend white count / Hb
Follow temperature curve.
����������������������������������������������������������
Chief Complaint
-: Leukocytosis and Other (Perforated viscus (sigmoid colon); critical limb ischemia; fecal peritonitis)
Subjective / Review of Systems
Review of Systems: No Fever and No Chills
Vital Signs / Physical Exam
Vital Signs
Vital Signs
Temp Pulse Resp BP Pulse Ox
98.7 F 78 22 113/68 100
11/02/24 11:20 11/02/24 12:07 11/02/24 11:17 11/02/24 12:07 11/02/24 10:00
Physical Exam
Constitutional: No Acute Distress, Comfortable and Non-toxic
Eyes: Sclera Anicteric
Cardiovascular: Regular Rate (Tachycardic)
Pulmonary: Non Labored
Gastrointestinal: Non Distended
Extremities: Edema; Negative Cyanosis or Erythema
Skin: Warm and Dry
Neurological: Awake and Alert
Psychological: Calm
Objective Data
Lab Data
Lab Results
11/02/24 03:59
11/02/24 03:59
PT 14.5 Sec (11.4-14.6) 10/24/24 22:15
INR 1.10 10/24/24 22:15
APTT 67.8 Sec (23.4-35.0) H 10/31/24 04:02
Estimated Creat Clear 25 ml/min 11/02/24 03:59
Lactic Acid 1.2 mmol/L (0.7-2.0) 10/24/24 22:15
Total Bilirubin 0.4 mg/dl (0.2-1.3) 11/01/24 06:22
AST 104 U/L (14-36) H 11/01/24 06:22
ALT 48 U/L (0-35) H 11/01/24 06:22
Alkaline Phosphatase 97 U/L (38-126) 11/01/24 06:22
Most recent labs reviewed.
Micro Results:
10/28/24 10:34 Blood Culture - Final
Blood/Venous No Growth - Final Report
10/28/24 10:18 Blood Culture - Final
Blood/Venous No Growth - Final Report
10/25/24 14:11 Wound Culture - Final
Abdomen Escherichia coli
Streptococcus species
Gram Stain - Final
10/25/24 14:11 Anaerobic Culture - Final
Abdomen
Imaging:
10/25/2024 CT abdomen angio with runoff: Occlusion of left limb of aorto femoral bypass. Severe stenosis along the proximal and distal right superficial femoral artery. There has been postevacuation of previously seen large volume extraluminal
stool within the pelvis. S/p partial colectomy with left-sided colostomy. Please see full dictation for additional detail.
--- NOTE | 2024-11-02 12:51 | W.PN.HOSP.TC ---
Today's Communication/Plan
-
considering lasix trial
Physiatry evaluation
Follow-up H&H
transfer med/surg
Assessment / Plan
Assessment / Plan
Acute left limb threatening ischemia
Acute vascular occlusions of L iliac limb of aorto-fem bypass
-Thrombectomy of occluded left iliac limb of aortobifemoral bypass/Left common femoral artery endarterectomy performed 10/25
-Jayme drain has been changed today,
-Vascular surgery was signed off
-Patient to be resumed back on Plavix once cleared from CRS
Perforated sigmoid colon with pericolonic abscess formation with partial SBO
Acute Sepsis (tachycardia, leukocytosis) from acute GI colonic source
- s/p open sigmoid colectomy, incidental appendectomy, and end sigmoid ostomy 10/25
- 10/27: concern for bleeding/necrosis of bowel; bedside scope report indicates viable tissue beneath skin
- Currently on Merrem/micafungin, ID managing and help appreciated. Day 8 of abx today.
- CRS following
- Diet has been advanced to low residue
Intubation for acute surgical procedures
Ventilatory dependent respiratory failure
- s/p extubation 10/26
- on RA
Acute blood loss anemia on chronic anemia
Retroperitoneal hematoma
-CTAP on 10/31 showing right retroperitoneal hematoma and mild complex abdominal pelvic ascites/mobility
-Follow-up CT angio did not show any acute bleeder
-CRS recommended patient to be kept off of heparin drip/Plavix for 48 hours
-Patient got 2 unit of PRBC this admit.
-Continue monitoring Hbg
Hypokalemia
- replace prn
Shock - multifactorial from hemorrhagic and sepsis
- off pressors
Accelerated hypertension with risk of developing hypertensive emergency
History of underlying Accelerated HTN with multi-drug regimen and history of PARI s/p L Renal artery stenting
-Required Cardene drip in ICU
-Blood pressure controlled on regimen of clonidine/hydralazine/metoprolol
History of recurrent rectal prolapse status post ventral mesh rectopexy with recent repair
JACOB on CKD stage 3b
Acute metabolic acidosis
- suspect driven by accelerated HTN and critical illness
- Nephrology following
- maintain Rodriguez for critical I/Os
history of PARI s/p L Renal artery stenting
Peripheral vascular disease
Hypercholesterolemia
-plavix remains on hold
Former smoker
Hypoglycemia
- accu-checks q6h
- dextrose IVF
Elevated LFTs from shock liver
- trend
DVT ppx: SCDs
Code: Full
Anticipated Discharge: > 48 hours
Subjective/Interval History
-
Date of Service: November 02, 2024
No further episode of abdominal pain/nausea/vomiting
patient had genrealized weakness
Objective Data
-
Labs:
Laboratory Results
11/02/24
03:59
WBC 14.3 H
Hgb 8.2 L
Hct 23.8 L
Plt Count 180
Sodium 133 L
Potassium 3.3 L
Chloride 104
Carbon Dioxide 24
BUN 39 H
Creatinine 1.7 H
Glucose 93
Calcium 6.8 L*
Vital Signs:
Vital Signs
Temp Pulse Resp BP Pulse Ox
98.7 F 78 22 113/68 100
11/02/24 11:20 11/02/24 12:07 11/02/24 11:17 11/02/24 12:07 11/02/24 10:00
I&O
11/01/24 11/02/24 11/03/24
06:59 06:59 06:59
Intake Total 2099 / 2099 960 / 960 360 / 360
Output Total 1025 / 1025 880 / 880
Balance 1075 / 1075 80 / 80 360 / 360
Review of Systems
-
Respiratory: Reports No Symptoms
Cardiac: Reports No Symptoms
Abdomen/GI: Reports No Symptoms
Physical Exam
-
General: Comfortable
HEENT: Negative Oxygen
Cardiac: Regular Rhythm, S1/S2 and Tachycardic; Negative Murmur
GI: Soft, Ostomy (Black liquid stool ) and Other (Midline surgical scar with anju, )
Genito-urinary: Other (Left groin dressing in place with JAYME drain)
Neuro: Awake, Alert, Oriented and No Motor Deficits
Psych: Calm
[2024-11-02] MEDS: ROXICODONE 5 MG PO (13:40)
[2024-11-02] MEDS: LASIX 20 MG IV (13:41)
[2024-11-02] MEDS: KCL 40 MEQ PO (16:10)
[2024-11-02] MEDS: MYCAMINE 105 MG IV (16:11)
--- NOTE | 2024-11-02 16:47 | PTCARENOTE ---
incont, took meds easily wtih sip, aware of possible transfer later today, skin warm. turned, cleaned, positioned for comfort. warm blanket to abd for sensations of gas wtih relief.
[2024-11-02 17:03] LABS: Glucose - Point of Care 122 mg/dl (70-99)
--- NOTE | 2024-11-02 20:19 | PTCARENOTE ---
pt assessed as per flow sheet on worklist. a&ox4, able to make needs known. pt endorses (+) sensation x4 with movement noted x4 limbs. feet warm with (+) pulses. Pt was inc x1 for moderate amt. cares provided. pt set up to eat dinner and is self
feeding. JAYME drain and JEAN in place. surrounding skin to sites is CDI. no s/s of distress assessed. pt is aware of impending tx to a different room as her level of care has been downgraded.
--- NOTE | 2024-11-02 21:58 | PTCARENOTE ---
pt tx to rm [id number]. report given to Mark RN via phone. no s/s of distress assessed.
--- NOTE | 2024-11-02 22:14 | PTCARENOTE ---
Addendum entered by Cony Oneil RN 11/03/24 01:52:
Pt also arrived with dressing on neck (tegaderm and gauze). Peeled back dressing to see small wound scabbed. Skin tear on right cheek scabbed with foam.
Original Note:
Report received from Summer [place]. Pt arrived in bed. Pt has JEAN drain, JAYME drain and colostomy. Pt oriented to room and call cota. Full head to toe assessed. Bed locked and in lowest position. Care ongoing.
[2024-11-02] MEDS: ATIVAN 0.5 MG PO (23:19)
[2024-11-03] MEDS: LOPRESSOR 25 MG PO ×5 (00:57→23:02)
[2024-11-03] MEDS: MERREM 500 MG IV (03:46)
[2024-11-03] MEDS: STERILE WATER FOR INJECTION 10 ML IV (03:47)
[2024-11-03] MEDS: ROXICODONE 10 MG PO ×5 (04:19→22:14)
[2024-11-03 06:39] LABS: Blood Urea Nitrogen 36 mg/dl (7-17); Calcium 7.1 mg/dl (8.4-10.2); Carbon Dioxide 24 mmol/L (22-30); Chloride 102 mmol/L (98-107); Estimated Creatinine Clearance 25 ml/min; Glucose 82 mg/dl (70-99); Potassium 3.9 mmol/L (3.5-5.1); Sodium 131 mmol/L (135-145); eGFR 32.87
[2024-11-03 07:04] LABS: Hematocrit 26.9 % (37.0-47.0); Hemoglobin 8.9 g/dL (12.0-16.0); Mean Corp Hgb Conc. 33.1 g/dL (33.0-37.0); Mean Corpuscular Hgb 28.3 pg (27.0-31.0); Mean Corpuscular Volume 85.7 fL (81.0-99.0); Mean Platelet Volume 10.7 fL (7.4-10.4); Platelet Count 246 10^3/uL (130-400); Red Blood Cell Count 3.14 10^6/uL (4.20-5.40); White Blood Cell Count 12.8 10^3/uL (4.8-10.8)
[2024-11-03 07:20] VITALS: BP 140/66
[2024-11-03] MEDS: APRESOLINE 100 MG PO ×3 (08:55→22:16)
[2024-11-03] MEDS: CATAPRES 0.3 MG PO ×3 (08:55→22:16)
[2024-11-03] MEDS: LIDOCAINE 4% PATCH TOPICAL (08:55)
[2024-11-03] MEDS: NSS (PRESERVATIVE FREE) 10 ML IV ×2 (08:56→20:35)
[2024-11-03] MEDS: PROTONIX IV 40 MG IV ×2 (08:56→20:35)
[2024-11-03] MEDS: LOW STRENGTH ASPIRIN 81 MG PO (09:03)
--- NOTE | 2024-11-03 09:33 | W.PN.NEPH.PH ---
Today's Communication / Plan
-
BMP daily/continue current antihypertensive medications
Assessment/Plan
-
64-year-old female past medical history of recurrent rectal prolapse status post ventral mesh rectopexy, hypertension, peripheral vascular disease, hypercholesteremia, anemia, CKD, renal artery stenosis status post left renal stent presenting as a
transfer from [facility] for abscess near sigmoid colon possible perforation.
Renal consult for acute on chronic kidney disease she follows with Dr. Edson Ding [employer] [facility]
Baseline creatinine appears to be between 1.8 and 2.0. She presented with a creatinine of 3.2 and a metabolic acidosis
Impression:
Acute on chronic kidney disease.
Acute metabolic acidosis.
Hypertensive urgency.
Pericolonic abscess.
History of renal artery stenosis with left stent.
Postop sigmoid colectomy incidental appendectomy and end sigmoid ostomy
Postop thrombectomy of occluded left iliac limb of aortobifemoral bypass\\left common femoral artery endarterectomy
Plan:
meds continue for BP
transfuse PRBC prn
s/p bicarb IVF for CTA 10/31 with stable creatinine
Renal function remains stable she is oliguric.
Received Lasix yesterday.
-
-
Date of Service: November 03, 2024
CC / HPI / ROS
-
Chief Complaint:
JACOB
History of Present Illness:
JACOB/Cr stable 1.9�1.7
s/p CTA LE 10/31
BP stable
Review of Systems:
nonoliguric via Rodriguez catheter
No fevers
Tolerating full diet
Labs
-
Labs:
WBC 12.8 10^3/uL (4.8-10.8) H 11/03/24 05:04
RBC 3.14 10^6/uL (4.20-5.40) L 11/03/24 05:04
Hgb 8.9 g/dL (12.0-16.0) L 11/03/24 05:04
Hct 26.9 % (37.0-47.0) L 11/03/24 05:04
Plt Count 246 10^3/uL (130-400) D 11/03/24 05:04
Sodium 131 mmol/L (135-145) L 11/03/24 05:04
Potassium 3.9 mmol/L (3.5-5.1) 11/03/24 05:04
Chloride 102 mmol/L (98-107) 11/03/24 05:04
Carbon Dioxide 24 mmol/L (22-30) 11/03/24 05:04
BUN 36 mg/dl (7-17) H 11/03/24 05:04
Creatinine 1.7 mg/dL (0.6-1.0) H 11/03/24 05:04
eGFR 32.87 11/03/24 05:04
Glucose 82 mg/dl (70-99) 11/03/24 05:04
Calcium 7.1 mg/dl (8.4-10.2) L 11/03/24 05:04
Phosphorus 6.3 mg/dl (2.5-4.5) H 10/25/24 23:26
Albumin 1.6 g/dl (3.5-5.0) L 11/01/24 06:22
Physical Exam
-
Vital Signs:
Vital Signs
Temp Pulse Resp BP Pulse Ox
97.9 F 85 16 140/66 98
11/03/24 07:20 11/03/24 08:55 11/03/24 07:20 11/03/24 08:55 11/03/24 07:20
Cardiovascular:: Regular rate and rhythm
Respiratory:: Bilateral: CTA
Lung Excursion:: Normal
Abdomen:: Nontender and Soft
Bowel Sounds:: Normal
Extremity Edema:: +1: Bilateral:
--- NOTE | 2024-11-03 11:11 | W.PN.CRS1 ---
Today's Communication / Plan
-
ensure chocolate
continue low residue
Assessment/Plan
-
64-year-old female with PMH of recurrent rectal prolapse (first prolapse repair 20 years ago, recent robotic VMR by Dr. Melendez on 09/30/2025), HTN, HLD, PVD s/p aortobifem bypass, CKD, renal artery stenosis s/p left renal stent, [id number] smoking
history who developed constipation and abdominal pain 6 days prior to admission. She went to [facility] and a CT scan was done showing contained sigmoid perforation. She was transferred to [place]. Upon review with [facility] radiology,
there was a sigmoid perforation with likely spillage of stool. She was taken urgently to the operating room for likely perforated stercoral colitis.
POD 7 ex lap, sigmoid resection with end colostomy, incidental appendectomy; found to have left leg pain with decreased pulses in PACU
POD 7 thrombectomy of left iliac limb of aortobifem bypass with revision of the left femoral anastomosis and stenting of the left iliac limb, left ENGINEER CHIEF endarterectomy
10/31 - drop in Hb and BP, CTA - large right RP hematoma, no active extrav; s/p pRBCx2
AFVSS
WBC 12.8 from 14.3. Hgb 8.9 from 8.2.
�R RP hematoma, no active extrav; s/p pRBC x2
-Hb overall stable; continue to trend daily
� Ischemia of colostomy bud, s/p endoscopy with adequate perfusion below the level of the skin
�Mucosa now with evidence of improved perfusion
� Continue low residue, will add Ensure chocolate
� JACOB, improving
- Continue IV antibiotics with meropenem and micafungin, appreciate ID
� Continue pain control with Dilaudid as needed
� Appreciate hospitalist/locker room clerk
- OOB with PT
- Wound care for stoma management
Subjective Data
Procedure
10/25/2024- open sigmoid colectomy, incidental appendectomy, and end sigmoid ostomy
10/25/2024- Thrombectomy of occluded left iliac limb of aortobifemoral bypass/Left common femoral artery endarterectomy
Subjective Data
Date of Service: November 03, 2024
Patient states that she is feeling overall well. She has some mild lower abdominal cramping when she eats. Otherwise she has no complaints. She has no nausea or vomiting. She has stoma function. She is urinating.
Objective Data
-
Vital Signs
Temp Pulse Resp BP Pulse Ox
97.9 F 85 16 140/66 98
11/03/24 07:20 11/03/24 08:55 11/03/24 07:20 11/03/24 08:55 11/03/24 07:20
Intake & Output
11/02/24 11/03/24 11/04/24
06:59 06:59 06:59
Intake Total 960 / 960 1720 / 1720
Output Total 880 / 880 655 / 655
Balance 80 / 80 1065 / 1065
Intake:
Oral fluids 660 / 660 1320 / 1320
IV piggybacks 300 / 300 400 / 400
Output:
Liquid stool amount 625 / 625 450 / 450
Colostomy 625 / 625 450 / 450
Drain Output (Total) 5
Right Abdomen Shamar-Adams
Urine, Voided 250 / 250 200 / 200
Other:
How many times incontinent 1
MODERATE amount urine
How many times incontinent 1
SATURATED amount urine
Lab Results
11/03/24 05:04
11/03/24 05:04
Physical Exam
-
General: No Acute Distress and AOx3
Abdomen: Soft, Non Distended, Non Tender and Other (stoma dusky with pink underneath, warm. JEAN drain with serous pink fluid. )
Incision: Clear, Dry, Intact
[2024-11-03 12:59] VITALS: BP 163/78
--- NOTE | 2024-11-03 13:50 | W.PN.ID1 ---
Date of Service
Date of Service: November 03, 2024
Today's Communication
Narrow to Unasyn.
Assessment / Plan
Sigmoid colon perforation secondary to stercoral colitis
- s/p ex lap/sig. colectomy/ end-sigmoid ostomy (10/25/24)
Critical limb ischemia left leg (following above procedure)
- s/p (L) fem graft embolectomy, fem graft endarterectomy with graft repair (10/25/24)
Fecal peritonitis
-Cultures with E. coli and Strep spp.
Leukocytosis
JACOB on CKD
Transaminitis
Anemia
HTN
Dyslipidemia
Anemia
Hx renal artery stenosis
Recommendations:
Leukocytosis with continued improvement today. Prior elevation may have been reactive, but continuing to follow closely.
Currently meropenem (d#7) and micafungin (d#7).
No yeast recovered (micafungin was empiric). Discontinue further micafungin
Narrow meropenem to Unasyn.
Monitor white count and temperature curve.
����������������������������������������������������������
Chief Complaint
-: Leukocytosis and Other (Perforated viscus (sigmoid colon); critical limb ischemia; fecal peritonitis)
Subjective / Review of Systems
Review of Systems: No Fever and No Chills
Vital Signs / Physical Exam
Vital Signs
Vital Signs
Temp Pulse Resp BP Pulse Ox
98.0 F 93 18 163/78 95
11/03/24 12:59 11/03/24 13:03 11/03/24 12:59 11/03/24 13:03 11/03/24 12:59
Physical Exam
Constitutional: No Acute Distress, Comfortable and Non-toxic
Eyes: Sclera Anicteric
Cardiovascular: Regular Rate and S1/S2; Negative S3/S4
Pulmonary: Non Labored
Gastrointestinal: Non Distended and Other (Ostomy in place. Right lower quadrant JEAN in place with scant fluid.)
Extremities: Edema; Negative Cyanosis or Erythema
Skin: Warm and Dry
Neurological: Awake and Alert
Psychological: Calm
Objective Data
Lab Data
Lab Results
11/03/24 05:04
11/03/24 05:04
PT 14.5 Sec (11.4-14.6) 10/24/24 22:15
INR 1.10 10/24/24 22:15
APTT 67.8 Sec (23.4-35.0) H 10/31/24 04:02
Estimated Creat Clear 25 ml/min 11/03/24 05:04
Lactic Acid 1.2 mmol/L (0.7-2.0) 10/24/24 22:15
Total Bilirubin 0.4 mg/dl (0.2-1.3) 11/01/24 06:22
AST 104 U/L (14-36) H 11/01/24 06:22
ALT 48 U/L (0-35) H 11/01/24 06:22
Alkaline Phosphatase 97 U/L (38-126) 11/01/24 06:22
Most recent labs reviewed.
Micro Results:
10/28/24 10:34 Blood Culture - Final
Blood/Venous No Growth - Final Report
10/28/24 10:18 Blood Culture - Final
Blood/Venous No Growth - Final Report
10/25/24 14:11 Wound Culture - Final
Abdomen Escherichia coli
Streptococcus species
Gram Stain - Final
10/25/24 14:11 Anaerobic Culture - Final
Abdomen
Imaging:
10/25/2024 CT abdomen angio with runoff: Occlusion of left limb of aorto femoral bypass. Severe stenosis along the proximal and distal right superficial femoral artery. There has been postevacuation of previously seen large volume extraluminal
stool within the pelvis. S/p partial colectomy with left-sided colostomy. Please see full dictation for additional detail.
--- NOTE | 2024-11-03 13:57 | W.PN.HOSP.TC ---
Today's Communication/Plan
-
restarting Plavix
f/u hbg level
IV Lasix 40mg/d
adding procardia for BP control
f/u weight/cr
pending physiatry eval
Assessment / Plan
Assessment / Plan
Acute left limb threatening ischemia
Acute vascular occlusions of L iliac limb of aorto-fem bypass
-Thrombectomy of occluded left iliac limb of aortobifemoral bypass/Left common femoral artery endarterectomy performed 10/25
-Jayme drain has been changed on 11/01
-Vascular surgery has signed off
-Resuming back plavix on 11/03
Perforated sigmoid colon with pericolonic abscess formation with partial SBO
Acute Sepsis (tachycardia, leukocytosis) from acute GI colonic source
- s/p open sigmoid colectomy, incidental appendectomy, and end sigmoid ostomy 10/25
- 10/27: concern for bleeding/necrosis of bowel; bedside scope report indicates viable tissue beneath skin
- Currently on Merrem/micafungin, ID managing and help appreciated.
- CRS following
- Diet has been advanced to low residue
Intubation for acute surgical procedures
Ventilatory dependent respiratory failure
- s/p extubation 10/26
- on RA
Acute blood loss anemia on chronic anemia
Retroperitoneal hematoma
-CTAP on 10/31 showing right retroperitoneal hematoma and mild complex abdominal pelvic ascites/mobility
-Follow-up CT angio did not show any acute bleeder
-Patient was kept off of heparin drip/Plavix for 48 hours. resuming plavix from 11/03
-Patient got 2 unit of PRBC this admit.
-Hbg remains stable
Hypokalemia
- replace prn
Shock - multifactorial from hemorrhagic and sepsis
- off pressors
Accelerated hypertension with risk of developing hypertensive emergency
History of underlying Accelerated HTN with multi-drug regimen and history of PARI s/p L Renal artery stenting
-Required Cardene drip in ICU
-Blood pressure controlled on regimen of clonidine/hydralazine/metoprolol
-added Procardia to regimen
History of recurrent rectal prolapse status post ventral mesh rectopexy with recent repair
JACOB on CKD stage 3b
Acute metabolic acidosis
- suspect driven by accelerated HTN and critical illness
- Nephrology following
- maintain Rodriguez for critical I/Os
history of PARI s/p L Renal artery stenting
Peripheral vascular disease
Hypercholesterolemia
-plavix restarted on 11/03
Former smoker
Hypoglycemia
- Accu-checks q6h
- dextrose IVF
Elevated LFTs from shock liver
- trend
DVT ppx: SCDs
Code: Full
Anticipated Discharge: > 48 hours
Subjective/Interval History
-
Date of Service: November 03, 2024
No issues overnight.
afebrile
hbg remains stable
Objective Data
-
Labs:
Laboratory Results
11/03/24
05:04
WBC 12.8 H
Hgb 8.9 L
Hct 26.9 L
Plt Count 246 D
Sodium 131 L
Potassium 3.9
Chloride 102
Carbon Dioxide 24
BUN 36 H
Creatinine 1.7 H
Glucose 82
Calcium 7.1 L
Vital Signs:
Vital Signs
Temp Pulse Resp BP Pulse Ox
98.0 F 93 18 163/78 95
11/03/24 12:59 11/03/24 13:03 11/03/24 12:59 11/03/24 13:03 11/03/24 12:59
I&O
11/02/24 11/03/24 11/04/24
06:59 06:59 06:59
Intake Total 960 / 960 1720 / 1720
Output Total 880 / 880 655 / 655
Balance 80 / 80 1065 / 1065
Review of Systems
-
Respiratory: Reports No Symptoms
Cardiac: Reports No Symptoms
Abdomen/GI: Reports No Symptoms
Physical Exam
-
General: Comfortable
HEENT: Negative Oxygen
Cardiac: Regular Rhythm, S1/S2 and Tachycardic; Negative Murmur
GI: Soft, Ostomy (Green liquid stool ) and Other (Midline surgical scar with anju, )
Genito-urinary: Other (Left groin dressing in place with JAYME drain)
Neuro: Awake, Alert, Oriented and No Motor Deficits
Psych: Calm
[2024-11-03] MEDS: UNASYN IV (14:46)
[2024-11-03] MEDS: LASIX 40 MG IV (14:47)
[2024-11-03] MEDS: PROCARDIA XL (EXTENDED RELEASE) 30 MG PO (14:47)
--- NOTE | 2024-11-03 15:22 | CM ---
Chart reviewed
PM&R eval pending
Diuresing
For SNF when medically stable - options obtained previously
Will need auth
Plan - anticipate SNF when medically stable
[2024-11-03 15:53] VITALS: BP 181/79
[2024-11-03 21:50] LABS: Glucose - Point of Care 177 mg/dl (70-99)
[2024-11-03 23:04] VITALS: BP 130/64
[2024-11-04] MEDS: UNASYN IV ×2 (00:59→14:58)
[2024-11-04] MEDS: LOPRESSOR 25 MG PO ×2 (05:04→11:48)
[2024-11-04] MEDS: ROXICODONE 10 MG PO ×4 (05:05→21:51)
[2024-11-04 06:00] VITALS: BMI 25.0
[2024-11-04 06:23] LABS: Hematocrit 26.6 % (37.0-47.0); Hemoglobin 8.8 g/dL (12.0-16.0); Mean Corp Hgb Conc. 33.1 g/dL (33.0-37.0); Mean Corpuscular Hgb 28.5 pg (27.0-31.0); Mean Corpuscular Volume 86.1 fL (81.0-99.0); Mean Platelet Volume 10.6 fL (7.4-10.4); Platelet Count 274 10^3/uL (130-400); Red Blood Cell Count 3.09 10^6/uL (4.20-5.40); Red Cell Dist. Width 15.9 % (11.5-14.5); White Blood Cell Count 11.5 10^3/uL (4.8-10.8)
[2024-11-04 06:44] LABS: Blood Urea Nitrogen 37 mg/dl (7-17); Carbon Dioxide 20 mmol/L (22-30); Chloride 102 mmol/L (98-107); Estimated Creatinine Clearance 28 ml/min; Glucose 78 mg/dl (70-99); Potassium 4.3 mmol/L (3.5-5.1); Sodium 131 mmol/L (135-145)
[2024-11-04 07:11] VITALS: BP 131/60
[2024-11-04] MEDS: CATAPRES 0.3 MG PO ×3 (08:03→21:50)
[2024-11-04] MEDS: LOW STRENGTH ASPIRIN 81 MG PO (08:03)
[2024-11-04] MEDS: APRESOLINE 100 MG PO ×3 (08:04→21:50)
[2024-11-04] MEDS: PLAVIX 75 MG PO (08:04)
[2024-11-04] MEDS: PROCARDIA XL (EXTENDED RELEASE) 30 MG PO (08:04)
[2024-11-04] MEDS: NSS (PRESERVATIVE FREE) 10 ML IV ×2 (08:05→21:49)
[2024-11-04] MEDS: PROTONIX IV 40 MG IV ×2 (08:05→21:49)
[2024-11-04] MEDS: LASIX 40 MG IV (08:05)
[2024-11-04] MEDS: LIDOCAINE 4% PATCH 1 PATCH TOPICAL (08:06)
[2024-11-04] MEDS: DILAUDID 0.25 MG IV (08:09)
--- NOTE | 2024-11-04 08:59 | WOUNDNOTE ---
[facility] RN note: Patient's stoma mostly pink with some sloughing necrotic tissue. Dr. Pat and Summer Larkin in to see patient. Peristomal skin mild red locally without open skin. Midline incision with anju approximated with some scabbing/crusted
drainage. Instructed patient how to empty pouch and change appliance using Anirudh wafer #[id number], Mello seal and Anirudh pouch #[id number]. Patient closed pouch and assisted with cutting wafer and snapping on pouch. Patient gave verbal permission to
order her a Anirudh ostomy secure starter kit. Skin on heels blanchable red. +Anasarca. R sacral/buttocks with dry slightly abraded skin. Sacral shaped silicone border foam changed. Patient turned, Waffle air overlay applied. Heels off bed with
pillows. Air chair cushion given. Discussed turning schedule with NAINA Landry. Patient needs help turning completely over onto her side. She stated she gets out of bed daily. Instructed patient pressure injury prevention measures and to take air chair
cushion when discharged. t/c SPD and ordered more ostomy supplies. Next appliance change due Thursday.
--- NOTE | 2024-11-04 10:08 | W.PN.CRS1 ---
Today's Communication / Plan
-
Continue diet
Stoma care
SNF
Assessment/Plan
-
64-year-old female with PMH of recurrent rectal prolapse (first prolapse repair 20 years ago, recent robotic VMR by Dr. Melendez on 09/30/2025), HTN, HLD, PVD s/p aortobifem bypass, CKD, renal artery stenosis s/p left renal stent, [id number] smoking
history who developed constipation and abdominal pain 6 days prior to admission. She went to [facility] and a CT scan was done showing contained sigmoid perforation. She was transferred to [facility]. Upon review with [facility]ology,
there was a sigmoid perforation with likely spillage of stool. She was taken urgently to the operating room for likely perforated stercoral colitis.
POD 8 ex lap, sigmoid resection with end colostomy, incidental appendectomy; found to have left leg pain with decreased pulses in PACU
POD 8 thrombectomy of left iliac limb of aortobifem bypass with revision of the left femoral anastomosis and stenting of the left iliac limb, left CONCERT PIANIST endarterectomy
10/31 - drop in Hb and BP, CTA - large right RP hematoma, no active extrav; s/p pRBCx2
AFVSS
WBC 11.5 from 12.8, hgb 8.8 from 8.9
�R RP hematoma, no active extrav; s/p pRBC x2
-Hb overall stable; continue to trend daily
� Ischemia of colostomy bud, s/p endoscopy with adequate perfusion below the level of the skin
�Mucosa now red and warm, necrotic tissue sloughed off
� Continue low residue with Ensure
� JACOB, improving
- Continue IV antibiotics per infectious disease
� Continue pain control with Dilaudid as needed
� Appreciate hospitalist/cessation systems outreach specialist
- OOB with PT
- Wound care for stoma management
-JEAN drain to be removed prior to discharge
-Dispo: care home facility
Subjective Data
Procedure
10/25/2024- open sigmoid colectomy, incidental appendectomy, and end sigmoid ostomy
10/25/2024- Thrombectomy of occluded left iliac limb of aortobifemoral bypass/Left common femoral artery endarterectomy
Subjective Data
Date of Service: November 04, 2024
Patient states she had a little bit of pain and nausea this morning which resolved. She has been tolerating a diet. Her stoma has function.
Objective Data
-
Vital Signs
Temp Pulse Resp BP Pulse Ox
98.7 F 90 18 131/60 98
11/04/24 07:11 11/04/24 07:11 11/04/24 07:11 11/04/24 08:04 11/04/24 08:22
Intake & Output
11/03/24 11/04/24 11/05/24
06:59 06:59 06:59
Intake Total 1720 / 1720 960 / 960
Output Total 655 / 655 393 / 393
Balance 1065 / 1065 567 / 567
Intake:
Oral fluids 1320 / 1320 960 / 960
IV piggybacks 400 / 400
Output:
Liquid stool amount 450 / 450 375 / 375
Colostomy 450 / 450 375 / 375
Drain Output (Total)
Right Abdomen Shamar-Adams
Urine, Voided 200 / 200
Other:
How many times incontinent 1
SMALL amount urine
How many times incontinent 1 1
MODERATE amount urine
How many times incontinent 1 1
SATURATED amount urine
Lab Results
11/04/24 05:01
11/04/24 05:01
Physical Exam
-
General: No Acute Distress and AOx3
Abdomen: Soft, Non Distended, Non Tender and Other (Ileostomy now red and warm with stool in bag)
Skin: Warm and Dry
Incision: Clear, Dry, Intact
--- NOTE | 2024-11-04 11:53 | W.PN.ID1 ---
Date of Service
Date of Service: November 04, 2024
Today's Communication
Continue Unasyn.
Assessment / Plan
Sigmoid colon perforation secondary to stercoral colitis
- s/p ex lap/sig. colectomy/ end-sigmoid ostomy (10/25/24)
Critical limb ischemia left leg (following above procedure)
- s/p (L) fem graft embolectomy, fem graft endarterectomy with graft repair (10/25/24)
Fecal peritonitis
-Cultures with E. coli and Strep spp.
Leukocytosis trending down
JACOB on CKD
Transaminitis
Anemia
HTN
Dyslipidemia
Anemia
Hx renal artery stenosis
Recommendations:
Leukocytosis with continued improvement today. Prior elevation may have been reactive, but continuing to follow closely.
s/p 7 days meropenem and micafungin .
Continue Unasyn (day 8 effective abx)
At time of discharge, can transition to Augmentin 500 mg po bid through 11/10/24
Monitor white count
����������������������������������������������������������
Chief Complaint
-: Leukocytosis and Other (Perforated viscus (sigmoid colon); critical limb ischemia; fecal peritonitis)
Subjective / Review of Systems
No acute complaints
Vital Signs / Physical Exam
Vital Signs
Vital Signs
Temp Pulse Resp BP Pulse Ox
98.7 F 90 18 131/60 97
11/04/24 07:11 11/04/24 07:11 11/04/24 07:11 11/04/24 08:04 11/04/24 08:22
Physical Exam
Constitutional: No Acute Distress
Eyes: Sclera Anicteric
Cardiovascular: Regular Rate and S1/S2; Negative S3/S4
Pulmonary: Non Labored
Gastrointestinal: Soft, Non Tender, Non Distended and Other (Ostomy in place. Right lower quadrant JEAN in place with scant fluid. Incision dry and intact)
Extremities: Edema; Negative Cyanosis or Erythema
Skin: Warm and Dry
Neurological: Awake and Alert
Psychological: Calm
Objective Data
Lab Data
Lab Results
11/04/24 05:01
11/04/24 05:01
PT 14.5 Sec (11.4-14.6) 10/24/24 22:15
INR 1.10 10/24/24 22:15
APTT 67.8 Sec (23.4-35.0) H 10/31/24 04:02
Estimated Creat Clear 28 ml/min 11/04/24 05:01
Lactic Acid 1.2 mmol/L (0.7-2.0) 10/24/24 22:15
Total Bilirubin 0.4 mg/dl (0.2-1.3) 11/01/24 06:22
AST 104 U/L (14-36) H 11/01/24 06:22
ALT 48 U/L (0-35) H 11/01/24 06:22
Alkaline Phosphatase 97 U/L (38-126) 11/01/24 06:22
Most recent labs reviewed.
Micro Results:
10/28/24 10:34 Blood Culture - Final
Blood/Venous No Growth - Final Report
10/28/24 10:18 Blood Culture - Final
Blood/Venous No Growth - Final Report
10/25/24 14:11 Wound Culture - Final
Abdomen Escherichia coli
Streptococcus species
Gram Stain - Final
10/25/24 14:11 Anaerobic Culture - Final
Abdomen
Imaging:
10/25/2024 CT abdomen angio with runoff: Occlusion of left limb of aorto femoral bypass. Severe stenosis along the proximal and distal right superficial femoral artery. There has been postevacuation of previously seen large volume extraluminal
stool within the pelvis. S/p partial colectomy with left-sided colostomy. Please see full dictation for additional detail.
--- NOTE | 2024-11-04 13:00 | W.PN.HOSP.TC ---
Today's Communication/Plan
-
monitor h&h
discharge planning for rehab
Assessment / Plan
Assessment / Plan
Acute left limb threatening ischemia
Acute vascular occlusions of L iliac limb of aorto-fem bypass
-Thrombectomy of occluded left iliac limb of aortobifemoral bypass/Left common femoral artery endarterectomy performed 10/25
-Jayme drain has been changed on 11/01
-Vascular surgery has signed off
-Resuming back plavix on 11/03
Perforated sigmoid colon with pericolonic abscess formation with partial SBO
Acute Sepsis (tachycardia, leukocytosis) from acute GI colonic source
- s/p open sigmoid colectomy, incidental appendectomy, and end sigmoid ostomy 10/25
- 10/27: concern for bleeding/necrosis of bowel; bedside scope report indicates viable tissue beneath skin
- Patient finished course of Merrem/micafungin changed to Unasyn at this point by ID
- CRS following
- Diet has been advanced to low residue
Intubation for acute surgical procedures
Ventilatory dependent respiratory failure
- s/p extubation 10/26
- on RA
Acute blood loss anemia on chronic anemia
Retroperitoneal hematoma
-CTAP on 10/31 showing right retroperitoneal hematoma and mild complex abdominal pelvic ascites/mobility
-Follow-up CT angio did not show any acute bleeder
-Patient was kept off of heparin drip/Plavix for 48 hours. resumed plavix from 11/03
-Patient got 2 unit of PRBC this admit.
-Hbg remains stable
Hypokalemia
- replace prn
Shock - multifactorial from hemorrhagic and sepsis
Iatrogenic volume overload
- off pressors
- Started on IV diuretics for volume optimization
Accelerated hypertension with risk of developing hypertensive emergency
History of underlying Accelerated HTN with multi-drug regimen and history of PARI s/p L Renal artery stenting
-Required Cardene drip in ICU
-Currently on regimen of Toprol-XL/hydralazine/Procardia
History of recurrent rectal prolapse status post ventral mesh rectopexy with recent repair
JACOB on CKD stage 3b
Acute metabolic acidosis
- suspect driven by accelerated HTN and critical illness
- Nephrology following
- maintain Rodriguez for critical I/Os
history of PARI s/p L Renal artery stenting
Peripheral vascular disease
Hypercholesterolemia
-plavix restarted on 11/03
Former smoker
Hypoglycemia
- Accu-checks q6h
- dextrose IVF
Elevated LFTs from shock liver
- trend
DVT ppx: SCDs
Code: Full
Anticipated Discharge: 24 - 48 hours
Subjective/Interval History
-
Date of Service: November 04, 2024
Having some nausea
Good stoma output
Denies abdominal pain
Afebrile overnight
No other reported problems
Objective Data
-
Labs:
Laboratory Results
11/04/24
05:01
WBC 11.5 H
Hgb 8.8 L
Hct 26.6 L
Plt Count 274
Sodium 131 L
Potassium 4.3
Chloride 102
Carbon Dioxide 20 L
BUN 37 H
Creatinine 1.5 H
Glucose 78
Calcium 7.0 L
Vital Signs:
Vital Signs
Temp Pulse Resp BP Pulse Ox
98.7 F 90 18 131/60 97
11/04/24 07:11 11/04/24 07:11 11/04/24 07:11 11/04/24 08:04 11/04/24 08:22
I&O
11/03/24 11/04/24 11/05/24
06:59 06:59 06:59
Intake Total 1720 / 1720 960 / 960
Output Total 655 / 655 393 / 393
Balance 1065 / 1065 567 / 567
Review of Systems
-
Respiratory: Reports No Symptoms
Cardiac: Reports No Symptoms
Abdomen/GI: Reports Nausea; Denies Abdominal Pain or Vomiting
Physical Exam
-
General: Comfortable
HEENT: Negative Oxygen
Cardiac: Regular Rhythm, S1/S2 and Tachycardic; Negative Murmur
GI: Soft, Ostomy (Green liquid stool ) and Other (Midline surgical scar with anju, )
Genito-urinary: Other (Left groin dressing in place with JAYME drain)
Neuro: Awake, Alert, Oriented and No Motor Deficits
Psych: Calm
--- NOTE | 2024-11-04 14:01 | W.PN.NEPH.PH ---
Today's Communication / Plan
-
continue lasix
Assessment/Plan
-
64-year-old female past medical history of recurrent rectal prolapse status post ventral mesh rectopexy, hypertension, peripheral vascular disease, hypercholesteremia, anemia, CKD, renal artery stenosis status post left renal stent presenting as a
transfer from [facility] for abscess near sigmoid colon possible perforation.
Renal consult for acute on chronic kidney disease she follows with Dr. Edson Ding residence supervisor [place]
Baseline creatinine appears to be between 1.8 and 2.0. She presented with a creatinine of 3.2 and a metabolic acidosis
Impression:
Acute on chronic kidney disease.
Acute metabolic acidosis.
Hypertensive urgency.
Pericolonic abscess.
History of renal artery stenosis with left stent.
Postop sigmoid colectomy incidental appendectomy and end sigmoid ostomy
Postop thrombectomy of occluded left iliac limb of aortobifemoral bypass\\left common femoral artery endarterectomy
Plan:
BP stable off valsartan HCTZ
follow BMP
continue lasix IV
-
-
Date of Service: November 04, 2024
CC / HPI / ROS
-
Chief Complaint:
JACOB
History of Present Illness:
JACOB/Cr down to 1.5
BP stable
Na stable low 131
Review of Systems:
nonoliguric via Rodriguez catheter
No fevers
Tolerating full diet
Labs
-
Labs:
WBC 11.5 10^3/uL (4.8-10.8) H 11/04/24 05:01
RBC 3.09 10^6/uL (4.20-5.40) L 11/04/24 05:01
Hgb 8.8 g/dL (12.0-16.0) L 11/04/24 05:01
Hct 26.6 % (37.0-47.0) L 11/04/24 05:01
Plt Count 274 10^3/uL (130-400) 11/04/24 05:01
Sodium 131 mmol/L (135-145) L 11/04/24 05:01
Potassium 4.3 mmol/L (3.5-5.1) 11/04/24 05:01
Chloride 102 mmol/L (98-107) 11/04/24 05:01
Carbon Dioxide 20 mmol/L (22-30) L 11/04/24 05:01
BUN 37 mg/dl (7-17) H 11/04/24 05:01
Creatinine 1.5 mg/dL (0.6-1.0) H 11/04/24 05:01
eGFR 38.20 11/04/24 05:01
Glucose 78 mg/dl (70-99) 11/04/24 05:01
Calcium 7.0 mg/dl (8.4-10.2) L 11/04/24 05:01
Phosphorus 6.3 mg/dl (2.5-4.5) H 10/25/24 23:26
Albumin 1.6 g/dl (3.5-5.0) L 11/01/24 06:22
Physical Exam
-
Vital Signs:
Vital Signs
Temp Pulse Resp BP Pulse Ox
98.7 F 90 18 131/60 97
11/04/24 07:11 11/04/24 07:11 11/04/24 07:11 11/04/24 08:04 11/04/24 08:22
Cardiovascular:: Regular rate and rhythm
Respiratory:: Bilateral: Coarse
Lung Excursion:: Normal
Abdomen:: Nontender and Soft
Bowel Sounds:: Normal
Extremity Edema:: +2: Bilateral:
--- NOTE | 2024-11-04 15:15 | CM ---
Chart reviewed
PM&R eval pending
For SNF when medically stable - options obtained previously
Will need auth
Plan - anticipate SNF when medically stable
[2024-11-04 15:48] VITALS: BP 158/77
--- NOTE | 2024-11-04 20:21 | CON.MD ---
Addendum entered and electronically signed by Darius Mcpherson MD 11/04/24 22:30:
<del>PAD:</del> <del>statin,</del> <del>aspirin/plavix</del>
Original Note:
Consultation - Medical
-
Referring Provider:�Dr. Sarthak Daniel
Chief Complaint:�Debility
�
History of Present Illness:�64-year-old female with PMH (as below) presented to [facility] on 10/24/2024 as a transfer from [facility] for an abscess near the sigmoid colon. She had a rectal prolapse repair on 09/22/[address] Melendez.
Started on a fiber diet and was constipated. She developed severe abdominal pain proximal lower belly with nausea vomiting fever and chills. She was found to have a sigmoid colon perforation on imaging and transferred to [place]. Noted with
sepsis with shock. On 10/25/2024 she had a exploratory laparotomy with sigmoid colon resection with end colostomy and incidental appendectomy by Dr. Nacho Melendez. Postoperatively found to have a cool left lower extremity and found on imaging
to have an occlusion of the left iliac limb of the aortobifemoral bypass and common femoral artery, profunda, artery and superficial femoral arteries. She had an emergent thrombectomy of the occluded left iliac limb of the aortobifemoral bypass,
left common femoral artery endarterectomy revision of left femoral anastomosis, balloon angioplasty and stenting of the left iliac limb of the aortofemoral bypass Dr. Sonny Rodriguez on 10/25/24. Postoperatively requiring transfusion, started on heparin
with acute thrombotic event. ID consulted for rising leukocytosis with recent fecal peritonitis and placed on meropenem/micafungin. Required multiple transfusions with imaging finding a hematoma on the right retroperitoneum. Restarted on Plavix
for antiplatelet.
�
Past Medical History:�Recurrent rectal prolapse, HTN, PAD, PVD, HLD, anemia, CKD, renal artery stenosis
Procedure History:�Ventral mesh rectopexy 09/30/2024, left renal artery stent
Family History:�Denies
�
Social History:�
Functional Level Premorbidly:�Independent with all activities�
Functional Level Currently:�
�
Tobacco:�Quit 5 years ago, [id number] history
Alcohol:�Occasionally
Drug use:�Denies�
�
Lives with:�Son, his girlfriend and their son
24-hour assistance available:�Yes
Number of floors:�2 but she lives on the first floor
# steps to enter:�0
# steps to second floor: Full flight
Potential First floor set up:�Yes
Driving:�Yes
Occupation:�Works for [employer]
�
�
Allergies:�
Allergy/AdvReac Type Severity Reaction Status Date / Time
NSAIDS (Non-Steroidal Allergy UNABLE TO Verified 09/30/24 11:32
Anti-Inflamma TAKE D/T
KIDNEY
INSUFFICIENCY
Sulfa (Sulfonamide Allergy Rash Verified 09/30/24 11:32
Antibiotics)
�
Review of Systems:�
Constitutional: (x) abNormal _fatigue
Eye: (x) Normal _
Ear/Nose/Throat: (x) Normal _
Respiratory: (x) Normal _
Cardiovascular: (x) abNormal _left leg bypass procedure
Gastrointestinal: (x) abNormal _multiple surgeries, ostomy
Genitourinary: (x) Normal _
Musculoskeletal: (x) Normal _
Integumentary: (x) Normal _
Neurologic: (x) Normal _
Psychiatric: (x) Normal _
Endocrine: (x) Normal _
Hematologic/Lymphatic: (x) Normal _
Allergic/Immunologic: (x) Normal _
�
Medications:�
Active Current Visit Medication List
Category Date Time Status
0.9% Sodium Chloride [Nss (Preservative Free)] Med 10/29/24 13:00 Active
10 ml IV BID
0.9% Sodium Chloride [Nss (Preservative Free)] Med 10/28/24 16:00 Active
See Protocol IV PRN PRN
Ampicillin/Sulbactam 3 G [Unasyn] 3 gm Med 11/03/24 14:00 Active
0.9% Sodium Chloride 100 ml [Nss] 100 ml
IV Q12H
Aspirin Chewable [Low Strength Aspirin] Med 10/31/24 09:00 Active
81 mg PO DAILY
Clonidine [Catapres] Med 10/30/24 16:00 Active
0.3 mg PO TID
Clopidogrel Bisulfate [Plavix] Med 10/31/24 09:00 Active
75 mg PO DAILY
Dextrose 50%-Water [Dextrose 50% Syringe] Med 10/27/24 11:00 Active
12.5 grams IV [id number] PRN
Flush (0.9% Sodium Chloride) [Flush (Nss)] Med 10/24/24 22:00 Active
See Dose Instructions IV PER PROTOCOL
Furosemide [Lasix] Med 11/03/24 14:00 Active
40 mg IV DAILY
Glucagon [GlucaGen] Med 10/27/24 11:00 Active
1 mg IM PRN PRN
HYDROmorphone [Dilaudid] Med 11/01/24 16:06 Active
0.25 mg IV Q3HPRN PRN
HydrALAZINE [Apresoline] Med 10/28/24 19:00 Active
10 mg IV Q4HPRN PRN
HydrALAZINE [Apresoline] Med 10/30/24 11:15 Active
100 mg PO TID
Lidocaine [Lidocaine 4% Patch] Med 10/27/24 11:30 Active
1 patch TOPICAL DAILY
Lorazepam [Ativan] Med 11/01/24 16:06 Active
0.5 mg PO Q8HPRN PRN
Metoprolol Xl [Toprol Xl] Med 11/04/24 20:00 Active
50 mg PO BID
Metoprolol [Lopressor] Med 10/24/24 23:31 Active
5 mg IV Q4HPRN PRN
NIFEdipine EXTENDED RELEASE [Procardia Xl (Extended Med 11/03/24 14:00 Active
Release)]
30 mg PO DAILY
Ondansetron Injectable [Zofran] Med 10/24/24 21:51 Active
4 mg IV Q6HPRN PRN
Oxycodone [Roxicodone] Med 11/01/24 16:06 Active
10 mg PO Q4HPRN PRN
Oxycodone [Roxicodone] Med 11/01/24 16:06 Active
5 mg PO Q4HPRN PRN
Pantoprazole [Protonix IV] Med 10/29/24 13:00 Active
40 mg IV BID
Remove Patch [Remove Lidocaine Patch] Med 10/27/24 20:00 Active
See Dose Instructions REMOVE DAILY@1999
�
Vitals:�
Temp Pulse Resp BP Pulse Ox
99.3 F 102 20 158/77 96
11/04/24 15:48 11/04/24 15:48 11/04/24 15:48 11/04/24 15:48 11/04/24 15:48
Height 5 ft 1 in
Actual Weight 59.874 kg
Body Mass Index (BMI) 25.0
�
Physical Exam:�
General Appearance/Observation: Well-developed, well-nourished individual in no apparent distress.�
Pain/Comfort Assessment: Mild abdominal pain
Mood/Affect: Appropriate�
�
Integumentary/Operative Site:�Ostomy with good output. Right lateral groin drain with serosanguineous drainage, left inguinal dressing clean dry and intact.
Eyes: Conjunctiva/Lids: normal���� Pupils: pupils equal round and reactive to light and Accommodation�
Ears/Nose/Throat: oral mucosa moist,� throat clear.������������ Lips/Teeth/Gums: normal�
Cardiovascular: Heart: regular, no murmur�
Pulses: dorsalis pedis 2+ bilaterally�
Respiratory: Respiratory Effort/Chest Expansion: normal������� Auscultation: Clear to auscultation bilaterally�
Gastrointestinal: abdomen mildly tender, no distension, normal abdominal bowel sounds. Ostomy�intact
Genitourinary: No Rodriguez�
Extremities:�Edema: Minimal bilateral lower extremity edema, slightly increased left foot compared to right cyanosis: None�Trophic�changes: None
�
Neurology Exam:
Orientation: Alert, Oriented to self, Time, Place�
Memory: Intact for recent medical concerns
Comprehension: Intact
Two step command: Intact
Cranial Nerves:
�� CNII:�Pupillary light reflex: Intact����
�� CN VII:�Facial movement: Symmetric
�� CN VIII:�Hearing: Normal
�� CN IX/X:�Speech & swallow: Normal,�Position of Uvula: Midline
�� CN XII:�Tongue protrusion: Midline
Sensory:
�� Light touch: Intact in bilateral upper and lower extremities
�
Musculoskeletal: Motor: (Manual muscle scale 0-5)�
Muscle SA EF WE EE FF FA HF KE DF EHL PF
Right� 4 5 5 4 5 4 3 5 5 5
Left 4 5 5 4 5 4 3 4 4 4
�
Tone: Normal in all extremities�
Range of Motion: Passively within normal limits in all extremities�
�
Lab Results
Laboratory Data
11/04/24 05:01
11/04/24 05:01
PT 14.5 Sec (11.4-14.6) 10/24/24 22:15
INR 1.10 10/24/24 22:15
APTT 67.8 Sec (23.4-35.0) H 10/31/24 04:02
Total Bilirubin 0.4 mg/dl (0.2-1.3) 11/01/24 06:22
AST 104 U/L (14-36) H 11/01/24 06:22
ALT 48 U/L (0-35) H 11/01/24 06:22
Alkaline Phosphatase 97 U/L (38-126) 11/01/24 06:22
Total Protein 3.7 g/dl (6.3-8.2) L 11/01/24 06:22
Albumin 1.6 g/dl (3.5-5.0) L 11/01/24 06:22
�
Diagnostic Results:�as per HPI�
�
Assessment
64 y/o F PMH (Recurrent rectal prolapse, HTN, PAD, PVD, HLD, anemia, CKD, renal artery stenosis) with 10/24/2024 sigmoid colon perforation with sepsis with shock s/p 10/25/2024 ex lap/sigmoid colon resection with end colostomy and incidental
appendectomy, emergent thrombectomy of the occluded left iliac limb of the aortobifemoral bypass, left common femoral artery endarterectomy revision of left femoral anastomosis, balloon angioplasty and stenting of the left iliac limb of the
aortofemoral bypass Dr. Sonny Rodriguez on 10/25/24, with postoperative anemia requiring multiple transfusions, rising leukocytosis with recent fecal peritonitis and placed on meropenem/micafungin, hematoma on the right retroperitoneum --- resulting in
ADL and ambulatory dysfunction.
Plan�
PM&R�PT/OT to increase independence with ADLs, improve balance, coordination, endurance, strength, mobility, community reintegration, decreased burden of care on others and family education.�
�
Sepsis with sigmoid colon perforation: Ex-lap with colostomy
- meropenem/micafungin per ID
- Has drain, please comment on plan to remove before or after discharge
Left LE occlusion: S/P femoral endarterectomy, angioplasty and stent
�
HTN: clonidine 0.3 mg, lasix 40 mg IV, Hydralazine 10 mg TID, Metoprolol XL 50 mg BID, Nifedipine 30 mg daily, monitor closely�
-Has renal artery stenosis
HLD: Statin held
PAD/PVD: aspirin/plavix, consider statin
CKD: 1.5 from high of 3.7, monitor�
PAD: statin, aspirin/plavix
Leukocytosis:�resolving.�
Anemia: stable in 8 range, monitor.�
FEN: hyponatremia: 131 from 131 from 133
Transaminitis: resolving
Psych: Monitor mood, medications as needed.�
Pain: acetaminophen or oxycodone as needed.�
Bowel: Monitor bowels.
Bladder: Time void, PVRs, PRN straight cath.�
GI Prophylaxis: Pantoprazole�
DVT Prophylaxis: Mechanical, not on chemoprophylaxis. ��� Please comment on dvt chemoprophylaxis restrictions.
Pulmonary: Incentive spirometry�
Safety: Continue to reinforce assistance with all transfers.�
Code Status:� Full code
Dispo�(date/plan/equipment needs): Home with family care.� Social history reviewed.�
Functional and Medical Goals:�Modified Independent with ADL�s, ambulation, transfers�
Discharge Destination:�Acute inpatient rehabilitation
�
Summary of recommendations:
-�Discharge Destination:�Acute inpatient rehabilitation�
PAD/PVD: aspirin/plavix, consider statin
Sepsis with sigmoid colon perforation: Ex-lap with colostomy
- meropenem/micafungin per ID
- Has drain, please comment on plan to remove before or after discharge
Left LE occlusion: S/P femoral endarterectomy, angioplasty and stent
DVT Prophylaxis: Please comment on dvt chemoprophylaxis restrictions.
�
Thank you for allowing me to care for your patient. Please contact me with any questions or concerns.
[2024-11-04] MEDS: TOPROL XL 50 MG PO (21:50)
[2024-11-04 23:09] VITALS: BP 112/68
[2024-11-05] MEDS: UNASYN IV ×2 (02:46→14:33)
[2024-11-05 06:00] VITALS: BMI 26.2
[2024-11-05 08:03] VITALS: BP 141/84
[2024-11-05 08:34] LABS: Blood Urea Nitrogen 39 mg/dl (7-17); Calcium 7.1 mg/dl (8.4-10.2); Carbon Dioxide 24 mmol/L (22-30); Chloride 101 mmol/L (98-107); Estimated Creatinine Clearance 31 ml/min; Glucose 91 mg/dl (70-99); Potassium 3.8 mmol/L (3.5-5.1); Sodium 135 mmol/L (135-145)
[2024-11-05] MEDS: TOPROL XL 50 MG PO ×2 (08:54→21:05)
[2024-11-05] MEDS: PLAVIX 75 MG PO (08:54)
[2024-11-05] MEDS: APRESOLINE 100 MG PO ×3 (08:54→21:06)
[2024-11-05] MEDS: PROCARDIA XL (EXTENDED RELEASE) 30 MG PO (08:54)
[2024-11-05] MEDS: LOW STRENGTH ASPIRIN 81 MG PO (08:55)
[2024-11-05] MEDS: LIDOCAINE 4% PATCH 1 PATCH TOPICAL ×2 (08:55→11:03)
[2024-11-05] MEDS: CATAPRES 0.3 MG PO ×3 (08:55→21:05)
[2024-11-05] MEDS: PROTONIX IV 40 MG IV (08:56)
[2024-11-05] MEDS: NSS (PRESERVATIVE FREE) 10 ML IV (08:56)
[2024-11-05] MEDS: LASIX 40 MG IV (08:56)
[2024-11-05] MEDS: ROXICODONE 10 MG PO ×2 (09:14→15:57)
--- NOTE | 2024-11-05 09:44 | W.PN.GS2 ---
Addendum entered and electronically signed by Danyel Sanchez MD 11/05/24 15:07:
I saw and examined the patient.
The Customer Sales Service Manager's note was reviewed and I agree with the note.
Comment: No complaints, pain controlled, stoma functioning with stool output, drain ss; hortencia diet with some mild intermittent nausea, advised to go slow
Original Note:
Today's Communication / Plan
-
ABD XR
Assessment / Plan
-
Ms Sheridan is a 64 yo female s/ rectopexy on 09/30 who presented this admission with perforated sigmoid colon secondary to stercoral colitis taken for emergent exploratory laparotomy with left lower limb ischemia noted in pacu
POD# 11 open sigmoid colectomy, incidental appendectomy, and end sigmoid ostomy
POD# 11 thrombectomy of occluded left iliac limb of aortobifemoral bypass/Left common femoral artery endarterectomy
POD #9 necrotic layer over stoma; bedside flexible sigmoidoscopy revealing pink mucosa under the fascial level
AFVSS
Labs stable
Tolerating diet for the most part but admits to some nausea which is mild and resolves quickly, stoma productive of flatus/stool. Appetite has returned.
--Will check ABD xr giving intermittent nausea with dietary advancements
--LRD for now, will follow XR findings
--ABX as per ID
--Continue PPI, will change to PO
--C/W JEAN drain, will remove prior to d/c
--Continue DAPT as per vascular surgery
--Stoma/wound nurse following for stoma care
Acute rehab planned upon discharge
Subjective Data
-
Date of Service: November 05, 2024
Patient seen and examined at bedside. Denies vomiting but has mild nausea after meals. Abdominal discomfort present but not worsening.
Objective Data
-
Intake and Output
11/04/24 11/05/24 11/06/24
06:59 06:59 06:59
Intake Total 960 / 960 1060 / 1060
Output Total 393 / 393 605 / 605
Balance 567 / 567 455 / 455
Intake:
Oral fluids 960 / 960 840 / 840
IV piggybacks 120 / 120
Fecal management system 100 / 100
irrigation (mL)
Colostomy 100 / 100
Output:
Liquid stool amount 375 / 375
Colostomy 375 / 375
Drain Output (Total)
Right Abdomen Shamar-Adams
Urine, Voided 600 / 600
Other:
How many times incontinent 1
SMALL amount urine
How many times incontinent 1
MODERATE amount urine
How many times incontinent 1 2
SATURATED amount urine
Vital Signs
Temp Pulse Resp BP Pulse Ox
97.9 F 86 18 141/84 96
11/05/24 08:03 11/05/24 08:56 11/05/24 08:03 11/05/24 08:56 11/05/24 08:03
Lab Results
11/04/24 05:01
11/05/24 06:28
Calcium 7.1 mg/dl (8.4-10.2) L 11/05/24 06:28
Phosphorus 6.3 mg/dl (2.5-4.5) H 10/25/24 23:26
Magnesium 2.0 mg/dl (1.6-2.3) 10/29/24 03:57
Total Bilirubin 0.4 mg/dl (0.2-1.3) 11/01/24 06:22
AST 104 U/L (14-36) H 11/01/24 06:22
ALT 48 U/L (0-35) H 11/01/24 06:22
Alkaline Phosphatase 97 U/L (38-126) 11/01/24 06:22
Total Protein 3.7 g/dl (6.3-8.2) L 11/01/24 06:22
Albumin 1.6 g/dl (3.5-5.0) L 11/01/24 06:22
Physical Exam
-
NAD
ABD soft, mild distention, some incisional tenderness
Stoma productive of stool/flatus. [place] with some slough.
Abdominal incision well approximated, intact anju
JEAN with rust colored SSF, minimal. JAYME dressing to left groin.
--- NOTE | 2024-11-05 11:17 | W.PN.NEPH.PH ---
Today's Communication / Plan
-
P.o. Lasix
Assessment/Plan
-
64-year-old female past medical history of recurrent rectal prolapse status post ventral mesh rectopexy, hypertension, peripheral vascular disease, hypercholesteremia, anemia, CKD, renal artery stenosis status post left renal stent presenting as a
transfer from [facility] for abscess near sigmoid colon possible perforation.
Renal consult for acute on chronic kidney disease she follows with Dr. Edson Ding type copyist [place]
Baseline creatinine appears to be between 1.8 and 2.0. She presented with a creatinine of 3.2 and a metabolic acidosis
Impression:
Acute on chronic kidney disease.
Acute metabolic acidosis.
Hypertensive urgency.
Pericolonic abscess.
History of renal artery stenosis with left stent.
Postop sigmoid colectomy incidental appendectomy and end sigmoid ostomy
Postop thrombectomy of occluded left iliac limb of aortobifemoral bypass\\left common femoral artery endarterectomy
Plan:
Restart low-dose valsartan
follow BMP
Switch to Lasix 80 mg orally daily
-
-
Date of Service: November 05, 2024
CC / HPI / ROS
-
Chief Complaint:
JACOB
History of Present Illness:
JACOB/Cr down to 1.5 stable
BP stable
Na up to 135
Review of Systems:
nonoliguric via Rodriguez catheter
No fevers
Labs
-
Labs:
WBC 11.5 10^3/uL (4.8-10.8) H 11/04/24 05:01
RBC 3.09 10^6/uL (4.20-5.40) L 11/04/24 05:01
Hgb 8.8 g/dL (12.0-16.0) L 11/04/24 05:01
Hct 26.6 % (37.0-47.0) L 11/04/24 05:01
Plt Count 274 10^3/uL (130-400) 11/04/24 05:01
Sodium 135 mmol/L (135-145) 11/05/24 06:28
Potassium 3.8 mmol/L (3.5-5.1) 11/05/24 06:28
Chloride 101 mmol/L (98-107) 11/05/24 06:28
Carbon Dioxide 24 mmol/L (22-30) 11/05/24 06:28
BUN 39 mg/dl (7-17) H 11/05/24 06:28
Creatinine 1.5 mg/dL (0.6-1.0) H 11/05/24 06:28
eGFR 38.20 11/05/24 06:28
Glucose 91 mg/dl (70-99) 11/05/24 06:28
Calcium 7.1 mg/dl (8.4-10.2) L 11/05/24 06:28
Phosphorus 6.3 mg/dl (2.5-4.5) H 10/25/24 23:26
Albumin 1.6 g/dl (3.5-5.0) L 11/01/24 06:22
Physical Exam
-
Vital Signs:
Vital Signs
Temp Pulse Resp BP Pulse Ox
97.9 F 86 18 141/84 96
11/05/24 08:03 11/05/24 08:56 11/05/24 08:03 11/05/24 08:56 11/05/24 08:03
Cardiovascular:: Regular rate and rhythm
Respiratory:: Bilateral: CTA
Lung Excursion:: Normal
Abdomen:: Nontender and Soft
Bowel Sounds:: Normal
Extremity Edema:: +1: Bilateral:
--- NOTE | 2024-11-05 13:22 | W.PN.HOSP.TC ---
Today's Communication/Plan
-
f/u hbg
d/c planning for snf rehab
Assessment / Plan
Assessment / Plan
Acute left limb threatening ischemia
Acute vascular occlusions of L iliac limb of aorto-fem bypass
-Thrombectomy of occluded left iliac limb of aortobifemoral bypass/Left common femoral artery endarterectomy performed 10/25
-Jayme drain has been changed on 11/01
-Vascular surgery has signed off
-Resuming back plavix on 11/03
Perforated sigmoid colon with pericolonic abscess formation with partial SBO
Acute Sepsis (tachycardia, leukocytosis) from acute GI colonic source
- s/p open sigmoid colectomy, incidental appendectomy, and end sigmoid ostomy 10/25
- 10/27: concern for bleeding/necrosis of bowel; bedside scope report indicates viable tissue beneath skin
- Patient finished course of Merrem/micafungin changed to Unasyn at this point by ID
- CRS following
- Diet has been advanced to low residue
-Patient having some nausea, abdominal x-ray did not show any acute abnormality
Intubation for acute surgical procedures
Ventilatory dependent respiratory failure
- s/p extubation 10/26
- on RA
Acute blood loss anemia on chronic anemia
Retroperitoneal hematoma
-CTAP on 10/31 showing right retroperitoneal hematoma and mild complex abdominal pelvic ascites/mobility
-Follow-up CT angio did not show any acute bleeder
-Patient was kept off of heparin drip/Plavix for 48 hours. resumed plavix from 11/03
-Patient got 2 unit of PRBC this admit.
-Hbg remains stable
Hypokalemia
- replace prn
Shock - multifactorial from hemorrhagic and sepsis
Iatrogenic volume overload
- off pressors
- Started on IV diuretics for volume optimization
Accelerated hypertension with risk of developing hypertensive emergency
History of underlying Accelerated HTN with multi-drug regimen and history of PARI s/p L Renal artery stenting
-Required Cardene drip in ICU
-Currently on regimen of Toprol-XL/hydralazine/Procardia
History of recurrent rectal prolapse status post ventral mesh rectopexy with recent repair
JACOB on CKD stage 3b
Acute metabolic acidosis
- suspect driven by accelerated HTN and critical illness
- Nephrology following
- maintain Rodriguez for critical I/Os
history of PARI s/p L Renal artery stenting
Peripheral vascular disease
Hypercholesterolemia
-plavix restarted on 11/03
Former smoker
Hypoglycemia
- Accu-checks q6h
- dextrose IVF
Elevated LFTs from shock liver
- trend
DVT ppx: SCDs
Code: Full
Anticipated Discharge: 24 - 48 hours
Subjective/Interval History
-
Date of Service: November 05, 2024
Resting comfortably in bed
Some nausea, no vomiting reported
Objective Data
-
Labs:
Laboratory Results
11/05/24
06:28
Sodium 135
Potassium 3.8
Chloride 101
Carbon Dioxide 24
BUN 39 H
Creatinine 1.5 H
Glucose 91
Calcium 7.1 L
Vital Signs:
Vital Signs
Temp Pulse Resp BP Pulse Ox
97.9 F 86 18 141/84 96
11/05/24 08:03 11/05/24 08:56 11/05/24 08:03 11/05/24 08:56 11/05/24 08:03
I&O
11/04/24 11/05/24 11/06/24
06:59 06:59 06:59
Intake Total 960 / 960 1060 / 1060
Output Total 393 / 393 605 / 605
Balance 567 / 567 455 / 455
Review of Systems
-
Respiratory: Reports No Symptoms
Cardiac: Reports No Symptoms
Abdomen/GI: Reports No Symptoms
Physical Exam
-
General: Comfortable
HEENT: Negative Oxygen
Cardiac: Regular Rhythm, S1/S2 and Tachycardic; Negative Murmur
GI: Soft, Ostomy (Green liquid stool ) and Other (Midline surgical scar with anju, )
Genito-urinary: Other (Left groin dressing in place with JAYME drain)
Neuro: Awake, Alert, Oriented and No Motor Deficits
Psych: Calm
[2024-11-05 16:27] VITALS: BP 117/66
[2024-11-05 23:31] VITALS: BP 145/76
[2024-11-06] MEDS: ATIVAN 0.5 MG PO ×2 (01:17→22:22)
[2024-11-06] MEDS: UNASYN IV (01:17)
[2024-11-06] MEDS: ROXICODONE 5 MG PO (01:33)
[2024-11-06 06:00] VITALS: BMI 25.2
[2024-11-06 06:28] LABS: Hematocrit 24.2 % (37.0-47.0); Hemoglobin 8.1 g/dL (12.0-16.0); Mean Corp Hgb Conc. 33.5 g/dL (33.0-37.0); Mean Corpuscular Hgb 28.6 pg (27.0-31.0); Mean Corpuscular Volume 85.5 fL (81.0-99.0); Mean Platelet Volume 10.1 fL (7.4-10.4); Platelet Count 353 10^3/uL (130-400); Red Blood Cell Count 2.83 10^6/uL (4.20-5.40); Red Cell Dist. Width 15.5 % (11.5-14.5); White Blood Cell Count 7.7 10^3/uL (4.8-10.8)
[2024-11-06 06:45] LABS: Blood Urea Nitrogen 37 mg/dl (7-17); Calcium 7.1 mg/dl (8.4-10.2); Carbon Dioxide 24 mmol/L (22-30); Chloride 104 mmol/L (98-107); Estimated Creatinine Clearance 28 ml/min; Glucose 86 mg/dl (70-99); Potassium 3.5 mmol/L (3.5-5.1); Sodium 136 mmol/L (135-145)
[2024-11-06 07:18] VITALS: BP 174/76
[2024-11-06] MEDS: PROTONIX 40 MG PO (10:03)
[2024-11-06] MEDS: PROCARDIA XL (EXTENDED RELEASE) 30 MG PO (10:03)
[2024-11-06] MEDS: CATAPRES 0.3 MG PO ×3 (10:03→22:00)
[2024-11-06] MEDS: APRESOLINE 100 MG PO ×3 (10:03→22:00)
[2024-11-06] MEDS: DIOVAN 40 MG PO ×2 (10:04→11:55)
[2024-11-06] MEDS: PLAVIX 75 MG PO (10:04)
[2024-11-06] MEDS: TOPROL XL 50 MG PO ×2 (10:04→20:02)
[2024-11-06] MEDS: LOW STRENGTH ASPIRIN 81 MG PO (10:05)
[2024-11-06] MEDS: LASIX 80 MG PO (10:05)
[2024-11-06] MEDS: LIDOCAINE 4% PATCH 1 PATCH TOPICAL ×2 (10:05→10:06)
[2024-11-06] MEDS: ROXICODONE 10 MG PO ×2 (10:16→20:01)
--- NOTE | 2024-11-06 11:05 | W.PN.NEPH.PH ---
Today's Communication / Plan
-
increase valsartan
Assessment/Plan
-
64-year-old female past medical history of recurrent rectal prolapse status post ventral mesh rectopexy, hypertension, peripheral vascular disease, hypercholesteremia, anemia, CKD, renal artery stenosis status post left renal stent presenting as a
transfer from [facility] for abscess near sigmoid colon possible perforation.
Renal consult for acute on chronic kidney disease she follows with Dr. Edson Ding barge pilot [place]
Baseline creatinine appears to be between 1.8 and 2.0. She presented with a creatinine of 3.2 and a metabolic acidosis
Impression:
Acute on chronic kidney disease.
Acute metabolic acidosis.
Hypertensive urgency.
Pericolonic abscess.
History of renal artery stenosis with left stent.
Postop sigmoid colectomy incidental appendectomy and end sigmoid ostomy
Postop thrombectomy of occluded left iliac limb of aortobifemoral bypass\\left common femoral artery endarterectomy
Plan:
increase valsartan
follow BMP
continue Lasix 80 mg orally daily
-
-
Date of Service: November 06, 2024
CC / HPI / ROS
-
Chief Complaint:
JACOB
History of Present Illness:
JACOB/Cr down to 1.5 stable
BP stable but still high
Na up to 136
Review of Systems:
nonoliguric via Rodriguez catheter
No fevers
Labs
-
Labs:
WBC 7.7 10^3/uL (4.8-10.8) 11/06/24 05:45
RBC 2.83 10^6/uL (4.20-5.40) L 11/06/24 05:45
Hgb 8.1 g/dL (12.0-16.0) L 11/06/24 05:45
Hct 24.2 % (37.0-47.0) L 11/06/24 05:45
Plt Count 353 10^3/uL (130-400) D 11/06/24 05:45
Sodium 136 mmol/L (135-145) 11/06/24 05:45
Potassium 3.5 mmol/L (3.5-5.1) 11/06/24 05:45
Chloride 104 mmol/L (98-107) 11/06/24 05:45
Carbon Dioxide 24 mmol/L (22-30) 11/06/24 05:45
BUN 37 mg/dl (7-17) H 11/06/24 05:45
Creatinine 1.5 mg/dL (0.6-1.0) H 11/06/24 05:45
eGFR 38.20 11/06/24 05:45
Glucose 86 mg/dl (70-99) 11/06/24 05:45
Calcium 7.1 mg/dl (8.4-10.2) L 11/06/24 05:45
Phosphorus 6.3 mg/dl (2.5-4.5) H 10/25/24 23:26
Albumin 1.6 g/dl (3.5-5.0) L 11/01/24 06:22
Physical Exam
-
Vital Signs:
Vital Signs
Temp Pulse Resp BP Pulse Ox
98.8 F 90 20 174/76 98
11/06/24 07:18 11/06/24 07:18 11/06/24 07:18 11/06/24 07:18 11/06/24 07:18
Cardiovascular:: Regular rate and rhythm
Respiratory:: Bilateral: Coarse
Lung Excursion:: Normal
Abdomen:: Nontender and Soft
Bowel Sounds:: Normal
Extremity Edema:: +2: Bilateral:
[2024-11-06 11:59] VITALS: BP 153/72
--- NOTE | 2024-11-06 13:09 | W.PN.GS2 ---
Addendum entered and electronically signed by Danyel Sanchez MD 11/06/24 13:41:
I saw and examined the patient.
The Biomedical Equipment Tech's note was reviewed and I agree with the note.
Comment: Doing well. Stoma continues to function. Pain controlled. OK for DC to rehab from surgical standpoint.
Original Note:
Today's Communication / Plan
-
Continue LRD
Assessment / Plan
-
Ms Sheridan is a 64 yo female s/ rectopexy on 09/30 who presented this admission with perforated sigmoid colon secondary to stercoral colitis taken for emergent exploratory laparotomy with left lower limb ischemia noted in pacu
POD# 12 open sigmoid colectomy, incidental appendectomy, and end sigmoid ostomy
POD# 12 thrombectomy of occluded left iliac limb of aortobifemoral bypass/Left common femoral artery endarterectomy
POD #10bedside flexible sigmoidoscopy revealing pink mucosa under the fascial level of stoma
AFVSS
Labs stable, slight drift in h/h
Tolerating diet
ABD xr on 11/05 without ileus/obstruction
--LRD as tolerated
--ABX as per ID
--Continue PPI
--C/W JEAN drain, will remove prior to d/c
--Continue DAPT as per vascular surgery
--Stoma/wound nurse following for stoma care
Acute rehab planned upon discharge, cleared surgically for d/c once ready from medical standpoint
Subjective Data
-
Date of Service: November 06, 2024
Patient seen and examined at bedside with Dr. Sanchez. Denies n/v. Tolerating diet. Some intermittent pain to the abdomen but manageable and 'moderate'
Objective Data
-
Intake and Output
11/05/24 11/06/24 11/07/24
06:59 06:59 06:59
Intake Total 1060 / 1060 1920 / 1920
Output Total 605 / 605 410 / 410
Balance 455 / 455 1510 / 1510
Intake:
Oral fluids 840 / 840 1680 / 1680
IV piggybacks 120 / 120 240 / 240
Fecal management system 100 / 100
irrigation (mL)
Colostomy 100 / 100
Output:
Liquid stool amount 400 / 400
Colostomy 400 / 400
Drain Output (Total)
Right Abdomen Shamar-Adams
Urine, Voided 600 / 600
Other:
How many times incontinent 1
SMALL amount urine
How many times incontinent 1
MODERATE amount urine
How many times incontinent 2 1
SATURATED amount urine
Vital Signs
Temp Pulse Resp BP Pulse Ox
98.8 F 89 20 153/72 98
11/06/24 07:18 11/06/24 11:59 11/06/24 07:18 11/06/24 11:59 11/06/24 11:23
Lab Results
11/06/24 05:45
11/06/24 05:45
Calcium 7.1 mg/dl (8.4-10.2) L 11/06/24 05:45
Phosphorus 6.3 mg/dl (2.5-4.5) H 10/25/24 23:26
Magnesium 2.0 mg/dl (1.6-2.3) 10/29/24 03:57
Total Bilirubin 0.4 mg/dl (0.2-1.3) 11/01/24 06:22
AST 104 U/L (14-36) H 11/01/24 06:22
ALT 48 U/L (0-35) H 11/01/24 06:22
Alkaline Phosphatase 97 U/L (38-126) 11/01/24 06:22
Total Protein 3.7 g/dl (6.3-8.2) L 11/01/24 06:22
Albumin 1.6 g/dl (3.5-5.0) L 11/01/24 06:22
Physical Exam
-
NAD
ABD soft, mild distention, some incisional tenderness
Stoma productive of stool/flatus. Dark pink with some slough.
Abdominal incision well approximated, intact anju
JEAN with rust colored SSF, minimal. JAYME dressing to left groin.
--- NOTE | 2024-11-06 13:20 | W.PN.HOSP.TC ---
Today's Communication/Plan
-
f/u hbg - minimal drop
continue lasix
f/u weight / cr
d/c planning for snf rehab
Assessment / Plan
Assessment / Plan
Acute left limb threatening ischemia
Acute vascular occlusions of L iliac limb of aorto-fem bypass
-Thrombectomy of occluded left iliac limb of aortobifemoral bypass/Left common femoral artery endarterectomy performed 10/25
-Jayme drain has been changed on 11/01
-Vascular surgery has signed off
-Resumed back plavix on 11/03
Perforated sigmoid colon with pericolonic abscess formation with partial SBO
Acute Sepsis (tachycardia, leukocytosis) from acute GI colonic source
- s/p open sigmoid colectomy, incidental appendectomy, and end sigmoid ostomy 10/25
- 10/27: concern for bleeding/necrosis of bowel; bedside scope report indicates viable tissue beneath skin
- Patient finished course of Merrem/micafungin changed to Unasyn at this point by ID
- CRS following
- Diet has been advanced to low residue
- Patient having some nausea, abdominal x-ray did not show any acute abnormality
Intubation for acute surgical procedures
Ventilatory dependent respiratory failure
- s/p extubation 10/26
- on RA
Acute blood loss anemia on chronic anemia
Retroperitoneal hematoma
-CTAP on 10/31 showing right retroperitoneal hematoma and mild complex abdominal pelvic ascites/mobility
-Follow-up CT angio did not show any acute bleeder
-Patient was kept off of heparin drip/Plavix for 48 hours. resumed plavix from 11/03
-Patient got 2 unit of PRBC this admit.
-Hbg remains stable
Hypokalemia
- replace prn
Shock - multifactorial from hemorrhagic and sepsis
Iatrogenic volume overload
- off pressors
- Started on IV diuretics for volume optimization
Accelerated hypertension with risk of developing hypertensive emergency
History of underlying Accelerated HTN with multi-drug regimen and history of PARI s/p L Renal artery stenting
-Required Cardene drip in ICU
-Currently on regimen of Toprol-XL/hydralazine/Procardia
History of recurrent rectal prolapse status post ventral mesh rectopexy with recent repair
JACOB on CKD stage 3b
Acute metabolic acidosis
- suspect driven by accelerated HTN and critical illness
- Nephrology following
- maintain Rodriguez for critical I/Os
history of PARI s/p L Renal artery stenting
Peripheral vascular disease
Hypercholesterolemia
-plavix restarted on 11/03
Former smoker
Hypoglycemia
- Accu-checks q6h
- dextrose IVF
Elevated LFTs from shock liver
- trend
DVT ppx: SCDs
Code: Full
Anticipated Discharge: Within 24 hours
Subjective/Interval History
-
Date of Service: November 06, 2024
no issues overnight
having some abd discomfort and nausea - better then yesterday
Objective Data
-
Labs:
Laboratory Results
11/06/24
05:45
WBC 7.7
Hgb 8.1 L
Hct 24.2 L
Plt Count 353 D
Sodium 136
Potassium 3.5
Chloride 104
Carbon Dioxide 24
BUN 37 H
Creatinine 1.5 H
Glucose 86
Calcium 7.1 L
Vital Signs:
Vital Signs
Temp Pulse Resp BP Pulse Ox
98.8 F 89 20 153/72 98
11/06/24 07:18 11/06/24 11:59 11/06/24 07:18 11/06/24 11:59 11/06/24 11:23
I&O
11/05/24 11/06/24 11/07/24
06:59 06:59 06:59
Intake Total 1060 / 1060 1920 / 1920
Output Total 605 / 605 410 / 410
Balance 455 / 455 1510 / 1510
Review of Systems
-
Respiratory: Reports No Symptoms
Cardiac: Reports No Symptoms
Abdomen/GI: Reports No Symptoms
Physical Exam
-
General: Comfortable
HEENT: Negative Oxygen
Cardiac: Regular Rhythm, S1/S2 and Tachycardic; Negative Murmur
GI: Soft, Nontender, Nondistended, Ostomy (Green liquid stool ) and Other (Midline surgical scar with anju, )
Genito-urinary: Other (Left groin dressing in place with JAYME drain)
Neuro: Awake, Alert, Oriented and No Motor Deficits
Psych: Calm
--- NOTE | 2024-11-06 13:26 | W.PN.ID1 ---
Date of Service
Date of Service: November 06, 2024
Today's Communication
Transition to Augmentin 500 mg po bid through 11/10/24
Assessment / Plan
Sigmoid colon perforation secondary to stercoral colitis
- s/p ex lap/sig. colectomy/ end-sigmoid ostomy (10/25/24)
Critical limb ischemia left leg (following above procedure)
- s/p (L) fem graft embolectomy, fem graft endarterectomy with graft repair (10/25/24)
Fecal peritonitis
-Cultures with E. coli and Strep spp.
Leukocytosis resolved
JACOB on CKD
Transaminitis
Anemia
HTN
Dyslipidemia
Anemia
Hx renal artery stenosis
Recommendations:
Leukocytosis with continued improvement today. Prior elevation may have been reactive, but continuing to follow closely.
s/p 7 days meropenem and micafungin .
Transition Unasyn (day 10 effective abx) to Augmentin 500 mg po bid through 11/10/24
����������������������������������������������������������
Chief Complaint
-: Other (Perforated viscus (sigmoid colon); critical limb ischemia; fecal peritonitis)
Subjective / Review of Systems
Doing well. No complaints.
Vital Signs / Physical Exam
Vital Signs
Vital Signs
Temp Pulse Resp BP Pulse Ox
98.8 F 89 20 153/72 98
11/06/24 07:18 11/06/24 11:59 11/06/24 07:18 11/06/24 11:59 11/06/24 11:23
Physical Exam
Constitutional: No Acute Distress and Comfortable
Cardiovascular: Regular Rate and S1/S2
Pulmonary: Non Labored
Gastrointestinal: Soft, Non Tender, Non Distended and Other (Ostomy in place. Right lower quadrant JEAN in place with scant fluid. Incision dry and intact)
Neurological: Awake and Alert
Objective Data
Lab Data
Lab Results
11/06/24 05:45
11/06/24 05:45
PT 14.5 Sec (11.4-14.6) 10/24/24 22:15
INR 1.10 10/24/24 22:15
APTT 67.8 Sec (23.4-35.0) H 10/31/24 04:02
Estimated Creat Clear 28 ml/min 11/06/24 05:45
Lactic Acid 1.2 mmol/L (0.7-2.0) 10/24/24 22:15
Total Bilirubin 0.4 mg/dl (0.2-1.3) 11/01/24 06:22
AST 104 U/L (14-36) H 11/01/24 06:22
ALT 48 U/L (0-35) H 11/01/24 06:22
Alkaline Phosphatase 97 U/L (38-126) 11/01/24 06:22
Most recent labs reviewed.
Micro Results:
10/28/24 10:34 Blood Culture - Final
Blood/Venous No Growth - Final Report
10/28/24 10:18 Blood Culture - Final
Blood/Venous No Growth - Final Report
10/25/24 14:11 Wound Culture - Final
Abdomen Escherichia coli
Streptococcus species
Gram Stain - Final
10/25/24 14:11 Anaerobic Culture - Final
Abdomen
Imaging:
10/25/2024 CT abdomen angio with runoff: Occlusion of left limb of aorto femoral bypass. Severe stenosis along the proximal and distal right superficial femoral artery. There has been postevacuation of previously seen large volume extraluminal
stool within the pelvis. S/p partial colectomy with left-sided colostomy. Please see full dictation for additional detail.
[2024-11-06] MEDS: AUGMENTIN 500 MG/125 MG 1 TABLET PO ×2 (14:50→19:54)
[2024-11-06 15:05] VITALS: BP 154/77
[2024-11-06] MEDS: ZOFRAN 4 MG IV (20:09)
[2024-11-06 23:22] VITALS: BP 130/63
[2024-11-07 07:05] LABS: Blood Urea Nitrogen 41 mg/dl (7-17); Calcium 7.3 mg/dl (8.4-10.2); Carbon Dioxide 25 mmol/L (22-30); Chloride 102 mmol/L (98-107); Estimated Creatinine Clearance 28 ml/min; Glucose 93 mg/dl (70-99); Sodium 136 mmol/L (135-145)
[2024-11-07 07:11] LABS: Potassium 3.5 mmol/L (3.5-5.1)
[2024-11-07 08:00] VITALS: BP 141/75
[2024-11-07] MEDS: AUGMENTIN 500 MG/125 MG 1 TABLET PO ×2 (08:54→20:17)
[2024-11-07] MEDS: PROCARDIA XL (EXTENDED RELEASE) 30 MG PO (08:54)
[2024-11-07] MEDS: DIOVAN 80 MG PO (08:54)
[2024-11-07] MEDS: ROXICODONE 10 MG PO ×3 (08:54→22:13)
[2024-11-07] MEDS: APRESOLINE 100 MG PO ×3 (08:55→21:52)
[2024-11-07] MEDS: TOPROL XL 50 MG PO ×2 (08:55→20:18)
[2024-11-07] MEDS: PLAVIX 75 MG PO (08:55)
[2024-11-07] MEDS: LOW STRENGTH ASPIRIN 81 MG PO (08:55)
[2024-11-07] MEDS: LASIX 80 MG PO (08:55)
[2024-11-07] MEDS: PROTONIX 40 MG PO (08:55)
[2024-11-07] MEDS: LIDOCAINE 4% PATCH 1 PATCH TOPICAL ×2 (08:56)
[2024-11-07] MEDS: CATAPRES 0.3 MG PO ×3 (08:56→21:52)
[2024-11-07 09:28] LABS: Hematocrit 26.8 % (37.0-47.0); Hemoglobin 8.6 g/dL (12.0-16.0); Mean Corp Hgb Conc. 32.1 g/dL (33.0-37.0); Mean Corpuscular Hgb 27.9 pg (27.0-31.0); Mean Platelet Volume 10.2 fL (7.4-10.4); Platelet Count 432 10^3/uL (130-400); Red Blood Cell Count 3.08 10^6/uL (4.20-5.40); Red Cell Dist. Width 15.9 % (11.5-14.5); White Blood Cell Count 8.9 10^3/uL (4.8-10.8)
--- NOTE | 2024-11-07 09:37 | CM ---
Addendum entered by Samantha Daly 11/07/24 11:41:
Spoke with pt
[facility] and [facility]
Referrals sent in Care Port
Plan - anticipate acute rehab when bed and auth obtained
Original Note:
PM&R consult completed - recs acute rehab
Referral sent to [facility] in Care Port
TT sent to [facility] Liaison requesting review
Will need auth
Plan - anticipate acute rehab when bed and auth obtained
--- NOTE | 2024-11-07 09:41 | W.PN.CRS1 ---
Today's Communication / Plan
-
aron removed
dispo planning
Assessment/Plan
-
64 yo female s/ rectopexy on 09/30 who presented this admission with perforated sigmoid colon secondary to stercoral colitis taken for emergent exploratory laparotomy with left lower limb ischemia noted in pacu
POD# 13 open sigmoid colectomy, incidental appendectomy, and end sigmoid ostomy
POD# 13 thrombectomy of occluded left iliac limb of aortobifemoral bypass/Left common femoral artery endarterectomy
POD #11 bedside flexible sigmoidoscopy revealing pink mucosa under the fascial level of stoma
AFVSS
--LRD as tolerated
--ABX as per ID
--Continue PPI
--ARON drain removed at bedside
--Continue DAPT as per vascular surgery
--Stoma/wound nurse following for stoma care
--Dispo: SNF. Okay from a surgical perspective for d/c.
Subjective Data
Procedure
10/25/2024- open sigmoid colectomy, incidental appendectomy, and end sigmoid ostomy
10/25/2024- Thrombectomy of occluded left iliac limb of aortobifemoral bypass/Left common femoral artery endarterectomy
Subjective Data
Date of Service: November 07, 2024
Patient states she feels 'good'. She has no complaints. She was nauseous yesterday but it was not food related, as she smelled a strong scent of perfume. She is tolerating a diet. She has bowel function.
Objective Data
-
Vital Signs
Temp Pulse Resp BP Pulse Ox
98.9 F 66 16 145/78 95
11/07/24 08:00 11/07/24 08:55 11/07/24 08:00 11/07/24 08:55 11/07/24 08:00
Intake & Output
01/26/25 01/27/25 01/28/25
06:59 06:59 06:59
Intake Total 192 / 1920 1320 / 1320
Output Total 410 / 410 500 / 500 53 / 53
Balance 1510 / 1510 820 / 820 -53 / -53
Intake:
Oral fluids 1680 / 1680 1320 / 1320
IV piggybacks 240 / 240
Output:
Liquid stool amount 400 / 400 500 / 500 50 / 50
Colostomy 400 / 400 500 / 500 50 / 50
Drain Output (Total)
Right Abdomen Shamar-Adams
Other:
How many times incontinent 1
SMALL amount urine
How many times incontinent 1
MODERATE amount urine
How many times incontinent 1 3
SATURATED amount urine
Lab Results
11/07/24 04:52
11/07/24 04:52
Physical Exam
-
General: No Acute Distress and AOx3
Abdomen: Soft, Non Distended, Non Tender and Other (aron drain serous)
Incision: Clear, Dry, Intact
--- NOTE | 2024-11-07 11:53 | W.PN.ID1 ---
Date of Service
Date of Service: November 07, 2024
Today's Communication
Continue current course of Augmentin.
Assessment / Plan
Sigmoid colon perforation secondary to stercoral colitis
- s/p ex lap/sig. colectomy/ end-sigmoid ostomy (10/25/24)
Critical limb ischemia left leg (following above procedure)
- s/p (L) fem graft embolectomy, fem graft endarterectomy with graft repair (10/25/24)
Fecal peritonitis
-Cultures with E. coli and Strep spp.
Leukocytosis resolved
JACOB on CKD
Transaminitis
Anemia
HTN
Dyslipidemia
Anemia
Hx renal artery stenosis
Recommendations:
Leukocytosis with continued improvement today. Prior elevation may have been reactive, but continuing to follow closely.
Continue Augmentin 500 mg po bid through 11/10/24
����������������������������������������������������������
Chief Complaint
-: Other (Perforated viscus (sigmoid colon); critical limb ischemia; fecal peritonitis)
Subjective / Review of Systems
Review of Systems: No Fever and No Chills
Vital Signs / Physical Exam
Vital Signs
Vital Signs
Temp Pulse Resp BP Pulse Ox
98.9 F 66 16 145/78 95
11/07/24 08:00 11/07/24 08:55 11/07/24 08:00 11/07/24 08:55 11/07/24 08:50
Physical Exam
Constitutional: No Acute Distress and Comfortable
Cardiovascular: Regular Rate and S1/S2
Pulmonary: Non Labored
Gastrointestinal: Soft, Non Tender, Non Distended and Other (Ostomy in place. Incision dry and intact)
Extremities: Negative Edema, Cyanosis or Erythema
Neurological: Awake, Alert and Oriented
Objective Data
Lab Data
Lab Results
11/07/24 04:52
11/07/24 04:52
PT 14.5 Sec (11.4-14.6) 10/24/24 22:15
INR 1.10 10/24/24 22:15
APTT 67.8 Sec (23.4-35.0) H 10/31/24 04:02
Estimated Creat Clear 28 ml/min 11/07/24 04:52
Lactic Acid 1.2 mmol/L (0.7-2.0) 10/24/24 22:15
Total Bilirubin 0.4 mg/dl (0.2-1.3) 11/01/24 06:22
AST 104 U/L (14-36) H 11/01/24 06:22
ALT 48 U/L (0-35) H 11/01/24 06:22
Alkaline Phosphatase 97 U/L (38-126) 11/01/24 06:22
Most recent labs reviewed.
CT Scan: Image Reviewed and Report Reviewed
Micro Results:
10/28/24 10:34 Blood Culture - Final
Blood/Venous No Growth - Final Report
10/28/24 10:18 Blood Culture - Final
Blood/Venous No Growth - Final Report
10/25/24 14:11 Wound Culture - Final
Abdomen Escherichia coli
Streptococcus species
Gram Stain - Final
10/25/24 14:11 Anaerobic Culture - Final
Abdomen
Imaging:
10/25/2024 CT abdomen angio with runoff: Occlusion of left limb of aorto femoral bypass. Severe stenosis along the proximal and distal right superficial femoral artery. There has been postevacuation of previously seen large volume extraluminal
stool within the pelvis. S/p partial colectomy with left-sided colostomy. Please see full dictation for additional detail.
--- NOTE | 2024-11-07 13:36 | W.PN.HOSP.TC ---
Today's Communication/Plan
-
medically stable for dc to rehab pending bed/auth. d/w CM.
Assessment / Plan
Assessment / Plan
Assessment:
Acute left limb threatening ischemia
Acute vascular occlusions of L iliac limb of aorto-fem bypass
- Thrombectomy of occluded left iliac limb of aortobifemoral bypass/Left common femoral artery endarterectomy performed 10/25
- Micky drain has been changed on 11/01
- continue ASA/Plavix
- resume Statin at discharge
Perforated sigmoid colon with pericolonic abscess formation with partial SBO
Acute Sepsis (tachycardia, leukocytosis) from acute GI colonic source
- s/p open sigmoid colectomy, incidental appendectomy, and end sigmoid ostomy 10/25
- 10/27: concern for bleeding/necrosis of bowel; bedside scope report indicates viable tissue beneath skin
- Patient finished course of Merrem/micafungin. Continue Augmentin through 11/10/24
- diet: LRD
- pain control
- f/u CRS in office
Intubation for acute surgical procedures
Ventilatory dependent respiratory failure
- s/p extubation 10/26
- on RA
Acute blood loss anemia on chronic anemia
Retroperitoneal hematoma
- CTAP on 10/31 showing right retroperitoneal hematoma and mild complex abdominal pelvic ascites/mobility
- Follow-up CT angio did not show any acute bleeder
- s/p 2 units PRBC. Hb stable >8.0
- continue Plavix
Hypokalemia
- replace prn
Shock - multifactorial from hemorrhagic and sepsis
Iatrogenic volume overload
- off pressors
- s/p IV diuretics for volume optimization; now on home diuretics
Accelerated hypertension with risk of developing hypertensive emergency
History of underlying Accelerated HTN with multi-drug regimen and history of PARI s/p L Renal artery stenting
- Required Cardene drip in ICU
- Currently on regimen of Toprol-XL/hydralazine/Procardia/Clonidine/ARB
- off HCTZ
History of recurrent rectal prolapse status post ventral mesh rectopexy with recent repair
JACOB on CKD stage 3b
Acute metabolic acidosis
- suspect driven by accelerated HTN and critical illness
- Nephrology following
- Cr 1.5
history of PARI s/p L Renal artery stenting
Peripheral vascular disease
Hypercholesterolemia
- continue ASA/Plavix
- resume Statin at discharge
Former smoker
Hypoglycemia
- resolved
Elevated LFTs from shock liver
- downtrended
Hypocalcemia - improving
Hyponatremia - improving
DVT ppx: SCDs
Code: Full
Anticipated Discharge: 24 - 48 hours
Subjective/Interval History
-
Date of Service: November 07, 2024
no new complaints
tolerating LRD
Objective Data
-
Labs:
Laboratory Results
11/07/24
04:52
WBC 8.9
Hgb 8.6 L
Hct 26.8 L
Plt Count 432 H D
Sodium 136
Potassium 3.5
Chloride 102
Carbon Dioxide 25
BUN 41 H
Creatinine 1.5 H
Glucose 93
Calcium 7.3 L
Vital Signs:
Vital Signs
Temp Pulse Resp BP Pulse Ox
98.9 F 66 16 145/78 95
11/07/24 08:00 11/07/24 08:55 11/07/24 08:00 11/07/24 08:55 11/07/24 08:50
I&O
11/06/24 11/07/24 11/08/24
06:59 06:59 06:59
Intake Total 1920 / 1920 1320 / 1320 120 / 120
Output Total 410 / 410 500 / 500 53 / 53
Balance 1510 / 1510 820 / 820 67 / 67
Physical Exam
-
General: No Apparent Distress
HEENT: Normocephalic and Atraumatic
Respiratory: Negative Wheezes
Cardiac: Regular Rhythm
GI: Soft and Ostomy
Genito-urinary: No Costovertebral Tender
Musculoskeletal: No Edema
Neuro: AO x 3
Hematologic / Lymphatic: No Lymphadenopathy
Psych: Calm
Data Reviewed
-
Total Time Spent with Patient (in minutes): 42
Labs: Labs Reviewed by me
[2024-11-07 14:50] VITALS: BP 140/57
[2024-11-07 15:24] VITALS: BP 131/59; BP 155/93; PULSE 106
--- NOTE | 2024-11-07 17:14 | WOUNDNOTE ---
WOC RN note: jairo/manpreet Oleary, spoke with Danae, ordered patient a Anirudh ostomy secure starter kit.
--- NOTE | 2024-11-07 17:38 | W.PN.NEPH.PH ---
Today's Communication / Plan
-
observe, follow labs
d/c plan
Assessment/Plan
-
64-year-old female past medical history of recurrent rectal prolapse status post ventral mesh rectopexy, hypertension, peripheral vascular disease, hypercholesteremia, anemia, CKD, renal artery stenosis status post left renal stent presenting as a
transfer from [facility] for abscess near sigmoid colon possible perforation.
Renal consult for acute on chronic kidney disease she follows with Dr. Edson Ding gas operations analyst boardman
Baseline creatinine appears to be between 1.8 and 2.0. She presented with a creatinine of 3.2 and a metabolic acidosis
Impression:
Acute on chronic kidney disease.
Acute metabolic acidosis.
Hypertensive urgency.
Pericolonic abscess.
History of renal artery stenosis with left stent.
Postop sigmoid colectomy incidental appendectomy and end sigmoid ostomy
Postop thrombectomy of occluded left iliac limb of aortobifemoral bypass\\left common femoral artery endarterectomy
Plan:
stable renal function
bp stable on multiple meds, HCTZ remains on hold
follow BMP
continue Lasix 80 mg orally daily-edema improving
likely down titrate dose if needed
hypocalcemia corrected normal for alb
d/c plan
-
-
Date of Service: November 07, 2024
CC / HPI / ROS
-
Chief Complaint:
JACOB
History of Present Illness:
JACOB/Cr 1.5 stable
BP stable
Na up to 136, k 3.5
Review of Systems:
nonoliguric with out Rodriguez catheter
No fevers
mild nausea but no vomiting
no cp or sob
edema is much better
Labs
-
Labs:
WBC 8.9 10^3/uL (4.8-10.8) 11/07/24 04:52
RBC 3.08 10^6/uL (4.20-5.40) L 11/07/24 04:52
Hgb 8.6 g/dL (12.0-16.0) L 11/07/24 04:52
Hct 26.8 % (37.0-47.0) L 11/07/24 04:52
Plt Count 432 10^3/uL (130-400) H D 11/07/24 04:52
Sodium 136 mmol/L (135-145) 11/07/24 04:52
Potassium 3.5 mmol/L (3.5-5.1) 11/07/24 04:52
Chloride 102 mmol/L (98-107) 11/07/24 04:52
Carbon Dioxide 25 mmol/L (22-30) 11/07/24 04:52
BUN 41 mg/dl (7-17) H 11/07/24 04:52
Creatinine 1.5 mg/dL (0.6-1.0) H 11/07/24 04:52
eGFR 38.20 11/07/24 04:52
Glucose 93 mg/dl (70-99) 11/07/24 04:52
Calcium 7.3 mg/dl (8.4-10.2) L 11/07/24 04:52
Phosphorus 6.3 mg/dl (2.5-4.5) H 10/25/24 23:26
Albumin 1.6 g/dl (3.5-5.0) L 11/01/24 06:22
Physical Exam
-
Vital Signs:
Vital Signs
Temp Pulse Resp BP Pulse Ox
98.3 F 88 16 140/57 98
11/07/24 14:50 11/07/24 14:50 11/07/24 14:50 11/07/24 14:50 11/07/24 14:50
Cardiovascular:: Regular rate and rhythm
Respiratory:: Bilateral: CTA
Lung Excursion:: Normal
Abdomen:: Nontender and Soft
Extremity Edema:: +1: Bilateral: (trace)
Rodriguez Catheter: No
[2024-11-07 23:13] VITALS: BP 122/70
[2024-11-07] MEDS: ATIVAN 0.5 MG PO (23:51)
[2024-11-08 02:10] VITALS: BMI 25.5
--- NOTE | 2024-11-08 05:11 | PTCARENOTE ---
pt educated skin integrity /bed mobility q2hr turns, pt has refused turning, unwilling to get OOB. Pt was educated at length but continued to decline.
[2024-11-08 07:20] VITALS: BP 167/73
[2024-11-08 07:22] LABS: Hematocrit 24.7 % (37.0-47.0); Hemoglobin 8.1 g/dL (12.0-16.0); Mean Corp Hgb Conc. 32.8 g/dL (33.0-37.0); Mean Corpuscular Hgb 27.9 pg (27.0-31.0); Mean Corpuscular Volume 85.2 fL (81.0-99.0); Mean Platelet Volume 9.9 fL (7.4-10.4); Platelet Count 418 10^3/uL (130-400); Red Cell Dist. Width 15.6 % (11.5-14.5); White Blood Cell Count 9.9 10^3/uL (4.8-10.8)
[2024-11-08 07:42] LABS: Blood Urea Nitrogen 41 mg/dl (7-17); Calcium 7.5 mg/dl (8.4-10.2); Carbon Dioxide 25 mmol/L (22-30); Chloride 101 mmol/L (98-107); Estimated Creatinine Clearance 28 ml/min; Glucose 85 mg/dl (70-99); Potassium 3.4 mmol/L (3.5-5.1); Sodium 135 mmol/L (135-145)
[2024-11-08] MEDS: TOPROL XL 50 MG PO ×2 (09:14→20:14)
[2024-11-08] MEDS: AUGMENTIN 500 MG/125 MG 1 TABLET PO ×2 (09:15→20:13)
[2024-11-08] MEDS: PLAVIX 75 MG PO (09:15)
[2024-11-08] MEDS: APRESOLINE 100 MG PO ×3 (09:15→21:38)
[2024-11-08] MEDS: DIOVAN 80 MG PO (09:15)
[2024-11-08] MEDS: LASIX 80 MG PO (09:15)
[2024-11-08] MEDS: CATAPRES 0.3 MG PO ×3 (09:15→21:37)
[2024-11-08] MEDS: PROCARDIA XL (EXTENDED RELEASE) 30 MG PO (09:16)
[2024-11-08] MEDS: KLOR-CON 40 MEQ PO (09:16)
[2024-11-08] MEDS: LOW STRENGTH ASPIRIN 81 MG PO (09:16)
[2024-11-08] MEDS: LIDOCAINE 4% PATCH 1 PATCH TOPICAL ×2 (09:17)
[2024-11-08] MEDS: PROTONIX 40 MG PO (09:17)
[2024-11-08] MEDS: ROXICODONE 10 MG PO ×3 (09:30→21:35)
--- NOTE | 2024-11-08 11:21 | CM ---
Addendum entered by Samantha Daly 11/08/24 14:48:
Spoke with Koki from [facility]. Requesting updates be sent in Care Port for review
Updates sent
Awaiting determination
Original Note:
Chart reviewed
Called [facility] rehab - on requesting review of referral and return call
Received call from Maureen at [facility] - reviewing referral and will return call with determination of acceptance/bed availability
Will need auth
Plan - TBD - [facility] rehab pending acceptance and auth
--- NOTE | 2024-11-08 13:30 | W.PN.NEPH.PH ---
Today's Communication / Plan
-
d/c plan
Assessment/Plan
-
64-year-old female past medical history of recurrent rectal prolapse status post ventral mesh rectopexy, hypertension, peripheral vascular disease, hypercholesteremia, anemia, CKD, renal artery stenosis status post left renal stent presenting as a
transfer from [facility] for abscess near sigmoid colon possible perforation.
Renal consult for acute on chronic kidney disease she follows with Dr. Edson Ding postal sorting officer [place]
Baseline creatinine appears to be between 1.8 and 2.0. She presented with a creatinine of 3.2 and a metabolic acidosis
Impression:
Acute on chronic kidney disease.
Acute metabolic acidosis.
Hypertensive urgency.
Pericolonic abscess.
History of renal artery stenosis with left stent.
Postop sigmoid colectomy incidental appendectomy and end sigmoid ostomy
Postop thrombectomy of occluded left iliac limb of aortobifemoral bypass\\left common femoral artery endarterectomy
Plan:
stable renal function
bp stable on multiple meds, HCTZ remains on hold
continue Lasix 80 mg orally daily-edema improving
likely down titrate dose if needed
hypocalcemia corrected normal for alb
replace k
d/c plan
BMP next week after d/c and f/u with Dr Toña Bentley
-
-
Date of Service: November 08, 2024
CC / HPI / ROS
-
Chief Complaint:
JACOB
History of Present Illness:
JACOB/Cr 1.5 stable
BP stable
k 3.4
hb stable at 8.1
Review of Systems:
nonoliguric with out Rodriguez catheter
No fevers
no cp or sob
edema is much better
Labs
-
Labs:
WBC 9.9 10^3/uL (4.8-10.8) 11/08/24 05:01
RBC 2.90 10^6/uL (4.20-5.40) L 11/08/24 05:01
Hgb 8.1 g/dL (12.0-16.0) L 11/08/24 05:01
Hct 24.7 % (37.0-47.0) L 11/08/24 05:01
Plt Count 418 10^3/uL (130-400) H 11/08/24 05:01
Sodium 135 mmol/L (135-145) 11/08/24 05:01
Potassium 3.4 mmol/L (3.5-5.1) L 11/08/24 05:01
Chloride 101 mmol/L (98-107) 11/08/24 05:01
Carbon Dioxide 25 mmol/L (22-30) 11/08/24 05:01
BUN 41 mg/dl (7-17) H 11/08/24 05:01
Creatinine 1.5 mg/dL (0.6-1.0) H 11/08/24 05:01
eGFR 38.20 11/08/24 05:01
Glucose 85 mg/dl (70-99) 11/08/24 05:01
Calcium 7.5 mg/dl (8.4-10.2) L 11/08/24 05:01
Phosphorus 6.3 mg/dl (2.5-4.5) H 10/25/24 23:26
Albumin 1.6 g/dl (3.5-5.0) L 11/01/24 06:22
Physical Exam
-
Vital Signs:
Vital Signs
Temp Pulse Resp BP Pulse Ox
98.2 F 92 18 167/73 100
11/08/24 07:20 11/08/24 09:16 11/08/24 07:20 11/08/24 09:16 11/08/24 07:20
Cardiovascular:: Regular rate and rhythm
Respiratory:: Bilateral: CTA
Lung Excursion:: Normal
Abdomen:: Nontender and Soft
Extremity Edema:: None: Bilateral:
Rodriguez Catheter: No
--- NOTE | 2024-11-08 13:35 | W.PN.HOSP.TC ---
Today's Communication/Plan
-
medically stable for dc to rehab pending bed/auth. d/w CM.
Assessment / Plan
Assessment / Plan
Assessment:
Acute left limb threatening ischemia
Acute vascular occlusions of L iliac limb of aorto-fem bypass
- Thrombectomy of occluded left iliac limb of aortobifemoral bypass/Left common femoral artery endarterectomy performed 10/25
- Micky drain has been changed on 11/01
- continue ASA/Plavix
- resume Statin at discharge
Perforated sigmoid colon with pericolonic abscess formation with partial SBO
Acute Sepsis (tachycardia, leukocytosis) from acute GI colonic source
- s/p open sigmoid colectomy, incidental appendectomy, and end sigmoid ostomy 10/25
- 10/27: concern for bleeding/necrosis of bowel; bedside scope report indicates viable tissue beneath skin
- Patient finished course of Merrem/micafungin. Continue Augmentin through 11/10/24
- diet: LRD
- pain control
- f/u CRS in office
Intubation for acute surgical procedures
Ventilatory dependent respiratory failure
- s/p extubation 10/26
- on RA
Acute blood loss anemia on chronic anemia
Retroperitoneal hematoma
- CTAP on 10/31 showing right retroperitoneal hematoma and mild complex abdominal pelvic ascites/mobility
- Follow-up CT angio did not show any acute bleeder
- s/p 2 units PRBC. Hb stable >8.0
- continue Plavix
Hypokalemia
- replace prn
Shock - multifactorial from hemorrhagic and sepsis
Iatrogenic volume overload
- off pressors
- s/p IV diuretics for volume optimization; now on home diuretics
Accelerated hypertension with risk of developing hypertensive emergency
History of underlying Accelerated HTN with multi-drug regimen and history of PARI s/p L Renal artery stenting
- Required Cardene drip in ICU
- Currently on regimen of Toprol-XL/hydralazine/Procardia/Clonidine/ARB
- off HCTZ
History of recurrent rectal prolapse status post ventral mesh rectopexy with recent repair
JACOB on CKD stage 3b
Acute metabolic acidosis
- suspect driven by accelerated HTN and critical illness
- Nephrology following
- Cr 1.5
history of PARI s/p L Renal artery stenting
Peripheral vascular disease
Hypercholesterolemia
- continue ASA/Plavix
- resume Statin at discharge
Former smoker
Hypoglycemia
- resolved
Elevated LFTs from shock liver
- downtrended
Hypocalcemia - improving
Hyponatremia - improving
DVT ppx: SCDs
Code: Full
Anticipated Discharge: 24 - 48 hours
Subjective/Interval History
-
Date of Service: November 08, 2024
no complaints presently
Objective Data
-
Labs:
Laboratory Results
11/08/24
05:01
WBC 9.9
Hgb 8.1 L
Hct 24.7 L
Plt Count 418 H
Sodium 135
Potassium 3.4 L
Chloride 101
Carbon Dioxide 25
BUN 41 H
Creatinine 1.5 H
Glucose 85
Calcium 7.5 L
Vital Signs:
Vital Signs
Temp Pulse Resp BP Pulse Ox
98.2 F 92 18 167/73 100
11/08/24 07:20 11/08/24 09:16 11/08/24 07:20 11/08/24 09:16 11/08/24 07:20
I&O
11/07/24 11/08/24 11/09/24
06:59 06:59 06:59
Intake Total 1320 / 1320 1400 / 1400 720 / 720
Output Total 500 / 500 253 / 253 100 / 100
Balance 820 / 820 1147 / 1147 620 / 620
Physical Exam
-
General: No Apparent Distress
HEENT: Normocephalic and Atraumatic
Cardiac: Regular Rhythm and S1/S2
GI: Soft and Nontender
Genito-urinary: No Costovertebral Tender
Neuro: AO x 3
Hematologic / Lymphatic: No Lymphadenopathy
Psych: Calm
Data Reviewed
-
Total Time Spent with Patient (in minutes): 41
Labs: Labs Reviewed by me
--- NOTE | 2024-11-08 13:45 | WOUNDNOTE ---
WON RN NOTE: Appliance changed today with patient assisting in cutting out wafer and closing tail end. Continued teaching done regarding skin care, emptying, changing appliance and answered all questions. Convex wafer with Mello seal and 2 3/4
appliance used. Supplies at bedside, will follow as needed.
--- NOTE | 2024-11-08 15:19 | W.PN.ID1 ---
Date of Service
Date of Service: November 08, 2024
Today's Communication
Continue antibiotics. See below�
Assessment / Plan
Sigmoid colon perforation secondary to stercoral colitis
- s/p ex lap/sig. colectomy/ end-sigmoid ostomy (10/25/24)
Critical limb ischemia left leg (following above procedure)
- s/p (L) fem graft embolectomy, fem graft endarterectomy with graft repair (10/25/24)
Fecal peritonitis
-Cultures with E. coli and Strep spp.
Leukocytosis resolved
JACOB on CKD
Transaminitis
Anemia
HTN
Dyslipidemia
Anemia
Hx renal artery stenosis
Recommendations:
Leukocytosis resolved.
Continue Augmentin 500 mg po bid through 11/10/24
Thereafter, because of potential graft exposure, and the risk of infection, continue on amoxicillin 500 mg p.o. daily for lifelong suppression.
Will follow-up in office in 1 month.
����������������������������������������������������������
Chief Complaint
-: Other (Perforated viscus (sigmoid colon); critical limb ischemia; fecal peritonitis)
Subjective / Review of Systems
Review of Systems: No Fever and No Chills
Vital Signs / Physical Exam
Vital Signs
Vital Signs
Temp Pulse Resp BP Pulse Ox
98.2 F 92 18 167/73 100
11/08/24 07:20 11/08/24 09:16 11/08/24 07:20 11/08/24 09:16 11/08/24 07:20
Physical Exam
Constitutional: No Acute Distress and Comfortable
Cardiovascular: Regular Rate and S1/S2
Pulmonary: Non Labored
Gastrointestinal: Soft, Non Tender, Non Distended and Other (Ostomy in place. Incision dry and intact)
Extremities: Negative Edema, Cyanosis or Erythema
Neurological: Awake, Alert and Oriented
Objective Data
Lab Data
Lab Results
11/08/24 05:01
11/08/24 05:01
PT 14.5 Sec (11.4-14.6) 10/24/24 22:15
INR 1.10 10/24/24 22:15
APTT 67.8 Sec (23.4-35.0) H 10/31/24 04:02
Estimated Creat Clear 28 ml/min 11/08/24 05:01
Lactic Acid 1.2 mmol/L (0.7-2.0) 10/24/24 22:15
Total Bilirubin 0.4 mg/dl (0.2-1.3) 11/01/24 06:22
AST 104 U/L (14-36) H 11/01/24 06:22
ALT 48 U/L (0-35) H 11/01/24 06:22
Alkaline Phosphatase 97 U/L (38-126) 11/01/24 06:22
Most recent labs reviewed.
Micro Results:
10/28/24 10:34 Blood Culture - Final
Blood/Venous No Growth - Final Report
10/28/24 10:18 Blood Culture - Final
Blood/Venous No Growth - Final Report
10/25/24 14:11 Wound Culture - Final
Abdomen Escherichia coli
Streptococcus species
Gram Stain - Final
10/25/24 14:11 Anaerobic Culture - Final
Abdomen
Imaging:
10/25/2024 CT abdomen angio with runoff: Occlusion of left limb of aorto femoral bypass. Severe stenosis along the proximal and distal right superficial femoral artery. There has been postevacuation of previously seen large volume extraluminal
stool within the pelvis. S/p partial colectomy with left-sided colostomy. Please see full dictation for additional detail.
Care Review
Plan reviewed with: Other Provider (Vascular Surgery)
[2024-11-08 15:30] VITALS: BP 130/65
[2024-11-08 23:15] VITALS: BP 123/62
[2024-11-08] MEDS: ATIVAN 0.5 MG PO (23:16)
[2024-11-09 05:48] LABS: Hematocrit 25.8 % (37.0-47.0); Hemoglobin 8.4 g/dL (12.0-16.0); Mean Corp Hgb Conc. 32.6 g/dL (33.0-37.0); Mean Corpuscular Hgb 28.3 pg (27.0-31.0); Mean Corpuscular Volume 86.9 fL (81.0-99.0); Platelet Count 434 10^3/uL (130-400); Red Blood Cell Count 2.97 10^6/uL (4.20-5.40); Red Cell Dist. Width 15.6 % (11.5-14.5); White Blood Cell Count 11.1 10^3/uL (4.8-10.8)
[2024-11-09 06:00] VITALS: BMI 25.7
[2024-11-09 06:31] LABS: Blood Urea Nitrogen 48 mg/dl (7-17); Calcium 8.2 mg/dl (8.4-10.2); Carbon Dioxide 25 mmol/L (22-30); Chloride 100 mmol/L (98-107); Estimated Creatinine Clearance 25 ml/min; Glucose 90 mg/dl (70-99); Potassium 3.9 mmol/L (3.5-5.1); Sodium 132 mmol/L (135-145); eGFR 32.87
[2024-11-09 07:30] VITALS: BP 168/82
[2024-11-09] MEDS: PLAVIX 75 MG PO (07:55)
[2024-11-09] MEDS: TOPROL XL 50 MG PO ×2 (07:55→20:28)
[2024-11-09] MEDS: LASIX 80 MG PO (07:55)
[2024-11-09] MEDS: PROTONIX 40 MG PO (07:56)
[2024-11-09] MEDS: CATAPRES 0.3 MG PO ×3 (07:56→22:16)
[2024-11-09] MEDS: LOW STRENGTH ASPIRIN 81 MG PO (07:56)
[2024-11-09] MEDS: DIOVAN 80 MG PO (07:56)
[2024-11-09] MEDS: AUGMENTIN 500 MG/125 MG 1 TABLET PO ×2 (07:56→20:28)
[2024-11-09] MEDS: APRESOLINE 100 MG PO ×3 (07:56→22:16)
[2024-11-09] MEDS: PROCARDIA XL (EXTENDED RELEASE) 30 MG PO (07:56)
[2024-11-09] MEDS: ROXICODONE 10 MG PO ×3 (07:57→20:32)
[2024-11-09] MEDS: LIDOCAINE 4% PATCH 1 PATCH TOPICAL ×2 (07:58)
--- NOTE | 2024-11-09 10:02 | W.PN.ID1 ---
Date of Service
Date of Service: November 09, 2024
Today's Communication
Continue abx.
Assessment / Plan
Sigmoid colon perforation secondary to stercoral colitis
- s/p ex lap/sig. colectomy/ end-sigmoid ostomy (10/25/24)
Critical limb ischemia left leg (following above procedure)
- s/p (L) fem graft embolectomy, fem graft endarterectomy with graft repair (10/25/24)
Fecal peritonitis
-Cultures with E. coli and Strep spp.
Leukocytosis resolved
JACOB on CKD
Transaminitis
Anemia
HTN
Dyslipidemia
Anemia
Hx renal artery stenosis
Recommendations:
Leukocytosis resolved.
Continue Augmentin 500 mg po bid through 11/10/24
- Thereafter, because of potential graft exposure, and the risk of infection, continue on amoxicillin 500 mg p.o. daily for lifelong suppression.
Will follow-up in office in 1 month.
����������������������������������������������������������
Chief Complaint
-: Other (Perforated viscus (sigmoid colon); critical limb ischemia; fecal peritonitis)
Subjective / Review of Systems
Review of Systems: No Fever and No Chills
Vital Signs / Physical Exam
Vital Signs
Vital Signs
Temp Pulse Resp BP Pulse Ox
97.9 F 92 16 168/82 95
11/09/24 07:30 11/09/24 07:55 11/09/24 07:30 11/09/24 07:55 11/09/24 07:30
Physical Exam
Constitutional: No Acute Distress and Comfortable
Cardiovascular: Regular Rate and S1/S2
Pulmonary: Non Labored
Gastrointestinal: Soft, Non Tender, Non Distended and Other (Ostomy in place. Incision dry and intact)
Extremities: Negative Edema, Cyanosis or Erythema
Neurological: Awake, Alert and Oriented
Objective Data
Lab Data
Lab Results
11/09/24 04:48
11/09/24 04:48
PT 14.5 Sec (11.4-14.6) 10/24/24 22:15
INR 1.10 10/24/24 22:15
APTT 67.8 Sec (23.4-35.0) H 10/31/24 04:02
Estimated Creat Clear 25 ml/min 11/09/24 04:48
Lactic Acid 1.2 mmol/L (0.7-2.0) 10/24/24 22:15
Total Bilirubin 0.4 mg/dl (0.2-1.3) 11/01/24 06:22
AST 104 U/L (14-36) H 11/01/24 06:22
ALT 48 U/L (0-35) H 11/01/24 06:22
Alkaline Phosphatase 97 U/L (38-126) 11/01/24 06:22
Most recent labs reviewed.
Micro Results:
10/28/24 10:34 Blood Culture - Final
Blood/Venous No Growth - Final Report
10/28/24 10:18 Blood Culture - Final
Blood/Venous No Growth - Final Report
10/25/24 14:11 Wound Culture - Final
Abdomen Escherichia coli
Streptococcus species
Gram Stain - Final
10/25/24 14:11 Anaerobic Culture - Final
Abdomen
Imaging:
10/25/2024 CT abdomen angio with runoff: Occlusion of left limb of aorto femoral bypass. Severe stenosis along the proximal and distal right superficial femoral artery. There has been postevacuation of previously seen large volume extraluminal
stool within the pelvis. S/p partial colectomy with left-sided colostomy. Please see full dictation for additional detail.
--- NOTE | 2024-11-09 11:57 | W.PN.NEPH.PH ---
Today's Communication / Plan
-
await rehab
Assessment/Plan
-
64-year-old female past medical history of recurrent rectal prolapse status post ventral mesh rectopexy, hypertension, peripheral vascular disease, hypercholesteremia, anemia, CKD, renal artery stenosis status post left renal stent presenting as a
transfer from [facility] for abscess near sigmoid colon possible perforation.
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
Baseline creatinine appears to be between 1.8 and 2.0. She presented with a creatinine of 3.2 and a metabolic acidosis
Impression:
Acute on chronic kidney disease.
Acute metabolic acidosis.
Hypertensive urgency.
Pericolonic abscess.
History of renal artery stenosis with left stent.
Postop sigmoid colectomy incidental appendectomy and end sigmoid ostomy
Postop thrombectomy of occluded left iliac limb of aortobifemoral bypass\\left common femoral artery endarterectomy
Plan:
stable renal function
bp stable on multiple meds, HCTZ remains on hold
lasix 40mg po daily
for rehab soon
-
-
Date of Service: November 09, 2024
CC / HPI / ROS
-
Chief Complaint:
JACOB
History of Present Illness:
JACOB/Cr 1.7 stable
BP stable
K normal
Review of Systems:
nonoliguric without Rodriguez catheter
No fevers
no cp or sob
Labs
-
Labs:
WBC 11.1 10^3/uL (4.8-10.8) H 11/09/24 04:48
RBC 2.97 10^6/uL (4.20-5.40) L 11/09/24 04:48
Hgb 8.4 g/dL (12.0-16.0) L 11/09/24 04:48
Hct 25.8 % (37.0-47.0) L 11/09/24 04:48
Plt Count 434 10^3/uL (130-400) H 11/09/24 04:48
Sodium 132 mmol/L (135-145) L 11/09/24 04:48
Potassium 3.9 mmol/L (3.5-5.1) 11/09/24 04:48
Chloride 100 mmol/L (98-107) 11/09/24 04:48
Carbon Dioxide 25 mmol/L (22-30) 11/09/24 04:48
BUN 48 mg/dl (7-17) H 11/09/24 04:48
Creatinine 1.7 mg/dL (0.6-1.0) H 11/09/24 04:48
eGFR 32.87 11/09/24 04:48
Glucose 90 mg/dl (70-99) 11/09/24 04:48
Calcium 8.2 mg/dl (8.4-10.2) L 11/09/24 04:48
Phosphorus 6.3 mg/dl (2.5-4.5) H 10/25/24 23:26
Albumin 1.6 g/dl (3.5-5.0) L 11/01/24 06:22
Physical Exam
-
Vital Signs:
Vital Signs
Temp Pulse Resp BP Pulse Ox
97.9 F 92 16 168/82 95
11/09/24 07:30 11/09/24 07:55 11/09/24 07:30 11/09/24 07:55 11/09/24 07:30
Cardiovascular:: Regular rate and rhythm
Respiratory:: Bilateral: CTA
Lung Excursion:: Normal
Abdomen:: Nontender and Soft
Bowel Sounds:: Normal
Extremity Edema:: None: Bilateral:
--- NOTE | 2024-11-09 13:26 | W.PN.CRS1 ---
Today's Communication / Plan
-
Magdy removed
Dispo
Assessment/Plan
-
64 yo female s/ rectopexy on 09/30 who presented this admission with perforated sigmoid colon secondary to stercoral colitis taken for emergent exploratory laparotomy with left lower limb ischemia noted in pacu
POD# 15 open sigmoid colectomy, incidental appendectomy, and end sigmoid ostomy
POD# 14 thrombectomy of occluded left iliac limb of aortobifemoral bypass/Left common femoral artery endarterectomy
POD #13 bedside flexible sigmoidoscopy revealing pink mucosa under the fascial level of stoma
AFVSS
--LRD as tolerated
--ABX as per ID
--Continue PPI
-- Magdy removed at bedside
--Continue DAPT as per vascular surgery
--Stoma/wound nurse following for stoma care
--Dispo: SNF. Okay from a surgical perspective for d/c.
Subjective Data
Procedure
10/25/2024- open sigmoid colectomy, incidental appendectomy, and end sigmoid ostomy
10/25/2024- Thrombectomy of occluded left iliac limb of aortobifemoral bypass/Left common femoral artery endarterectomy
Subjective Data
Date of Service: November 09, 2024
Patient states she feels well. She denies nausea or vomiting. She has very minimal pain. She is tolerating diet.
Objective Data
-
Vital Signs
Temp Pulse Resp BP Pulse Ox
97.9 F 92 16 168/82 95
11/09/24 07:30 11/09/24 07:55 11/09/24 07:30 11/09/24 07:55 11/09/24 07:30
Intake & Output
11/08/24 11/09/24 11/10/24
06:59 06:59 06:59
Intake Total 1400 / 1400 1200 / 1200
Output Total 253 / 253 100 / 100
Balance 1147 / 1147 1100 / 1100
Intake:
Oral fluids 1400 / 1400 1200 / 1200
Output:
Liquid stool amount 250 / 250 100 / 100
Colostomy 250 / 250 100 / 100
Drain Output (Total)
Right Abdomen Shamar-Adams
Other:
How many times incontinent 1 1
MODERATE amount urine
How many times incontinent 2 2 1
SATURATED amount urine
Lab Results
11/09/24 04:48
11/09/24 04:48
Physical Exam
-
General: No Acute Distress and AOx3
Abdomen: Soft, Non Distended and Non Tender
Skin: Warm and Dry
Wound: Other (Magdy in place)
[2024-11-09 15:04] VITALS: BP 178/79; PULSE 91; O2SAT 97
--- NOTE | 2024-11-09 15:23 | W.PN.HOSP.TC ---
Today's Communication/Plan
-
medically stable for dc to rehab pending bed/auth. d/w CM.
Assessment / Plan
Assessment / Plan
Assessment:
Acute left limb threatening ischemia
Acute vascular occlusions of L iliac limb of aorto-fem bypass
- Thrombectomy of occluded left iliac limb of aortobifemoral bypass/Left common femoral artery endarterectomy performed 10/25
- Micky drain has been changed on 11/01
- continue ASA/Plavix
- resume Statin at discharge
- Amoxil 500mg daily for lifelong suppression given potential graft exposure
Perforated sigmoid colon with pericolonic abscess formation with partial SBO
Acute Sepsis (tachycardia, leukocytosis) from acute GI colonic source
- s/p open sigmoid colectomy, incidental appendectomy, and end sigmoid ostomy 10/25
- 10/27: concern for bleeding/necrosis of bowel; bedside scope report indicates viable tissue beneath skin
- Patient finished course of Merrem/micafungin. Continue Augmentin through 11/10/24.
- diet: LRD
- pain control
- f/u CRS in office
Intubation for acute surgical procedures
Ventilatory dependent respiratory failure
- s/p extubation 10/26
- on RA
Acute blood loss anemia on chronic anemia
Retroperitoneal hematoma
- CTAP on 10/31 showing right retroperitoneal hematoma and mild complex abdominal pelvic ascites/mobility
- Follow-up CT angio did not show any acute bleeder
- s/p 2 units PRBC. Hb stable >8.0
- continue Plavix
Hypokalemia
- replace prn
Shock - multifactorial from hemorrhagic and sepsis
Iatrogenic volume overload
- off pressors
- s/p IV diuretics for volume optimization; now on home diuretics (Lasix 40mg)
Accelerated hypertension with risk of developing hypertensive emergency
History of underlying Accelerated HTN with multi-drug regimen and history of PARI s/p L Renal artery stenting
- Required Cardene drip in ICU
- Currently on regimen of Toprol-XL/hydralazine/Procardia/Clonidine/ARB
- off HCTZ
History of recurrent rectal prolapse status post ventral mesh rectopexy with recent repair
JACOB on CKD stage 3b
Acute metabolic acidosis
- suspect driven by accelerated HTN and critical illness
- Nephrology following
- Cr 1.5 to 1.7
history of PARI s/p L Renal artery stenting
Peripheral vascular disease
Hypercholesterolemia
- continue ASA/Plavix
- resume Statin at discharge
Former smoker
Hypoglycemia
- resolved
Elevated LFTs from shock liver
- downtrended
Hypocalcemia - improving
Hyponatremia - improving
DVT ppx: SCDs
Code: Full
Anticipated Discharge: Within 24 hours
Subjective/Interval History
-
Date of Service: November 09, 2024
no overnight events
accepted at acute rehab pending auth
Objective Data
-
Labs:
Laboratory Results
11/09/24
04:48
WBC 11.1 H
Hgb 8.4 L
Hct 25.8 L
Plt Count 434 H
Sodium 132 L
Potassium 3.9
Chloride 100
Carbon Dioxide 25
BUN 48 H
Creatinine 1.7 H
Glucose 90
Calcium 8.2 L
Vital Signs:
Vital Signs
Temp Pulse Resp BP Pulse Ox
97.9 F 92 16 168/82 95
11/09/24 07:30 11/09/24 07:55 11/09/24 07:30 11/09/24 07:55 11/09/24 07:30
I&O
11/08/24 11/09/24 11/10/24
06:59 06:59 06:59
Intake Total 1400 / 1400 1200 / 1200
Output Total 253 / 253 100 / 100
Balance 1147 / 1147 1100 / 1100
Physical Exam
-
General: No Apparent Distress
HEENT: Normocephalic and Atraumatic
Respiratory: Negative Wheezes
Cardiac: Regular Rhythm and S1/S2
GI: Soft and Nontender
Musculoskeletal: No Edema
Neuro: AO x 3
Hematologic / Lymphatic: No Lymphadenopathy
Psych: Calm
Data Reviewed
-
Total Time Spent with Patient (in minutes): 41
Labs: Labs Reviewed by me
[2024-11-09 15:25] VITALS: BP 143/83
--- NOTE | 2024-11-09 16:27 | CM ---
Chart reviewed
Medically ready for discharge
[facility] - pt aware
Spoke with Sylvain at [facility] to initiate auth
Pend Ref # - [id number]
Clinicals faxed to [phone]
Plan - [facility] when auth obtained
[2024-11-09] MEDS: ATIVAN 0.5 MG PO (22:16)
[2024-11-09 23:10] VITALS: BP 123/67
[2024-11-10] MEDS: ROXICODONE 10 MG PO ×3 (01:25→15:35)
--- NOTE | 2024-11-10 02:24 | PTCARENOTE ---
01:25 PT c/o acute left foot pain, on assessment pedal area of foot had increased swelling and pt c/o pain 10/10. Foot with +2pedal edema, + pulse, warm with good cap refill. Pts' JAYME drain was noticed off and not functioning after trouble shooting
without success, QUARTER LINING SMOOTHER notified and was quickly at bedside to assess.PT has been declining to get out of bed and minimal bed mobility.Pt was reported out of bed during day shift for several hours11/09 and lasix was decreased from 80mg to 40mg, which may
have contributed to increase swelling and soreness. Education Finance Processor notified new JAYME drain need, prn pain med administered, foot elevated, continues to be monitored ,care plan followed. Dr Rodriguez notified.
--- NOTE | 2024-11-10 02:48 | PTCARENOTE ---
02:40 pt left foot with +pulses, warm,< 3 cap refill. On assessment, foot is elevated and edema is resolving, pain is decreased as evidenced by pt sleeping during assessment.
--- NOTE | 2024-11-10 03:12 | PTCARENOTE ---
3:12 late entry , previous shifts have reported pt turning off JAYME drain because pt was not happy with the vibrations the drain was making.
[2024-11-10 05:55] LABS: Hematocrit 25.3 % (37.0-47.0); Hemoglobin 8.1 g/dL (12.0-16.0); Mean Corpuscular Hgb 27.5 pg (27.0-31.0); Mean Corpuscular Volume 85.8 fL (81.0-99.0); Platelet Count 442 10^3/uL (130-400); Red Blood Cell Count 2.95 10^6/uL (4.20-5.40); Red Cell Dist. Width 15.5 % (11.5-14.5)
[2024-11-10 06:00] VITALS: BMI 25.9
[2024-11-10 06:16] LABS: Blood Urea Nitrogen 51 mg/dl (7-17); Calcium 7.9 mg/dl (8.4-10.2); Carbon Dioxide 26 mmol/L (22-30); Chloride 99 mmol/L (98-107); Estimated Creatinine Clearance 23 ml/min; Glucose 93 mg/dl (70-99); Potassium 3.9 mmol/L (3.5-5.1); Sodium 134 mmol/L (135-145); eGFR 30.69
[2024-11-10 07:25] VITALS: BP 134/88
--- NOTE | 2024-11-10 07:51 | CM ---
ARACELI Miles from [facility] re Acute Rehab request
Additional PT/OT notes faxed to [phone]
[2024-11-10] MEDS: PROCARDIA XL (EXTENDED RELEASE) 30 MG PO (09:23)
[2024-11-10] MEDS: DIOVAN 80 MG PO (09:23)
[2024-11-10] MEDS: LASIX 40 MG PO (09:23)
[2024-11-10] MEDS: APRESOLINE 100 MG PO ×2 (09:23→15:19)
[2024-11-10] MEDS: CATAPRES 0.3 MG PO ×2 (09:23→15:18)
[2024-11-10] MEDS: PLAVIX 75 MG PO (09:24)
[2024-11-10] MEDS: AUGMENTIN 500 MG/125 MG 1 TABLET PO ×2 (09:24→15:19)
[2024-11-10] MEDS: PROTONIX 40 MG PO (09:24)
[2024-11-10] MEDS: TOPROL XL 50 MG PO (09:24)
[2024-11-10] MEDS: LOW STRENGTH ASPIRIN 81 MG PO (09:24)
[2024-11-10] MEDS: LIDOCAINE 4% PATCH 1 PATCH TOPICAL ×2 (09:24)
--- NOTE | 2024-11-10 10:04 | W.PN.CRS1 ---
Today's Communication / Plan
-
doppler LLE
Assessment/Plan
-
64 yo female s/ rectopexy on 09/30 who presented this admission with perforated sigmoid colon secondary to stercoral colitis taken for emergent exploratory laparotomy with left lower limb ischemia noted in pacu
POD# 16 open sigmoid colectomy, incidental appendectomy, and end sigmoid ostomy
POD# 15 thrombectomy of occluded left iliac limb of aortobifemoral bypass/Left common femoral artery endarterectomy
POD #14 bedside flexible sigmoidoscopy revealing pink mucosa under the fascial level of stoma
AFVSS
--LRD as tolerated
--ABX as per ID
--Continue PPI
--Continue DAPT as per vascular surgery
--Stoma/wound nurse following for stoma care
--Dispo: SNF.
-Given left leg pain, I will notify vascular. Discussed with hospitalist will order a Doppler ultrasound.
Subjective Data
Procedure
10/25/2024- open sigmoid colectomy, incidental appendectomy, and end sigmoid ostomy
10/25/2024- Thrombectomy of occluded left iliac limb of aortobifemoral bypass/Left common femoral artery endarterectomy
Subjective Data
Date of Service: November 10, 2024
Patient has not been nausea or vomiting. She has crampy abdominal discomfort but no real pain. Her main complaint is that she has left leg pain.
Objective Data
-
Vital Signs
Temp Pulse Resp BP Pulse Ox
98.9 F 95 16 134/88 98
11/10/24 07:25 11/10/24 07:25 11/10/24 07:25 11/10/24 07:25 11/10/24 07:25
Intake & Output
11/09/24 11/10/24 11/11/24
06:59 06:59 06:59
Intake Total 1200 / 1200 960 / 960
Output Total 100 / 100 200 / 200
Balance 1100 / 1100 760 / 760
Intake:
Oral fluids 1200 / 1200 960 / 960
Output:
Liquid stool amount 100 / 100 200 / 200
Colostomy 100 / 100 200 / 200
Other:
How many times incontinent 1
MODERATE amount urine
How many times incontinent 2 2
SATURATED amount urine
Lab Results
11/10/24 04:39
11/10/24 04:39
Physical Exam
-
General: No Acute Distress and AOx3
Abdomen: Soft, Non Distended, Non Tender and Other (Ileostomy warm and pink with output)
Incision: Clear, Dry, Intact
--- NOTE | 2024-11-10 12:10 | CM ---
Addendum entered by Samantha Daly 11/10/24 13:45:
Spoke with Koki at [facility] - can accept today
Given auth info
Plan - transfer to [facility]
R - [phone]
F - [phone]
Original Note:
Received call from Anna at [facility]
Acute Rehab auth approved - start date 11/10-11/17
NRD 11/17. Fax clinicals to [phone]
Auth # - [id number]
Dr Armijo made aware
Pt had ultrasound this AM - awaiting results
Plan - [facility] rehab when medically stable
--- NOTE | 2024-11-10 13:18 | W.PN.ID1 ---
Date of Service
Date of Service: November 10, 2024
Today's Communication
Continue antibiotics.
Assessment / Plan
Sigmoid colon perforation secondary to stercoral colitis
- s/p ex lap/sig. colectomy/ end-sigmoid ostomy (10/25/24)
Critical limb ischemia left leg (following exp lap)
- s/p (L) fem graft embolectomy, fem graft endarterectomy with graft repair (10/25/24)
Fecal peritonitis
-Cultures with E. coli and Strep spp.
Leukocytosis resolved
JACOB on CKD
Transaminitis
Anemia
HTN
Dyslipidemia
Anemia
Hx renal artery stenosis
Recommendations:
Leukocytosis resolved.
Continue Augmentin 500 mg po bid through 11/10/24
- Thereafter, because of potential graft exposure, and the risk of infection, continue on amoxicillin 500 mg p.o. daily for lifelong suppression.
Will follow-up in office in 1 month.
����������������������������������������������������������
Chief Complaint
-: Other (Perforated viscus (sigmoid colon); critical limb ischemia; fecal peritonitis)
Subjective / Review of Systems
Review of Systems: No Fever and No Chills
Vital Signs / Physical Exam
Vital Signs
Vital Signs
Temp Pulse Resp BP Pulse Ox
98.9 F 95 16 134/88 98
11/10/24 07:25 11/10/24 07:25 11/10/24 07:25 11/10/24 07:25 11/10/24 07:25
Physical Exam
Constitutional: No Acute Distress, Comfortable and Non-toxic
Eyes: Sclera Anicteric
Cardiovascular: Regular Rate and S1/S2
Pulmonary: Non Labored
Gastrointestinal: Soft, Non Tender, Non Distended and Other (Ostomy in place. Incision dry and intact)
Extremities: Edema and Pulses; Negative Cyanosis or Erythema
Neurological: Awake, Alert and Oriented
Objective Data
Lab Data
Lab Results
11/10/24 04:39
11/10/24 04:39
PT 14.5 Sec (11.4-14.6) 10/24/24 22:15
INR 1.10 10/24/24 22:15
APTT 67.8 Sec (23.4-35.0) H 10/31/24 04:02
Estimated Creat Clear 23 ml/min 11/10/24 04:39
Lactic Acid 1.2 mmol/L (0.7-2.0) 10/24/24 22:15
Total Bilirubin 0.4 mg/dl (0.2-1.3) 11/01/24 06:22
AST 104 U/L (14-36) H 11/01/24 06:22
ALT 48 U/L (0-35) H 11/01/24 06:22
Alkaline Phosphatase 97 U/L (38-126) 11/01/24 06:22
Most recent labs reviewed.
Micro Results:
10/28/24 10:34 Blood Culture - Final
Blood/Venous No Growth - Final Report
10/28/24 10:18 Blood Culture - Final
Blood/Venous No Growth - Final Report
10/25/24 14:11 Wound Culture - Final
Abdomen Escherichia coli
Streptococcus species
Gram Stain - Final
10/25/24 14:11 Anaerobic Culture - Final
Abdomen
Imaging:
10/25/2024 CT abdomen angio with runoff: Occlusion of left limb of aorto femoral bypass. Severe stenosis along the proximal and distal right superficial femoral artery. There has been postevacuation of previously seen large volume extraluminal
stool within the pelvis. S/p partial colectomy with left-sided colostomy. Please see full dictation for additional detail.
--- NOTE | 2024-11-10 13:24 | W.PN.HOSP.TC ---
Today's Communication/Plan
-
dc to acute rehab
Assessment / Plan
Assessment / Plan
Assessment:
Acute left limb threatening ischemia
Acute vascular occlusions of L iliac limb of aorto-fem bypass
- Thrombectomy of occluded left iliac limb of aortobifemoral bypass/Left common femoral artery endarterectomy performed 10/25
- Micky drain has been changed on 11/01
- continue ASA/Plavix
- resume Statin at discharge
- Amoxil 500mg daily for lifelong suppression given potential graft exposure
Perforated sigmoid colon with pericolonic abscess formation with partial SBO
Acute Sepsis (tachycardia, leukocytosis) from acute GI colonic source
- s/p open sigmoid colectomy, incidental appendectomy, and end sigmoid ostomy 10/25
- 10/27: concern for bleeding/necrosis of bowel; bedside scope report indicates viable tissue beneath skin
- Patient finished course of Merrem/micafungin. Complete Augmentin course.
- diet: LRD
- pain control
- f/u CRS in office
Intubation for acute surgical procedures
Ventilatory dependent respiratory failure
- s/p extubation 10/26
- on RA
Acute blood loss anemia on chronic anemia
Retroperitoneal hematoma
- CTAP on 10/31 showing right retroperitoneal hematoma and mild complex abdominal pelvic ascites/mobility
- Follow-up CT angio did not show any acute bleeder
- s/p 2 units PRBC. Hb stable >8.0
- continue Plavix
Hypokalemia
- replace prn
Shock - multifactorial from hemorrhagic and sepsis
Iatrogenic volume overload
- off pressors
- s/p IV diuretics for volume optimization; now on home diuretics (Lasix 40mg)
Accelerated hypertension with risk of developing hypertensive emergency
History of underlying Accelerated HTN with multi-drug regimen and history of PARI s/p L Renal artery stenting
- Required Cardene drip in ICU
- Currently on regimen of Toprol-XL/hydralazine/Procardia/Clonidine/ARB
- off HCTZ
History of recurrent rectal prolapse status post ventral mesh rectopexy with recent repair
JACOB on CKD stage 3b
Acute metabolic acidosis
- suspect driven by accelerated HTN and critical illness
- Nephrology following
- Cr 1.5 to 1.7
history of PARI s/p L Renal artery stenting
Peripheral vascular disease
Hypercholesterolemia
- continue ASA/Plavix
- resume Statin at discharge
Former smoker
Hypoglycemia
- resolved
Elevated LFTs from shock liver
- downtrended
Hypocalcemia - improving
Hyponatremia - improving
DVT ppx: SCDs
Code: Full
More than 30 minutes spent in discharge including
Final examination of the patient
Summarizing hospital stay
Instructions for continuing care to all relevant caregivers
Preparation of discharge records, prescriptions, and referral forms
Total time spent (in minutes): 41
Anticipated Discharge: Today
Subjective/Interval History
-
Date of Service: November 10, 2024
some leg pain this AM in the left leg but US (venous, arterial) unremarkable
pain now resolved
Objective Data
-
Labs:
Laboratory Results
11/10/24
04:39
WBC 11.0 H
Hgb 8.1 L
Hct 25.3 L
Plt Count 442 H
Sodium 134 L
Potassium 3.9
Chloride 99
Carbon Dioxide 26
BUN 51 H
Creatinine 1.8 H
Glucose 93
Calcium 7.9 L
Vital Signs:
Vital Signs
Temp Pulse Resp BP Pulse Ox
98.9 F 95 16 134/88 98
11/10/24 07:25 11/10/24 07:25 11/10/24 07:25 11/10/24 07:25 11/10/24 07:25
I&O
11/09/24 11/10/24 11/11/24
06:59 06:59 06:59
Intake Total 1200 / 1200 960 / 960
Output Total 100 / 100 200 / 200
Balance 1100 / 1100 760 / 760
Physical Exam
-
General: No Apparent Distress
HEENT: Normocephalic and Atraumatic
Respiratory: Negative Wheezes
Cardiac: Regular Rhythm and S1/S2
GI: Soft
Genito-urinary: No Costovertebral Tender
Neuro: AO x 3
Hematologic / Lymphatic: No Lymphadenopathy
Psych: Calm
Data Reviewed
-
Total Time Spent with Patient (in minutes): 42
Labs: Labs Reviewed by me
--- NOTE | 2024-11-10 13:36 | W.DS.TRANS ---
DC Summary - Top Inventory Control Executive
-
Discharge Instructions:
Discharge Diagnosis/Procedures Acute vascular occlusion L iliac limb s/p
Thrombectomy of occluded left iliac limb of
aortobifemoral bypass/Left common femoral artery
endarterectomy performed 10/25
Perforated sigmoid colon with pericolonic
abscess formation with partial SBO s/p open
sigmoid colectomy, incidental appendectomy, and
end sigmoid ostomy 10/25
Retroperitoneal hematoma
Diet Low Residue
Activity No strenuous activity
Additional Activity No lifting over 10lbs (gallon of milk)
Driving Restrictions Not until seen by your Dr
Bathing Restrictions OK to Shower
Blood Work BMP in 1 week
Wound Care The white JAYME dressing on the left groin site
can be peeled off and removed on 11/08/24, you
may throw the dressing and battery pack away.
Until removal date you may disconnect at hub
closest to your body to shower and re-connect
after shower
The battery pack will vibrate and blink
different colors, this is normal.
If the dressing becomes saturated or peels away
before removal date that is ok, you may remove
it at that time.
After removal if you would like to cover the
site with gauze you may, change this daily. You
also may leave open to air.
DO NOT SOAK incision. Showering is fine but no
standing water(tub/pool).
Keep this incision as dry as you can when not
showering.
The anju will be removed in the office during
your appointment with Dr. Melendez.
Instructions: Low-fiber diet
Stand-Alone Forms: DC Instr - Vascular OR
Changes to Home Medications: No
Discharge Medications:
DC Medications w/original date entered in [facility]
acetaminophen 500 mg capsule 1,000 mg PO Q6H PRN pain 09/26/24
atorvastatin 20 mg tablet 20 mg PO DAILY High Cholesterol 09/26/24
cholecalciferol (vitamin D3) 25 mcg (1,000 unit) tablet (Vitamin D3) 25 mcg PO DAILY Supplement 09/26/24
clopidogrel 75 mg tablet (Plavix) 75 mg PO DAILY Blood Clot Prevention/Tx 09/26/24
hydralazine 100 mg tablet 100 mg PO TID Blood Pressure 09/26/24
[id number]-Ca carb-vit K 18 mg iron-400 mcg-500 mg tablet (Women's One Daily) 1 tab PO DAILY Supplement 09/26/24
trazodone 50 mg tablet 50 mg PO HS Pain 10/26/24
aspirin 81 mg chewable tablet 81 mg PO DAILY #100 tabs 11/10/24
clonidine HCl 0.3 mg tablet 0.3 mg PO TID #90 tabs 11/10/24
furosemide 40 mg tablet 40 mg PO DAILY #30 tabs 11/10/24
lidocaine 4 % topical patch 1 patch topical DAILY #30 ea 11/10/24
lidocaine 4 % topical patch 1 patch topical DAILY #30 ea 11/10/24
lorazepam 0.5 mg tablet 0.5 mg PO Q8HPRN PRN anxiety #5 tabs 11/10/24
metoprolol succinate 50 mg tablet,extended release 24 hr 50 mg PO BID #60 tabs 11/10/24
nifedipine 30 mg tablet,extended release 30 mg PO DAILY #30 tabs 11/10/24
oxycodone 5 mg tablet 5 mg PO Q4HPRN PRN mod pain #10 tabs 11/10/24
pantoprazole 40 mg tablet,delayed release 40 mg PO DAILY #30 tabs 11/10/24
valsartan 40 mg tablet 80 mg (2 x 40 mg) PO DAILY #60 tabs 11/10/24
Home Medication Changes
Pending Results: No
Total time spent discharging patient (in min): 41
--- NOTE | 2024-11-10 13:54 | W.PN.NEPH.PH ---
Today's Communication / Plan
-
follow BMP
Assessment/Plan
-
64-year-old female past medical history of recurrent rectal prolapse status post ventral mesh rectopexy, hypertension, peripheral vascular disease, hypercholesteremia, anemia, CKD, renal artery stenosis status post left renal stent presenting as a
transfer from [facility] for abscess near sigmoid colon possible perforation.
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
Baseline creatinine appears to be between 1.8 and 2.0. She presented with a creatinine of 3.2 and a metabolic acidosis
Impression:
Acute on chronic kidney disease.
Acute metabolic acidosis.
Hypertensive urgency.
Pericolonic abscess.
History of renal artery stenosis with left stent.
Postop sigmoid colectomy incidental appendectomy and end sigmoid ostomy
Postop thrombectomy of occluded left iliac limb of aortobifemoral bypass\\left common femoral artery endarterectomy
Plan:
stable renal function
using lasix instead of HCTZ
for rehab soon
-
-
Date of Service: November 10, 2024
CC / HPI / ROS
-
Chief Complaint:
JACOB
History of Present Illness:
JACOB/Cr 1.8 stable
BP stable
Na 134
K normal
Review of Systems:
nonoliguric without Rodriguez catheter
No fevers
no cp or sob
Labs
-
Labs:
WBC 11.0 10^3/uL (4.8-10.8) H 11/10/24 04:39
RBC 2.95 10^6/uL (4.20-5.40) L 11/10/24 04:39
Hgb 8.1 g/dL (12.0-16.0) L 11/10/24 04:39
Hct 25.3 % (37.0-47.0) L 11/10/24 04:39
Plt Count 442 10^3/uL (130-400) H 11/10/24 04:39
Sodium 134 mmol/L (135-145) L 11/10/24 04:39
Potassium 3.9 mmol/L (3.5-5.1) 11/10/24 04:39
Chloride 99 mmol/L (98-107) 11/10/24 04:39
Carbon Dioxide 26 mmol/L (22-30) 11/10/24 04:39
BUN 51 mg/dl (7-17) H 11/10/24 04:39
Creatinine 1.8 mg/dL (0.6-1.0) H 11/10/24 04:39
eGFR 30.69 11/10/24 04:39
Glucose 93 mg/dl (70-99) 11/10/24 04:39
Calcium 7.9 mg/dl (8.4-10.2) L 11/10/24 04:39
Phosphorus 6.3 mg/dl (2.5-4.5) H 10/25/24 23:26
Albumin 1.6 g/dl (3.5-5.0) L 11/01/24 06:22
Physical Exam
-
Vital Signs:
Vital Signs
Temp Pulse Resp BP Pulse Ox
98.9 F 95 16 134/88 98
11/10/24 07:25 11/10/24 07:25 11/10/24 07:25 11/10/24 07:25 11/10/24 07:25
Cardiovascular:: Regular rate and rhythm
Respiratory:: Bilateral: Coarse
Lung Excursion:: Normal
Abdomen:: Nontender and Soft
Bowel Sounds:: Normal
Extremity Edema:: None: Bilateral:
--- NOTE | 2024-11-10 15:44 | PTCARENOTE ---
[facility] and phone number left with supervisor felling bucking for accepting RN to call back. care remains ongoing.
[2024-11-10 15:52] VITALS: BP 130/75
== END 2024-11-10 18:30 | DRG 853 ==
LOC: 2 SOUTH 20:37
PROVIDERS: Hospitalist; Nurse Practitioner; Nurse Practitioner Family; Nurse Practitioner Primary Care; Registered Nurse; Specialist; Surgery; Surgery Vascular Surgery; ADMITTING PHYSICIAN Hospitalist; ATTENDING PHYSICIAN Internal Medicine; CONSULT PHYSICIAN Internal Medicine Infectious Disease; CONSULT PHYSICIAN Internal Medicine Nephrology; CONSULT PHYSICIAN Physical Medicine & Rehabilitation; OTHER PHYSICIAN Internal Medicine Critical Care Medicine; OTHER PHYSICIAN Surgery; OTHER PHYSICIAN Surgery Vascular Surgery
PROC: 0BH17EZ Insertion of Endotracheal Airway into Trachea, Via Natural or Artificial Opening (ICD-10-PCS; 2024-10-25)
PROC: 0DTJ0ZZ Resection of Appendix, Open Approach (ICD-10-PCS; 2024-10-25)
PROC: 0DTN0ZZ Resection of Sigmoid Colon, Open Approach (ICD-10-PCS; 2024-10-25)
PROC: 3E0M05Z Introduction of Adhesion Barrier into Peritoneal Cavity, Open Approach (ICD-10-PCS; 2024-10-25)
PROC: 04CD0ZZ Extirpation of Matter from Left Common Iliac Artery, Open Approach (ICD-10-PCS; 2024-10-25)
PROC: 3E1M38Z Irrigation of Peritoneal Cavity using Irrigating Substance, Percutaneous Approach (ICD-10-PCS; 2024-10-25)
PROC: 5A1935Z Respiratory Ventilation, Less than 24 Consecutive Hours (ICD-10-PCS; 2024-10-25)
PROC: 04UL0JZ Supplement Left Femoral Artery with Synthetic Substitute, Open Approach (ICD-10-PCS; 2024-10-25)
PROC: 04CL0ZZ Extirpation of Matter from Left Femoral Artery, Open Approach (ICD-10-PCS; 2024-10-25)
PROC: 0D1M0Z4 Bypass Descending Colon to Cutaneous, Open Approach (ICD-10-PCS; 2024-10-25)
PROC: 0DBU0ZZ Excision of Omentum, Open Approach (ICD-10-PCS; 2024-10-25)
PROC: 0D9670Z Drainage of Stomach with Drainage Device, Via Natural or Artificial Opening (ICD-10-PCS; 2024-10-25)
PROC: B41G1ZZ Fluoroscopy of Left Lower Extremity Arteries using Low Osmolar Contrast (ICD-10-PCS; 2024-10-25)
PROC: 047D3EZ Dilation of Left Common Iliac Artery with Two Intraluminal Devices, Percutaneous Approach (ICD-10-PCS; 2024-10-25)
PROC: 30243N1 Transfusion of Nonautologous Red Blood Cells into Central Vein, Percutaneous Approach (ICD-10-PCS; 2024-10-26)
PROC: 0BP1XDZ Removal of Intraluminal Device from Trachea, External Approach (ICD-10-PCS; 2024-10-26)
PROC: 0DJ64ZZ Inspection of Stomach, Percutaneous Endoscopic Approach (ICD-10-PCS; 2024-10-27)
PROC: 30233N1 Transfusion of Nonautologous Red Blood Cells into Peripheral Vein, Percutaneous Approach (ICD-10-PCS; 2024-10-31)
DX: A41.9 Sepsis, unspecified organism (principal); J96.90 Respiratory failure, unspecified, unspecified whether with hypoxia or hypercapnia; K63.1 Perforation of intestine (nontraumatic); R65.21 Severe sepsis with septic shock; T81.19XA Other postprocedural shock, initial encounter; K72.00 Acute and subacute hepatic failure without coma; K68.3 Retroperitoneal hematoma; N17.9 Acute kidney failure, unspecified; E87.21 Acute metabolic acidosis; K63.0 Abscess of intestine; I16.1 Hypertensive emergency; K68.11 Postprocedural retroperitoneal abscess; I74.5 Embolism and thrombosis of iliac artery; I74.3 Embolism and thrombosis of arteries of the lower extremities; I75.022 Atheroembolism of left lower extremity; K56.600 Partial intestinal obstruction, unspecified as to cause; D62 Acute posthemorrhagic anemia; E87.1 Hypo-osmolality and hyponatremia; J98.11 Atelectasis; K94.09 Other complications of colostomy; R65.20 Severe sepsis without septic shock; I12.9 Hypertensive chronic kidney disease with stage 1 through stage 4 chronic kidney disease, or unspecified chronic kidney disease; I70.422 Atherosclerosis of autologous vein bypass graft(s) of the extremities with rest pain, left leg; N18.32 Chronic kidney disease, stage 3b; E78.00 Pure hypercholesterolemia, unspecified; R73.9 Hyperglycemia, unspecified; B95.5 Unspecified streptococcus as the cause of diseases classified elsewhere; B96.20 Unspecified Escherichia coli [E. coli] as the cause of diseases classified elsewhere; E87.6 Hypokalemia; D50.9 Iron deficiency anemia, unspecified; E87.70 Fluid overload, unspecified; I71.40 Abdominal aortic aneurysm, without rupture, unspecified; M21.372 Foot drop, left foot; E83.51 Hypocalcemia; E16.2 Hypoglycemia, unspecified; Y83.8 Other surgical procedures as the cause of abnormal reaction of the patient, or of later complication, without mention of misadventure at the time of the procedure; Y92.239 Unspecified place in hospital as the place of occurrence of the external cause; Z87.891 Personal history of nicotine dependence; Z88.6 Allergy status to analgesic agent; Z88.2 Allergy status to sulfonamides; Z79.02 Long term (current) use of antithrombotics/antiplatelets; Z86.79 Personal history of other diseases of the circulatory system; Z87.19 Personal history of other diseases of the digestive system
CPT/HCPCS: 88304; 88307; 88311; 35876; 37221; 71045; 74018; 74174; 74176; 75635; 80048; 80053; 81003; 81015; 82805; 82962; 83605; 83735; 84100; 85014; 85018; 85025; 85027; 85610; 85730; 86850; 86900; 86901; 86920; 87040; 87070; 87075; 87077; 87186; 87205; 93005; 93922; 93970; 94002; 94003; 97116; 97163; 97167; 97530; 97535; C1757; C1769; C1776; C1874; C1894; P9016; P9045; Q9967

== ENCOUNTER → 2024-12-21 11:08 | Outpatient (REF) | payer MEDICARE, SELFPAY | LOC: RAD 11:08 | PROVIDERS: ATTENDING PHYSICIAN Registered Nurse; FAMILY PHYSICIAN Family Medicine | DX: I73.9 Peripheral vascular disease, unspecified (principal) | CPT/HCPCS: 93922; 93925 ==

== ENCOUNTER 2024-12-29 16:52 | Inpatient (IN) | payer MEDICARE, SELFPAY ==
[2024-12-29] VITALS (23 sets, daily range): BP systolic 138–227; BP diastolic 76–138; PULSE 2–108; BMI 21.6; BMI 23.0
--- NOTE | 2024-12-29 12:04 | ED.GENMED ---
History of Present Illness
<Iris Heath PA-C - Last Filed: 12/29/24 20:07>
General
Chief Complaint: Swelling
Source: patient
Exam Limitations: none
Time Seen by Provider: 12/29/24 12:01
Nursing documentation reviewed up to this point in time: agreed with
History of Present Illness
History of Present Illness:
64-year-old female with a past medical history of peripheral arterial disease, hypertension, hyperlipidemia, who presents emergency department today with concerns of bilateral lower extremity edema. Patient states that this started a few weeks ago
starting on the left leg first but then progressing to swelling of both legs. Patient states that 2 months ago, she had vascular surgery with Dr. Rodriguez in the left leg and had revision of her bypass and states that she had a follow-up appointment
with him today but she was not able to get a ride to her appointment in time and so she came to emergency department for evaluation. Patient also notes that she has some shortness of breath with this as well as well as a dry cough. She denies any
fevers or chills. She has a chest pain. She denies any hemoptysis.
Review of Systems
<Iris Heath PA-C - Last Filed: 12/29/24 20:07>
Review of Systems
All Other Systems: ROS reviewed and negative except as documented in HPI and ROS
Phy Exam
<Iris Heath PA-C - Last Filed: 12/29/24 20:07>
Physical Exam
Physical Exam:
General: Patient is well appearing and in no acute distress; non-toxic
Skin: Warm and dry, no rashes or lesions
Head: Normocephalic, atraumatic
Eyes: Sclera non-icteric. EOMs intact.
Cardiac: Regular rate and rhythm, no murmurs
Peripheral Vascular: Bilateral lower extremity edema with 2+ dorsalis pedis pulses bilaterally
Pulm: Normal respiratory effort, no wheezes, rales, rhonchi
Abdomen: No abdominal tenderness to palpation
Neuro: CN II-XII intact, no focal neurologic deficits.
Psychiatric: Appropriate mood and affect.
Scores
<Iris Heath PA-C - Last Filed: 12/29/24 20:07>
Heart Failure Risk
Heart Failure Risk Score: Yes
History of Stroke or TIA: No
History of intubation for respiratory distress: No
Heart rate on ED arrival >/= 110: No
SaO2 <90% on arrival on room air: Yes
HR >/=110 during 3min walk test (or too ill to perform test): No
ECG has acute ischemic changes: No
Urea >/=12mmol/L (BUN 33.6mg/dL): No
Serum CO2>/=35mmol/L: No
Troponin I or T elevated to ME Level (0.4mg/dL): No
NT-proBNP >/=5,000ng/L (5,000pg/ml): Yes
HF Risk Score: 2
Admission Status: MEDIUM RISK 9.2% Consider observation or discharge to home with homecare & f/u visit to PCP/Continuous Improvement Facilitator, or SNF for treatment
Course
<Iris Heath PA-C - Last Filed: 12/29/24 20:07>
Orders/Labs/Results
Orders:
Orders
12/29/24 12:16
CR Chest - 2 Views Urgent
Comment:
Reason For Exam: shortness of breath
12/29/24 12:23
Basic Metabolic Panel Urgent
Complete Blood Count/With Diff Urgent
NT-proBNP Urgent
US Periph Venous LOWER Ext Miguel Ángel Urgent
Comment:
Reason For Exam: bilateral lower extremity swelling
12/29/24 14:19
Electrocardiogram (*1) Urgent
Reason for Study: Shortness of Breath
12/29/24 14:29
Furosemide [Lasix] 40 mg IV NOW STA
Nitroglycerin Sublingual [Nitrostat (Sublingual)] 0.4 mg SL NOW STA
12/29/24 14:30
Bipap [RESP] Urgent
Patient to use own unit?: No
Inspiratory Pressure (cm H2O): 12
Expiratory Pressure (cm H2O): 5
12/29/24 14:38
Troponin I Urgent
Venous Blood Gas Urgent
%Oxygen/Room Air: 86
12/29/24 Dinner
Cholesterol Lowering
Cholesterol Lowering: Sodium, 2 Gram
12/29/24 16:30
Nitroglycerin 100 mg/250 ml [Nitroglycerin Premix] 100 mg in 250 ml IV PER PROTOCOL
Initial dose in mcg/min, then titrate:: 10
Titrate to keep:: SBP < 160 mmHg
Titrate by mcg/min:: 5 mcg/min, may increase by 10 mcg/min if dose > 20 mcg/min
Frequency of titrations (minutes):: every 3-5 minutes
Maximum dose in mcg/min:: 200
Begin to taper infusion when:: Remained at goal for 2hrs
Taper by mcg/min:: 5 mcg/min
Frequency of taper (minutes) if patient maintains goal:: 30
Taper to off?: Yes
If infusion off & no longer maintaining goal:: Contact Provider
12/29/24 16:39
Admit/Transfer Patient As Directed
Co-Sign Provider:
Level of Care: Inpatient admission
Assign to:: IVU
Physician / Group: Avril Leong
Diagnosis: hypertensive urgency, acute heart failure, JACOB on CKD
Reason for Hospitalization: hypertensive urgency, acute heart failure, JACOB on CKD
Expected length of stay greater than two midnights?: Yes
ELOS- Estimated Length of Stay in days: 3
I certify the patient meets the requirements for IP care: Yes
PRN Pain Medication Management As Directed
May give lesser potent ordered pain med per pt: Yes
preference::
Protocol:: Medication orders for pain may be administered in a
manner that supports deferring to patient preference
when the pt is:
- Requesting an ordered lesser potent pain medication.
Least to most potent pain medications are defined
as: acetaminophen < NSAID < tramadol < opioids
(morphine, oxycodone, hydromorphone).
- Requesting a lesser dose of the same medication IF
ORDERED.
- Requesting a less intrusive route of administration
if both routes are prescribed by the provider (PO <
IV).
12/29/24 16:40
Code Status As Directed
Resuscitation Status: Full Code
12/29/24 18:19
Cyclobenzaprine HCl [Flexeril] 10 mg PO DAILYPRN PRN
12/29/24 18:19
Echo 2D MMode Color/Doppler Routine
Reason for Study: heart failure
CARDIOLOGY CONSULT Routine
Consulting Provider: Manuel Waller
Was physician already notified: Yes
HF DIETARY CONSULT Routine
HF EDUCATOR CONSULT Routine
Comment:
NEPHROLOGY CONSULT Routine
Consulting Provider: Samy Boykin
Was physician already notified: Yes
Activity As Directed
Activity Level: Out of Bed-Early Mobility
Intake/ Output As Directed
Frequency: Per unit guidelines
Patient Education As Directed
Type: CHF folder
Comment: give on admission. Document in Interdisciplinary Education record
Sleep Apnea Assessment by RN As Directed
Comment:
Physician Instructions:
Vital Signs As Directed
Frequency: Other
Additional Instructions:: Q12 or per unit guidelines if more frequent.
Weight As Directed
Frequency: Daily
Type of Scale: Standing Scale
Comment: Daily morning weight. If unable to stand, use balanced bed scale.
Weight As Directed
Frequency: Once
Type of Scale: Standing Scale
Comment: Upon Admission. If unable to stand, use balanced bed scale.
O2 Therapy [RESP] Routine
Titrate/Wean O2 to maintain O2 sat greater than (%): 93
Pulse Ox/cont/shift [RESP] Routine
Quantity: 1
Special Instructions: Daily pulse oximetry at rest. If greater than 92% at rest also obtain pulse oximetry
while ambulating as tolerated.
DX Deep Vein Thrombosis Video Routine
12/29/24 18:56
Psyllium [Metamucil, Konsyl] 1 packet PO DAILYPRN PRN
12/29/24 19:50
Troponin I Q6H
Comment: at admission & every 6 hours x 2 (3 total), ECG to be done with each level
12/29/24 20:00
Metoprolol [Lopressor] 100 mg PO BID
12/29/24 22:00
Clonidine [Catapres] 0.6 mg PO TID
HydrALAZINE [Apresoline] 100 mg PO TID
12/30/24 00:00
Heparin 5,000 units SC Q8
12/30/24 00:19
Troponin I Q6H
Comment: at admission & every 6 hours x 2 (3 total), ECG to be done with each level
12/30/24 06:00
Basic Metabolic Panel IN AM
Cardiovascular Evaluation IN AM
Complete Blood Count/No Diff IN AM
TSH Reflex To Free T4 IN AM
12/30/24 06:19
Troponin I Q6H
Comment: at admission & every 6 hours x 2 (3 total), ECG to be done with each level
12/30/24 08:00
Amlodipine [Norvasc] 10 mg PO DAILY
Atorvastatin [Lipitor] 20 mg PO DAILY
Cholecalciferol (Vitamin D3) [VITAMIN D3 (cholecalciferol)] 25 mcg PO DAILY
Clopidogrel Bisulfate [Plavix] 75 mg PO DAILY
Cyanocobalamin [Vitamin B-12] 1,000 mcg PO DAILY
Furosemide [Lasix] 40 mg IV BID AT 0800,1600
Multivitamin [Theragran] 1 tablet PO DAILY
12/31/24 06:00
Basic Metabolic Panel IN AM
01/01/25 06:00
Basic Metabolic Panel IN AM
Abnormal Lab Results
12/29/24 12/29/24
12:23 14:38
WBC 13.2 H 10^3/uL
(4.8-10.8)
RBC 2.91 L 10^6/uL
(4.20-5.40)
Hgb 7.8 L g/dL
(12.0-16.0)
Hct 25.4 L %
(37.0-47.0)
MCH 26.8 L pg
(27.0-31.0)
MCHC 30.7 L g/dL
(33.0-37.0)
RDW 17.4 H %
(11.5-14.5)
Plt Count 438 H 10^3/uL
(130-400)
Abs Immat Gran (auto) 0.1 H 10^3/uL
(0-0.05)
Absolute Neuts (auto) 10.7 H 10^3/uL
(1.4-6.5)
Absolute Monos (auto) 0.9 H 10^3/uL
(0.1-0.6)
Immature Gran % 0.7 H %
(0-0.5)
Neutrophils % 80.9 H %
(42.2-75.2)
Lymphocytes % 9.1 L %
(20.5-51.1)
VBG pH 7.22 L
(7.32-7.43)
VBG pO2 58 H mmHg
(30-50)
VBG HCO3 18.4 L mmol/L
(22-27)
Chloride 110 H mmol/L
(98-107)
Carbon Dioxide 19 L mmol/L
(22-30)
BUN 98 H mg/dl
(7-17)
Creatinine 3.0 H mg/dL
(0.6-1.0)
Glucose 105 H mg/dl
(70-99)
Troponin I 0.124 H* ng/ml
12/29/24 12:23
12/29/24 12:23
Vital Signs
Initial and Last Documented VS:
Initial Vital Signs
Temp Pulse Resp BP Pulse Ox
98.0 F 86 16 183/94 98
12/29/24 11:49 12/29/24 11:49 12/29/24 11:49 12/29/24 11:49 12/29/24 11:49
Last Documented Vital Signs
Temp Pulse Resp BP Pulse Ox
97.4 F 92 18 189/88 98
12/29/24 18:50 12/29/24 19:16 12/29/24 18:50 12/29/24 19:16 12/29/24 19:16
<Jason Duke, DO - Last Filed: 12/29/24 14:31>
Orders/Labs/Results
Orders:
Orders
12/29/24 12:16
CR Chest - 2 Views Urgent
Comment:
Reason For Exam: shortness of breath
12/29/24 12:23
Basic Metabolic Panel Urgent
Complete Blood Count/With Diff Urgent
NT-proBNP Urgent
US Periph Venous LOWER Ext Miguel Ángel Urgent
Comment:
Reason For Exam: bilateral lower extremity swelling
12/29/24 14:19
Electrocardiogram (*1) Urgent
Reason for Study: Shortness of Breath
12/29/24 14:29
Furosemide [Lasix] 40 mg IV NOW STA
Nitroglycerin Sublingual [Nitrostat (Sublingual)] 0.4 mg SL NOW STA
12/29/24 14:30
Bipap [RESP] Urgent
Patient to use own unit?: No
Inspiratory Pressure (cm H2O): 12
Expiratory Pressure (cm H2O): 5
12/29/24 14:38
Troponin I Urgent
Venous Blood Gas Urgent
%Oxygen/Room Air: 86
12/29/24 Dinner
Cholesterol Lowering
Cholesterol Lowering: Sodium, 2 Gram
12/29/24 16:30
Nitroglycerin 100 mg/250 ml [Nitroglycerin Premix] 100 mg in 250 ml IV PER PROTOCOL
Initial dose in mcg/min, then titrate:: 10
Titrate to keep:: SBP < 160 mmHg
Titrate by mcg/min:: 5 mcg/min, may increase by 10 mcg/min if dose > 20 mcg/min
Frequency of titrations (minutes):: every 3-5 minutes
Maximum dose in mcg/min:: 200
Begin to taper infusion when:: Remained at goal for 2hrs
Taper by mcg/min:: 5 mcg/min
Frequency of taper (minutes) if patient maintains goal:: 30
Taper to off?: Yes
If infusion off & no longer maintaining goal:: Contact Provider
12/29/24 16:39
Admit/Transfer Patient As Directed
Co-Sign Provider:
Level of Care: Inpatient admission
Assign to:: IVU
Physician / Group: Avril Leong
Diagnosis: hypertensive urgency, acute heart failure, JACOB on CKD
Reason for Hospitalization: hypertensive urgency, acute heart failure, JACOB on CKD
Expected length of stay greater than two midnights?: Yes
ELOS- Estimated Length of Stay in days: 3
I certify the patient meets the requirements for IP care: Yes
PRN Pain Medication Management As Directed
May give lesser potent ordered pain med per pt: Yes
preference::
Protocol:: Medication orders for pain may be administered in a
manner that supports deferring to patient preference
when the pt is:
- Requesting an ordered lesser potent pain medication.
Least to most potent pain medications are defined
as: acetaminophen < NSAID < tramadol < opioids
(morphine, oxycodone, hydromorphone).
- Requesting a lesser dose of the same medication IF
ORDERED.
- Requesting a less intrusive route of administration
if both routes are prescribed by the provider (PO <
IV).
12/29/24 16:40
Code Status As Directed
Resuscitation Status: Full Code
12/29/24 18:19
Cyclobenzaprine HCl [Flexeril] 10 mg PO DAILYPRN PRN
12/29/24 18:19
Echo 2D MMode Color/Doppler Routine
Reason for Study: heart failure
CARDIOLOGY CONSULT Routine
Consulting Provider: Manuel Waller
Was physician already notified: Yes
HF DIETARY CONSULT Routine
HF EDUCATOR CONSULT Routine
Comment:
NEPHROLOGY CONSULT Routine
Consulting Provider: Samy Boykin
Was physician already notified: Yes
Activity As Directed
Activity Level: Out of Bed-Early Mobility
Intake/ Output As Directed
Frequency: Per unit guidelines
Patient Education As Directed
Type: CHF folder
Comment: give on admission. Document in Interdisciplinary Education record
Sleep Apnea Assessment by RN As Directed
Comment:
Physician Instructions:
Vital Signs As Directed
Frequency: Other
Additional Instructions:: Q12 or per unit guidelines if more frequent.
Weight As Directed
Frequency: Daily
Type of Scale: Standing Scale
Comment: Daily morning weight. If unable to stand, use balanced bed scale.
Weight As Directed
Frequency: Once
Type of Scale: Standing Scale
Comment: Upon Admission. If unable to stand, use balanced bed scale.
O2 Therapy [RESP] Routine
Titrate/Wean O2 to maintain O2 sat greater than (%): 93
Pulse Ox/cont/shift [RESP] Routine
Quantity: 1
Special Instructions: Daily pulse oximetry at rest. If greater than 92% at rest also obtain pulse oximetry
while ambulating as tolerated.
DX Deep Vein Thrombosis Video Routine
12/29/24 18:56
Psyllium [Metamucil, Konsyl] 1 packet PO DAILYPRN PRN
12/29/24 19:50
Troponin I Q6H
Comment: at admission & every 6 hours x 2 (3 total), ECG to be done with each level
12/29/24 20:00
Metoprolol [Lopressor] 100 mg PO BID
12/29/24 22:00
Clonidine [Catapres] 0.6 mg PO TID
HydrALAZINE [Apresoline] 100 mg PO TID
12/30/24 00:00
Heparin 5,000 units SC Q8
12/30/24 00:19
Troponin I Q6H
Comment: at admission & every 6 hours x 2 (3 total), ECG to be done with each level
12/30/24 06:00
Basic Metabolic Panel IN AM
Cardiovascular Evaluation IN AM
Complete Blood Count/No Diff IN AM
TSH Reflex To Free T4 IN AM
12/30/24 06:19
Troponin I Q6H
Comment: at admission & every 6 hours x 2 (3 total), ECG to be done with each level
12/30/24 08:00
Amlodipine [Norvasc] 10 mg PO DAILY
Atorvastatin [Lipitor] 20 mg PO DAILY
Cholecalciferol (Vitamin D3) [VITAMIN D3 (cholecalciferol)] 25 mcg PO DAILY
Clopidogrel Bisulfate [Plavix] 75 mg PO DAILY
Cyanocobalamin [Vitamin B-12] 1,000 mcg PO DAILY
Furosemide [Lasix] 40 mg IV BID AT 0800,1600
Multivitamin [Theragran] 1 tablet PO DAILY
12/31/24 06:00
Basic Metabolic Panel IN AM
01/01/25 06:00
Basic Metabolic Panel IN AM
Abnormal Lab Results
12/29/24 12/29/24
12: 14:38
WBC 13.2 H 10^3/uL
(4.8-10.8)
RBC 2.91 L 10^6/uL
(4.20-5.40)
Hgb 7.8 L g/dL
(12.0-16.0)
Hct 25.4 L %
(37.0-47.0)
MCH 26.8 L pg
(27.0-31.0)
MCHC 30.7 L g/dL
(33.0-37.0)
RDW 17.4 H %
(11.5-14.5)
Plt Count 438 H 10^3/uL
(130-400)
Abs Immat Gran (auto) 0.1 H 10^3/uL
(0-0.05)
Absolute Neuts (auto) 10.7 H 10^3/uL
(1.4-6.5)
Absolute Monos (auto) 0.9 H 10^3/uL
(0.1-0.6)
Immature Gran % 0.7 H %
(0-0.5)
Neutrophils % 80.9 H %
(42.2-75.2)
Lymphocytes % 9.1 L %
(20.5-51.1)
VBG pH 7.22 L
(7.32-7.43)
VBG pO2 58 H mmHg
(30-50)
VBG HCO3 18.4 L mmol/L
(22-27)
Chloride 110 H mmol/L
(98-107)
Carbon Dioxide 19 L mmol/L
(22-30)
BUN 98 H mg/dl
(7-17)
Creatinine 3.0 H mg/dL
(0.6-1.0)
Glucose 105 H mg/dl
(70-99)
Troponin I 0.124 H* ng/ml
12/29/24 12:23
12/29/24 12:23
Vital Signs
Initial and Last Documented VS:
Initial Vital Signs
Temp Pulse Resp BP Pulse Ox
98.0 F 86 16 183/94 98
12/29/24 11:49 12/29/24 11:49 12/29/24 11:49 12/29/24 11:49 12/29/24 11:49
Last Documented Vital Signs
Temp Pulse Resp BP Pulse Ox
97.4 F 92 18 189/88 98
12/29/24 18:50 12/29/24 19:16 12/29/24 18:50 12/29/24 19:16 12/29/24 19:16
<Iris Heath PA-C - Last Filed: 12/29/24 20:07>
MDM/Problems Addressed
Differential Diagnosis Includes:
Differentials include DVT, dependent edema, CHF, nephrotic syndrome,
MDM/Problems Addressed:
64-year-old female presents emergency department today with concerns of bilateral lower extremity edema. She also had some associated shortness of breath. She was sent for x-ray for further evaluation and upon returning x-ray, she developed
hypoxia acute worsening of her shortness of breath as well as crackles on physical exam. X-ray concerning for pulmonary edema. Patient started on BiPAP and was given dose of Lasix and nitroglycerin. Patient referred for admission. Case discussed
with attending.
Chronic conditions affecting care:
Hypertension, hyperlipidemia
<Iris Heath PA-C - Last Filed: 12/29/24 20:07>
*Pulse Oximetry
Patient hypoxic: no
*Critical Care Note
Total Time (30-74mins, 75-104mins- exclusive of procedures): Not Applicable
Data Reviewed
Review of Other/Old Records Reveals: Records (Reviewed [facility] reviewed discharge summary from 11/10/2024 patient seen for vascular surgery)
Source: patient and records
<Iris Heath PA-C - Last Filed: 12/29/24 20:07>
Update Note
Update Note:
2:25 pm-- I came in to check on patient and noticed she was on oxygen. Patient reports that after coming back from chest x-ray, she was noted to be 86% on room air and became very short of breath and states that she started to have wheezing and
feeling like she cannot breathe. She is currently on 4 L of oxygen satting 9394% via nasal cannula. Attending aware, Lasix started, nitro given, called for bipap.
ED Attending Note
<Iris Heath PA-C - Last Filed: 12/29/24 20:07>
-
Portions of this chart may have been created with voice recognition software.� Occasional wrong word or��sound alike� substitutions may have occurred due to the inherent limitations of voice recognition software.
<Jason Duke DO - Last Filed: 12/29/24 14:31>
ED Attending Note
Patient seen and examined by attending physician: Yes
I performed the substantive portion of visit, reviewed & personally made and approve the management plan that is documented in note by myself or NIDA.: Yes
ED Attending Note:
I evaluated the patient at bedside. The patient came in because of lower extremity edema. She is no longer on Lasix. She does have a history of CHF. She has CKD. Creatinine has worsened. BNP over 20,000 with no old to compare. Ultrasound
negative for DVT. She does have increased work of breathing with respiratory rate in the 30s. She is not normally on oxygen. BP now with systolic over 200. Will give nitroglycerin tab x 1, diuresis, BiPAP, admission.
Discharge Plan
Departure
Patient Disposition: Admit
Date of Disposition: 12/29/24
Time of Disposition: 15:23
Admit to: Telemetry
Presentation/result/management discussed w/ accepting MD/DO: Hospitalist
Patient with high blood pressure during this ER visit?: Yes
Condition: Fair
Discharge Problem:
Acute congestive heart failure, Acute kidney injury, Hypertensive urgency
Interventions
Interventions:
*Risk Screen - Suicide Last Done: 12/29/24 11:49
*Neglect/Abuse Screening Last Done: 12/29/24 11:49
*Nursing Disposition Last Done: 12/29/24 18:54
ED- Cardiac Assessment Last Done: 12/29/24 13:22
ED- Pulmonary Assessment Last Done: 12/29/24 13:22
ED-Skin Assessment Last Done: 12/29/24 13:22
Discharge Date and Time
Discharge Date/Time: 12/29/24 18:55
[2024-12-29 12:32] LABS: % Basophils 0.5 % (0-2); % Immature Granulocytes 0.7 % (0-0.5); % Lymphocytes 9.1 % (20.5-51.1); % Monocytes 6.8 % (1.7-9.3); % Neutrophils 80.9 % (42.2-75.2); Absolute Basophils 0.1 10^3/uL (0-0.2); Absolute Eosinophils 0.3 10^3/uL (0-0.7); Absolute Immature Granulocytes 0.1 10^3/uL (0-0.05); Absolute Lymphocytes 1.2 10^3/uL (1.2-3.4); Absolute Monocytes 0.9 10^3/uL (0.1-0.6); Absolute Neutrophils 10.7 10^3/uL (1.4-6.5); Hematocrit 25.4 % (37.0-47.0); Hemoglobin 7.8 g/dL (12.0-16.0); Mean Corp Hgb Conc. 30.7 g/dL (33.0-37.0); Mean Corpuscular Hgb 26.8 pg (27.0-31.0); Mean Corpuscular Volume 87.3 fL (81.0-99.0); Mean Platelet Volume 9.6 fL (7.4-10.4); Nucleated Red Blood Cells % 0.2 %; Platelet Count 438 10^3/uL (130-400); Red Blood Cell Count 2.91 10^6/uL (4.20-5.40); Red Cell Dist. Width 17.4 % (11.5-14.5); White Blood Cell Count 13.2 10^3/uL (4.8-10.8)
[2024-12-29 12:49] LABS: Blood Urea Nitrogen 98 mg/dl (7-17); Calcium 9.9 mg/dl (8.4-10.2); Carbon Dioxide 19 mmol/L (22-30); Chloride 110 mmol/L (98-107); Glucose 105 mg/dl (70-99); Sodium 139 mmol/L (135-145); eGFR 16.63
[2024-12-29 12:52] LABS: NT-proBNP 20300 pg/ml
[2024-12-29] MEDS: NITROSTAT (SUBLINGUAL) 0.4 MG SL (14:34)
[2024-12-29] MEDS: LASIX 40 MG IV (14:34)
[2024-12-29 14:45] LABS: Venous Blood Gas B.E. -8.8 mmol/L (-4 to +4); Venous Blood Gas HCO3 18.4 mmol/L (22-27); Venous Blood Gas O2 Sat % 87.7 %; Venous Blood Gas pCO2 45 mmHg (35-48); Venous Blood Gas pH 7.22 (7.32-7.43); Venous Blood Gas pO2 58 mmHg (30-50)
[2024-12-29 15:16] LABS: Troponin I 0.124 ng/ml
--- NOTE | 2024-12-29 15:41 | HPS.HSE ---
Family Physician
-
Family Physician: Surekha Kolb DO
Chief Complaint
-
bilateral lower extremity edema
History of Present Illness
Patient is a 64-year-old female with past medical history significant for essential hypertension, peripheral vascular disease, hypercholesteremia, anemia, CHF and CKD who presented to [facility] ED for evaluation of increased lower
extremity edema. Patient reports surgery with Dr. Rodriguez, vascular approximately 2 months ago. She stated that she started with increased edema in the left leg a few weeks ago that has progressively gotten worse and now in both legs. She reports
having an out patient appointment today with Dr. Rodriguez that she missed related to no ride. She called office and they instructed her to come to ED for evaluation. During workup in ED patient became increasingly short of breath and hypoxic and placed
on BiPap. Patient reports mild shortness of breath at home but states nothing like she had today here. She states that she had congestive heart failure over 10 years ago and does not recall being on any diuretic other than HTCZ.
Medical History
Past Medical History
Past Medical History: Reports Other
Additional Past Medical History:
essential hypertension
peripheral vascular disease
hypercholesteremia
anemia
CKD
CHF
recurrent rectal prolapse status post ventral mesh rectopexy
renal artery stenosis status post left renal stent
Past Surgical History: Reports Other
Additional Past Surgical History:
ventral mesh rectopexy
thrombectomy revision
Social History
Tobacco: Former Smoker (dru 5 years ago )
Alcohol: Occasional
Drug: Marijuana (occasionally utilizes edibles )
Living: With Family
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
Family History
Family History: Not pertinent
Allergies / Home Medications
Allergies reflects when Allergies were last updated in [employer].
Home Medications with original date entered in [employer]
Allergy/Medication List:
Allergies
Allergy/AdvReac Type Severity Reaction Status Date / Time
NSAIDS (Non-Steroidal Allergy UNABLE TO Verified 12/29/24 11:51
Anti-Inflamma TAKE D/T
KIDNEY
INSUFFICIENCY
Sulfa (Sulfonamide Allergy Rash Verified 12/29/24 11:51
Antibiotics)
Home Medications
atorvastatin 20 mg tablet 20 mg PO DAILY High Cholesterol 09/26/24
cholecalciferol (vitamin D3) 25 mcg (1,000 unit) tablet (Vitamin D3) 25 mcg PO DAILY Supplement 09/26/24
clopidogrel 75 mg tablet (Plavix) 75 mg PO DAILY Blood Clot Prevention/Tx 09/26/24
hydralazine 100 mg tablet 100 mg PO TID Blood Pressure 09/26/24
Medical Marijuana 0.5 ml PO DAILYPRN PRN anxiety/stress 12/29/24
acetaminophen 325 mg tablet (Tylenol) 650 mg PO Q4HPRN PRN mild pain 12/29/24
amlodipine 10 mg tablet (Norvasc) 10 mg PO DAILY 12/29/24
clonidine HCl 0.3 mg tablet 0.6 mg PO TID 12/29/24
cyanocobalamin (vitamin B-12) 1,000 mcg tablet 1,000 mcg PO DAILY 12/29/24
cyclobenzaprine 10 mg tablet 10 mg PO DAILYPRN PRN spasms 12/29/24
metoprolol tartrate 100 mg tablet (Lopressor) 100 mg PO BID 12/29/24
psyllium 1 packet PO DAILYPRN PRN cosntipation 12/29/24
therapeutic multivitamin 1 tab PO DAILY 12/29/24
tramadol 50 mg tablet 50 mg PO BIDPRN PRN moderate pain 12/29/24
valsartan 320 mg-hydrochlorothiazide 25 mg tablet 1 tab PO DAILY 12/29/24
Review of Systems
-
History Source: Patient
Constitutional: Reports No Symptoms
EENT: Reports No Symptoms
Respiratory: Reports Trouble Breathing (mild shortness of breath )
Cardiac: Reports No Symptoms
Abdomen/GI: Reports No Symptoms
: Reports No Symptoms
Musculoskeletal: Reports Edema (bilateral lower extremities L>R)
Skin: Reports No Symptoms
Neurological: Reports No Symptoms
Endocrine: Reports No Symptoms
Hematologic/Lymphatic: Reports No Symptoms
Psych: Reports No Symptoms
Physical Exam
Vital Signs
Vital Signs
Temp Pulse Resp BP Pulse Ox
98.0 F 106 21 191/99 98
12/29/24 11:49 12/29/24 14:50 12/29/24 14:50 12/29/24 14:50 12/29/24 14:50
Physical Exam
General: Well Developed, Well Nourished, No Apparent Distress and Conversant
HEENT: NormoCephalic, Moist mucous membranes, Atraumatic, [place] Conjunctivae, Nose Appears Normal and Ears Appear Normal
Respiratory: Crackles
Cardiac: S1/S2 and Regular Rhythm
Breast: Deferred by me
GI: Soft, Non Tender, Non Distended and Normal Bowel Sounds; No Organomegaly
Rectal: Deferred by Provider
Genito-urinary: Deferred by me
Musculoskeletal: No Clubbing, No Cyanosis, Edema, Left Lower Extremity and Edema, Right Lower Extremity
Skin: IV/Catheter Site
Neuro: Awake, Alert, AO x 3 and Nonfocal/grossly intact
Psych: Calm and Intact Judgment/Insight
Laboratory Results
-
12/29/24 12:23
12/29/24 12:23
Laboratory Results
Total Bilirubin Cancelled 12/29/24 12:23
AST Cancelled 12/29/24 12:23
ALT Cancelled 12/29/24 12:23
Alkaline Phosphatase Cancelled 12/29/24 12:23
Troponin I 0.124 ng/ml H* 12/29/24 14:38
Data Reviewed
-
Diagnostic Radiology: Report Reviewed by me (CXR: Congestive heart failure with mild interstitial and alveolar edema)
Ultrasound: Report Reviewed by me (Dalila Venous BLLE: No evidence of right or left lower extremity deep venous thrombosis.)
Medical Tests (Nuc Med, Echo, EKG etc): Report Reviewed by me (EKG: SINUS TACHYCARDIA MINIMAL VOLTAGE CRITERIA FOR LVH, MAY BE NORMAL VARIANT ( Emilylow-Lv ) ANTERIOR INFARCT , AGE UNDETERMINED)
Lab Data: Labs Reviewed by me (WBC 13.2, hgb 7.8, hct 25.4, Neut 80.9, HCO3 19, BUN 98, creat 3.0, trop 0.124, BNP 80177)
Impression/Plan
-
IMPRESSION/PLAN:
#acute hypoxic respiratory insufficiency like 2/2 acute heart failure
WBC 13.2, hgb 7.8, hct 25.4, Neut 80.9, HCO3 19, trop 0.124, BNP 08913
VBG: pH 7.22 L
pCO2 45
pO2 58 H
HCO3 18.4 L
O2 Sat 87.7
EKG: SINUS TACHYCARDIA
MINIMAL VOLTAGE CRITERIA FOR LVH, MAY BE NORMAL VARIANT ( Sokolow-Awan )
ANTERIOR INFARCT , AGE UNDETERMINED
- Admit to IVU
- Consult Cardiology
- Continue BiPap
- daily weights
- ECHO
- trend troponin
#hypertensive urgency
#essential hypertension
227/123
- start nitro gtt titrate to SBP <160
- continue amlodipine, clonidine, hydralazine, and metoprolol
- hold valsartan-HCTZ
- Consult Nephrology
#acute on chronic kidney disease
BUN 98, creat 3.0
- hold nephrotoxic medications
- Consult Nephrology
#peripheral vascular disease
#hypercholesteremia
- continue atorvastatin and clopidogrel
- reschedule follow up apt out patient
#anemia
hgb 7.8, hct 25.4
appears slightly below baseline
- monitor CBC
Code status: full code
DVT prophylaxis: heparin sq
--- NOTE | 2024-12-29 16:44 | W.PN.UPDATE ---
Update Note
Progress Note Update
This is an addendum to the H&P written by Izzy Carver on 12/29/2024.� Patient seen and examined independently with EMERGENCY ROOM NURSE.
64-year-old female rectal prolapse status post ventral mesh rectopexy complicated by perforated sigmoid colon with pericolonic abscess formation with partial SBO, hypertension, peripheral vascular disease, hypercholesteremia, anemia, CKD, renal
artery stenosis status post left renal stent, acute occlusion of left iliac limb of aortofemoral bypass, CKD 3B, presenting with bilateral lower extremity edema and shortness of breath.
Patient recently with lengthy hospitalization for perforated sigmoid colon with pericolonic abscess formation status post open sigmoid colectomy/appendectomy and sigmoid ostomy complicated by acute left limb ischemia acute vascular occlusion of left
iliac limb requiring endarterectomy procedure and thrombectomy.
Vitals show blood pressure 182 to 205 systolic.�
Chest x-ray shows congestive heart failure mild interstitial/alveolar edema.� Venous ultrasound unremarkable bilaterally.
Labs show leukocytosis, chronic anemia with hemoglobin 7.8.
Troponin of 0.124.� Cardiac BNP of 20,000.� EKG shows sinus tachycardia, LVH,
Creatinine of 3 from 1.7 previously.
Concern for acute CHF exacerbation with hypertensive emergency and associated JACOB on CKD 3B with cardiorenal component.� Also nonischemic myocardial injury.
40 IV Lasix given.� Patient placed on BiPAP.� Will start nitroglycerin drip for hypertensive emergency.� Continue Lasix.� Echo,�Cardiology, nephrology consulted.� Trend troponins.� Hold valsartan/hydrochlorothiazide.
She missed her vascular surgery appointment today.� Needs to follow-up outpatient.
--- NOTE | 2024-12-29 16:55 | W.CON.NEPH ---
Consultation
-
Date/Time Consultation Requested: 12/29/2024 5 PM
Date/Time Consultation Performed: 12/29/2024 5 PM
Requesting Provider: Dr. Leong
Performing Provider: Dr. Boykin
Reason for Consultation: JACOB
Medical History
-
Chief Complaint: JACOB, shortness of breath
History of Present Illness:
64-year-old female with recurrent rectal prolapse status post ventral mesh rectopexy, hypertension on a severe multidrug regimen, peripheral vascular disease, hyperlipidemia, anemia, CKD 3B with baseline creatinine 1.8, bilateral renal artery
stenosis status with bilateral renal stents, significant peripheral arterial disease with an aortobifem graft. During her last hospitalization in October 2024 she had thrombectomy of an occluded left iliac limb of her aortobifem bypass with
revision of the left femoral anastomosis and stenting. She also had rectal prolapse ultimately requiring sigmoid resection with end colostomy, appendectomy. She had acute kidney injury at that time with a creatinine over 3 which had ultimately
settled and she was discharged on Lasix therapy. Her hydrochlorothiazide was discontinued at that time. Her blood pressure was relatively stable for her given her unique multidrug regimen. In the 2 months that she was out of the hospital she did
not have anything other than surgical follow-up. She had not yet made an appointment to see her sap basis who is Dr. Edson Ding in [place]. She vaguely remembers taking Lasix at the time of discharge but does not know what happened to the
medication as it is not currently on her medicine list. Her medicine list also shows return of hydrochlorothiazide.
She came to the emergency room today because of worsening lower extremity edema which occurred fairly rapidly over a few weeks. She does have significant issues with transportation to and from appointments and as she was to see vascular surgery
today and could not she came to the emergency room. She does also report some shortness of breath. She has had no issues with her colostomy. Creatinine at the time of admission was 3.0 with metabolic acidosis. She was also significantly
hypertensive
Past Medical History
rectal prolapse status post ventral mesh rectopexy
hypertension
peripheral vascular disease
hypercholesteremia
anemia
CKD 3B
renal artery stenosis status post bilateral renal stents
Aortobifem bypass
Left iliac thrombectomy
Sigmoid resection with end colostomy
Appendectomy
Atrophic left kidney
Left adrenaloma 4.1 cm
Occlusion of ROSA, high-grade stenosis of celiac axis
Social History
Tobacco: Non-Smoker
Alcohol: None
Family History
Family History: Not Pertinent
Allergies / Home Medications
Allergy/AdvReac Type Severity Reaction Status Date / Time
NSAIDS (Non-Steroidal Allergy UNABLE TO Verified 12/29/24 11:51
Anti-Inflamma TAKE D/T
KIDNEY
INSUFFICIENCY
Sulfa (Sulfonamide Allergy Rash Verified 12/29/24 11:51
Antibiotics)
�Medication �Instructions �Recorded �Confirmed �Type
atorvastatin 20 mg tablet 20 mg PO DAILY High Cholesterol 09/26/24 12/29/24 History
cholecalciferol (vitamin D3) 25 25 mcg PO DAILY Supplement 09/26/24 12/29/24 History
mcg (1,000 unit) tablet (Vitamin
D3)
clopidogrel 75 mg tablet (Plavix) 75 mg PO DAILY Blood Clot 09/26/24 12/29/24 History
Prevention/Tx
hydralazine 100 mg tablet 100 mg PO TID Blood Pressure 09/26/24 12/29/24 History
Medical Marijuana 0.5 ml PO DAILYPRN PRN 12/29/24 12/29/24 History
anxiety/stress
acetaminophen 325 mg tablet 650 mg PO Q4HPRN PRN mild pain 12/29/24 12/29/24 History
(Tylenol)
amlodipine 10 mg tablet (Norvasc) 10 mg PO DAILY 12/29/24 12/29/24 History
clonidine HCl 0.3 mg tablet 0.6 mg PO TID 12/29/24 12/29/24 History
cyanocobalamin (vitamin B-12) 1,000 mcg PO DAILY 12/29/24 12/29/24 History
1,000 mcg tablet
cyclobenzaprine 10 mg tablet 10 mg PO DAILYPRN PRN spasms 12/29/24 12/29/24 History
metoprolol tartrate 100 mg tablet 100 mg PO BID 12/29/24 12/29/24 History
(Lopressor)
psyllium 1 packet PO DAILYPRN PRN 12/29/24 12/29/24 History
cosntipation
therapeutic multivitamin 1 tab PO DAILY 12/29/24 12/29/24 History
tramadol 50 mg tablet 50 mg PO BIDPRN PRN moderate pain 12/29/24 12/29/24 History
valsartan 320 1 tab PO DAILY 12/29/24 12/29/24 History
mg-hydrochlorothiazide 25 mg tablet
Review of Systems
-
No chest pain.
Shortness of breath
Lower extremity edema
No issues with colostomy
All other systems: Negative unless noted
Physical Exam
Vital Signs
Vital Signs
Temp Pulse Resp BP Pulse Ox
98.0 F 90 25 214/98 100
12/29/24 11:49 12/29/24 16:45 12/29/24 16:45 12/29/24 16:30 12/29/24 16:45
Lab Results
WBC 13.2 10^3/uL (4.8-10.8) H 12/29/24 12:23
RBC 2.91 10^6/uL (4.20-5.40) L 12/29/24 12:23
Hgb 7.8 g/dL (12.0-16.0) L 12/29/24 12:23
Hct 25.4 % (37.0-47.0) L 12/29/24 12:23
Plt Count 438 10^3/uL (130-400) H 12/29/24 12:23
Sodium 139 mmol/L (135-145) 12/29/24 12:
Potassium mmol/L (3.5-5.1) 12/29/24 12:
Chloride 110 mmol/L (98-107) H 12/29/24 12:
Carbon Dioxide 19 mmol/L (22-30) L 12/29/24 12:23
BUN 98 mg/dl (7-17) H 12/29/24 12:
Creatinine 3.0 mg/dL (0.6-1.0) H 12/29/24 12:
eGFR 16.63 12/29/24 12:
Glucose 105 mg/dl (70-99) H 12/29/24 12:
Calcium 9.9 mg/dl (8.4-10.2) 12/29/24 12:
Ysu-E-Iopjkddxvkk Pept 94171 pg/ml 12/29/24 12:
Albumin Cancelled 12/29/24 12:
Laboratory Tests
10/01/24 11/10/24 12/29/24
05:22 04:39 12:
Hgb 8.1 L
Carbon Dioxide 26
Creatinine 1.9 H 1.8 H
Troponin I
Fwo-G-Zmprfnxmpid Pept 67978
12/29/24
14:38
Hgb
Carbon Dioxide
Creatinine
Troponin I 0.124 H*
Vit-J-Celsvpflxuw Pept
Physical Exam
Patient is awake alert oriented and in no distress. Mood and affect were pleasant, insight and judgment were good. Pupils are equal round and reactive to light, extraocular movements are intact, sclera were anicteric. Hearing was normal, ears and
nose are intact. Oropharynx was clear. Neck was supple with trachea midline and no thyromegaly. Heart was regular rate and rhythm without rubs. Lower extremities with 3+ edema. Lungs were coarse with Rales to auscultation bilaterally and with
normal excursion. Abdomen was soft, nontender, with normal active bowel sounds, and no hepatosplenomegaly. Skin was without rash and with normal turgor. Colostomy clean dry and intact
Data Reviewed
-
Radiology: Image Personally Visualized and interpreted (Chest x-ray 12/29/2024 by my reading shows pulmonary edema)
CT Scan: Report Reviewed by me
Ultrasound: Report Reviewed by me (Lower extremity ultrasound 12/29/2024 no DVT)
Medical Tests (Nuc Med, Echo etc): Image Personally Visualized and interpreted (EKG 12/29/2024 by my read shows sinus tachycardia anterior Q)
Labs: Labs Reviewed by me
Old Records: Reviewed
Assessment/Plan
-
Impression:
JACOB
CKD 3B baseline 1.8
Acute metabolic acidosis.
Hypertensive urgency.
Colostomy
Bilateral renal artery stenosis with stents, left atrophic kidney
Left adrenaloma
Aortobifem bypass
Severe peripheral arterial disease
Acute heart failure decompensated
Plan:
Follow BMP
IV Lasix for diuresis
Cardiology evaluation will need echocardiogram
Hold valsartan HCTZ
Continue clonidine and metoprolol and hydralazine and amlodipine
IV labetalol as needed
Check urine studies
[2024-12-29] MEDS: NITROGLYCERIN PREMIX 250 IV (17:01)
--- NOTE | 2024-12-29 17:01 | CON.CAR ---
Consultation
Consultation Request
Date/Time Consultation Requested: 12/29/24, 445pm
Date/Time Consultation Performed: 12/29/24, 455pm
Requesting Provider: Salo
Performing Provider: Sridhar
Reason for Consultation: HTN emergency, heart failure
Medical History
-
Chief Complaint: SOB, edema
History of Present Illness:
64 yo female with PMH of multi-drug resistant HTN, CKD3b, PAD, with recent revascularization 10/2024, prior left renal artery stent presents to ED with SOB, edema. Also noted is hypoxic respiratory failure and placed on BiPAP. We are consulted for
HTN emergency, and acute HF.
Past Medical History
Past Medical History: HTN, Hypercholesterolemia and Renal Failure (CKD3b)
Past Surgical History: Other (Vascular: Acute vascular occlusion L iliac limb s/p thrombectomy of occluded left iliac limb of aortobifemoral bypass/Left common femoral artery, endarterectomy performed 10/25/24 )
Social History
Tobacco: Former Smoker
Family History
Family History: Early CAD (none)
Allergies / Home Medications
Allergy/AdvReac Type Severity Reaction Status Date / Time
NSAIDS (Non-Steroidal Allergy UNABLE TO Verified 12/29/24 11:51
Anti-Inflamma TAKE D/T
KIDNEY
INSUFFICIENCY
Sulfa (Sulfonamide Allergy Rash Verified 12/29/24 11:51
Antibiotics)
�Medication �Instructions �Recorded �Confirmed �Type
atorvastatin 20 mg tablet 20 mg PO DAILY High Cholesterol 09/26/24 12/29/24 History
cholecalciferol (vitamin D3) 25 25 mcg PO DAILY Supplement 09/26/24 12/29/24 History
mcg (1,000 unit) tablet (Vitamin
D3)
clopidogrel 75 mg tablet (Plavix) 75 mg PO DAILY Blood Clot 09/26/24 12/29/24 History
Prevention/Tx
hydralazine 100 mg tablet 100 mg PO TID Blood Pressure 09/26/24 12/29/24 History
Medical Marijuana 0.5 ml PO DAILYPRN PRN 12/29/24 12/29/24 History
anxiety/stress
acetaminophen 325 mg tablet 650 mg PO Q4HPRN PRN mild pain 12/29/24 12/29/24 History
(Tylenol)
amlodipine 10 mg tablet (Norvasc) 10 mg PO DAILY 12/29/24 12/29/24 History
clonidine HCl 0.3 mg tablet 0.6 mg PO TID 12/29/24 12/29/24 History
cyanocobalamin (vitamin B-12) 1,000 mcg PO DAILY 12/29/24 12/29/24 History
1,000 mcg tablet
cyclobenzaprine 10 mg tablet 10 mg PO DAILYPRN PRN spasms 12/29/24 12/29/24 History
metoprolol tartrate 100 mg tablet 100 mg PO BID 12/29/24 12/29/24 History
(Lopressor)
psyllium 1 packet PO DAILYPRN PRN 12/29/24 12/29/24 History
cosntipation
therapeutic multivitamin 1 tab PO DAILY 12/29/24 12/29/24 History
tramadol 50 mg tablet 50 mg PO BIDPRN PRN moderate pain 12/29/24 12/29/24 History
valsartan 320 1 tab PO DAILY 12/29/24 12/29/24 History
mg-hydrochlorothiazide 25 mg tablet
Review of Systems
-
History Source: Patient
All other systems: Negative unless noted
Respiratory: Trouble Breathing
Musculoskeletal: Edema
Physical Exam
Vital Signs
Temp Pulse Resp BP Pulse Ox
98.0 F 90 25 214/98 100
12/29/24 11:49 12/29/24 16:45 12/29/24 16:45 12/29/24 16:30 12/29/24 16:45
Lab Results
12/29/24 12:23
12/29/24 12:23
Troponin I 0.124 ng/ml H* 12/29/24 14:38
Wba-O-Eqmmvixewli Pept 52624 pg/ml 12/29/24 12:23
Physical Exam
General: Respiratory Distress
HEENT: Normocephalic and Anicteric
Respiratory: Rhonchi and Accessory Resp Muscle Use
Cardiac: S1/S2 (normal), Regular Rhythm, Murmur (none), Peripheral Edema (1+ LE edema) and JVD (present)
GI: Other (+colostomy)
Musculoskeletal: No Clubbing, No Cyanosis and Edema (1+ LE)
Skin: Warm and Dry
Neuro: AO x 3
Psych: Calm
Impression / Plan
-
64 yo female with PMH of multi-drug resistant HTN, CKD3b, PAD, with recent revascularization 10/2024, prior left renal artery stent presents to ED with SOB, edema. Also noted is hypoxic respiratory failure and placed on BiPAP. We are consulted for
HTN emergency, and acute HF.
#HTN emergency
-threat to life
-with acute HF, acute renal failure, acute non-ischemic myocardial injury, acute hypoxic respiratory failure
-now on BiPAP: wean
-IV diuresis, with close monitoring of labs, tele
-IV nitro drip
-continue home hydralazine, clonidine, amlodipine, Toprol XL
-hold ARB/HCTZ due to renal failure
# Acute heart failure, new, type unknown
-echo
-IV lasix
# Acute renal failure
-trend Cr with diuresis; baseline CKD3b noted
-hold ARB and HCTZ
#PAD
-ASA, Plavix, statin
CCT 60 min.
Data Reviewed
-
EKG: Tracing Personally Visualized and interpreted (ST 109, LVH)
Radiology: Image Personally Visualized and interpreted (CXR: pulm edema)
Labs: Labs Reviewed by me
Old Records: Reviewed
Critical Care Time (in minutes): 60
--- NOTE | 2024-12-29 18:45 | PTCARENOTE ---
Patient received from ED. Assisted to bed, placed on telemetry. AO x3, oxygen at 4 liters NC, POX 100%. Nitro gtt infusing per MAR. Oriented to room and call cota in reach
[2024-12-29] MEDS: LOPRESSOR 100 MG PO (19:23)
[2024-12-29 20:14] LABS: Blood Urea Nitrogen 97 mg/dl (7-17); Calcium 9.7 mg/dl (8.4-10.2); Carbon Dioxide 16 mmol/L (22-30); Chloride 110 mmol/L (98-107); Estimated Creatinine Clearance 15 ml/min; Glucose 135 mg/dl (70-99); Sodium 139 mmol/L (135-145); eGFR 18.06
[2024-12-29 20:30] LABS: Troponin I 0.108 ng/ml
[2024-12-29] MEDS: CATAPRES 0.6 MG PO (21:27)
[2024-12-29] MEDS: TYLENOL 1000 MG PO (21:27)
[2024-12-29] MEDS: APRESOLINE 100 MG PO (21:27)
[2024-12-30] VITALS (31 sets, daily range): BP systolic 149–213; BP diastolic 74–107; BMI 23.0
[2024-12-30] MEDS: HEPARIN 5000 UNITS SC ×4 (00:25→23:21)
--- NOTE | 2024-12-30 00:45 | PTCARENOTE ---
Pt rec'd as new admission at change of shift. awake,alert c/o chronic intermittent pain RLQ with reaching. Pt reports freq falls at home. Pt aware that she is to call nursing for assist. Pure wick in place. few crackles noted in bases b/l. sats high
90's while on O2 at 4 lit n/c. B/P elevated on arrival. NTG gtt at 10 mcq titrated up to 20 mcq for SBP > 160. PM meds given with b/p 160-170's systolic. Pt requesting Ativan to help with anxiety and to sleep.
[2024-12-30] MEDS: ATIVAN 0.5 MG PO (00:55)
[2024-12-30] MEDS: TYLENOL 650 MG PO ×4 (01:42→23:21)
[2024-12-30 03:57] LABS: Hematocrit 23.5 % (37.0-47.0); Hemoglobin 7.2 g/dL (12.0-16.0); Mean Corp Hgb Conc. 30.6 g/dL (33.0-37.0); Mean Corpuscular Hgb 26.4 pg (27.0-31.0); Mean Corpuscular Volume 86.1 fL (81.0-99.0); Mean Platelet Volume 10.1 fL (7.4-10.4); Platelet Count 435 10^3/uL (130-400); Red Blood Cell Count 2.73 10^6/uL (4.20-5.40); Red Cell Dist. Width 17.3 % (11.5-14.5); White Blood Cell Count 10.2 10^3/uL (4.8-10.8)
[2024-12-30 04:26] LABS: Troponin I 0.114 ng/ml
[2024-12-30 04:53] LABS: Blood Urea Nitrogen 95 mg/dl (7-17); Calcium 9.7 mg/dl (8.4-10.2); Carbon Dioxide 14 mmol/L (22-30); Chloride 110 mmol/L (98-107); Estimated Creatinine Clearance 15 ml/min; Glucose 96 mg/dl (70-99); HDL Cholesterol 48 mg/dl; LDL Cholesterol, Calculated 29 mg/dl; Potassium 4.6 mmol/L (3.5-5.1); Sodium 140 mmol/L (135-145); Total Cholesterol 110 mg/dl (50-199); Triglyceride 169 mg/dl (10-149); Very Low Density Lipoprotein 33 mg/dl (0-30); eGFR 18.06
[2024-12-30 04:55] LABS: TSH Reflex To Free T4 0.57 uIU/ml (0.47-4.68)
[2024-12-30 05:13] LABS: Hepatitis C Antibody Negative (Negative)
[2024-12-30] MEDS: VITAMIN D3 (cholecalciferol) 25 MCG PO (07:46)
[2024-12-30] MEDS: CATAPRES 0.6 MG PO ×3 (07:46→23:20)
[2024-12-30] MEDS: LASIX 40 MG IV ×2 (07:47→15:15)
[2024-12-30] MEDS: APRESOLINE 100 MG PO ×3 (07:49→23:21)
[2024-12-30] MEDS: LIPITOR 20 MG PO (07:50)
[2024-12-30] MEDS: THERAGRAN 1 TABLET PO (07:50)
[2024-12-30] MEDS: PLAVIX 75 MG PO (07:50)
[2024-12-30] MEDS: NORVASC 10 MG PO (07:50)
[2024-12-30] MEDS: LOPRESSOR 100 MG PO (07:51)
[2024-12-30] MEDS: VITAMIN B-12 1000 MCG PO (07:55)
--- NOTE | 2024-12-30 08:33 | W.PN.CD ---
Today's Communication / Plan
-
IV diuresis, with close monitoring of labs, tele
IV nitro drip: hoping to wean based on BP after receiving AM meds
continue home hydralazine 100mg tid, clonidine 0.6mg tid , amlodipine 10mg daily
change metoprolol to coreg 25mg bid for PM dose (already received AM metoprolol)
echo
Impression / Plan
-
64 yo female with PMH of multi-drug resistant HTN, CKD3b, PAD, with recent revascularization 10/2024, prior left renal artery stent presents to ED with SOB, edema. Also noted is hypoxic respiratory failure and placed on BiPAP. We are consulted for
HTN emergency, and acute HF.
#HTN emergency
-threat to life
-with acute HF, acute renal failure, acute non-ischemic myocardial injury, acute hypoxic respiratory failure
-wean off BiPAP
-IV diuresis, with close monitoring of labs, tele
-IV nitro drip: hoping to wean based on BP after receiving AM meds
-continue home hydralazine 100mg tid, clonidine 0.6mg tid , amlodipine 10mg daily
-change metoprolol to coreg 25mg bid for PM dose (already received AM metoprolol)
-stop ARB/HCTZ due to renal failure
# Acute heart failure, new, type unknown
-echo today
-IV lasix, with close monitoring of labs, tele
# Acute renal failure
-trend Cr with diuresis; baseline CKD3b noted
-stop ARB and HCTZ
#PAD
-ASA, Plavix, statin
CCT 31 min
Physical Exam
Vital Signs/Labs
Vital Signs
Temp Pulse Resp BP Pulse Ox
97.9 F 98 18 212/107 96
12/30/24 07:00 12/30/24 07:51 12/30/24 07:00 12/30/24 07:51 12/30/24 07:00
12/29/24 12/30/24 12/31/24
06:59 06:59 06:59
Actual Weight 55.1 kg
12/30/24 03:26
12/30/24 03:26
Triglycerides 169 mg/dl (10-149) H 12/30/24 03:26
LDL Cholesterol, Calc 29 mg/dl 12/30/24 03:26
VLDL Cholesterol, Calc 33 mg/dl (0-30) H 12/30/24 03:26
HDL Cholesterol 48 mg/dl 12/30/24 03:26
12/29/24
12:23
Kfw-G-Mwrbfdwyqwi Pept
LAB Results
12/29/24 12/29/24 12/30/24
14:38 19:50 03:26
Troponin I 0.124 H* 0.108 H* 0.114 H*
Physical Exam
EENT: Anicteric and Moist mucous membranes
Cardiovascular: Rhythm & rate is regular, Systolic murmur absent, Pedal edema present and JVD present
Respiratory: Labored respirations
Neuro/Psych: AO x 3
Data Reviewed
-
Date of Service: December 30, 2024
EKG: Other (Tele: SR 70s)
Labs: Labs Reviewed by me
[2024-12-30] MEDS: SODIUM BICARBONATE 650 MG PO (08:36)
--- NOTE | 2024-12-30 11:50 | PTCARENOTE ---
Received pt at handoff. tele-SR. Nitro gtt infusing at 30 mcg/min. BP 212/107. Dr. Waller aware and AM meds administered. Pt c/o headache and prn tylenol administered. Pt reports relief. Pt also continues to c/o chronic RLQ pain. rates 01/19. RLQ is
hard on palpation. Dr. Rice made aware. Plan of care discussed with pt and verbalizes understanding. Pt is currently in bed. call cota within reach.
--- NOTE | 2024-12-30 11:58 | W.PN.HOSP.TC ---
Addendum entered and electronically signed by Asaf Rice MD 12/30/24 16:21:
Hypertensive Emergency
acute diastolic heart failure
Original Note:
Today's Communication/Plan
-
see plan
Assessment / Plan
Assessment / Plan
#acute hypoxic respiratory insufficiency like 2/2 acute heart failure
WBC 13.2, hgb 7.8, hct 25.4, Neut 80.9, HCO3 19, trop 0.124, BNP 30236
VBG: pH 7.22 L
pCO2 45
pO2 58 H
HCO3 18.4 L
O2 Sat 87.7
EKG: SINUS TACHYCARDIA
MINIMAL VOLTAGE CRITERIA FOR LVH, MAY BE NORMAL VARIANT ( Sokolow-Awan )
ANTERIOR INFARCT , AGE UNDETERMINED
- cont IVU level of care
- apprec Cardiology
- Improving. Weaned off bipap
- daily weights
- ECHO
- trend troponin
#hypertensive urgency
#essential hypertension
227/123
- Resolving with nitro gtt titrate to SBP <160
- continue amlodipine, clonidine, hydralazine, and metoprolol
- hold valsartan-HCTZ
- Consult Nephrology
may be able to wean off nitro gtt
#acute on chronic kidney disease
BUN 98, creat 3.0
- hold nephrotoxic medications
- with metabolic acidosis - give a dose of bicarbonate
-nephro following, improving with diuresis.
#peripheral vascular disease
#hypercholesteremia
- continue atorvastatin and clopidogrel
- reschedule follow up apt out patient
#anemia
appears slightly below baseline
- monitor CBC
maintain > 7. Likely in setting of kira on ckd
no sx of acute blood loss
pt is consented
Code status: full code
DVT prophylaxis: heparin sq
Anticipated Discharge: Within 24 hours
Subjective/Interval History
-
Date of Service: December 30, 2024
pt diuresing well
states LE edema improved
dyspnea improving
Objective Data
-
Labs:
Laboratory Results
12/30/24 12/30/24
03:26 14:00
WBC 10.2 Pending
Hgb 7.2 L Pending
Hct 23.5 L Pending
Plt Count 435 H Pending
Sodium 140
Potassium 4.6
Chloride 110 H
Carbon Dioxide 14 L*
BUN 95 H
Creatinine 2.8 H
Glucose 96
Calcium 9.7
Vital Signs:
Vital Signs
Temp Pulse Resp BP Pulse Ox
98.4 F 73 18 178/87 95
12/30/24 11:45 12/30/24 09:30 12/30/24 11:45 12/30/24 09:02 12/30/24 11:49
I&O
12/29/24 12/30/24 12/31/24
06:59 06:59 06:59
Intake Total 240 / 240
Output Total 1050 / 1050 350 / 350
Balance -1050 / -1050 -110 / -110
Review of Systems
-
History Source: Patient
All other systems: Reviewed and negative
Physical Exam
-
General: Well Developed and No Apparent Distress
HEENT: Normocephalic, Atraumatic, Moist Mucous Membranes and Oxygen
Respiratory: Clear to Auscultation
Cardiac: Regular Rhythm and S1/S2; Negative Murmur, Rub or Gallop
GI: Soft, Nontender, Nondistended and Normal Bowel Sounds; Negative Organomegaly
Rectal: Deferred by Provider
Musculoskeletal: No Clubbing, No Cyanosis, Edema, Right Lower Extrem and Edema, Left Lower Extrem
Skin: Negative Rash
Neuro: Nonfocal/Grossly Intact
--- NOTE | 2024-12-30 12:50 | W.PN.NEPH.PH ---
Today's Communication / Plan
-
Continue diuretics
Assessment/Plan
-
Impression:
JACOB
CKD 3B baseline 1.8
Acute metabolic acidosis.
Hypertensive urgency.
Colostomy
Bilateral renal artery stenosis with stents, left atrophic kidney
Left adrenaloma
Aortobifem bypass
Severe peripheral arterial disease
Acute heart failure decompensated
Plan:
Follow BMP
IV Lasix for diuresis
Cardiology evaluation will need echocardiogram= pending
Hold valsartan HCTZ
Continue clonidine and metoprolol and hydralazine and amlodipine
IV labetalol as needed
Check urine studies= pending.
Creatinine improved down to 2.8
Bicarbonate down to 14. Will continue to trend for now/ hold off on p.o. bicarbonate with increased salt load in the setting of CHF.
No acute need for dialysis
Total Time Spent with Patient (in minutes): 35
-
-
Date of Service: December 30, 2024
CC / HPI / ROS
-
Chief Complaint:
Increased edema shortness of breath
History of Present Illness:
Acute on chronic kidney disease with weight gain over the last week since discharge and creatinine elevated to 3.2 with a baseline of 1.8
Review of Systems:
Mild shortness of breath with edema some improvement
Labs
-
Labs:
Sodium 140 mmol/L (135-145) 12/30/24 03:26
Potassium 4.6 mmol/L (3.5-5.1) 12/30/24 03:26
Chloride 110 mmol/L (98-107) H 12/30/24 03:26
Carbon Dioxide 14 mmol/L (22-30) L* 12/30/24 03:26
BUN 95 mg/dl (7-17) H 12/30/24 03:26
Creatinine 2.8 mg/dL (0.6-1.0) H 12/30/24 03:26
eGFR 18.06 12/30/24 03:26
Glucose 96 mg/dl (70-99) 12/30/24 03:26
Calcium 9.7 mg/dl (8.4-10.2) 12/30/24 03:26
Zze-B-Nllojbmybhs Pept 82557 pg/ml 12/29/24 12:23
Albumin Cancelled 12/29/24 12:23
Physical Exam
-
Vital Signs:
Vital Signs
Temp Pulse Resp BP Pulse Ox
98.4 F 82 18 185/88 96
12/30/24 11:45 12/30/24 12:45 12/30/24 11:45 12/30/24 12:41 12/30/24 12:45
Cardiovascular:: Regular rate and rhythm
Respiratory:: Bilateral: Coarse
Lung Excursion:: Normal
Abdomen:: Nontender and Soft
Bowel Sounds:: Normal
Extremity Edema:: +3: Bilateral:
[2024-12-30 12:56] LABS: Urine Albumin Negative (Neg - Trace); Urine Bilirubin Negative (Negative); Urine Character Clear (Clear); Urine Color Yellow; Urine Glucose Negative (Negative); Urine Ketone Negative (Negative); Urine Leukocyte 2+ (Negative); Urine Nitrite Negative (Negative); Urine Occult Blood Negative (Negative); Urine Specific Gravity 1.015 (<1.030); Urine Urobilinogen Negative (Neg - 1+)
[2024-12-30 13:02] LABS: Urine Bacteria Few (Negative); Urine Red Blood Cell 0-2 /HPF (0-2)
--- NOTE | 2024-12-30 13:02 | CM ---
Reviewed chart. Met with Mrs. Sheridan to review discharge plans. She states prior to admission she resides with her son in a two story home with one step to enter. She states she has a first floor set-up. She states prior to admission she
ambulates with a rolling walker. She has a rolling walker at home. She states she is current with [facility]. She states she would like to continue with them for [facility]. She states she was in [facility] for ten days. She states
she has a prescription plan and uses [facility]. Will need to see her current functional level to see if she will have any skilled care needs. Tele[facility] call to [facility] to update them. They are asking for a new referral closer to
discharge date. Medical work-up in progress. The discharge plan is to return home with her son and resumption of [facility].
[2024-12-30 13:27] LABS: Protein/creatinine Ratio 0.4; Urine Protein 8 mg/dl
[2024-12-30 15:23] LABS: % Basophils 0.5 % (0-2); % Eosinophils 1.7 % (0-6); % Immature Granulocytes 0.5 % (0-0.5); % Lymphocytes 13.6 % (20.5-51.1); % Monocytes 6.7 % (1.7-9.3); Absolute Basophils 0.1 10^3/uL (0-0.2); Absolute Eosinophils 0.2 10^3/uL (0-0.7); Absolute Immature Granulocytes 0.1 10^3/uL (0-0.05); Absolute Lymphocytes 1.3 10^3/uL (1.2-3.4); Absolute Monocytes 0.6 10^3/uL (0.1-0.6); Absolute Neutrophils 7.3 10^3/uL (1.4-6.5); Hematocrit 27.1 % (37.0-47.0); Hemoglobin 8.5 g/dL (12.0-16.0); Mean Corp Hgb Conc. 31.4 g/dL (33.0-37.0); Mean Corpuscular Hgb 26.8 pg (27.0-31.0); Mean Corpuscular Volume 85.5 fL (81.0-99.0); Mean Platelet Volume 9.5 fL (7.4-10.4); Nucleated Red Blood Cells % 0 %; Platelet Count 466 10^3/uL (130-400); Red Blood Cell Count 3.17 10^6/uL (4.20-5.40); Red Cell Dist. Width 17.5 % (11.5-14.5); White Blood Cell Count 9.5 10^3/uL (4.8-10.8)
[2024-12-30 15:43] LABS: Troponin I 0.084 ng/ml
--- NOTE | 2024-12-30 15:52 | PN.CDI ---
CDI
- -
CDI:
Physician Documentation Request
Admit Date: 12/29/24 16:52
Dear Doctor Dwayne,
Patient presented to ED with concerns for bilateral lower extremity edema. Found to be in heart failure and JACOB.
H&P and progress note 12/30 include a diagnosis of hypertensive urgency
12/29 attending update note and cardiology notes include a diagnosis of hypertensive emergency.
12/29 note states 'concern for acute CHF exacerbation with hypertensive emergency and associated JACOB on CKD 3B with cardiorenal component'
Cardiology note 'Hypertensive emergency- Threat of life'
Some blood pressures from early in admission:
12/29/24
11:49 12/29/24
14:20 12/29/24
15:01
Blood pressure 183/94 200/110 193/123
12/29/24
16:00
Blood pressure 227/123
In an attempt to clarify potentially conflicting documentation, please clarify is a more accurate diagnosis reflecting the type and acuity of the documented hypertension:
Hypertensive Emergency - B/P is severely elevated (systolic > or = to 180 or diastolic > or = to 110) but can occur at lower levels especially in patients who did not previously have high B/P. There is usually associated organ damage. Symptoms may
include: memory loss, LOC, CVA, IN, angina, renal failure, pulmonary edema. Generally requires more aggressive treatment and a hospitalization.
Hypertensive Urgency - B/P is severely elevated (systolic > or = to 180 or diastolic > or = to 110) but there is no associated organ damage. Symptoms may include: headache, shortness of breath, nosebleeds, severe anxiety. Treatment usually consists
of addition to or adjusting of oral medications and does not generally necessitate hospitalization.
Other (please specify)
Use of terms such as suspected, likely, concern for, or probable (associated with a specific diagnosis that is being evaluated, monitored, or treated as if it exists) are acceptable and can be coded in the inpatient setting, when documented at the
time of discharge.
Thank you,
Betsy Nava RN, BSN
CDI Specialist
tiger text
Please use your independent medical judgment in providing your response.
--- NOTE | 2024-12-30 16:03 | PN.CDI ---
CDI
- -
CDI:
Physician Documentation Request
Admit Date: 12/29/24 16:52
Dear Doctor Dwayne,
Patient presented to acute heart failure.
12/30 echo EF 51%
Please provide further specificity regarding the most likely type of CHF you are evaluating, treating or monitoring.
Type
Systolic
Diastolic
Combined Systolic/Diastolic
Other
Use of terms such as suspected, likely, concern for, or probable (associated with a specific diagnosis that is being evaluated, monitored, or treated as if it exists) are acceptable and can be coded in the inpatient setting, when documented at the
time of discharge.
Thank you,
Betsy Nava RN, BSN
CDI Specialist
tiger text
Please use your independent medical judgment in providing your response.
--- NOTE | 2024-12-30 16:20 | WOUNDNOTE ---
[facility] RN NOTE: Reviewed chart, met with patient. [facility] RN consult received for abdominal wound. Patient has .1x.1 area of MASD where her pull up meets her skin. Spoke to RN's Juany and Edilia. They were aware of MASD and will apply Calazime. Will sign
off.
--- NOTE | 2024-12-30 16:22 | WOUNDNOTE ---
[facility] RN NOTE: Reviewed chart, met with patient. [facility] RN consult received for abdominal wound. Patient has .1x.1 area of MASD where her pull up meets her skin. Spoke to RN's Juany and Edilia. They were aware of MASD and will apply Calazime. heels and
sacrum intact. Patient turns easily in bed. Will sign off.
[2024-12-30] MEDS: METAMUCIL, KONSYL 1 PACKET PO (17:10)
[2024-12-30] MEDS: COREG 25 MG PO (19:59)
[2024-12-30] MEDS: BENADRYL 25 MG PO (23:21)
--- NOTE | 2024-12-30 23:46 | PTCARENOTE ---
Pt rec'd with NTG gtt at 70mcq. medicated with Tylenol and Benadryl at HS for h/a and dry itchy skin.
Sinus on telemetry.
[2024-12-31] VITALS (22 sets, daily range): BP systolic 111–199; BP diastolic 53–88; BMI 22.2
[2024-12-31] MEDS: NITROGLYCERIN PREMIX 250 IV (04:54)
[2024-12-31] MEDS: TYLENOL 650 MG PO ×4 (04:58→22:53)
[2024-12-31 05:30] LABS: Blood Urea Nitrogen 100 mg/dl (7-17); Calcium 9.3 mg/dl (8.4-10.2); Carbon Dioxide 18 mmol/L (22-30); Chloride 108 mmol/L (98-107); Estimated Creatinine Clearance 14 ml/min; Glucose 143 mg/dl (70-99); Potassium 4.2 mmol/L (3.5-5.1); Sodium 138 mmol/L (135-145); eGFR 16.63
[2024-12-31 05:46] LABS: % Basophils 0.7 % (0-2); % Immature Granulocytes 0.6 % (0-0.5); % Lymphocytes 15.9 % (20.5-51.1); % Neutrophils 70.8 % (42.2-75.2); Absolute Basophils 0.1 10^3/uL (0-0.2); Absolute Eosinophils 0.3 10^3/uL (0-0.7); Absolute Immature Granulocytes 0.1 10^3/uL (0-0.05); Absolute Lymphocytes 1.7 10^3/uL (1.2-3.4); Absolute Monocytes 0.9 10^3/uL (0.1-0.6); Absolute Neutrophils 7.4 10^3/uL (1.4-6.5); Hematocrit 21.2 % (37.0-47.0); Hemoglobin 6.7 g/dL (12.0-16.0); Mean Corp Hgb Conc. 31.6 g/dL (33.0-37.0); Mean Corpuscular Hgb 26.5 pg (27.0-31.0); Mean Corpuscular Volume 83.8 fL (81.0-99.0); Mean Platelet Volume 9.9 fL (7.4-10.4); Nucleated Red Blood Cells % 0 %; Platelet Count 410 10^3/uL (130-400); Red Blood Cell Count 2.53 10^6/uL (4.20-5.40); Red Cell Dist. Width 17.3 % (11.5-14.5); White Blood Cell Count 10.4 10^3/uL (4.8-10.8)
--- NOTE | 2024-12-31 06:42 | PTCARENOTE ---
am blood work resulted with HGB 6.7 no obvious signs of bleeding. [facility] made aware
[2024-12-31] MEDS: HEPARIN 5000 UNITS SC ×2 (08:03→21:12)
[2024-12-31] MEDS: LIPITOR 20 MG PO (08:03)
[2024-12-31] MEDS: VITAMIN D3 (cholecalciferol) 25 MCG PO (08:03)
[2024-12-31] MEDS: CATAPRES 0.6 MG PO ×3 (08:03→22:18)
[2024-12-31] MEDS: APRESOLINE 100 MG PO ×3 (08:04→22:18)
[2024-12-31] MEDS: LASIX 40 MG IV ×2 (08:04→15:47)
[2024-12-31] MEDS: THERAGRAN 1 TABLET PO (08:04)
[2024-12-31] MEDS: NORVASC 10 MG PO (08:04)
[2024-12-31] MEDS: PLAVIX 75 MG PO (08:04)
[2024-12-31] MEDS: COREG 25 MG PO ×2 (08:04→21:12)
--- NOTE | 2024-12-31 08:12 | W.PN.HOSP.TC ---
Today's Communication/Plan
-
-Hgb dropped to 6.7 on 12/31/24 morning
-1 unit PRBC being transfused on 12/31 AM
-Check iron studies, vitamin B12
-Maintain Hgb > 7
-No signs of acute blood loss -- colostomy bag does not look bloody as of 12/31/24 morning
-Check fecal occult stool test
-Continue IV Lasix
Assessment / Plan
Assessment / Plan
Physical Exam
General: Well Developed and No Apparent Distress
HEENT: Normocephalic, Atraumatic, Moist Mucous Membranes and Oxygen
Respiratory: Clear to Auscultation
Cardiac: Regular Rhythm and S1/S2; Negative Murmur, Rub or Gallop
GI: Soft, Nontender, Nondistended and Normal Bowel Sounds; Negative Organomegaly
Rectal: Deferred by Provider
Musculoskeletal: No Clubbing, No Cyanosis, Edema, Right Lower Extrem and Edema, Left Lower Extrem
Skin: Negative Rash
Neuro: Nonfocal/Grossly Intact
Assessment/Plan
#acute hypoxic respiratory insufficiency like 2/2 acute heart failure
#Acute Heart Failure with Preserved Ejection Fraction
- cont IVU level of care
- apprec Cardiology
- Continue IV Lasix
- Improved. Weaned off bipap -- CURRENTLY ON ROOM AIR
- daily weights
- ECHO with EF 51%, thickened pericardium, mild global hypokinesis, mild concentric left ventricular hypertrophy, trace aortic regurgitation, moderate pulmonary hypertension,
pleural effusion present.
#Hypertensive Emergency
#essential hypertension
- Received nitro drip this admission
- continue amlodipine, clonidine, hydralazine, and metoprolol
- hold valsartan-HCTZ
- Consult Nephrology
- IV labetalol as needed
#acute on chronic kidney disease stage 3B
#Bilateral renal artery stenosis with stents, left atrophic kidney
#Acute Metabolic Acidosis
- hold nephrotoxic medications Hold valsartan HCTZ
- No bicarb or dialysis for now as per nephro
-nephro following, improving with diuresis.
#Severe peripheral vascular disease
#Aortobifem bypass
#hypercholesteremia
- continue atorvastatin and clopidogrel
- reschedule follow up apt out patient
#Normocytic anemia
-Hgb dropped to 6.7 on 12/31/24 morning
-Patient already provided blood transfusion consent previously
-1 unit PRBC being transfused on 12/31
-Check iron studies, vitamin B12
-Maintain Hgb > 7
-No signs of acute blood loss -- colostomy bag does not look bloody as of 12/31/24 morning
-Check fecal occult stool test
#Colostomy bag
#Left adrenaloma
Code status: full code
DVT prophylaxis: heparin sq
Anticipated Discharge: > 48 hours
Subjective/Interval History
-
Date of Service: December 31, 2024
Patient was seen and examined. She denied any new chest pain or shortness of breath.
Objective Data
-
Labs:
Laboratory Results
12/31/24
04:49
WBC 10.4
Hgb 6.7 L* D
Hct 21.2 L
Plt Count 410 H
Sodium 138
Potassium 4.2
Chloride 108 H
Carbon Dioxide 18 L
BUN 100 H
Creatinine 3.0 H
Glucose 143 H
Calcium 9.3
Vital Signs:
Vital Signs
Temp Pulse Resp BP Pulse Ox
98.5 F 88 18 171/74 96
12/31/24 06:52 12/31/24 04:39 12/31/24 06:52 12/31/24 04:39 12/31/24 06:52
I&O
12/30/24 12/31/24 01/01/25
06:59 06:59 06:59
Intake Total 240 / 240
Output Total 1050 / 1050 1685 / 1685 150 / 150
Balance -1050 / -1050 -1445 / -1445 -150 / -150
[2024-12-31] MEDS: VITAMIN B-12 1000 MCG PO (09:31)
--- NOTE | 2024-12-31 10:56 | W.PN.CD ---
Today's Communication / Plan
-
wean off nitro drip, and start imdur 30mg daily
getting pRBC: continue IV lasix with nephrology input
Impression / Plan
-
64 yo female with PMH of multi-drug resistant HTN, CKD3b, PAD, with recent revascularization 10/2024, prior left renal artery stent presents to ED with SOB, edema. Also noted is hypoxic respiratory failure and placed on BiPAP. We are consulted for
HTN emergency, and acute HF.
#HTN emergency: improved
-with acute HF, acute renal failure, acute non-ischemic myocardial injury, acute hypoxic respiratory failure
-weaned off BiPAP
-IV diuresis, with close monitoring of labs, tele
-wean off nitro drip, and start imdur 30mg daily
-continue home hydralazine 100mg tid, clonidine 0.6mg tid , amlodipine 10mg daily
-changed metoprolol to coreg 25mg bid this admission
-stopped ARB/HCTZ due to renal failure
# Acute HFPEF
-echo 12/30: EF 50-55%, nl RV, mild/mod TR, PASP 60
-IV lasix 40mg IV, with close monitoring of labs, tele
# Acute renal failure
-trend Cr with diuresis; baseline CKD3b noted
-stop ARB and HCTZ
#Acute on chronic anemia
-getting pRBC
#PAD
-ASA, Plavix, statin
Physical Exam
Vital Signs/Labs
Vital Signs
Temp Pulse Resp BP Pulse Ox
98.1 F 86 16 122/57 96
12/31/24 10:16 12/31/24 09:57 12/31/24 10:16 12/31/24 10:16 12/31/24 10:16
12/30/24 12/31/24 01/01/25
06:59 06:59 06:59
Actual Weight 55.1 kg 53.2 kg
12/31/24 04:49
12/31/24 04:49
Triglycerides 169 mg/dl (10-149) H 12/30/24 03:26
LDL Cholesterol, Calc 29 mg/dl 12/30/24 03:26
VLDL Cholesterol, Calc 33 mg/dl (0-30) H 12/30/24 03:26
HDL Cholesterol 48 mg/dl 12/30/24 03:26
12/29/24
12:23
Mrn-U-Dsrxpeaynkx Pept
LAB Results
12/29/24 12/29/24 12/30/24
14:38 19:50 03:26
Troponin I 0.124 H* 0.108 H* 0.114 H*
12/30/24
15:08
Troponin I 0.084 H*
Physical Exam
Constitutional: No acute distress and Comfortable
EENT: Moist mucous membranes
Cardiovascular: Rhythm & rate is regular, Pedal edema is absent, Systolic murmur absent and JVD present
Respiratory: Respiratory effort normal and Lungs clear to auscul.
Neuro/Psych: AO x 3
Data Reviewed
-
Date of Service: December 31, 2024
EKG: Other (Tele: SR 80s-90s)
Labs: Labs Reviewed by me
[2024-12-31] MEDS: IMDUR (EXTENDED RELEASE) 30 MG PO (12:02)
--- NOTE | 2024-12-31 12:31 | W.PN.NEPH.PH ---
Today's Communication / Plan
-
Blood transfusion continue IV diuretics
Assessment/Plan
-
Impression:
JACOB
CKD 3B baseline 1.8
Acute metabolic acidosis.
Hypertensive urgency.
Colostomy
Bilateral renal artery stenosis with stents, left atrophic kidney
Left adrenaloma
Aortobifem bypass
Severe peripheral arterial disease
Acute heart failure decompensated
Plan:
Follow BMP
IV Lasix for diuresis
Cardiology evaluation will need echocardiogram= pending
Hold valsartan HCTZ
Continue clonidine and metoprolol and hydralazine and amlodipine
IV labetalol as needed
Check urine studies= pending.
Creatinine improved down to 2.8
Bicarbonate improved will continue to trend for now/ hold off on p.o. bicarbonate with increased salt load in the setting of CHF.
No acute need for dialysis
-1.4 L�
Hemoglobin decreased to 6.7 receiving transfusion.
Continue with diuretics for now discussed with cardiology will likely decrease over the next 24 hours changed to p.o.
Total Time Spent with Patient (in minutes): 31
-
-
Date of Service: December 31, 2024
CC / HPI / ROS
-
Chief Complaint:
Increased edema shortness of breath
History of Present Illness:
Acute on chronic kidney disease with weight gain over the last week since discharge and creatinine elevated to 3.2 with a baseline of 1.8
Review of Systems:
Mild shortness of breath with edema some improvement
Labs
-
Labs:
WBC 10.4 10^3/uL (4.8-10.8) 12/31/24 04:49
RBC 2.53 10^6/uL (4.20-5.40) L 12/31/24 04:49
Hgb 6.7 g/dL (12.0-16.0) L* D 12/31/24 04:49
Hct 21.2 % (37.0-47.0) L 12/31/24 04:49
Plt Count 410 10^3/uL (130-400) H 12/31/24 04:49
Sodium 138 mmol/L (135-145) 12/31/24 04:49
Potassium 4.2 mmol/L (3.5-5.1) 12/31/24 04:49
Chloride 108 mmol/L (98-107) H 12/31/24 04:49
Carbon Dioxide 18 mmol/L (22-30) L 12/31/24 04:49
BUN 100 mg/dl (7-17) H 12/31/24 04:49
Creatinine 3.0 mg/dL (0.6-1.0) H 12/31/24 04:49
eGFR 16.63 12/31/24 04:49
Glucose 143 mg/dl (70-99) H 12/31/24 04:49
Calcium 9.3 mg/dl (8.4-10.2) 12/31/24 04:49
Lnn-L-Qmrkzyrjrrt Pept 38501 pg/ml 12/29/24 12:23
Albumin Cancelled 12/29/24 12:23
Physical Exam
-
Vital Signs:
Vital Signs
Temp Pulse Resp BP Pulse Ox
98.1 F 90 16 111/72 96
12/31/24 12:00 12/31/24 12:00 12/31/24 12:00 12/31/24 12:00 12/31/24 10:16
Cardiovascular:: Regular rate and rhythm
Respiratory:: Bilateral: Coarse
Lung Excursion:: Normal
Abdomen:: Nontender and Soft
Bowel Sounds:: Normal
Extremity Edema:: +3: Bilateral:
--- NOTE | 2024-12-31 21:58 | PTCARENOTE ---
Pt rec'd at change of shift sitting on side of bed eating dinner. No c/o pain. small hard stool noted in colostomy. Hematest negative. Pt states she takes Colace at home to keep stools softer. [facility] contacted for order. sinus on telemetry. rsp
even and unlabored, no rales noted.
legs remain +2 edema. Pt back to bed at present with legs elevated in bed with pillow.
[2024-12-31] MEDS: COLACE 100 MG PO (22:18)
[2024-12-31 23:02] LABS: Hematocrit 25.4 % (37.0-47.0); Hemoglobin 8.1 g/dL (12.0-16.0)
[2024-12-31] MEDS: BENADRYL 25 MG PO (23:13)
[2025-01-01] VITALS (7 sets, daily range): BP systolic 126–209; BP diastolic 61–111; BMI 22.3
[2025-01-01 06:17] LABS: Hematocrit 24.8 % (37.0-47.0); Mean Corp Hgb Conc. 32.3 g/dL (33.0-37.0); Mean Corpuscular Hgb 26.7 pg (27.0-31.0); Mean Corpuscular Volume 82.7 fL (81.0-99.0); Mean Platelet Volume 9.7 fL (7.4-10.4); Platelet Count 342 10^3/uL (130-400); White Blood Cell Count 10.9 10^3/uL (4.8-10.8)
[2025-01-01 06:48] LABS: Blood Urea Nitrogen 101 mg/dl (7-17); Calcium 9.7 mg/dl (8.4-10.2); Carbon Dioxide 17 mmol/L (22-30); Chloride 107 mmol/L (98-107); Estimated Creatinine Clearance 13 ml/min; Glucose 152 mg/dl (70-99); Iron 44 ug/dl (37-170); Potassium 4.4 mmol/L (3.5-5.1); Sodium 138 mmol/L (135-145); eGFR 15.98
[2025-01-01 06:58] LABS: Percent Saturation 19 % (20-50); Total Iron Binding Capacity 225 ug/dl (265-497)
[2025-01-01 07:12] LABS: Ferritin 67.4 ng/ml (11.1-264.0)
[2025-01-01 07:26] LABS: Vitamin B12 683 pg/ml (239-931)
[2025-01-01] MEDS: THERAGRAN 1 TABLET PO (07:42)
[2025-01-01] MEDS: CATAPRES 0.6 MG PO ×3 (07:42→23:00)
[2025-01-01] MEDS: PLAVIX 75 MG PO (07:48)
[2025-01-01] MEDS: VITAMIN D3 (cholecalciferol) 25 MCG PO (07:48)
[2025-01-01] MEDS: APRESOLINE 100 MG PO ×3 (07:48→22:56)
[2025-01-01] MEDS: NORVASC 10 MG PO (07:49)
[2025-01-01] MEDS: LASIX 40 MG IV ×2 (07:49→15:46)
[2025-01-01] MEDS: LIPITOR 20 MG PO (07:49)
[2025-01-01] MEDS: COREG 25 MG PO ×2 (07:49→20:21)
[2025-01-01] MEDS: HEPARIN 5000 UNITS SC ×2 (07:50→20:22)
[2025-01-01] MEDS: FLUSH (NSS) 1 FLUSH IV (07:55)
[2025-01-01] MEDS: IMDUR (EXTENDED RELEASE) 30 MG PO (08:04)
[2025-01-01] MEDS: VITAMIN B-12 1000 MCG PO (08:04)
--- NOTE | 2025-01-01 09:20 | W.PN.CD ---
Today's Communication / Plan
-
continue multi-drug regimen for BP
to discuss IV diuresis plan with nephrology
to consider RHC this admission
Impression / Plan
-
64 yo female with PMH of multi-drug resistant HTN, CKD3b, PAD, with recent revascularization 10/2024, prior left renal artery stent presents to ED with SOB, edema. Also noted is hypoxic respiratory failure and placed on BiPAP. We are consulted for
HTN emergency, and acute HF.
#HTN emergency: improved
-with acute HF, acute renal failure, acute non-ischemic myocardial injury, acute hypoxic respiratory failure
-weaned off BiPAP
-IV diuresis, with close monitoring of labs, tele
-weaned off nitro drip 12/31, and started imdur 30mg daily
-continue home hydralazine 100mg tid, clonidine 0.6mg tid , amlodipine 10mg daily
-changed metoprolol to coreg 25mg bid this admission
-stopped ARB/HCTZ due to renal failure
# Acute HFPEF
-dry weight may be closer to 50kg based on chart review, and currently at 53 kg
-severe, requiring hospitalization and close monitoring of labs
-echo 12/30: EF 50-55%, nl RV, mild/mod TR, PASP 60
-IV lasix 40mg IV, with close monitoring of labs, tele
-to consider RHC this admission
# Acute renal failure
-trend Cr with diuresis; baseline CKD3b noted
-stop ARB and HCTZ
#Acute on chronic anemia
-s/p pRBC
#PAD
-ASA, Plavix, statin
Physical Exam
Vital Signs/Labs
Vital Signs
Temp Pulse Resp BP Pulse Ox
97.5 F 92 18 126/61 96
01/01/25 08:16 01/01/25 05:49 01/01/25 08:16 01/01/25 05:49 01/01/25 08:16
12/31/24 01/01/25 01/02/25
06:59 06:59 06:59
Actual Weight 53.2 kg 53.4 kg
01/01/25 06:00
01/01/25 06:00
Triglycerides 169 mg/dl (10-149) H 12/30/24 03:26
LDL Cholesterol, Calc 29 mg/dl 12/30/24 03:26
VLDL Cholesterol, Calc 33 mg/dl (0-30) H 12/30/24 03:26
HDL Cholesterol 48 mg/dl 12/30/24 03:26
12/29/24
12:23
Uen-S-Kmnanpciwxi Pept
LAB Results
12/29/24 12/29/24 12/30/24
14:38 19:50 03:26
Troponin I 0.124 H* 0.108 H* 0.114 H*
12/30/24
15:08
Troponin I 0.084 H*
Physical Exam
Constitutional: No acute distress and Comfortable
EENT: Moist mucous membranes
Cardiovascular: Rhythm & rate is regular, Pedal edema present, JVD present and Systolic murmur present
Respiratory: Respiratory effort normal and Lungs clear to auscul.
Neuro/Psych: AO x 3
Data Reviewed
-
Date of Service: January 01, 2025
EKG: Other (Tele: SR 80s)
Labs: Labs Reviewed by me
[2025-01-01] MEDS: TYLENOL 650 MG PO ×2 (12:04→22:59)
--- NOTE | 2025-01-01 14:26 | PTCARENOTE ---
Pt received this am with no c/o of any pain or sob. SR, rate in the 70's to 90's. Assisted to the BR and to the chair, gait steady with the walker.
--- NOTE | 2025-01-01 15:33 | W.PN.HOSP.TC ---
Today's Communication/Plan
-
Continue IV diuresis, daily weights, I's and O's
Monitor BMP/renal function
Patient may need RHC this admission given her CHF exacerbation and also impaired renal function
Assessment / Plan
Assessment / Plan
Physical Exam
General: Well Developed and No Apparent Distress
HEENT: Normocephalic, Atraumatic, Moist Mucous Membranes and Oxygen
Respiratory: Clear to Auscultation
Cardiac: Regular Rhythm and S1/S2; Negative Murmur, Rub or Gallop
GI: Soft, Nontender, Nondistended and Normal Bowel Sounds; Negative Organomegaly
Rectal: Deferred by Provider
Musculoskeletal: No Clubbing, No Cyanosis, Edema, Right Lower Extrem and Edema, Left Lower Extrem
Skin: Negative Rash
Neuro: Nonfocal/Grossly Intact
Assessment/Plan
#Acute hypoxic respiratory insufficiency like secondary to acute heart failure
#Acute Heart Failure with Preserved Ejection Fraction
- cont IVU level of care
- apprec Cardiology
- Continue IV Lasix 40 mg BID
- Dry weight likely ~50 kg, and currently at 53 kg
- Improved. Weaned off bipap -- CURRENTLY ON ROOM AIR
- daily weights
- ECHO with EF 51%, thickened pericardium, mild global hypokinesis, mild concentric left ventricular hypertrophy, trace aortic regurgitation, moderate pulmonary hypertension,
pleural effusion present.
- Cardiology considering right heart cath this hospitalization
#Hypertensive Emergency
#Essential Hypertension
- Received nitro drip this admission, weaned off on 12/31/24
- Imdur 30 mg daily started
- continue amlodipine 10 mg daily, clonidine 0.6 mg TID, hydralazine 100 mg TID
- Metoprolol changed to Coreg 25 mg BID this hospitalization
- hold valsartan-HCTZ due to acute kidney injury
- Consult Nephrology
- IV labetalol as needed --> patient has not needed this so far
#acute on chronic kidney disease stage 3B
#Bilateral renal artery stenosis with stents, left atrophic kidney
#Acute Metabolic Acidosis
- hold nephrotoxic medications Hold valsartan HCTZ
- No bicarb or dialysis for now as per nephro
-nephro following, improving with diuresis.
#Severe peripheral vascular disease
#Aortobifem bypass
#hypercholesteremia
- continue atorvastatin and clopidogrel
- reschedule follow up apt out patient
#Normocytic anemia
-Hgb dropped to 6.7 on 12/31/24 morning -- patient then received 1 unit of PRBC on 12/31/24 morning -- Hgb improved well
-Patient already provided blood transfusion consent previously
-Iron studies unremarkable, but patient also received PRBC transfusion before that
-Vitamin B12 levels within normal limits
-Maintain Hgb > 7
-No signs of acute blood loss -- colostomy bag does not look bloody
#Colostomy bag
-Patient reported hard stools and mentioned she was taking Miralax at home
-Continue Miralax
#Left adrenaloma
Code status: full code
DVT prophylaxis: heparin sq
Anticipated Discharge: > 48 hours
Subjective/Interval History
-
Date of Service: January 01, 2025
Patient was seen and examined. She denied any chest pain, shortness of breath or any other new symptoms or complaints.
Objective Data
-
Labs:
Laboratory Results
01/01/25
06:00
WBC 10.9 H
Hgb 8.0 L
Hct 24.8 L
Plt Count 342
Sodium 138
Potassium 4.4
Chloride 107
Carbon Dioxide 17 L
BUN 101 H*
Creatinine 3.1 H
Glucose 152 H
Calcium 9.7
Vital Signs:
Vital Signs
Temp Pulse Resp BP Pulse Ox
98.2 F 84 18 145/66 97
01/01/25 12:01 01/01/25 12:00 01/01/25 12:01 01/01/25 11:59 01/01/25 12:01
I&O
12/31/24 01/01/25 01/02/25
06:59 06:59 06:59
Intake Total 240 / 240 250 / 250
Output Total 1685 / 1685 275 / 275
Balance -1445 / -1445 -
--- NOTE | 2025-01-01 15:39 | W.PN.NEPH.PH ---
Today's Communication / Plan
-
Continue diuretics
Agree with right heart cath
Assessment/Plan
-
Impression:
JACOB
CKD 3B baseline 1.8
Acute metabolic acidosis.
Hypertensive urgency.
Colostomy
Bilateral renal artery stenosis with stents, left atrophic kidney
Left adrenaloma
Aortobifem bypass
Severe peripheral arterial disease
Acute heart failure decompensated
Plan:
Follow BMP
IV Lasix for diuresis
echocardiogram= on this admission ejection fraction 51% with moderate pulmonary hypertension
Hold valsartan HCTZ
Continue clonidine and metoprolol and hydralazine and amlodipine
Protein creatinine ratio 0.4
She status post IV bicarbonate. I will hold off on p.o. bicarbonate at this time with increased salt load
No acute need for dialysis/the patient is aware that she ultimately may need hemodialysis going forward
-1.4 L�
Hemoglobin stable status post transfusion
Continue with diuretics for now 40 mg twice a day IV.
Agree with right heart cath. Her lungs are clear she continues to have lower extremity edema as well as spikes in her blood pressure.
Total Time Spent with Patient (in minutes): 32
-
-
Date of Service: January 01, 2025
CC / HPI / ROS
-
Chief Complaint:
Increased edema shortness of breath
History of Present Illness:
Acute on chronic kidney disease with weight gain over the last week since discharge and creatinine elevated to 3.2 with a baseline of 1.8
Review of Systems:
Mild shortness of breath with edema some improvement
Labs
-
Labs:
WBC 10.9 10^3/uL (4.8-10.8) H 01/01/25 06:00
RBC 3.00 10^6/uL (4.20-5.40) L 01/01/25 06:00
Hgb 8.0 g/dL (12.0-16.0) L 01/01/25 06:00
Hct 24.8 % (37.0-47.0) L 01/01/25 06:00
Plt Count 342 10^3/uL (130-400) 01/01/25 06:00
Sodium 138 mmol/L (135-145) 01/01/25 06:00
Potassium 4.4 mmol/L (3.5-5.1) 01/01/25 06:00
Chloride 107 mmol/L (98-107) 01/01/25 06:00
Carbon Dioxide 17 mmol/L (22-30) L 01/01/25 06:00
BUN 101 mg/dl (7-17) H* 01/01/25 06:00
Creatinine 3.1 mg/dL (0.6-1.0) H 01/01/25 06:00
eGFR 15.98 01/01/25 06:00
Glucose 152 mg/dl (70-99) H 01/01/25 06:00
Calcium 9.7 mg/dl (8.4-10.2) 01/01/25 06:00
Zyx-R-Seciaaojotw Pept 62054 pg/ml 12/29/24 12:23
Albumin Cancelled 12/29/24 12:23
Physical Exam
-
Vital Signs:
Vital Signs
Temp Pulse Resp BP Pulse Ox
98.2 F 84 18 145/66 97
01/01/25 12:01 01/01/25 12:00 01/01/25 12:01 01/01/25 11:59 01/01/25 12:01
Cardiovascular:: Regular rate and rhythm
Respiratory:: Bilateral: Coarse
Lung Excursion:: Normal
Abdomen:: Nontender and Soft
Bowel Sounds:: Normal
Extremity Edema:: +3: Bilateral:
[2025-01-01] MEDS: BENADRYL 25 MG PO ×2 (15:46→22:55)
--- NOTE | 2025-01-01 16:00 | PTCARENOTE ---
Assumed care of pt at 1500. Pt in SR HR in the 80-90's. Pt denies any pain or discomfort. VSS and pt AAO*3. Pt reported itching and rec'd order for Benadryl 25mg . No changes from AM assessment. See flowchart and MAR for full pt care and
assessment. Pt resting with call cota in reach and plan of care ongoing.
[2025-01-01] MEDS: MIRALAX 17 GRAMS PO (19:15)
--- NOTE | 2025-01-01 21:28 | PTCARENOTE ---
Received patient at change of shift. AAOx3. BP elevated (171/75), other VSS. Discussed plan of care for evening. Patient verbalized understanding. Call cota within reach.
[2025-01-02] VITALS (13 sets, daily range): BP systolic 125–182; BP diastolic 59–92; BMI 22.6
[2025-01-02 05:35] LABS: Hematocrit 25.9 % (37.0-47.0); Hemoglobin 8.3 g/dL (12.0-16.0); Mean Corpuscular Hgb 26.6 pg (27.0-31.0); Mean Platelet Volume 9.9 fL (7.4-10.4); Platelet Count 382 10^3/uL (130-400); Red Blood Cell Count 3.12 10^6/uL (4.20-5.40); Red Cell Dist. Width 18.5 % (11.5-14.5); White Blood Cell Count 9.7 10^3/uL (4.8-10.8)
[2025-01-02 06:09] LABS: Blood Urea Nitrogen 108 mg/dl (7-17); Calcium 9.8 mg/dl (8.4-10.2); Carbon Dioxide 19 mmol/L (22-30); Chloride 106 mmol/L (98-107); Estimated Creatinine Clearance 12 ml/min; Glucose 104 mg/dl (70-99); Potassium 4.7 mmol/L (3.5-5.1); Sodium 137 mmol/L (135-145); eGFR 13.82
--- NOTE | 2025-01-02 07:43 | W.PN.HOSP.TC ---
Today's Communication/Plan
-
Lasix on hold
Right Heart Cath today
Assessment / Plan
Assessment / Plan
Physical Exam
General: Not in acute distress
HEENT: Normocephalic, Atraumatic, Moist Mucous Membranes
Respiratory: Clear to Auscultation Bilaterally
Cardiac: Regular Rhythm and S1/S2
GI: Soft, Nontender, Nondistended and Normal Bowel Sounds
Musculoskeletal: No Cyanosis. Edema, Right Lower Extremity and Edema, Left Lower Extremity
Skin: Warm. Dry.
Neuro: AAOx3. Nonfocal/Grossly Intact.
Assessment/Plan
#Acute hypoxic respiratory insufficiency like secondary to acute heart failure
#Acute Heart Failure with Preserved Ejection Fraction
- cont IVU level of care
- appreciate Cardiology
- HOLD IV Lasix 40 mg BID given renal function
- Dry weight likely ~50 kg, and currently at 53 kg
- Improved. Weaned off bipap -- CURRENTLY ON ROOM AIR
- daily weights
- ECHO with EF 51%, thickened pericardium, mild global hypokinesis, mild concentric left ventricular hypertrophy, trace aortic regurgitation, moderate pulmonary hypertension,
pleural effusion present.
- Right heart cath today to decide on how to do diuresis
#Hypertensive Emergency
#Essential Hypertension
- Received nitro drip this admission, weaned off on 12/31/24
- Imdur 30 mg daily started
- continue amlodipine 10 mg daily, clonidine 0.6 mg TID, hydralazine 100 mg TID
- Metoprolol changed to Coreg 25 mg BID this hospitalization
- hold valsartan-HCTZ due to acute kidney injury
- Consult Nephrology
- IV labetalol as needed --> patient has not needed this so far
#acute on chronic kidney disease stage 3B
#Bilateral renal artery stenosis with stents, left atrophic kidney -- functioning solitary kidney known PARI and stent -consider renal duplex
#Acute Metabolic Acidosis
- hold nephrotoxic medications Hold valsartan HCTZ
- No bicarb or dialysis for now as per nephro
- Nephro following, improving with diuresis.
#Severe peripheral vascular disease
#Aortobifem bypass
#hypercholesteremia
- continue atorvastatin and clopidogrel
- reschedule follow up apt out patient
#Normocytic anemia
-Hgb dropped to 6.7 on 12/31/24 morning -- patient then received 1 unit of PRBC on 12/31/24 morning -- Hgb improved well
-Patient already provided blood transfusion consent previously
-Iron studies unremarkable, but patient also received PRBC transfusion before that
-Vitamin B12 levels within normal limits
-Maintain Hgb > 7
-No signs of acute blood loss -- colostomy bag does not look bloody
#Colostomy bag
-Patient reported hard stools and mentioned she was taking Miralax at home
-Continue Miralax
#Left adrenaloma
Code status: full code
DVT prophylaxis: heparin sq
Anticipated Discharge: > 48 hours
Subjective/Interval History
-
Date of Service: January 02, 2025
Patient was seen and examined. She denied any chest pain or shortness of breath.
Objective Data
-
Labs:
Laboratory Results
01/02/25
05:02
WBC 9.7
Hgb 8.3 L
Hct 25.9 L
Plt Count 382
Sodium 137
Potassium 4.7
Chloride 106
Carbon Dioxide 19 L
BUN 108 H*
Creatinine 3.5 H
Glucose 104 H
Calcium 9.8
Vital Signs:
Vital Signs
Temp Pulse Resp BP Pulse Ox
98.0 F 97 18 162/90 97
01/01/25 22:57 01/02/25 05:30 01/01/25 22:57 01/02/25 04:52 01/02/25 04:52
I&O
01/01/25 01/02/25 01/03/25
06:59 06:59 06:59
Intake Total 250 / 250
Output Total 275 / 275
Balance -
[2025-01-02] MEDS: LASIX IV ×2 (08:01→09:32)
[2025-01-02] MEDS: IMDUR (EXTENDED RELEASE) 30 MG PO (08:01)
[2025-01-02] MEDS: CATAPRES 0.6 MG PO ×3 (08:01→22:16)
[2025-01-02] MEDS: MIRALAX 17 GRAMS PO (08:01)
[2025-01-02] MEDS: APRESOLINE 100 MG PO ×3 (08:02→22:16)
[2025-01-02] MEDS: VITAMIN D3 (cholecalciferol) 25 MCG PO (08:02)
[2025-01-02] MEDS: VITAMIN B-12 1000 MCG PO (08:02)
[2025-01-02] MEDS: NORVASC 10 MG PO (08:02)
[2025-01-02] MEDS: COREG 25 MG PO ×2 (08:02→21:08)
[2025-01-02] MEDS: THERAGRAN 1 TABLET PO (08:02)
[2025-01-02] MEDS: HEPARIN 5000 UNITS SC ×2 (08:02→21:09)
[2025-01-02] MEDS: LIPITOR 20 MG PO (08:03)
[2025-01-02] MEDS: PLAVIX 75 MG PO (08:03)
--- NOTE | 2025-01-02 09:32 | W.PN.CD ---
Today's Communication / Plan
-
hold lasix
RHC today to guide diuresis
Impression / Plan
-
64 yo female with PMH of multi-drug resistant HTN, CKD3b, PAD, with recent revascularization 10/2024, prior left renal artery stent presents to ED with SOB, edema. Also noted is hypoxic respiratory failure and placed on BiPAP. We are consulted for
HTN emergency, and acute HF.
# Acute HFPEF: high risk situation with cardiorenal syndrome, requiring close monitoring of labs, tele
-dry weight may be closer to 50kg based on chart review, and currently at 54 kg; but with worsening renal function
-echo 12/30: EF 50-55%, nl RV, mild/mod TR, PASP 60
-hold lasix
-RHC today to guide diuresis
#HTN emergency: improved
-with acute HF, acute renal failure, acute non-ischemic myocardial injury, acute hypoxic respiratory failure
-weaned off BiPAP
-weaned off nitro drip 12/31, and started imdur 30mg daily
-continue home hydralazine 100mg tid, clonidine 0.6mg tid , amlodipine 10mg daily
-changed metoprolol to coreg 25mg bid this admission
-stopped ARB/HCTZ due to renal failure
# Acute renal failure
-RHC to guide diuresis; baseline CKD3b noted
-stopped ARB and HCTZ
#Acute on chronic anemia
-s/p pRBC
#PAD
-ASA, Plavix, statin
Physical Exam
Vital Signs/Labs
Vital Signs
Temp Pulse Resp BP Pulse Ox
98.0 F 97 16 162/90 97
01/02/25 07:54 01/02/25 05:30 01/02/25 07:54 01/02/25 04:52 01/02/25 07:54
01/01/25 01/02/25 01/03/25
06:59 06:59 06:59
Actual Weight 53.4 kg 54.3 kg
01/02/25 05:02
01/02/25 05:02
Triglycerides 169 mg/dl (10-149) H 12/30/24 03:26
LDL Cholesterol, Calc 29 mg/dl 12/30/24 03:26
VLDL Cholesterol, Calc 33 mg/dl (0-30) H 12/30/24 03:26
HDL Cholesterol 48 mg/dl 12/30/24 03:26
12/29/24
12:23
Yyq-C-Ikzaywhwvlm Pept
LAB Results
12/30/24
15:08
Troponin I 0.084 H*
Physical Exam
Constitutional: No acute distress
EENT: Moist mucous membranes
Cardiovascular: Rhythm & rate is regular, Systolic murmur absent, Pedal edema present and JVD present
Respiratory: Respiratory effort normal and Lungs clear to auscul.
Neuro/Psych: AO x 3
Data Reviewed
-
Date of Service: January 02, 2025
EKG: Other (Tele: SR 80s)
Labs: Labs Reviewed by me
--- NOTE | 2025-01-02 11:04 | CM ---
Reviewed chart. Met with Mrs. Sheridan to review discharge plans. She states she is feeling better. Prior to admission she resides with her son in a two story home with one step to enter. She has a first floor set. Prior to admission she
ambulates with a rolling walker. She has a rolling walker at home. She is current with [facility]. She was in [facility]. in the past. She has a prescription plan and uses [facility]. Will need to see her current functional level
to see if she will have any skilled care needs. Medical work-up in progress. The discharge plan is to return home with her son and resumption of [facility] when medically stable.
--- NOTE | 2025-01-02 13:10 | W.PN.NEPH.PH ---
Today's Communication / Plan
-
RHC
hold lasix
follow labs
Assessment/Plan
-
Impression:
JACOB
CKD 3B baseline 1.8 Dr Goins
Acute metabolic acidosis.
Hypertensive urgency.
Colostomy
Bilateral renal artery stenosis with stents, left atrophic kidney
Left adrenaloma
Aortobifem bypass
Severe peripheral arterial disease
Acute heart failure decompensated
Plan:
JACOB-cr cont to increase 3.5
UA mild micro hematuria and U PCR only 0.4gm/gm of cr, follow bladder scan
lasix on hold, for RHC today
echocardiogram on this admission ejection fraction 51% with moderate pulmonary hypertension
Holding valsartan HCTZ
BP remains high-on high dose of clonidine, hydralazine, coreg and Amlodipine
she reports having functioning solitary kidney known PARI and stent -consider renal duplex
met acidosis stable, monitor
No acute need for dialysis/the patient is aware that she ultimately may need hemodialysis going forward
Hemoglobin stable status post transfusion
d/w pt in detail
-
-
Date of Service: January 02, 2025
CC / HPI / ROS
-
Chief Complaint:
Increased edema shortness of breath, JACOB, CKD
History of Present Illness:
cr increasing to 3.5, BUN 108
wt up today
subjectively non oliguric
hb stable at 8.3
Review of Systems:
improved sob, still with edema
on RA , no cp
Labs
-
Labs:
WBC 9.7 10^3/uL (4.8-10.8) 01/02/25 05:02
RBC 3.12 10^6/uL (4.20-5.40) L 01/02/25 05:02
Hgb 8.3 g/dL (12.0-16.0) L 01/02/25 05:02
Hct 25.9 % (37.0-47.0) L 01/02/25 05:02
Plt Count 382 10^3/uL (130-400) 01/02/25 05:02
Sodium 137 mmol/L (135-145) 01/02/25 05:02
Potassium 4.7 mmol/L (3.5-5.1) 01/02/25 05:02
Chloride 106 mmol/L (98-107) 01/02/25 05:02
Carbon Dioxide 19 mmol/L (22-30) L 01/02/25 05:02
BUN 108 mg/dl (7-17) H* 01/02/25 05:02
Creatinine 3.5 mg/dL (0.6-1.0) H 01/02/25 05:02
eGFR 13.82 01/02/25 05:02
Glucose 104 mg/dl (70-99) H 01/02/25 05:02
Calcium 9.8 mg/dl (8.4-10.2) 01/02/25 05:02
Lgk-G-Wazhdiofltn Pept 53912 pg/ml 12/29/24 12:23
Albumin Cancelled 12/29/24 12:23
Physical Exam
-
Vital Signs:
Vital Signs
Temp Pulse Resp BP Pulse Ox
98.4 F 80 18 182/82 97
01/02/25 10:51 01/02/25 09:30 01/02/25 10:51 01/02/25 07:56 01/02/25 10:51
Cardiovascular:: Regular rate and rhythm
Lung Excursion:: Normal (decreased)
Abdomen:: Nontender and Soft
Bowel Sounds:: Normal
Extremity Edema:: +2: Bilateral:
Rodriguez Catheter: No
--- NOTE | 2025-01-02 17:22 | ITS.CL.CATH ---
Body Art Technician - Catheterization
Cardiac Catheterization
Procedure Report:
RIGHT HEART CATHETERIZATION
Date of Procedure: 01/02/2025
Referring: Manuel Waller M.D., Ph.D.
INDICATION: Heart failure, acute on chronic kidney injury.
ACCESS:
5 Ivorian right antecubital vein using a modified Seldinger technique under ultrasound guidance. Ultrasound image obtained.
CATHETERS:
5 Ivorian balloon wedge.
PROCEDURE:
The patient was prepped and draped in standard sterile fashion. The area for antecubital access was anesthetized with 1% lidocaine. Under ultrasound guidance, the vein was identified and punctured using a standard vascular access needle. A 5
Ivorian sheath was inserted into the basilic vein. A 5 Ivorian balloon wedge catheter was advanced through the sheath into the superior vena cava. An SVC oxygen saturation was drawn. The balloon wedge catheter was advanced into the pulmonary artery
and a pulmonary artery oxygen saturation was drawn. Arterial oxygen saturation was assumed from pulse oximetry. Cardiac output was calculated using the Ish equation. The PA, wedge, RV and RA pressures were measured on pullback. The balloon wedge
catheter was removed. The 5 Ivorian sheath was removed and manual pressure was held for hemostasis.
Weight (kg): 54.0
PA (s/d/x mmHg): 48//36
PCWP (a/v/x mmHg): 24/
RV (s/x mmHg): 49/9
RA (a/v/x mmHg):
SVC SvO2 (%): 64.1
IVC SvO2 (%): Not obtained.
RA SvO2 (%): Not obtained.
RV SvO2 (%): Not obtained.
PA SvO2 (%): 65.6
SaO2 (%): 98.0 (assumed)
Hbg (g/dL): 7.9
Ish
CO (liters/minute): 4.25
CI (liters/minute/m2): 2.80
Thermodilution
CO (liters/minute): Not performed.
CI (liters/minute/m2): Not performed.
TPG (mmHg): 16
PVR (Jacinto Units): 3.76
AVO2 Difference (Volume %): 3.48
Radiation (mGy): 2.59
DAP (cm2.Gy): 0.4643
Fluoroscopy time (minutes): 0.8
CONCLUSION:
1. Moderately elevated filling pressures (PCWP = 20 mmHg at 54.0 kg).
2. Mild to moderate precapillary and postcapillary pulmonary hypertension (mean PA = 36 mmHg, PCWP = 20 mmHg, cardiac output = 4.25 L/min, PVR = 3.76 Jacinto units), WHO group 2, possibly group 1.
3. Preserved cardiac function (cardiac index = 2.80 L/min/m�).
RECOMMENDATIONS:
1. Expectant management after right heart catheterization via right antecubital approach.
2. Continue cautious diuresis.
3. Renal failure may be intrinsic as it is difficult to make an argument for cardiorenal syndrome with high normal cardiac index and moderately elevated filling pressures.
Copy to: Manuel Waller M.D., Ph.D., Surekha Kolb D.O.
Chris Felix D.O., [facility], FACP
[2025-01-02] MEDS: TYLENOL 650 MG PO ×2 (18:25→22:25)
[2025-01-02] MEDS: COLACE 100 MG PO (18:25)
--- NOTE | 2025-01-02 21:30 | PTCARENOTE ---
Received pt at change of shift; AAOx3, able to make needs known, no complaints of pain. NSR on the monitor. R brachial cath site dressing C/D/I, + radial pulse, neurovascularly intact, see flowsheet. Remainder of assessment as documented. Pt resting
comfortably in bed, call cota on her bed side table within reach.
[2025-01-02] MEDS: BENADRYL 25 MG PO (22:21)
[2025-01-03] VITALS (11 sets, daily range): BP systolic 149–195; BP diastolic 70–100; BMI 23.0
[2025-01-03 04:48] LABS: Hematocrit 24.7 % (37.0-47.0); Hemoglobin 7.8 g/dL (12.0-16.0); Mean Corp Hgb Conc. 31.6 g/dL (33.0-37.0); Mean Corpuscular Hgb 26.4 pg (27.0-31.0); Mean Corpuscular Volume 83.4 fL (81.0-99.0); Mean Platelet Volume 10.1 fL (7.4-10.4); Platelet Count 332 10^3/uL (130-400); Red Blood Cell Count 2.96 10^6/uL (4.20-5.40); Red Cell Dist. Width 18.1 % (11.5-14.5); White Blood Cell Count 8.8 10^3/uL (4.8-10.8)
[2025-01-03 05:16] LABS: Blood Urea Nitrogen 113 mg/dl (7-17); Calcium 9.5 mg/dl (8.4-10.2); Carbon Dioxide 19 mmol/L (22-30); Chloride 106 mmol/L (98-107); Estimated Creatinine Clearance 10 ml/min; Glucose 138 mg/dl (70-99); Magnesium 1.7 mg/dl (1.6-2.3); Sodium 138 mmol/L (135-145); eGFR 11.77
[2025-01-03] MEDS: CATAPRES 0.6 MG PO ×3 (07:45→22:09)
[2025-01-03] MEDS: APRESOLINE 100 MG PO ×3 (07:45→22:07)
[2025-01-03] MEDS: VITAMIN B-12 1000 MCG PO (07:45)
[2025-01-03] MEDS: PLAVIX 75 MG PO (07:45)
[2025-01-03] MEDS: THERAGRAN 1 TABLET PO (07:45)
[2025-01-03] MEDS: COREG 25 MG PO ×2 (07:45→20:42)
[2025-01-03] MEDS: IMDUR (EXTENDED RELEASE) 30 MG PO (07:45)
[2025-01-03] MEDS: NORVASC 10 MG PO (07:45)
[2025-01-03] MEDS: COLACE 100 MG PO (07:46)
[2025-01-03] MEDS: VITAMIN D3 (cholecalciferol) 25 MCG PO (07:46)
[2025-01-03] MEDS: HEPARIN 5000 UNITS SC ×2 (07:46→20:42)
[2025-01-03] MEDS: MIRALAX 17 GRAMS PO (07:46)
[2025-01-03] MEDS: LIPITOR 20 MG PO (07:46)
--- NOTE | 2025-01-03 08:14 | W.PN.HOSP.TC ---
Today's Communication/Plan
-
Lasix IV 40 mg BID (cath yesterday with moderately elevated filling pressures)
See plan
Assessment / Plan
Assessment / Plan
Physical Exam
General: Not in acute distress
HEENT: Normocephalic, Atraumatic, Moist Mucous Membranes
Respiratory: Clear to Auscultation Bilaterally
Cardiac: Regular Rhythm and S1/S2
GI: Soft, Nontender, Nondistended and Normal Bowel Sounds
Musculoskeletal: No Cyanosis. Edema, Right Lower Extremity and Edema, Left Lower Extremity
Skin: Warm. Dry.
Neuro: AAOx3. Nonfocal/Grossly Intact.
Assessment/Plan
#Acute hypoxic respiratory insufficiency like secondary to acute heart failure
#Acute Heart Failure with Preserved Ejection Fraction
- Continue IVU level of care
- appreciate Cardiology
- Dry weight likely ~50 kg, and currently at 53 kg
- Improved. Weaned off bipap -- CURRENTLY ON ROOM AIR
- daily weights
- ECHO with EF 51%, thickened pericardium, mild global hypokinesis, mild concentric left ventricular hypertrophy, trace aortic regurgitation, moderate pulmonary hypertension,
pleural effusion present.
- Right heart cath on 01/02/25 showed mildly elevated PCWP at 20; elevated PA pressures
- Lasix IV 40 mg BID resumed
#Hypertensive Emergency
#Essential Hypertension
- Received nitro drip this admission, weaned off on 12/31/24
- Imdur 30 mg daily recently started -- may need to increase it to 60 mg daily to help with blood pressure management
- continue amlodipine 10 mg daily, clonidine 0.6 mg TID, hydralazine 100 mg TID
- Metoprolol changed to Coreg 25 mg BID this hospitalization
- Hold valsartan-HCTZ due to acute kidney injury
- Consult Nephrology
- IV labetalol as needed --> patient has not needed this so far
#acute on chronic kidney disease stage 3B
#Bilateral renal artery stenosis with stents, left atrophic kidney -- functioning solitary kidney known PARI and stent
#Acute Metabolic Acidosis
- hold nephrotoxic medications Hold valsartan HCTZ
- No bicarb or dialysis for now as per nephro
- Nephro following, improving with diuresis.
- Renal Duplex pending
#Severe peripheral vascular disease
#Aortobifem bypass
#hypercholesteremia
- continue atorvastatin and clopidogrel
- reschedule follow up apt out patient
#Normocytic anemia
-Hgb dropped to 6.7 on 12/31/24 morning -- patient then received 1 unit of PRBC on 12/31/24 morning -- Hgb improved well
-Patient already provided blood transfusion consent previously
-Iron studies unremarkable, but patient also received PRBC transfusion before that
-Vitamin B12 levels within normal limits
-Maintain Hgb > 7
-No signs of acute blood loss -- colostomy bag does not look bloody
#Colostomy bag
-Patient reported hard stools and mentioned she was taking Miralax at home
-Continue Miralax
#Left adrenaloma
Code status: full code
DVT prophylaxis: heparin sq
Anticipated Discharge: > 48 hours
Subjective/Interval History
-
Date of Service: January 03, 2025
Patient was seen and examined. She denied any new symptoms or complaints, she denied any chest pain or shortness of breath.
Objective Data
-
Labs:
Laboratory Results
01/03/25
04:09
WBC 8.8
Hgb 7.8 L
Hct 24.7 L
Plt Count 332
Sodium 138
Potassium 5.0
Chloride 106
Carbon Dioxide 19 L
BUN 113 H*
Creatinine 4.0 H
Glucose 138 H
Calcium 9.5
Vital Signs:
Vital Signs
Temp Pulse Resp BP Pulse Ox
98.2 F 91 20 171/78 98
01/03/25 06:36 01/03/25 05:00 01/03/25 06:36 01/03/25 04:00 01/03/25 06:36
I&O
01/02/25 01/03/25 01/04/25
06:59 06:59 06:59
Intake Total 480 / 480 150 / 150
Output Total 300 / 300 300 / 300
Balance 180 / 180 -150 / -150
--- NOTE | 2025-01-03 09:27 | W.PN.CD ---
Today's Communication / Plan
-
-PCWP mildly elevated at 20 yesterday; elevated PA pressures.
-Will resume Lasix 40 mg IV BID.
-Blood pressure is a bit labile; continue current medication regimen for now.
-May need to increase isosorbide mononitrate ER to 60 mg daily to help with blood pressure management.
-Continue to monitor renal function; Nephrology following.
Impression / Plan
-
64 yo female with PMH of multi-drug resistant HTN, CKD3b, PAD, with recent revascularization 10/2024, prior left renal artery stent presents to ED with SOB, edema. Also noted is hypoxic respiratory failure and placed on BiPAP. We are consulted for
HTN emergency, and acute HF.
# Acute HFPEF: high risk situation with cardiorenal syndrome, requiring close monitoring of labs, tele
-dry weight may be closer to 50kg based on chart review, and currently at 54 kg; but with worsening renal function
-echo 12/30: EF 50-55%, nl RV, mild/mod TR, PASP 60
-PCWP mildly elevated at 20 yesterday; elevated PA pressures.
-Will resume Lasix 40 mg IV BID.
#HTN emergency: improved
-with acute HF, acute renal failure, acute non-ischemic myocardial injury, acute hypoxic respiratory failure
-weaned off BiPAP
-weaned off nitro drip 12/31, and started imdur 30mg daily
-continue home hydralazine 100mg tid, clonidine 0.6mg tid , amlodipine 10mg daily
-changed metoprolol to coreg 25mg bid this admission
-stopped ARB/HCTZ due to renal failure
-Blood pressure is a bit labile; continue current medication regimen for now.
-May need to increase isosorbide mononitrate ER to 60 mg daily to help with blood pressure management.
# Acute renal failure
-Continue to monitor renal function; Nephrology following.
-stopped ARB and HCTZ
#Acute on chronic anemia
-s/p pRBC
#PAD
-ASA, Plavix, statin
Mild to moderate TR:
-PAP 55-60 mmHg.
-Lasix as above.
Physical Exam
Vital Signs/Labs
Vital Signs
Temp Pulse Resp BP Pulse Ox
98.2 F 91 20 171/78 98
01/03/25 06:36 01/03/25 05:00 01/03/25 06:36 01/03/25 04:00 01/03/25 06:36
01/02/25 01/03/25 01/04/25
06:59 06:59 06:59
Actual Weight 54.3 kg 55.3 kg
01/03/25 04:09
01/03/25 04:09
Magnesium 1.7 mg/dl (1.6-2.3) 01/03/25 04:09
Triglycerides 169 mg/dl (10-149) H 12/30/24 03:26
LDL Cholesterol, Calc 29 mg/dl 12/30/24 03:26
VLDL Cholesterol, Calc 33 mg/dl (0-30) H 12/30/24 03:26
HDL Cholesterol 48 mg/dl 12/30/24 03:26
12/29/24
12:23
Yzt-J-Zewmnrfsbkq Pept
Physical Exam
Constitutional: No acute distress and Comfortable
EENT: Anicteric
Cardiovascular: Rhythm & rate is regular, Systolic murmur absent, Pedal edema present (1-2+) and S1S2 is normal
Respiratory: Respiratory effort normal and Lungs clear to auscul.
GI: Soft
Neuro/Psych: AO x 3
Other: Skin (Warm, dry, intact)
Data Reviewed
-
Date of Service: January 03, 2025
EKG: Tracing Personally Visualized and interpreted (Telemetry: Sinus rhythm)
Echo: Tracing Personally Visualized and interpreted (EF 51%; mild to moderate TR, PAP 55-60 mmHg)
Medical Tests (PFT, Pathology etc): Discussed with Patient
Labs: Labs Reviewed by me
--- NOTE | 2025-01-03 10:55 | PTCARENOTE ---
Rec'd pt at handoff. Tele-SR. Pt has no complaints at this time. R brachial is c/d/i. Assessment completed as documented. Plan of care reviewed w/ pt and verbalizes understanding.
--- NOTE | 2025-01-03 11:42 | CM ---
Reviewed chart. Met with Mrs. Sheridan to review discharge plans. She states she is feeling better. We reviewed VNA Services and she is agreeable to having VNA services with [facility]. She states she has been ambulating in the room.
Prior to admission she resides with her son in a two story home with one step to enter. She has a first fkloor set-up. Prior to admission she ambulates with a walker. She has a walker at home She is current with [facility]. She has a
prescription plan and uses [facility]. Will need to see her current functional level to see if she will have any skilled care needs. Medical work-up in progress. The discharge plan is to return home with her son and resumption [facility] when medically stable.
--- NOTE | 2025-01-03 14:01 | W.PN.NEPH.PH ---
Addendum entered and electronically signed by Gisela Bee MD 01/03/25 14:08:
fe sat only 19%, will give course of IV Fe
Original Note:
Today's Communication / Plan
-
ok to resume lasix
HD discussion if no improvement in next 1-2dAYS
renal duplex pending
Assessment/Plan
-
Impression:
JACOB
CKD 3B baseline 1.8 Dr Goins
Acute metabolic acidosis.
Hypertensive urgency.
Colostomy
Bilateral renal artery stenosis with stents, left atrophic kidney
Left adrenaloma
Aortobifem bypass
Severe peripheral arterial disease
Acute heart failure decompensated
Plan:
JACOB-cr cont to increase 4, BUN 113
UA mild micro hematuria and U PCR only 0.4gm/gm of cr, follow bladder scan
noted RHC PCWP of 20, resume lasix today as she seem wet on exam
echocardiogram on this admission ejection fraction 51% with moderate pulmonary hypertension
cont to Hold valsartan HCTZ
BP remains labile trend-on high dose of clonidine, hydralazine, coreg and Amlodipine
she reports having functioning solitary right kidney known PARI and stent of left kidney -pending renal duplex
met acidosis stable, monitor
follow h/h low but stable
No acute need for dialysis, likely need to start in next 1-2days based on renal function
d/w pt and nursing in detail
-
-
Date of Service: January 03, 2025
CC / HPI / ROS
-
Chief Complaint:
Increased edema shortness of breath, JACOB, CKD
History of Present Illness:
cr increasing to 4, BUN 113
wt up today
subjectively non oliguric
hb stable at 7.8
Review of Systems:
improved sob, still with edema
on RA , no cp
Labs
-
Labs:
WBC 8.8 10^3/uL (4.8-10.8) 01/03/25 04:09
RBC 2.96 10^6/uL (4.20-5.40) L 01/03/25 04:09
Hgb 7.8 g/dL (12.0-16.0) L 01/03/25 04:09
Hct 24.7 % (37.0-47.0) L 01/03/25 04:09
Plt Count 332 10^3/uL (130-400) 01/03/25 04:09
Sodium 138 mmol/L (135-145) 01/03/25 04:09
Potassium 5.0 mmol/L (3.5-5.1) 01/03/25 04:09
Chloride 106 mmol/L (98-107) 01/03/25 04:09
Carbon Dioxide 19 mmol/L (22-30) L 01/03/25 04:09
BUN 113 mg/dl (7-17) H* 01/03/25 04:09
Creatinine 4.0 mg/dL (0.6-1.0) H 01/03/25 04:09
eGFR 11.77 01/03/25 04:09
Glucose 138 mg/dl (70-99) H 01/03/25 04:09
Calcium 9.5 mg/dl (8.4-10.2) 01/03/25 04:09
Dzv-N-Nysuvkfsqda Pept 29565 pg/ml 12/29/24 12:23
Albumin Cancelled 12/29/24 12:23
Physical Exam
-
Vital Signs:
Vital Signs
Temp Pulse Resp BP Pulse Ox
97.8 F 82 16 168/78 98
01/03/25 11:17 01/03/25 11:30 01/03/25 11:17 01/03/25 11:15 01/03/25 11:17
Cardiovascular:: Regular rate and rhythm
Respiratory:: Bilateral: Coarse
Lung Excursion:: Normal
Abdomen:: Nontender and Soft
Bowel Sounds:: Normal
Extremity Edema:: +2: Bilateral:
Rodriguez Catheter: No
[2025-01-03] MEDS: LASIX 40 MG IV (15:13)
[2025-01-03] MEDS: TYLENOL 650 MG PO (22:09)
[2025-01-03] MEDS: BENADRYL 25 MG PO (22:10)
[2025-01-04] VITALS (13 sets, daily range): BP systolic 95–199; BP diastolic 62–109; BMI 22.8
[2025-01-04 04:27] LABS: Mean Corpuscular Hgb 26.3 pg (27.0-31.0); Mean Corpuscular Volume 82.2 fL (81.0-99.0); Mean Platelet Volume 9.8 fL (7.4-10.4); Platelet Count 330 10^3/uL (130-400); Red Blood Cell Count 3.04 10^6/uL (4.20-5.40); Red Cell Dist. Width 18.1 % (11.5-14.5); White Blood Cell Count 8.8 10^3/uL (4.8-10.8)
[2025-01-04 04:50] LABS: Calcium 9.8 mg/dl (8.4-10.2); Carbon Dioxide 19 mmol/L (22-30); Chloride 106 mmol/L (98-107); Estimated Creatinine Clearance 10 ml/min; Glucose 120 mg/dl (70-99); Magnesium 1.8 mg/dl (1.6-2.3); Potassium 5.2 mmol/L (3.5-5.1); Sodium 137 mmol/L (135-145); eGFR 11.77
[2025-01-04 05:00] LABS: Blood Urea Nitrogen 124 mg/dl (7-17)
[2025-01-04] MEDS: MIRALAX 17 GRAMS PO (07:28)
[2025-01-04] MEDS: HEPARIN 5000 UNITS SC (07:31)
[2025-01-04] MEDS: THERAGRAN 1 TABLET PO (07:32)
[2025-01-04] MEDS: VITAMIN D3 (cholecalciferol) 25 MCG PO (07:32)
[2025-01-04] MEDS: VITAMIN B-12 1000 MCG PO (07:33)
[2025-01-04] MEDS: NORVASC 10 MG PO (07:33)
[2025-01-04] MEDS: COREG 25 MG PO ×2 (07:33→20:38)
[2025-01-04] MEDS: CATAPRES 0.6 MG PO ×3 (07:33→22:26)
[2025-01-04] MEDS: PLAVIX 75 MG PO (07:33)
[2025-01-04] MEDS: APRESOLINE 100 MG PO ×3 (07:34→22:26)
[2025-01-04] MEDS: LIPITOR 20 MG PO (07:34)
[2025-01-04] MEDS: IMDUR (EXTENDED RELEASE) 30 MG PO (07:34)
[2025-01-04] MEDS: LASIX 40 MG IV ×2 (07:38→16:44)
--- NOTE | 2025-01-04 08:10 | W.PN.HOSP.TC ---
Today's Communication/Plan
-
Patient will need dialysis, catheter has been placed
Assessment / Plan
Assessment / Plan
Physical Exam
General: Not in acute distress
HEENT: Normocephalic, Atraumatic, Moist Mucous Membranes
Respiratory: Clear to Auscultation Bilaterally
Cardiac: Regular Rhythm and S1/S2
GI: Soft, Nontender, Nondistended and Normal Bowel Sounds
Musculoskeletal: No Cyanosis. Edema, Right Lower Extremity and Edema, Left Lower Extremity
Skin: Warm. Dry.
Neuro: AAOx3. Nonfocal/Grossly Intact.
Assessment/Plan
#Acute hypoxic respiratory insufficiency like secondary to acute heart failure
#Acute Heart Failure with Preserved Ejection Fraction
- Continue IVU level of care
- appreciate Cardiology
- Dry weight likely ~50 kg, and currently at 53 kg
- Improved. Weaned off bipap -- CURRENTLY ON ROOM AIR
- daily weights
- ECHO with EF 51%, thickened pericardium, mild global hypokinesis, mild concentric left ventricular hypertrophy, trace aortic regurgitation, moderate pulmonary hypertension,
pleural effusion present.
- Right heart cath on 01/02/25 showed mildly elevated PCWP at 20; elevated PA pressures
- Lasix IV 40 mg BID resumed 01/03/25
#Hypertensive Emergency
#Essential Hypertension
- Received nitro drip this admission, weaned off on 12/31/24
- Imdur 30 mg daily increased to 60 mg daily to help with blood pressure management
- continue amlodipine 10 mg daily, clonidine 0.6 mg TID, hydralazine 100 mg TID
- Metoprolol changed to Coreg 25 mg BID this hospitalization
- Hold valsartan-HCTZ due to acute kidney injury
- Consult Nephrology
- IV labetalol as needed --> patient has not needed this so far
#acute on chronic kidney disease stage 3B
#Bilateral renal artery stenosis with stents, left atrophic kidney -- functioning solitary kidney known PARI and stent
#Acute Metabolic Acidosis
- hold nephrotoxic medications Hold valsartan HCTZ
- No bicarb or dialysis for now as per nephro
- Nephro following, patient will need dialysis, catheter has been placed
- Renal Duplex pending
#Severe peripheral vascular disease
#Aortobifem bypass
#hypercholesteremia
- continue atorvastatin and clopidogrel
- reschedule follow up apt out patient
#Normocytic anemia
-Hgb dropped to 6.7 on 12/31/24 morning -- patient then received 1 unit of PRBC on 12/31/24 morning -- Hgb improved well
-Patient already provided blood transfusion consent previously
-Iron studies unremarkable, but patient also received PRBC transfusion before that
-Vitamin B12 levels within normal limits
-Maintain Hgb > 7
-No signs of acute blood loss -- colostomy bag does not look bloody
#Colostomy bag
-Patient reported hard stools and mentioned she was taking Miralax at home
-Continue Miralax
#Left adrenaloma
Code status: full code
DVT prophylaxis: heparin sq
Anticipated Discharge: > 48 hours
Subjective/Interval History
-
Date of Service: January 04, 2025
Patient was seen and examined. She denied any chest pain, shortness of breath or any other complaints.
Objective Data
-
Labs:
Laboratory Results
01/04/25
04:10
WBC 8.8
Hgb 8.0 L
Hct 25.0 L
Plt Count 330
Sodium 137
Potassium 5.2 H
Chloride 106
Carbon Dioxide 19 L
BUN 124 H*
Creatinine 4.0 H
Glucose 120 H
Calcium 9.8
Vital Signs:
Vital Signs
Temp Pulse Resp BP Pulse Ox
98.0 F 94 16 199/90 98
01/04/25 07:35 03/26/25 07:38 01/04/25 07:35 01/04/25 07:38 01/04/25 07:35
I&O
01/03/25 01/04/25 01/05/25
06:59 06:59 06:59
Intake Total 480 / 480 810 / 810 200 / 200
Output Total 300 / 300 1100 / 1100 100 / 100
Balance 180 / 180 -290 / -290 100 / 100
--- NOTE | 2025-01-04 08:20 | W.PN.CD ---
Today's Communication / Plan
-
-Continue Lasix 40 mg IV BID.
-Blood pressure is uncontrolled.
-Will increase isosorbide mononitrate ER to 60 mg daily.
-Worsening renal function and volume status; will likely need dialysis (now hyperkalemic)--Nephrology following.
Impression / Plan
-
64 yo female with PMH of multi-drug resistant HTN, CKD3b, PAD, with recent revascularization 10/2024, prior left renal artery stent presents to ED with SOB, edema. Also noted is hypoxic respiratory failure and placed on BiPAP. We are consulted for
HTN emergency, and acute HF.
# Acute HFPEF: high risk situation with cardiorenal syndrome, requiring close monitoring of labs, tele
-dry weight may be closer to 50kg based on chart review, and currently at 54 kg; but with worsening renal function
-echo 12/30: EF 50-55%, nl RV, mild/mod TR, PASP 60
-PCWP mildly elevated at 20 on RHC; elevated PA pressures.
-Continue Lasix 40 mg IV BID.
#HTN emergency: improved
-with acute HF, acute renal failure, acute non-ischemic myocardial injury, acute hypoxic respiratory failure
-weaned off BiPAP
-weaned off nitro drip 12/31, and started imdur 30mg daily
-continue home hydralazine 100mg tid, clonidine 0.6mg tid , amlodipine 10mg daily
-changed metoprolol to coreg 25mg bid this admission
-stopped ARB/HCTZ due to renal failure
-Blood pressure is uncontrolled.
-Will increase isosorbide mononitrate ER to 60 mg daily.
-Continue other antihypertensive medications.
# Acute on chronic renal failure
-Worsening renal function and volume status; will likely need dialysis (now hyperkalemic)--Nephrology following.
-stopped ARB and HCTZ
#Acute on chronic anemia
-s/p pRBC
#PAD
-ASA, Plavix, statin
# Troponin elevation -likely acute nonischemic myocardial injury in the setting of HFpEF and CKD
Mild to moderate TR:
-PAP 55-60 mmHg.
-Lasix as above.
Physical Exam
Vital Signs/Labs
Vital Signs
Temp Pulse Resp BP Pulse Ox
98.0 F 94 16 199/90 98
01/04/25 07:35 01/04/25 07:38 01/04/25 07:35 01/04/25 07:38 01/04/25 07:35
01/03/25 01/04/25 01/05/25
06:59 06:59 06:59
Actual Weight 55.3 kg 54.613 kg
01/04/25 04:10
01/04/25 04:10
Magnesium 1.8 mg/dl (1.6-2.3) 01/04/25 04:10
Triglycerides 169 mg/dl (10-149) H 12/30/24 03:26
LDL Cholesterol, Calc 29 mg/dl 12/30/24 03:26
VLDL Cholesterol, Calc 33 mg/dl (0-30) H 12/30/24 03:26
HDL Cholesterol 48 mg/dl 12/30/24 03:26
12/29/24
12:23
Elo-F-Ueuunzpnuve Pept
Physical Exam
Constitutional: No acute distress and Comfortable
EENT: Anicteric
Cardiovascular: Rhythm & rate is regular, Systolic murmur absent, Pedal edema present (2+) and S1S2 is normal
Respiratory: Respiratory effort normal and Rhonchi Present (Mild bibasilar)
GI: Soft
Neuro/Psych: AO x 3
Other: Skin (warm, dry)
Data Reviewed
-
Date of Service: January 04, 2025
EKG: Tracing Personally Visualized and interpreted (Telemetry: Sinus rhythm)
Labs: Labs Reviewed by me
--- NOTE | 2025-01-04 09:40 | PTCARENOTE ---
Rec'd pt at handoff. Tele- SR. Assessment completed as documented. Pt has no complaints/discomfort at this time. Plan of care reviewed w/ pt and verbalizes understanding. Currently in bed; call beata w/in reach.
--- NOTE | 2025-01-04 11:08 | W.PN.NEPH.PH ---
Today's Communication / Plan
-
Patient agrees to dialysis. Consulted emergency room radiology for perm
Assessment/Plan
-
Impression:
JACOB
CKD 3B baseline 1.8 Dr Goins
Acute metabolic acidosis.
Hypertensive urgency.
Colostomy
Bilateral renal artery stenosis with stents, left atrophic kidney
Left adrenaloma
Aortobifem bypass
Severe peripheral arterial disease
Acute heart failure decompensated
Plan:
JACOB-cr cont to increase 4, BUN 113
UA mild micro hematuria and U PCR only 0.4gm/gm of cr, follow bladder scan
noted RHC PCWP of 20, resume lasix today as she seem wet on exam
echocardiogram on this admission ejection fraction 51% with moderate pulmonary hypertension
cont to Hold valsartan HCTZ
BP remains labile trend-on high dose of clonidine, hydralazine, coreg and Amlodipine
solitary right kidney known PARI and stent of left kidney = renal duplex done 01/03/2025 shows likely severe proximal stenosis of the renal artery and left chronic atrophic kidney
With worsening renal function progressively on IV diuretics and uncontrolled blood pressure she agreed to hemodialysis all risk and benefits discussed.
Will ask interventional radiology to place a permacath.
With renal artery stenosis of the solitary kidney and uncontrolled blood pressure will need to discuss the value of intervening in regards to blood pressure standpoint. I will consider repeating a CTA for confirmation since we are starting
Total Time Spent with Patient (in minutes): 33
-
-
Date of Service: January 04, 2025
CC / HPI / ROS
-
Chief Complaint:
Increased edema shortness of breath, JACOB, CKD
History of Present Illness:
Worsening renal function
wt up today
subjectively non oliguric
Review of Systems:
improved sob, still with edema
on RA , no cp
Labs
-
Labs:
WBC 8.8 10^/uL (4.8-10.8) 01/04/25 04:10
RBC 3.04 10^6/uL (4.20-5.40) L 01/04/25 04:10
Hgb 8.0 g/dL (12.0-16.0) L 01/04/25 04:10
Hct 25.0 % (37.0-47.0) L 01/04/25 04:10
Plt Count 330 10^3/uL (130-400) 01/04/25 04:10
Sodium 137 mmol/L (135-145) 01/04/25 04:10
Potassium 5.2 mmol/L (3.5-5.1) H 01/04/25 04:10
Chloride 106 mmol/L (98-107) 01/04/25 04:10
Carbon Dioxide 19 mmol/L (22-30) L 01/04/25 04:10
BUN 124 mg/dl (7-17) H* 01/04/25 04:10
Creatinine 4.0 mg/dL (0.6-1.0) H 01/04/25 04:10
eGFR 11.77 01/04/25 04:10
Glucose 120 mg/dl (70-99) H 01/04/25 04:10
Calcium 9.8 mg/dl (8.4-10.2) 01/04/25 04:10
Huz-I-Ohtjpyiyzou Pept 39635 pg/ml 12/29/24 12:23
Albumin Cancelled 12/29/24 12:23
Physical Exam
-
Vital Signs:
Vital Signs
Temp Pulse Resp BP Pulse Ox
98.0 F 82 16 141/65 96
01/04/25 10:27 01/04/25 10:25 01/04/25 10:27 01/04/25 10:25 01/04/25 10:27
Cardiovascular:: Regular rate and rhythm
Respiratory:: Bilateral: Coarse
Lung Excursion:: Normal
Abdomen:: Nontender and Soft
Bowel Sounds:: Normal
Extremity Edema:: +2: Bilateral:
Rodriguez Catheter: No
--- NOTE | 2025-01-04 13:02 | CM ---
Reviewed chart. Met with Mrs. Sheriadn to review discharge plans. She states she is feeling better and may be starting on dialysis. We reviewed dialysis centers closer to her home. She would like to explore [facility]. She
would like to have Thursday, Thursday or Thursday schedule with the earliest appointment time that is available. Telephone call to [facility], ([phone]) to start the referral. Prior to admission she resides with her son in a two story home with one
step to enter. She has a first floor set up. Prior to admission she ambulates with a walker. She has a walker at home. She is current with [facility]. She has a prescription plan and uses [facility]. Medical work-up in progress.
The discharge plan is to [facility] if approved for admission when medically stable.
[2025-01-04] MEDS: ANCEF 10 IV (14:12)
[2025-01-04] MEDS: FERRLECIT 110 MG IV (16:28)
[2025-01-04] MEDS: TYLENOL 650 MG PO ×2 (17:47→22:26)
[2025-01-04] MEDS: ROXICODONE 5 MG PO (18:58)
[2025-01-04] MEDS: HEPARIN SC (20:37)
[2025-01-04] MEDS: COLACE 100 MG PO (20:38)
--- NOTE | 2025-01-04 21:12 | PTCARENOTE ---
Patient received at change of shift resting in the bed. Right anterior chest permacath site intact. Right brachial cath site with gauze and tegaderm C/D/I, radial pulse palpable. Patient states permacath site is sore, otherwise offers no other
physical complaints. Sinus tach on telemetry. Oxygen saturation 95-96% on room air. Plan of care discussed. Call cota within reach. Care ongoing.
[2025-01-04] MEDS: BENADRYL 25 MG PO (22:26)
[2025-01-05] VITALS (8 sets, daily range): BP systolic 128–177; BP diastolic 67–88; BMI 23.1
[2025-01-05 04:25] LABS: Hematocrit 23.8 % (37.0-47.0); Hemoglobin 7.6 g/dL (12.0-16.0); Mean Corp Hgb Conc. 31.9 g/dL (33.0-37.0); Mean Corpuscular Hgb 26.5 pg (27.0-31.0); Mean Corpuscular Volume 82.9 fL (81.0-99.0); Mean Platelet Volume 9.6 fL (7.4-10.4); Platelet Count 292 10^3/uL (130-400); Red Blood Cell Count 2.87 10^6/uL (4.20-5.40); Red Cell Dist. Width 18.1 % (11.5-14.5); White Blood Cell Count 9.8 10^3/uL (4.8-10.8)
[2025-01-05 05:11] LABS: Calcium 9.3 mg/dl (8.4-10.2); Carbon Dioxide 19 mmol/L (22-30); Chloride 106 mmol/L (98-107); Estimated Creatinine Clearance 10 ml/min; Glucose 120 mg/dl (70-99); Sodium 139 mmol/L (135-145); eGFR 11.43
[2025-01-05 05:21] LABS: Blood Urea Nitrogen 126 mg/dl (7-17)
[2025-01-05] MEDS: HEPARIN 5000 UNITS SC ×2 (09:44→20:04)
[2025-01-05] MEDS: LASIX 40 MG IV ×2 (09:45→15:36)
[2025-01-05] MEDS: NORVASC 10 MG PO (09:46)
[2025-01-05] MEDS: CATAPRES 0.6 MG PO ×3 (09:46→22:58)
[2025-01-05] MEDS: IMDUR (EXTENDED RELEASE) 60 MG PO (09:47)
[2025-01-05] MEDS: VITAMIN B-12 1000 MCG PO (09:47)
[2025-01-05] MEDS: VITAMIN D3 (cholecalciferol) 25 MCG PO (09:47)
[2025-01-05] MEDS: PLAVIX 75 MG PO (09:47)
[2025-01-05] MEDS: COREG 25 MG PO ×2 (09:47→20:04)
[2025-01-05] MEDS: APRESOLINE 100 MG PO ×3 (09:47→22:59)
[2025-01-05] MEDS: LIPITOR 20 MG PO (09:48)
[2025-01-05] MEDS: THERAGRAN 1 TABLET PO (09:48)
--- NOTE | 2025-01-05 09:59 | W.PN.CD ---
Today's Communication / Plan
-
-Worsening renal function and edema; dialysis planned for this a.m.
-On Lasix 40 mg IV BID.
-Blood pressure has slightly improved on increased dose of isosorbide mononitrate ER 60 mg daily; will likely continue to improve with dialysis.
-Worsening renal function and edema; dialysis planned for this a.m.
Impression / Plan
-
64 yo female with PMH of multi-drug resistant HTN, CKD3b, PAD, with recent revascularization 10/2024, prior left renal artery stent presents to ED with SOB, edema. Also noted is hypoxic respiratory failure and placed on BiPAP. We are consulted for
HTN emergency, and acute HF.
# Acute HFPEF: high risk situation with cardiorenal syndrome, requiring close monitoring of labs, tele
-dry weight may be closer to 50kg based on chart review, and currently at 54 kg; but with worsening renal function
-echo 12/30: EF 50-55%, nl RV, mild/mod TR, PASP 60
-PCWP mildly elevated at 20 on RHC; elevated PA pressures.
-Worsening renal function and edema; dialysis planned for this a.m.
-On Lasix 40 mg IV BID.
#HTN emergency: improved
-with acute HF, acute renal failure, acute non-ischemic myocardial injury, acute hypoxic respiratory failure
-weaned off BiPAP
-weaned off nitro drip 12/31, and started imdur 30mg daily
-continue home hydralazine 100mg tid, clonidine 0.6mg tid , amlodipine 10mg daily
-changed metoprolol to coreg 25mg bid this admission
-stopped ARB/HCTZ due to renal failure
-Blood pressure has slightly improved on increased dose of isosorbide mononitrate ER 60 mg daily; will likely continue to improve with dialysis.
-Continue other antihypertensive medications.
# Acute on chronic renal failure
-Worsening renal function and edema; dialysis planned for this a.m.
-stopped ARB and HCTZ
#Acute on chronic anemia
-s/p pRBC
#PAD
-ASA, Plavix, statin
# Troponin elevation -likely acute nonischemic myocardial injury in the setting of HFpEF and CKD
Mild to moderate TR:
-PAP 55-60 mmHg.
-Lasix as above.
Physical Exam
Vital Signs/Labs
Vital Signs
Temp Pulse Resp BP Pulse Ox
99.0 F 102 22 177/80 95
01/05/25 08:27 01/05/25 09:47 01/05/25 08:27 01/05/25 09:47 01/05/25 08:27
01/04/25 01/05/25 01/06/25
06:59 06:59 06:59
Actual Weight 54.613 kg 55.5 kg
01/05/25 04:10
01/05/25 04:10
Magnesium 1.8 mg/dl (1.6-2.3) 01/04/25 04:10
Triglycerides 169 mg/dl (10-149) H 12/30/24 03:26
LDL Cholesterol, Calc 29 mg/dl 12/30/24 03:26
VLDL Cholesterol, Calc 33 mg/dl (0-30) H 12/30/24 03:26
HDL Cholesterol 48 mg/dl 12/30/24 03:26
12/29/24
12:23
Fit-A-Geabgpousro Pept
Physical Exam
Constitutional: No acute distress and Comfortable
EENT: Anicteric
Cardiovascular: Rhythm & rate is regular, Systolic murmur absent, Pedal edema present (1-2+) and S1S2 is normal
Respiratory: Respiratory effort normal and Lungs clear to auscul.
GI: Soft
Neuro/Psych: AO x 3
Other: Skin (Warm, dry, intact)
Data Reviewed
-
Date of Service: January 05, 2025
EKG: Tracing Personally Visualized and interpreted (Telemetry: Sinus rhythm)
Medical Tests (PFT, Pathology etc): Discussed with Patient
Labs: Labs Reviewed by me
[2025-01-05] MEDS: TYLENOL 650 MG PO ×3 (10:55→22:59)
[2025-01-05] MEDS: MIRALAX 17 GRAMS PO (10:56)
--- NOTE | 2025-01-05 11:23 | CM ---
Addendum entered by Renetta Villa RN 01/06/25 16:14:
Pt evaluation recommending Home PT and patient not to drive being unsteady with her walker. Patient will need to go to dialysis closer to home. Patient would like to go to the [facility] because shift 3 will be easier for her to go
transportation back and forth. I notified Chrissie, referral sent to the senior medical transcriptionist at [facility]. [facility] [facility] needs Hep B surface antibody and Hep B core antigen. Lab does not have the reagent and it will not be in until
Thu/, so they will send out and it will be resulted on Thursday. CM to fax result to [facility] on Thursday at [phone]. Plan is for the patient to go home with [facility], [facility] HD in [place] M/W/ 3rd shift. CM to follow
Addendum entered by Renetta Villa RN 01/05/25 15:23:
I spoke with Chrissie at [facility], [id number], , ext [phone] to confirm fax. Waiting on Hep B to fax to [facility]. Patient agreed to HD at [facility] at [facility] T//Thu Shift 1. Placing patient on waitlist for [facility] M/W/ Shift
1. CM to fax Hep B result
Original Note:
Chart reviewed. Patient is independent of ADLS, lives with her son in a [address] [facility], [address] [facility], 1st floor set up, ambulates with a RW. [facility]. PT evaluation ordered. Plan is for the patient to return home with VN vs SNF based
on functional assessment. Patient starting HD today. Referral faxed to [facility] to initiate HD. Patient complaining of swelling in her feet and unsure if she will be able to drive. Patient requested transportation information. [facility]
Transport brochure and application given to the patient. CM to follow
--- NOTE | 2025-01-05 11:48 | W.PN.NEPH.PH ---
Today's Communication / Plan
-
First dialysis today
MRA to evaluate renal artery stenosis
Assessment/Plan
-
Impression:
JACOB
CKD 3B baseline 1.8 Dr Goins
Acute metabolic acidosis.
Hypertensive urgency.
Colostomy
Bilateral renal artery stenosis with stents, left atrophic kidney
Left adrenaloma
Aortobifem bypass
Severe peripheral arterial disease
Acute heart failure decompensated
Plan:
JACOB-cr cont to increase 4, BUN 113
UA mild micro hematuria and U PCR only 0.4gm/gm of cr, follow bladder scan
noted RHC PCWP of 20
echocardiogram on this admission ejection fraction 51% with moderate pulmonary hypertension
cont to Hold valsartan HCTZ
BP remains elevated on high dose of clonidine, hydralazine, coreg and Amlodipine
solitary right kidney known PARI and stent of left kidney = renal duplex done 01/03/2025 shows likely severe proximal stenosis of the renal artery and left chronic atrophic kidney
Patient agreed to hemodialysis.
Permacath placed 01/03
Dialysis pending today 01/05 and then again tomorrow
We will get MRA of renal artery to confirm severity of proximal renal artery stenosis and consider intervention for blood pressure control= discussed this with the patient at length today and agrees to the plan
Total Time Spent with Patient (in minutes): 35
-
-
Date of Service: January 05, 2025
CC / HPI / ROS
-
Chief Complaint:
Increased edema shortness of breath, JACOB, CKD
History of Present Illness:
Worsening renal function
subjectively non oliguric
Review of Systems:
improved sob, still with edema
on RA , no cp
Labs
-
Labs:
WBC 9.8 10^3/uL (4.8-10.8) 01/05/25 04:10
RBC 2.87 10^6/uL (4.20-5.40) L 01/05/25 04:10
Hgb 7.6 g/dL (12.0-16.0) L 01/05/25 04:10
Hct 23.8 % (37.0-47.0) L 01/05/25 04:10
Plt Count 292 10^3/uL (130-400) 01/05/25 04:10
Sodium 139 mmol/L (135-145) 01/05/25 04:10
Potassium 5.0 mmol/L (3.5-5.1) 01/05/25 04:10
Chloride 106 mmol/L (98-107) 01/05/25 04:10
Carbon Dioxide 19 mmol/L (22-30) L 01/05/25 04:10
BUN 126 mg/dl (7-17) H* 01/05/25 04:10
Creatinine 4.1 mg/dL (0.6-1.0) H* 01/05/25 04:10
eGFR 11.43 01/05/25 04:10
Glucose 120 mg/dl (70-99) H 01/05/25 04:10
Calcium 9.3 mg/dl (8.4-10.2) 01/05/25 04:10
Ejz-Q-Heozwnlgvpx Pept 13437 pg/ml 12/29/24 12:23
Albumin Cancelled 12/29/24 12:23
Physical Exam
-
Vital Signs:
Vital Signs
Temp Pulse Resp BP Pulse Ox
98.8 F 100 18 175/86 96
01/05/25 10:53 01/05/25 10:52 01/05/25 10:53 01/05/25 10:52 01/05/25 10:53
Cardiovascular:: Regular rate and rhythm
Respiratory:: Bilateral: Coarse
Lung Excursion:: Normal
Abdomen:: Nontender and Soft
Bowel Sounds:: Normal
Extremity Edema:: +2: Bilateral:
Rodriguez Catheter: No
[2025-01-05] MEDS: RETACRIT 10000 UNITS IV (13:03)
[2025-01-05] MEDS: MANNITOL 25% 12.5 GRAMS IV (13:04)
--- NOTE | 2025-01-05 15:06 | W.PN.HOSP.TC ---
Today's Communication/Plan
-
Worsening renal function -- dialysis today
Assessment / Plan
Assessment / Plan
Physical Exam
General: Not in acute distress
HEENT: Normocephalic, Atraumatic, Moist Mucous Membranes
Respiratory: Clear to Auscultation Bilaterally
Cardiac: Regular Rhythm and S1/S2
GI: Soft, Nontender, Nondistended and Normal Bowel Sounds
Musculoskeletal: No Cyanosis. Edema, Right Lower Extremity and Edema, Left Lower Extremity
Skin: Warm. Dry.
Neuro: AAOx3. Nonfocal/Grossly Intact.
Assessment/Plan
#Acute hypoxic respiratory insufficiency like secondary to acute heart failure
#Acute Heart Failure with Preserved Ejection Fraction
- Continue IVU level of care
- appreciate Cardiology
- Dry weight likely ~50 kg, and currently at 53 kg
- Improved. Weaned off bipap -- CURRENTLY ON ROOM AIR
- daily weights
- ECHO with EF 51%, thickened pericardium, mild global hypokinesis, mild concentric left ventricular hypertrophy, trace aortic regurgitation, moderate pulmonary hypertension,
pleural effusion present.
- Right heart cath on 01/02/25 showed mildly elevated PCWP at 20; elevated PA pressures
- Lasix IV 40 mg BID resumed 01/03/25
#Hypertensive Emergency
#Essential Hypertension
- Received nitro drip this admission, weaned off on 12/31/24
- Imdur 30 mg daily increased to 60 mg daily to help with blood pressure management
- Continue amlodipine 10 mg daily, clonidine 0.6 mg TID, hydralazine 100 mg TID
- Metoprolol changed to Coreg 25 mg BID this hospitalization
- Hold valsartan-HCTZ due to acute kidney injury
- Consult Nephrology
- IV labetalol as needed --> patient has not needed this so far
#acute on chronic kidney disease stage 3B
#Bilateral renal artery stenosis with stents, left atrophic kidney -- functioning solitary kidney known PARI and stent
#Acute Metabolic Acidosis
- hold nephrotoxic medications Hold valsartan HCTZ
- Dialysis given worsening renal function
- Nephro following, patient will need dialysis, catheter has been placed
- Renal Duplex -- showed likely severe proximal stenosis of the renal artery and left chronic atrophic kidney
#Severe peripheral vascular disease
#Aortobifem bypass
#hypercholesteremia
- continue atorvastatin and clopidogrel
- reschedule follow up apt out patient
#Normocytic anemia
-Hgb dropped to 6.7 on 12/31/24 morning -- patient then received 1 unit of PRBC on 12/31/24 morning -- Hgb improved well
-Patient already provided blood transfusion consent previously
-Iron studies unremarkable, but patient also received PRBC transfusion before that
-Vitamin B12 levels within normal limits
-Maintain Hgb > 7
-No signs of acute blood loss -- colostomy bag does not look bloody
#Colostomy bag
-Patient reported hard stools and mentioned she was taking Miralax at home
-Continue Miralax
#Left adrenaloma
Code status: full code
DVT prophylaxis: heparin sq
Anticipated Discharge: > 48 hours
Subjective/Interval History
-
Date of Service: January 05, 2025
Patient was seen and examined. She denied any symptoms or complaints.
Objective Data
-
Labs:
Laboratory Results
01/05/25
04:10
WBC 9.8
Hgb 7.6 L
Hct 23.8 L
Plt Count 292
Sodium 139
Potassium 5.0
Chloride 106
Carbon Dioxide 19 L
BUN 126 H*
Creatinine 4.1 H*
Glucose 120 H
Calcium 9.3
Vital Signs:
Vital Signs
Temp Pulse Resp BP Pulse Ox
98 F 100 20 175/86 98
01/05/25 14:52 01/05/25 10:52 01/05/25 14:52 01/05/25 10:52 01/05/25 14:52
I&O
01/04/25 01/05/25 01/06/25
06:59 06:59 06:59
Intake Total 810 / 810 490 / 490
Output Total 1100 / 1100 100 / 100
Balance -290 / -290 390 / 390
[2025-01-05] MEDS: FERRLECIT 110 MG IV (15:31)
--- NOTE | 2025-01-05 15:50 | W.PN.NEPH.HD ---
Assessment
-
Tolerated first dialysis treatment today with next treatment tomorrow
Progress Note - Hemodialysis
-
Date of Service: January 05, 2025
Duration: 2 hours
Calcium Bath: 2.5
Opti-Dialyzer: 160
Blood Flow: 300
Dialysate Flow: 600
--- NOTE | 2025-01-05 18:01 | PTCARENOTE ---
received patient this am, monitor on showing NSR, VSS, BUN/CR 126/4.1, patient for dialysis today and was completed. patient has colostomy that she takes care of it herself. patient stated that her stools where harder than usual, please look at MAR
for medications given. patient instructed to use call cota when she wants to get OOB, patient verbalizes understanding. patient is for dialysis tomorrow.
[2025-01-05 18:53] LABS: Hepatitis B Surface Antigen Negative (Negative)
--- NOTE | 2025-01-05 20:55 | PTCARENOTE ---
Received pt @ change of shift. AAOx3. VSS. Right brachial site CDI. Pt states being tired and hungry after dialysis. Discussed plan of care for evening. Pt verbalized understanding. Call cota within reach.
[2025-01-05] MEDS: BENADRYL 25 MG PO (22:59)
[2025-01-06] VITALS (19 sets, daily range): BP systolic 133–181; BP diastolic 61–92; PULSE 83; O2SAT 97; BMI 22.8
[2025-01-06 04:20] LABS: Hematocrit 25.1 % (37.0-47.0); Hemoglobin 7.9 g/dL (12.0-16.0); Mean Corp Hgb Conc. 31.5 g/dL (33.0-37.0); Mean Corpuscular Hgb 26.1 pg (27.0-31.0); Mean Corpuscular Volume 82.8 fL (81.0-99.0); Platelet Count 288 10^3/uL (130-400); Red Blood Cell Count 3.03 10^6/uL (4.20-5.40); Red Cell Dist. Width 18.1 % (11.5-14.5); White Blood Cell Count 8.7 10^3/uL (4.8-10.8)
[2025-01-06 05:02] LABS: Blood Urea Nitrogen 77 mg/dl (7-17); Calcium 9.1 mg/dl (8.4-10.2); Carbon Dioxide 24 mmol/L (22-30); Chloride 103 mmol/L (98-107); Estimated Creatinine Clearance 12 ml/min; Glucose 105 mg/dl (70-99); Potassium 4.2 mmol/L (3.5-5.1); Sodium 138 mmol/L (135-145); eGFR 14.31
--- NOTE | 2025-01-06 07:33 | W.PN.HOSP.TC ---
Today's Communication/Plan
-
Awaiting outpatient dialysis to be set up -- discussed with case management
MRA Abdomen with focus on the kidneys
Assessment / Plan
Assessment / Plan
Physical Exam
General: Not in acute distress
HEENT: Normocephalic, Atraumatic, Moist Mucous Membranes
Respiratory: Clear to Auscultation Bilaterally
Cardiac: Regular Rhythm and S1/S2
GI: Soft, Nontender, Nondistended and Normal Bowel Sounds
Musculoskeletal: No Cyanosis. Edema, Right Lower Extremity and Edema, Left Lower Extremity
Skin: Warm. Dry.
Neuro: AAOx3. Nonfocal/Grossly Intact.
Assessment/Plan
#Acute hypoxic respiratory insufficiency like secondary to acute heart failure
#Acute Heart Failure with Preserved Ejection Fraction
- Continue IVU level of care
- appreciate Cardiology
- Dry weight likely ~50 kg, and currently at 53 kg
- Improved. Weaned off bipap -- CURRENTLY ON ROOM AIR
- daily weights
- ECHO with EF 51%, thickened pericardium, mild global hypokinesis, mild concentric left ventricular hypertrophy, trace aortic regurgitation, moderate pulmonary hypertension,
pleural effusion present.
- Right heart cath on 01/02/25 showed mildly elevated PCWP at 20; elevated PA pressures
- Lasix IV 40 mg BID resumed 01/03/25
#Hypertensive Emergency
#Essential Hypertension
- Received nitro drip this admission, weaned off on 12/31/24
- Imdur 30 mg daily increased to 60 mg daily to help with blood pressure management --> 90 mg daily
- Continue amlodipine 10 mg daily, clonidine 0.6 mg TID, hydralazine 100 mg TID
- Metoprolol changed to Coreg 25 mg BID this hospitalization
- Hold valsartan-HCTZ due to acute kidney injury
- Consult Nephrology
- IV labetalol as needed --> patient has not needed this so far
#acute on chronic kidney disease stage 3B
#Bilateral renal artery stenosis with stents, left atrophic kidney -- functioning solitary kidney known PARI and stent
#Acute Metabolic Acidosis
- hold nephrotoxic medications Hold valsartan HCTZ
- Dialysis given worsening renal function
- Nephro following, patient will need dialysis, catheter has been placed
- Renal Duplex -- showed likely severe proximal stenosis of the renal artery and left chronic atrophic kidney
- Follow-up MRA
- Physical Therapy recommended patient not drive herself to dialysis, also recommended Home PT.
#Severe peripheral vascular disease
#Aortobifem bypass
#hypercholesteremia
- continue atorvastatin and clopidogrel
- reschedule follow up apt out patient
#Normocytic anemia
-Hgb dropped to 6.7 on 12/31/24 morning -- patient then received 1 unit of PRBC on 12/31/24 morning -- Hgb improved well
-Patient already provided blood transfusion consent previously
-Iron studies unremarkable, but patient also received PRBC transfusion before that
-Vitamin B12 levels within normal limits
-Maintain Hgb > 7
-No signs of acute blood loss -- colostomy bag does not look bloody
#Colostomy bag
-Patient reported hard stools and mentioned she was taking Miralax at home
-Continue Miralax
#Left adrenaloma
Code status: full code
DVT prophylaxis: heparin sq
Anticipated Discharge: 24 - 48 hours
Subjective/Interval History
-
Date of Service: January 06, 2025
Patient was seen and examined. She reported that eating helps her sleep better, denied any other new symptoms or complaints.
Objective Data
-
Labs:
Laboratory Results
01/06/25
03:56
WBC 8.7
Hgb 7.9 L
Hct 25.1 L
Plt Count 288
Sodium 138
Potassium 4.2
Chloride 103
Carbon Dioxide 24
BUN 77 H
Creatinine 3.4 H
Glucose 105 H
Calcium 9.1
Vital Signs:
Vital Signs
Temp Pulse Resp BP Pulse Ox
98.7 F 91 18 171/79 96
01/06/25 03:39 01/06/25 04:00 01/06/25 03:39 01/06/25 03:40 01/06/25 03:39
I&O
01/05/25 01/06/25 01/07/25
06:59 06:59 06:59
Intake Total 490 / 490 240 / 240
Output Total 100 / 100
Balance 390 / 390 240 / 240
[2025-01-06] MEDS: TYLENOL 650 MG PO ×3 (07:59→22:34)
[2025-01-06] MEDS: APRESOLINE 100 MG PO ×3 (08:24→22:33)
[2025-01-06] MEDS: NORVASC 10 MG PO (08:25)
[2025-01-06] MEDS: COREG 25 MG PO ×2 (08:25→19:35)
[2025-01-06] MEDS: LIPITOR 20 MG PO (08:26)
[2025-01-06] MEDS: PLAVIX 75 MG PO (08:26)
[2025-01-06] MEDS: LASIX 40 MG IV ×2 (08:26→17:07)
[2025-01-06] MEDS: VITAMIN D3 (cholecalciferol) 25 MCG PO (08:26)
[2025-01-06] MEDS: THERAGRAN 1 TABLET PO (08:26)
[2025-01-06] MEDS: HEPARIN 5000 UNITS SC ×2 (08:27→19:36)
[2025-01-06] MEDS: IMDUR (EXTENDED RELEASE) 60 MG PO (08:31)
[2025-01-06] MEDS: VITAMIN B-12 1000 MCG PO (08:31)
[2025-01-06] MEDS: CATAPRES 0.6 MG PO ×3 (08:38→22:34)
--- NOTE | 2025-01-06 08:57 | W.PN.CD ---
Today's Communication / Plan
-
HD per renal
Increase isosorbide to 90mg daily
Impression / Plan
-
64 yo female with PMH of multi-drug resistant HTN, CKD3b, PAD, with recent revascularization 10/2024, prior left renal artery stent presents to ED with SOB, edema. Also noted is hypoxic respiratory failure and placed on BiPAP. We are consulted for
HTN emergency, and acute HF.
# Acute HFPEF: high risk situation with cardiorenal syndrome, requiring close monitoring of labs, tele
-dry weight may be closer to 50kg based on chart review
-echo 12/30: EF 50-55%, nl RV, mild/mod TR, PASP 60
-PCWP mildly elevated at 20 on RHC; elevated PA pressures.
-Hemodialysis initiated on 01/05/25
#HTN emergency: improved
-with acute HF, acute renal failure, acute non-ischemic myocardial injury, acute hypoxic respiratory failure
-weaned off BiPAP
-weaned off nitro drip 12/31, and started imdur 30mg daily
-continue home hydralazine 100mg tid, clonidine 0.6mg tid , amlodipine 10mg daily
-changed metoprolol to coreg 25mg bid this admission
-stopped ARB/HCTZ due to renal failure
-Increase isosorbide mononitrate to 90mg daily
-Continue other antihypertensive medications.
# Acute on chronic renal failure
-Hemodialysis initiated on 01/05/25
-stopped ARB and HCTZ
#Acute on chronic anemia
-s/p pRBC
#PAD
-ASA, Plavix, statin
# Troponin elevation -likely acute nonischemic myocardial injury in the setting of HFpEF and CKD
Subjective: Feels frustrated by diet. Wants an extra sandwich at night.
Physical Exam
Vital Signs/Labs
Vital Signs
Temp Pulse Resp BP Pulse Ox
98.9 F 101 16 173/81 96
01/06/25 07:00 01/06/25 08:00 01/06/25 07:00 01/06/25 06:57 01/06/25 07:00
01/05/25 01/06/25 01/07/25
06:59 06:59 06:59
Actual Weight 55.5 kg 54.8 kg
01/06/25 03:56
01/06/25 03:56
Magnesium 1.8 mg/dl (1.6-2.3) 01/04/25 04:10
Triglycerides 169 mg/dl (10-149) H 12/30/24 03:26
LDL Cholesterol, Calc 29 mg/dl 12/30/24 03:26
VLDL Cholesterol, Calc 33 mg/dl (0-30) H 12/30/24 03:26
HDL Cholesterol 48 mg/dl 12/30/24 03:26
12/29/24
12:23
Tzm-[id number]-Ryjbykebhmq Pept
Physical Exam
Constitutional: No acute distress and Comfortable
Cardiovascular: Rhythm & rate is regular, Pedal edema present and Murmur/rub/gallop absent
Respiratory: Respiratory effort normal and Crackles Absent
Data Reviewed
-
Date of Service: January 06, 2025
Medical Decision Making: Reviewed Test Results, Independent Historian Assessment, Test Interpretation and Review of Case with other Provider
EKG: Tracing Personally Visualized and interpreted
Echo: Report Reviewed by me
X-Ray/CT/US/MRI/NUC/PET: Report Reviewed by me
Labs: Labs Reviewed by me
[2025-01-06] MEDS: MANNITOL 25% 12.5 GRAMS IV (13:00)
--- NOTE | 2025-01-06 13:23 | W.PN.NEPH.HD ---
Assessment
-
Patient seen on dialysis
Systolic blood pressure 162 at current UF
MRA to evaluate for renal artery stenosis given history of renal artery stenting by history per patient and due to uncontrolled hypertension
Dialysis will be provided again tomorrow and then patient will be discharged to outside unit
Progress Note - Hemodialysis
-
Date of Service: January 06, 2025
Duration: 30 minutes and 2 hours
Potassium Bath: 2
Calcium Bath: 2.5
Ultrafiltration: Other (1 kg)
Blood Flow: 350
Dialysate Flow: 600
Heparin: None
EPO: None
[2025-01-06] MEDS: MIRALAX PO (13:27)
[2025-01-06] MEDS: FERRLECIT 110 MG IV (14:18)
--- NOTE | 2025-01-06 16:10 | PTCARENOTE ---
Pt received this am with no c/o of any pain or sob. Assisted oob to the bathroom and to the chair using the walker. SR, rate in the 80's. Pt tolerated HD without any issues.
[2025-01-06 17:07] LABS: Hepatitis B Surface Antibody Negative
--- NOTE | 2025-01-06 21:41 | PTCARENOTE ---
Received pt @ change of shift. AAOx3. VSS on room air. Right brachial site NET MAKER. Permacath site CDI, no ecchymosis or redness. Discussed plan of care for evening. Reminded pt to ring cota for assistance for getting OOB. Pt verbalized understanding.
Call cota within reach.
[2025-01-06] MEDS: BENADRYL 25 MG PO (22:34)
[2025-01-07] VITALS (22 sets, daily range): BP systolic 106–197; BP diastolic 58–159; BMI 22.6
[2025-01-07] MEDS: TYLENOL 650 MG PO ×4 (03:09→22:36)
[2025-01-07 03:48] LABS: Hematocrit 26.5 % (37.0-47.0); Hemoglobin 8.3 g/dL (12.0-16.0); Mean Corp Hgb Conc. 31.3 g/dL (33.0-37.0); Mean Corpuscular Hgb 26.3 pg (27.0-31.0); Mean Corpuscular Volume 84.1 fL (81.0-99.0); Mean Platelet Volume 10.5 fL (7.4-10.4); Platelet Count 285 10^3/uL (130-400); Red Blood Cell Count 3.15 10^6/uL (4.20-5.40); Red Cell Dist. Width 18.4 % (11.5-14.5); White Blood Cell Count 11.4 10^3/uL (4.8-10.8)
[2025-01-07 04:10] LABS: Blood Urea Nitrogen 46 mg/dl (7-17); Calcium 9.2 mg/dl (8.4-10.2); Carbon Dioxide 27 mmol/L (22-30); Chloride 100 mmol/L (98-107); Estimated Creatinine Clearance 15 ml/min; Glucose 120 mg/dl (70-99); Potassium 4.2 mmol/L (3.5-5.1); Sodium 137 mmol/L (135-145); eGFR 18.06
--- NOTE | 2025-01-07 07:13 | W.PN.HOSP.TC ---
Today's Communication/Plan
-
Dialysis today (patient is new to dialysis this hospitalization)
Earliest discharge cannot be until Thursday01/09/25 as per case management
Assessment / Plan
Assessment / Plan
Physical Exam
General: Not in acute distress
HEENT: Normocephalic, Atraumatic, Moist Mucous Membranes
Respiratory: Clear to Auscultation Bilaterally
Cardiac: Regular Rhythm and S1/S2
GI: Soft, Nontender, Nondistended and Normal Bowel Sounds
Musculoskeletal: No Cyanosis. Edema, Right Lower Extremity and Edema, Left Lower Extremity
Skin: Warm. Dry.
Neuro: AAOx3. Nonfocal/Grossly Intact.
Assessment/Plan
#Acute hypoxic respiratory insufficiency like secondary to acute heart failure
#Acute Heart Failure with Preserved Ejection Fraction
- Continue IVU level of care
- Appreciate Cardiology
- Dry weight likely ~50 kg, and currently at 53 kg
- Improved. Weaned off bipap -- CURRENTLY ON ROOM AIR
- daily weights
- ECHO with EF 51%, thickened pericardium, mild global hypokinesis, mild concentric left ventricular hypertrophy, trace aortic regurgitation, moderate pulmonary hypertension,
pleural effusion present.
- Right heart cath on 01/02/25 showed mildly elevated PCWP at 20; elevated PA pressures
- Lasix IV 40 mg BID resumed 01/03/25
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
#Hypertensive Emergency
#Essential Hypertension
- Received nitro drip this admission, weaned off on 12/31/24
- Imdur 30 mg daily increased to 60 mg daily to help with blood pressure management --> increased to 90 mg daily
- Continue amlodipine 10 mg daily, clonidine 0.6 mg TID, hydralazine 100 mg TID
- Metoprolol changed to Coreg 25 mg BID this hospitalization
- Stopped valsartan-HCTZ due to acute kidney injury
- Consult Nephrology
- IV labetalol as needed --> patient has not needed this so far
#acute on chronic kidney disease stage 3B
#Bilateral renal artery stenosis with stents, left atrophic kidney -- functioning solitary kidney known PARI and stent
#Acute Metabolic Acidosis
- hold nephrotoxic medications Hold valsartan HCTZ
- Dialysis given worsening renal function - Hemodialysis initiated on 01/05/25
- Nephro following
- Renal Duplex -- showed likely severe proximal stenosis of the renal artery and left chronic atrophic kidney
- Follow-up MRA
- Physical Therapy recommended patient not drive herself to dialysis, also recommended Home PT.
#Severe peripheral vascular disease
#Aortobifem bypass
#hypercholesteremia
- continue atorvastatin and clopidogrel
- reschedule follow up apt out patient
#Normocytic anemia
-Hgb dropped to 6.7 on 12/31/24 morning -- patient then received 1 unit of PRBC on 12/31/24 morning -- Hgb improved well
-Patient already provided blood transfusion consent previously
-Iron studies unremarkable, but patient also received PRBC transfusion before that
-Vitamin B12 levels within normal limits
-Maintain Hgb > 7
-No signs of acute blood loss -- colostomy bag does not look bloody
#Colostomy bag
-Patient reported hard stools and mentioned she was taking Miralax at home
-Continue Miralax
#Left adrenaloma
Code status: full code
DVT prophylaxis: heparin sq
Anticipated Discharge: > 48 hours
Subjective/Interval History
-
Date of Service: January 07, 2025
Patient was seen and examined. She was getting dialysis and denied any new symptoms or complaints; she denied chest pain or shortness of breath.
Objective Data
-
Labs:
Laboratory Results
01/07/25
03:20
WBC 11.4 H
Hgb 8.3 L
Hct 26.5 L
Plt Count 285
Sodium 137
Potassium 4.2
Chloride 100
Carbon Dioxide 27
BUN 46 H
Creatinine 2.8 H
Glucose 120 H
Calcium 9.2
Vital Signs:
Vital Signs
Temp Pulse Resp BP Pulse Ox
98.9 F 80 18 173/82 97
01/07/25 03:24 01/07/25 06:00 01/07/25 03:24 01/07/25 03:13 01/07/25 03:24
I&O
01/06/25 01/07/25 01/08/25
06:59 06:59 06:59
Intake Total 240 / 240
Balance 240 / 240
[2025-01-07] MEDS: MANNITOL 25% 12.5 GRAMS IV ×2 (08:15→09:50)
--- NOTE | 2025-01-07 08:25 | W.PN.NEPH.HD ---
Assessment
-
Patient seen on hemodialysis
Systolic blood pressure 170
HD via catheter
Next dialysis will be on Thursday
Progress Note - Hemodialysis
-
Date of Service: January 07, 2025
Duration: 45 minutes and 2 hours
Potassium Bath: 3
Calcium Bath: 2.5
Opti-Dialyzer: 160
Ultrafiltration: Other (1.5 kg as hemodynamically tolerate)
Blood Flow: 400
Dialysate Flow: 600
Heparin: None
EPO: 10,000
[2025-01-07] MEDS: RETACRIT 10000 UNITS IV (08:30)
[2025-01-07] MEDS: MIRALAX PO (09:27)
--- NOTE | 2025-01-07 10:03 | PTCARENOTE ---
Received patient this morning resting in bed, receiving HD now. Offers no complaints, discussed medications with HD nurse, will administer meds late morning when HD should be completed.
[2025-01-07] MEDS: CATAPRES 0.6 MG PO ×3 (10:11→22:33)
[2025-01-07] MEDS: APRESOLINE 100 MG PO ×3 (10:11→22:33)
--- NOTE | 2025-01-07 10:32 | W.PN.CD ---
Addendum entered and electronically signed by Marcial Boyd MD 01/07/25 11:10:
I saw and examined the patient.
The PROGRAM RESEARCH SPECIALIST's note was reviewed and I agree with the note.
Comment:
Cardiology will sign off.
She will followup with her longstanding groundskeeping yardman near [facility].
Please call with questions.
Original Note:
Today's Communication / Plan
-
On hemodialysis
Continue current medical therapy.
Impression / Plan
-
I/P: 64F multi-drug resistant HTN, CKD3b, PAD, with recent revascularization 10/2024, prior left renal artery stent presents to ED with SOB, edema. Also noted is hypoxic respiratory failure and placed on BiPAP. We are consulted for HTN emergency,
and acute HF.
# Acute HFPEF: high risk situation with cardiorenal syndrome -> now on HD
-dry weight may be closer to 50kg based on chart review
-echo 12/30: EF 50-55%, nl RV, mild/mod TR, PASP 60
-PCWP mildly elevated at 20 on RHC; elevated PA pressures.
-Hemodialysis initiated on 01/05/25
#HTN emergency: improved
-with acute HF, acute renal failure, acute non-ischemic myocardial injury, acute hypoxic respiratory failure
-This is managed by her denier control operator, Dr. Ding
-weaned off nitro drip 12/31, and started Imdur -> now on 90mg daily
-continue home hydralazine 100mg tid, clonidine 0.6mg tid , amlodipine 10mg daily
-changed metoprolol to Coreg 25mg bid this admission
-Stopped ARB/HCTZ due to renal failure
# Acute on chronic renal failure
-Hemodialysis initiated on 01/05/25
-Stopped ARB and HCTZ
#Acute on chronic anemia
-s/p pRBC
#PAD
-ASA, Plavix, statin
# Troponin elevation -likely acute nonischemic myocardial injury in the setting of HFpEF and CKD
Subjective:
Feels improved. Less edema.
Physical Exam
Vital Signs/Labs
Vital Signs
Temp Pulse Resp BP Pulse Ox
98.2 F 95 18 193/88 97
01/07/25 06:47 01/07/25 10:11 01/07/25 06:47 01/07/25 10:11 01/07/25 06:47
01/06/25 01/07/25 01/08/25
06:59 06:59 06:59
Actual Weight 54.8 kg 54.3 kg
01/07/25 03:20
01/07/25 03:20
Magnesium 1.8 mg/dl (1.6-2.3) 01/04/25 04:10
Triglycerides 169 mg/dl (10-149) H 12/30/24 03:26
LDL Cholesterol, Calc 29 mg/dl 12/30/24 03:26
VLDL Cholesterol, Calc 33 mg/dl (0-30) H 12/30/24 03:26
HDL Cholesterol 48 mg/dl 12/30/24 03:26
12/29/24
12:23
Xvt-C-Xxcqbqiqvan Pept
Physical Exam
Constitutional: No acute distress and Comfortable
EENT: Anicteric and Moist mucous membranes
Cardiovascular: Rhythm & rate is regular, Pedal edema is absent and Pedal edema present
Respiratory: Respiratory effort normal and Lungs clear to auscul.
GI: Soft, Distention absent and Non tender
Neuro/Psych: AO x 3
Other: Skin (Warm and dry)
Data Reviewed
-
Date of Service: January 07, 2025
Labs: Labs Reviewed by me
[2025-01-07] MEDS: HEPARIN 3900 UNITS INTRACATH (10:43)
[2025-01-07] MEDS: COREG 25 MG PO ×2 (11:53→19:52)
[2025-01-07] MEDS: IMDUR (EXTENDED RELEASE) 90 MG PO (11:54)
[2025-01-07] MEDS: NORVASC 10 MG PO (11:55)
[2025-01-07] MEDS: LASIX 40 MG IV ×2 (11:55→17:06)
[2025-01-07] MEDS: PLAVIX 75 MG PO (11:55)
[2025-01-07] MEDS: LIPITOR 20 MG PO (11:56)
[2025-01-07] MEDS: VITAMIN B-12 1000 MCG PO (11:56)
[2025-01-07] MEDS: THERAGRAN 1 TABLET PO (11:56)
[2025-01-07] MEDS: VITAMIN D3 (cholecalciferol) 25 MCG PO (11:56)
[2025-01-07] MEDS: FLUSH (NSS) 1 FLUSH IV (11:57)
[2025-01-07] MEDS: HEPARIN 5000 UNITS SC ×2 (11:57→19:52)
--- NOTE | 2025-01-07 12:25 | PTCARENOTE ---
Patient finished HD without any incident, sitting at side of the bed doing AM care.
[2025-01-07] MEDS: FERRLECIT 110 MG IV (15:41)
[2025-01-07] MEDS: BENADRYL 25 MG PO (22:36)
--- NOTE | 2025-01-07 23:08 | PTCARENOTE ---
Received patient at change of shift. SR on the monitor, HR in the 80s. Pt complains of itchiness, PRN Benadryl administered as per DEC. Pt complains of 4/10 tooth pain, PRN Tylenol administered as per DEC. Call cota within reach.
[2025-01-08 03:51] VITALS: BP 148/68
[2025-01-08 04:09] VITALS: BMI 22.3
[2025-01-08 05:00] LABS: Hematocrit 25.7 % (37.0-47.0); Hemoglobin 7.8 g/dL (12.0-16.0); Mean Corp Hgb Conc. 30.4 g/dL (33.0-37.0); Mean Corpuscular Hgb 25.6 pg (27.0-31.0); Mean Corpuscular Volume 84.3 fL (81.0-99.0); Mean Platelet Volume 10.7 fL (7.4-10.4); Platelet Count 244 10^3/uL (130-400); Red Blood Cell Count 3.05 10^6/uL (4.20-5.40); Red Cell Dist. Width 18.2 % (11.5-14.5); White Blood Cell Count 11.1 10^3/uL (4.8-10.8)
[2025-01-08 05:24] LABS: Blood Urea Nitrogen 43 mg/dl (7-17); Calcium 9.2 mg/dl (8.4-10.2); Carbon Dioxide 25 mmol/L (22-30); Chloride 100 mmol/L (98-107); Estimated Creatinine Clearance 14 ml/min; Glucose 127 mg/dl (70-99); Potassium 4.2 mmol/L (3.5-5.1); Sodium 135 mmol/L (135-145); eGFR 17.32
[2025-01-08 07:28] VITALS: BP 164/78
--- NOTE | 2025-01-08 07:51 | W.PN.HOSP.TC ---
Today's Communication/Plan
-
.
Assessment / Plan
Assessment / Plan
Physical Exam
General: Not in acute distress
HEENT: Normocephalic, Atraumatic, Moist Mucous Membranes
Respiratory: Clear to Auscultation Bilaterally
Cardiac: Regular Rhythm and S1/S2
GI: Soft, Nontender, Nondistended and Normal Bowel Sounds
Musculoskeletal: No Cyanosis. Edema, Right Lower Extremity and Edema, Left Lower Extremity
Skin: Warm. Dry.
Neuro: AAOx3. Nonfocal/Grossly Intact.
Assessment/Plan
#Acute hypoxic respiratory insufficiency like secondary to acute heart failure
#Acute Heart Failure with Preserved Ejection Fraction
- Continue IVU level of care
- Appreciate Cardiology
- Dry weight likely ~50 kg, and currently at 53 kg
- Improved. Weaned off bipap -- CURRENTLY ON ROOM AIR
- daily weights
- ECHO with EF 51%, thickened pericardium, mild global hypokinesis, mild concentric left ventricular hypertrophy, trace aortic regurgitation, moderate pulmonary hypertension,
pleural effusion present.
- Right heart cath on 01/02/25 showed mildly elevated PCWP at 20; elevated PA pressures
- Lasix IV 40 mg BID resumed 01/03/25
- On discharge, follow-up with longstanding make up artist near [facility].
#Hypertensive Emergency
#Essential Hypertension
- Received nitro drip this admission, weaned off on 12/31/24
- Imdur 30 mg daily increased to 60 mg daily to help with blood pressure management --> increased to 90 mg daily
- Continue amlodipine 10 mg daily, clonidine 0.6 mg TID, hydralazine 100 mg TID
- Metoprolol changed to Coreg 25 mg BID this hospitalization
- Stopped valsartan-HCTZ due to acute kidney injury
- Consult Nephrology
- IV labetalol as needed --> patient has not needed this so far
#acute on chronic kidney disease stage 3B
#Bilateral renal artery stenosis with stents, left atrophic kidney -- functioning solitary kidney known PARI and stent
#Acute Metabolic Acidosis
- hold nephrotoxic medications Hold valsartan HCTZ
- Dialysis given worsening renal function - Hemodialysis initiated on 01/05/25
- Nephro following
- Renal Duplex -- showed likely severe proximal stenosis of the renal artery and left chronic atrophic kidney
- Follow-up MRA
- Physical Therapy recommended patient not drive herself to dialysis, also recommended Home PT.
#Severe peripheral vascular disease
#Aortobifem bypass
#hypercholesteremia
- continue atorvastatin and clopidogrel
- reschedule follow up apt out patient
#Normocytic anemia
-Hgb dropped to 6.7 on 12/31/24 morning -- patient then received 1 unit of PRBC on 12/31/24 morning -- Hgb improved well
-Patient already provided blood transfusion consent previously
-Iron studies unremarkable, but patient also received PRBC transfusion before that
-Vitamin B12 levels within normal limits
-Maintain Hgb > 7
-No signs of acute blood loss -- colostomy bag does not look bloody
#Colostomy bag
-Patient reported hard stools and mentioned she was taking Miralax at home
-Continue Miralax
#Left adrenaloma
Code status: full code
DVT prophylaxis: heparin sq
Total time spent to see the patient, examine the patient, review data and lab results, discuss treatment plan with patient and nursing staff around 55 minutes
Anticipated Discharge: Within 24 hours
Subjective/Interval History
-
Date of Service: January 08, 2025
Objective Data
-
Labs:
Laboratory Results
01/08/25
04:01
WBC 11.1 H
Hgb 7.8 L
Hct 25.7 L
Plt Count 244
Sodium 135
Potassium 4.2
Chloride 100
Carbon Dioxide 25
BUN 43 H
Creatinine 2.9 H
Glucose 127 H
Calcium 9.2
Vital Signs:
Vital Signs
Temp Pulse Resp BP Pulse Ox
99 F 83 20 148/68 98
01/08/25 07:30 01/08/25 04:00 01/08/25 07:30 01/08/25 03:51 01/08/25 07:30
I&O
01/07/25 01/08/25 01/09/25
06:59 06:59 06:59
Intake Total 590 / 590
Balance 590 / 590
--- NOTE | 2025-01-08 08:55 | W.PN.NEPH.PH ---
Today's Communication / Plan
-
Dialysis tomorrow
MRA results discussed with patient, at this time I do not favor any vascular intervention
Assessment/Plan
-
Impression:
JACOB
CKD 3B baseline 1.8 Dr Goins
Acute metabolic acidosis.
Hypertensive urgency.
Colostomy
Bilateral renal artery stenosis with stents, left atrophic kidney
Left adrenaloma
Aortobifem bypass
Severe peripheral arterial disease
Acute heart failure decompensated
Plan:
Dialysis tomorrow, orders provided
UA mild micro hematuria and U PCR only 0.4gm/gm of cr, follow bladder scan
noted RHC PCWP of 20
echocardiogram on this admission ejection fraction 51% with moderate pulmonary hypertension
RA resistant hypertension: MRI reviewed: Complete occlusion of left renal artery with severe stenosis of right proximal renal artery severe stenosis of proximal celiac artery severe bilateral renal atrophy, I would not favor intervening for the
stenosis at this time as her blood pressure is improving on dialysis and ARB could be added back as needed. If as an outpatient her blood pressure would become refractory even on dialysis she could be referred to vascular for further evaluation in
regards to renal artery stenting.
BP remains elevated on high dose of clonidine, hydralazine, coreg and Amlodipine , if blood pressure remains elevated will add back ARB
solitary right kidney known PARI and stent of left kidney = renal duplex done 01/03/2025 shows likely severe proximal stenosis of the renal artery and left chronic atrophic kidney
Patient agreed to hemodialysis.
Permacath placed 01/03
-
-
Date of Service: January 08, 2025
CC / HPI / ROS
-
Chief Complaint:
Increased edema shortness of breath, JACOB, CKD
History of Present Illness:
JACOB on CKD stage IV now on dialysis
Blood pressure more reasonably controlled
subjectively non oliguric
Review of Systems:
improved sob, still with edema
on RA , no cp
Labs
-
Labs:
WBC 11.1 10^3/uL (4.8-10.8) H 01/08/25 04:01
RBC 3.05 10^6/uL (4.20-5.40) L 01/08/25 04:01
Hgb 7.8 g/dL (12.0-16.0) L 01/08/25 04:01
Hct 25.7 % (37.0-47.0) L 01/08/25 04:01
Plt Count 244 10^3/uL (130-400) 01/08/25 04:01
Sodium 135 mmol/L (135-145) 01/08/25 04:01
Potassium 4.2 mmol/L (3.5-5.1) 01/08/25 04:01
Chloride 100 mmol/L (98-107) 01/08/25 04:01
Carbon Dioxide 25 mmol/L (22-30) 01/08/25 04:01
BUN 43 mg/dl (7-17) H 01/08/25 04:01
Creatinine 2.9 mg/dL (0.6-1.0) H 01/08/25 04:01
eGFR 17.32 01/08/25 04:01
Glucose 127 mg/dl (70-99) H 01/08/25 04:01
Calcium 9.2 mg/dl (8.4-10.2) 01/08/25 04:01
Hoa-E-Exlnkaascfm Pept 96021 pg/ml 12/29/24 12:23
Albumin Cancelled 12/29/24 12:23
Physical Exam
-
Vital Signs:
Vital Signs
Temp Pulse Resp BP Pulse Ox
99 F 90 20 164/78 98
01/08/25 07:30 01/08/25 08:00 01/08/25 07:30 01/08/25 07:28 01/08/25 07:30
Cardiovascular:: Regular rate and rhythm
Respiratory:: Bilateral: Coarse
Lung Excursion:: Normal
Abdomen:: Nontender and Soft
Bowel Sounds:: Normal
Extremity Edema:: +1: Bilateral:
Rodriguez Catheter: No
[2025-01-08] MEDS: APRESOLINE 100 MG PO ×3 (09:36→22:32)
[2025-01-08] MEDS: CATAPRES 0.6 MG PO ×3 (09:36→22:32)
[2025-01-08] MEDS: COREG 25 MG PO ×2 (09:37→19:22)
[2025-01-08] MEDS: IMDUR (EXTENDED RELEASE) 90 MG PO (09:37)
[2025-01-08] MEDS: NORVASC 10 MG PO (09:38)
[2025-01-08] MEDS: VITAMIN D3 (cholecalciferol) 25 MCG PO (09:38)
[2025-01-08] MEDS: THERAGRAN 1 TABLET PO (09:38)
[2025-01-08] MEDS: VITAMIN B-12 1000 MCG PO (09:38)
[2025-01-08] MEDS: PLAVIX 75 MG PO (09:38)
[2025-01-08] MEDS: LASIX 40 MG IV ×2 (09:38→16:15)
[2025-01-08] MEDS: LIPITOR 20 MG PO (09:38)
[2025-01-08] MEDS: FLUSH (NSS) 1 FLUSH IV (09:39)
[2025-01-08] MEDS: HEPARIN 5000 UNITS SC ×2 (09:39→19:22)
[2025-01-08] MEDS: MIRALAX PO (09:39)
--- NOTE | 2025-01-08 10:11 | PTCARENOTE ---
Patient up early this morning, eating breakfast, feels well and is anxious for discharge tomorrow. Remains SR on the monitor, offers no complaints, for HD tomorrow and then to d/c home. Patient would like to speak to a case management manager tomorrow re: HD
appointments.
[2025-01-08 11:47] VITALS: BP 132/64
[2025-01-08] MEDS: FERRLECIT 110 MG IV (14:01)
[2025-01-08] MEDS: TYLENOL 650 MG PO ×2 (15:23→22:32)
[2025-01-08 15:40] VITALS: BP 137/67
[2025-01-08 19:15] VITALS: BP 124/63
[2025-01-08 22:25] VITALS: BP 137/68
[2025-01-08] MEDS: BENADRYL 25 MG PO (22:33)
[2025-01-09] VITALS (17 sets, daily range): BP systolic 134–183; BP diastolic 70–116; BMI 22.8
--- NOTE | 2025-01-09 06:26 | W.PN.HOSP.TC ---
Today's Communication/Plan
-
discharge
Assessment / Plan
Assessment / Plan
Physical Exam
General: Not in acute distress
HEENT: Normocephalic, Atraumatic, Moist Mucous Membranes
Respiratory: Clear to Auscultation Bilaterally
Cardiac: Regular Rhythm and S1/S2
GI: Soft, Nontender, Nondistended and Normal Bowel Sounds
Musculoskeletal: No Cyanosis. Edema, Right Lower Extremity and Edema, Left Lower Extremity
Skin: Warm. Dry.
Neuro: AAOx3. Nonfocal/Grossly Intact.
Assessment/Plan
#Acute hypoxic respiratory insufficiency like secondary to acute heart failure
#Acute Heart Failure with Preserved Ejection Fraction
Resolved
Not on oxygen anymore, no sob or cough
- Appreciate Cardiology
- Dry weight likely ~50 kg, and currently at 53 kg
- Improved. Weaned off bipap -- CURRENTLY ON ROOM AIR
- daily weights
- ECHO with EF 51%, thickened pericardium, mild global hypokinesis, mild concentric left ventricular hypertrophy, trace aortic regurgitation, moderate pulmonary hypertension,
pleural effusion present.
- Right heart cath on 01/02/25 showed mildly elevated PCWP at 20; elevated PA pressures
- s/p Lasix IV 40 mg BID resumed 01/03/25
- On discharge, follow-up with longstanding bundle helper near [facility].
#Hypertensive Emergency
#Essential Hypertension
- Received nitro drip this admission, weaned off on 12/31/24
- Imdur 30 mg daily increased to 60 mg daily to help with blood pressure management --> increased to 90 mg daily
- Continue amlodipine 10 mg daily, clonidine 0.6 mg TID, hydralazine 100 mg TID
- Metoprolol changed to Coreg 25 mg BID this hospitalization
- Consulted Nephrology , ok to discharge
#acute on chronic kidney disease stage 3B
#Bilateral renal artery stenosis with stents, left atrophic kidney -- functioning solitary kidney known PARI and stent
#Acute Metabolic Acidosis
- held nephrotoxic medications, stopped valsartan HCTZ
- Dialysis given worsening renal function - Hemodialysis initiated on 01/05/25
- Nephro followed
- Renal Duplex -- showed likely severe proximal stenosis of the renal artery and left chronic atrophic kidney
- Follow-up MRA
- Physical Therapy recommended patient not drive herself to dialysis, also recommended Home PT.
#Severe peripheral vascular disease
#Aortobifem bypass
#hypercholesteremia
- continue atorvastatin and clopidogrel
- reschedule follow up apt out patient
#Normocytic anemia
-Hgb dropped to 6.7 on 12/31/24 morning -- patient then received 1 unit of PRBC on 12/31/24 morning -- Hgb improved well
-Patient already provided blood transfusion consent previously
-Iron studies unremarkable, but patient also received PRBC transfusion before that
-Vitamin B12 levels within normal limits
-Maintain Hgb > 7
-No signs of acute blood loss -- colostomy bag does not look bloody
#Colostomy bag
-Patient reported hard stools and mentioned she was taking Miralax at home
-Continue Miralax
#Left adrenaloma
Code status: full code
DVT prophylaxis: heparin sq
Total discharge time spent to see the patient, examine the patient, review data and lab results, discuss discharge plan with patient and nursing staff around 67 minutes
Anticipated Discharge: Today
Subjective/Interval History
-
Date of Service: January 09, 2025
She feels well
ready to leave hospital
She denies chest pain/ sob
Objective Data
-
Labs:
Laboratory Results
01/09/25
07:00
Hgb Pending
Hct Pending
Sodium Pending
Potassium Pending
Chloride Pending
Carbon Dioxide Pending
Vital Signs:
Vital Signs
Temp Pulse Resp BP Pulse Ox
97.4 F 79 18 156/70 98
01/09/25 03:37 01/09/25 04:00 01/09/25 03:37 01/09/25 03:28 01/09/25 03:37
I&O
01/07/25 01/08/25 01/09/25
06:59 06:59 06:59
Intake Total 590 / 590 470 / 470
Balance 590 / 590 470 / 470
--- NOTE | 2025-01-09 07:42 | PTCARENOTE ---
Patient resting in bed this morning ready for HD and then plans for discharge when completed.
[2025-01-09 08:15] LABS: Hematocrit 25.1 % (37.0-47.0); Hemoglobin 7.9 g/dL (12.0-16.0)
[2025-01-09 08:28] LABS: Carbon Dioxide 26 mmol/L (22-30); Chloride 97 mmol/L (98-107); Potassium 4.1 mmol/L (3.5-5.1); Sodium 134 mmol/L (135-145)
[2025-01-09] MEDS: RETACRIT 6000 UNITS IV (08:42)
[2025-01-09] MEDS: MIRALAX PO (08:57)
[2025-01-09] MEDS: APRESOLINE 100 MG PO (08:57)
[2025-01-09] MEDS: HEPARIN SC (08:58)
[2025-01-09] MEDS: TYLENOL 650 MG PO (09:22)
[2025-01-09] MEDS: LASIX IV (10:13)
[2025-01-09] MEDS: HEPARIN 3900 UNITS INTRACATH (10:53)
--- NOTE | 2025-01-09 10:54 | W.PN.NEPH.HD ---
Assessment
-
pt seen during HD
vitals stable
UF as tolerates
for d/c today , unit [facility] [place]
CVC functions well
Progress Note - Hemodialysis
-
Date of Service: January 09, 2025
Duration: 3 hours
Potassium Bath: 3
Calcium Bath: 2.5
Opti-Dialyzer: 160
Ultrafiltration: Other (1.5kg)
Blood Flow: 400
Dialysate Flow: 600
Heparin: no
EPO: 6000
--- NOTE | 2025-01-09 11:14 | W.DCSUMMARY ---
Discharge Summary
Discharge Data
Date of Admission: 12/29/24
Date of Discharge: 01/09/25
-
Pending Results: No
Hospital Course
64 years old female with history of chronic kidney disease and persistent hypertension presented to the hospital with shortness of breath and volume overload. Patient had hypoxic respiratory insufficiency was a placed on noninvasive ventilatory
support. She was also diagnosed with hypertensive emergency. Echocardiogram showed left ventricular ejection fraction of 50 to 55% with normal right ventricle, mild to moderate tricuspid regurgitation with pulmonary artery systolic pressure of 60
mmHg. Patient underwent right heart catheterization that showed PCWP mildly elevated at 20 with elevated PA pressures. Patient was started on diuretic therapy. She was followed by kidney doctor and collision repair technician. Kidney doctor adjusted her
medications. Stopped hydrochlorothiazide and ARB. Metoprolol was discontinued and changed to carvedilol. Kidney function did not improve and was diagnosed with acute kidney injury on chronic kidney disease/acute metabolic acidosis. Hemodialysis
was initiated on January 05. She had MRI study that showed complete occlusion of the left renal artery, severe stenosis of the right proximal renal artery, severe stenosis of proximal celiac artery, severe bilateral renal atrophy. Copping Machine Operator
recommended to continue hemodialysis and blood pressure control with medications and to seek vascular intervention if blood pressure becomes refractory even on hemodialysis. Breathing status stabilized. She did not need oxygen. Patient was
diagnosed with acute on chronic anemia of chronic disease was given 1 unit of blood transfusion on December 31. Iron studies were unremarkable. Patient was seen by physical therapy recommended home health services. hotel manager was involved in
discharge planning. Patient remained hemodynamically stable and was discharged home in a stable condition.
Discharge Plan
-
Patient Disposition: Home with Home Care
Discharge Diagnosis/Procedures: heart failure/ cardiac catheterization (01/03)
Hypertension emergency
Acute on chronic renal failure, acute metabolic acidosis hemodialysis started 01/05.
Diet: As tolerated, Low Sodium and Restrict fluids to 48 oz
Activity Restrictions/Additional Instructions:
You have been set up with hemodialysis at [facility].
Your schedule is Thursday, Thursday and Thursday, 3rd shift/ 4PM.
Your first date of dialysis will be 01/10.
[facility] [place] is located at [address] [place] [address]
Frank alonso# [phone]
Instructions: *PCP/Other Cap Parts Cutter Heart Failure Instructions
Referrals:
[facility] [Outside] - in one to two days (f- [phone])
Surekha Kolb DO [Family Provider] - in two to three weeks
()
Prescriptions:
New
carvedilol 25 mg Tablet
25 mg PO BID Qty: 60 0RF
isosorbide mononitrate 30 mg Tablet Extended Release 24 Hr
90 mg PO DAILY Qty: 30 0RF
furosemide 80 mg Tablet
80 mg PO DAILY Qty: 30 0RF
Continued
atorvastatin 20 mg Tablet
20 mg PO DAILY
clopidogrel [Plavix] 75 mg Tablet
75 mg PO DAILY
hydralazine 100 mg Tablet
100 mg PO TID
cholecalciferol (vitamin D3) [Vitamin D3] 25 mcg (1,000 unit) Tablet
25 mcg PO DAILY
amlodipine [Norvasc] 10 mg Tablet
10 mg PO DAILY
clonidine HCl 0.3 mg tablet
0.6 mg PO TID
cyclobenzaprine 10 mg Tablet
10 mg PO DAILYPRN PRN (Reason: spasms)
psyllium Packet
1 packet PO DAILYPRN PRN (Reason: cosntipation)
cyanocobalamin (vitamin B-12) 1,000 mcg Tablet
1,000 mcg PO DAILY
Medical Marijuana
0.5 ml PO DAILYPRN PRN (Reason: anxiety/stress)
therapeutic multivitamin Tablet
1 tab PO DAILY
acetaminophen [Tylenol] 325 mg Tablet
650 mg PO Q4HPRN PRN (Reason: mild pain)
Discontinued
metoprolol tartrate [Lopressor] 100 mg Tablet
100 mg PO BID
tramadol 50 mg Tablet
50 mg PO BIDPRN PRN (Reason: moderate pain)
valsartan-hydrochlorothiazide 320-25 mg Tablet
1 tab PO DAILY
Discharge Orders:
Discharge Patient (As Directed); Ordered 01/09/25
Ordered By: Hugo Piña
Care Plan Goals
Care Plan Goals:
Problem: Readiness for enhanced knowledge related to diagnosis and treatment plan
Goal: Understand your diagnosis and treatment plan needs, including medications if applicable.
Instructions: Know your diagnosis, underlying causes and treatment plan options, including medications if applicable. Consult with your health care team to learn about your diagnosis and treatment plan, including medications if applicable.
Discharge Date and Time
Print Language: FRENCH
[2025-01-09] MEDS: CATAPRES 0.6 MG PO (11:27)
[2025-01-09] MEDS: IMDUR (EXTENDED RELEASE) 90 MG PO (11:29)
[2025-01-09] MEDS: LIPITOR 20 MG PO (11:30)
[2025-01-09] MEDS: PLAVIX 75 MG PO (11:30)
[2025-01-09] MEDS: THERAGRAN 1 TABLET PO (11:30)
[2025-01-09] MEDS: NORVASC 10 MG PO (11:30)
[2025-01-09] MEDS: VITAMIN D3 (cholecalciferol) 25 MCG PO (11:31)
[2025-01-09] MEDS: VITAMIN B-12 1000 MCG PO (11:31)
[2025-01-09] MEDS: COREG 25 MG PO (11:31)
--- NOTE | 2025-01-09 12:13 | CM ---
CM following for DC planning needs.
Plan is for DC to home today.
I have confirmed dialysis placement at [facility], 3rd shift starting on 01/11. I have provided patient the dialysis welcome letter.
Met w/ patient at bedside. Reviewed DC plan for home w/ VN thru [facility] home-care + outpatient HD.
Answered all questions/ concerns.
Will remain avail.
Plan: HOME w/ VN thru [facility] home-care + outpatient HD thru [facility], beg. 01/11.
--- NOTE | 2025-01-09 13:25 | PTCARENOTE ---
Patient completed HD this morning without incident. Reviewed discharge instructions in detail including how to take her medications on dialysis days and she states her understanding. Patient is aware of HD schedule, next due this Thursday. Patient
discharged home with a friend, prescriptions sent to her pharmacy and will received a VN visit tomorrow. All belongings sent home with the patient.
--- NOTE | 2025-01-10 11:07 | W.HF.CON ---
Heart Failure
- LV Function
Left ventricular function study result: LV Ejection fraction >/= 50%
Ejection Fraction Percentage: 50-55
- ARNI
Patient already on ARNI: No
Heart Failure ARNI Not Indicated: LV Ejection Fraction >/= 40%
- ACEI/ARB
Patient already on ACEI/ARB: No
Heart Failure ACEI/ARB Not Indicated: LV Ejection Fraction > 40%
- Beta Ayde
Patient already on Evidence Based Beta Ayde: Yes
- Mineralocorticord Receptor Antagonist
Patient already on MRA: No
Heart Failure MRA Not Indicated: LV Ejection Fraction > 40%
- SGLT-2 Inhibitor
Patient already on SGLT-2 Inhibitor: No
Heart Failure SGLT-2 Inhibitor Contraindication: eGFR < 25
- Hydralazine & Isosorbide Dinitrate
Patient already on Hydralazine & Isosorbide Dinitrate: Yes
- NYHA CHF Classification
NYHA CHF Classification Level: Class III - Symptoms w/ min exertion, interferes w/ nml daily activity
- ACC/AHA Stage
ACC/AHA Stage: Stage C: Symptomatic Heart Failure
== END 2025-01-09 13:29 | disposition home health service (06) | DRG 286 ==
LOC: IVU 16:52
PROVIDERS: Hospitalist; Internal Medicine; Internal Medicine Cardiovascular Disease; Internal Medicine Nephrology; Nurse Practitioner Family; Physician Assistant; Radiology Vascular & Interventional Radiology; Specialist; ADMITTING PHYSICIAN Hospitalist; ATTENDING PHYSICIAN Internal Medicine; CONSULT PHYSICIAN Internal Medicine; CONSULT PHYSICIAN Specialist; EMERGENCY PHYSICIAN Emergency Medicine; FAMILY PHYSICIAN Family Medicine
PROC: 30233N1 Transfusion of Nonautologous Red Blood Cells into Peripheral Vein, Percutaneous Approach (ICD-10-PCS; 2024-12-31)
PROC: 4A023N6 Measurement of Cardiac Sampling and Pressure, Right Heart, Percutaneous Approach (ICD-10-PCS; 2025-01-02)
PROC: B5131ZA Fluoroscopy of Right Jugular Veins using Low Osmolar Contrast, Guidance (ICD-10-PCS; 2025-01-04)
PROC: 05HM33Z Insertion of Infusion Device into Right Internal Jugular Vein, Percutaneous Approach (ICD-10-PCS; 2025-01-04)
PROC: 5A1D70Z Performance of Urinary Filtration, Intermittent, Less than 6 Hours Per Day (ICD-10-PCS; 2025-01-05)
DX: I13.0 Hypertensive heart and chronic kidney disease with heart failure and stage 1 through stage 4 chronic kidney disease, or unspecified chronic kidney disease (principal); I50.31 Acute diastolic (congestive) heart failure; N17.9 Acute kidney failure, unspecified; I16.1 Hypertensive emergency; E87.21 Acute metabolic acidosis; N28.0 Ischemia and infarction of kidney; N18.32 Chronic kidney disease, stage 3b; I27.29 Other secondary pulmonary hypertension; F41.9 Anxiety disorder, unspecified; D63.1 Anemia in chronic kidney disease; I07.1 Rheumatic tricuspid insufficiency; I73.9 Peripheral vascular disease, unspecified; E78.00 Pure hypercholesterolemia, unspecified; Z87.891 Personal history of nicotine dependence; Z88.2 Allergy status to sulfonamides; Z79.02 Long term (current) use of antithrombotics/antiplatelets; N26.1 Atrophy of kidney (terminal); Z93.3 Colostomy status; I1A.0 Resistant hypertension; I5A Non-ischemic myocardial injury (non-traumatic)
CPT/HCPCS: 36558; 71046; 74185; 76937; 77001; 80048; 80051; 80061; 81003; 81015; 82570; 82607; 82728; 82805; 83540; 83550; 83735; 83880; 84156; 84443; 84484; 85014; 85018; 85025; 85027; 86706; 86803; 86850; 86900; 86901; 86920; 87340; 93005; 93306; 93451; 93970; 93975; 94660; 96374; 97116; 97162; 99152; 99153; 99285; A9585; C1750; C1894; G0257; J2916; P9016; Q5106

== ENCOUNTER → 2025-04-18 13:05 | Outpatient (REF) | payer MEDICARE, SELFPAY | LOC: RAD 13:05 | PROVIDERS: ATTENDING PHYSICIAN Surgery Vascular Surgery; FAMILY PHYSICIAN Family Medicine | DX: N18.6 End stage renal disease (principal); Z01.818 Encounter for other preprocedural examination | CPT/HCPCS: 93985 ==

== ENCOUNTER 2025-05-02 10:08 | Day surgery (SDC) | payer MEDICARE, SELFPAY ==
--- NOTE | 2025-04-26 15:28 | PTCARENOTE ---
Abnormal ECG done 12/29/[address] Gomez, no further interventions requested.
[2025-05-02] VITALS (13 sets, daily range): BP systolic 117–160; BP diastolic 66–92; BMI 21.7
[2025-05-02] MEDS: BACTROBAN NASAL 1 GRAM NASAL (11:15)
[2025-05-02] MEDS: PERIDEX 0.12% ORAL RINSE 15 ML PO (11:15)
[2025-05-02] MEDS: NSS 500 IV (11:15)
[2025-05-02 11:16] LABS: Hematocrit 32.4 % (37.0-47.0); Hemoglobin 10.3 g/dL (12.0-16.0); Mean Corp Hgb Conc. 31.8 g/dL (33.0-37.0); Mean Corpuscular Volume 84.2 fL (81.0-99.0); Platelet Count 238 10^3/uL (130-400); Red Cell Dist. Width 16.5 % (11.5-14.5)
[2025-05-02 11:25] LABS: APTT 36.6 Sec (23.4-35.0); INR 1.06; PT 14.1 Sec (11.4-14.6)
[2025-05-02 11:27] LABS: Blood Urea Nitrogen 38 mg/dl (7-17); Calcium 9.8 mg/dl (8.4-10.2); Carbon Dioxide 32 mmol/L (22-30); Chloride 98 mmol/L (98-107); Estimated Creatinine Clearance 10 ml/min; Glucose 95 mg/dl (70-99); Potassium 4.9 mmol/L (3.5-5.1); Sodium 137 mmol/L (135-145); eGFR 12.44
--- NOTE | 2025-05-02 16:19 | W.SUR.POST ---
Surgical Immediate Post Op
Note
Pre Op Diagnosis: ESRD
Post Op Diagnosis: ESRD
Procedure Performed: Arterio-venous fistula. Stage 1 basilic vein transposition
Primary Surgeon: Sonny Rodriguez III, MD
Secondary Surgeons: Franko Phillips MD
Anesthesia: see anesthesia report
Estimated Blood Loss: 20 cc
Fluids: see anesthesia report
Drains/Shunts: none
Specimens/Cultures: none
Doppler/Duplex/Angio (Y/N): none
Complications: none
Operative Findings: uncomplicated stage 1 BVT.
[2025-05-02] MEDS: ZOFRAN 4 MG IV (16:36)
--- NOTE | 2025-05-02 17:22 | OR.RPT ---
Operative Report
Operative Report
Date of Operation: 05/02/2025
Pre Op Diagnosis: End-stage renal disease requiring hemodialysis
Post Op Diagnosis: End-stage renal disease requiring hemodialysis
Procedure: Creation of left upper extremity brachiobasilic arteriovenous fistula (first stage of a planned two-stage basilic vein transposition)
Surgeon: Sonny Rodriguez III, MD
Anesthesia: General
Complications: None
Estimated Blood Loss: Less than 20 cc
History and Indications for Procedure: 65-year-old female with end-stage renal disease requiring hemodialysis and the need of permanent hemodialysis access.
Procedure in Detail: Radha Aguilera was correctly identified and placed supine on the operating table. After adequate induction of anesthesia the left arm was positioned, prepped and draped in the usual sterile fashion. Preoperative antibiotics
were administered. A timeout procedure was performed with the nursing and anesthesia staff confirming the patients identity as well as the nature and laterality of the procedure.
I performed intraoperative ultrasound on the veins of the left arm. I identified the upper arm basilic vein from the elbow to the axilla. The vein was compressible and of adequate diameter for fistula creation. The brachial artery was also
identified in the distal upper arm and proximal forearm. The appropriate site for the incision was then identified in the distal upper arm, just proximal to the elbow.
An incision was then made in the distal upper arm. Careful sharp dissection was performed and the basilic vein exposed. Branches of the vein were ligated between ties. The brachial artery was exposed with sharp dissection. Proximal and distal
control was obtained with vessel loops.
The distal end of the basilic vein was ligated with a tie. The vein was transected and flushed proximally with heparinized saline. The vein flushed easily and without resistance. The vessel loops on the artery were secured. An arteriotomy was made
with an 11-blade. This was extended just slightly proximally and distally with Rosa scissors. The proximal and distal artery were flushed with heparinized saline. The end of the vein was spatulated slightly. An end-to-side anastomosis was performed
from the end of the basilic vein to the brachial artery with a running 7-0 Prolene. At the completion of the anastomosis the proximal vessel loop was released first. After several heartbeats the distal brachial artery loop was released. The suture
line was closely inspected and hemostasis achieved. There was an excellent thrill in the vein. There was a good pulse in the brachial artery proximal and distal to the anastomosis.
The wound was irrigated with saline. Hemostasis was achieved in the wound bed. The wound was closed in multiple layers and sterile dressings applied.
The patient tolerated the procedure well and was taken to the PACU in stable condition.
Signed:
Sonny Rodriguez III, MD
Vascular Surgery
[facility]
== END 2025-05-02 18:18 | disposition home or self-care (01) ==
LOC: CATH 10:08
PROVIDERS: ATTENDING PHYSICIAN Surgery Vascular Surgery; OTHER PHYSICIAN Internal Medicine Cardiovascular Disease; PRIMARYCARE PHYSICIAN Family Medicine
DX: I12.0 Hypertensive chronic kidney disease with stage 5 chronic kidney disease or end stage renal disease (principal); N18.6 End stage renal disease; Z99.2 Dependence on renal dialysis; E78.00 Pure hypercholesterolemia, unspecified; Z79.02 Long term (current) use of antithrombotics/antiplatelets
CPT/HCPCS: 36821; 80048; 85027; 85610; 85730; 93005

== ENCOUNTER → 2025-05-25 10:38 | Outpatient (REF) | payer MEDICARE, SELFPAY | LOC: HWRAD 10:38 | PROVIDERS: ATTENDING PHYSICIAN Registered Nurse; FAMILY PHYSICIAN Family Medicine | DX: N18.6 End stage renal disease (principal) | CPT/HCPCS: 93990 ==

== ENCOUNTER 2025-07-11 07:49 | Day surgery (SDC) | payer MEDICARE, SELFPAY ==
[2025-07-11] VITALS (8 sets, daily range): BP systolic 126–145; BP diastolic 67–116; BMI 22.2
[2025-07-11 08:17] LABS: Hematocrit 33.3 % (37.0-47.0); Hemoglobin 10.9 g/dL (12.0-16.0); Mean Corp Hgb Conc. 32.7 g/dL (33.0-37.0); Mean Corpuscular Volume 88.8 fL (81.0-99.0); Platelet Count 249 10^3/uL (130-400); Red Cell Dist. Width 16.6 % (11.5-14.5)
[2025-07-11 08:28] LABS: INR 1.20; PT 15.5 Sec (11.4-14.6)
[2025-07-11 08:29] LABS: APTT 33.7 Sec (23.4-35.0)
[2025-07-11 08:36] LABS: Blood Urea Nitrogen 55 mg/dl (7-17); Calcium 9.1 mg/dl (8.4-10.2); Carbon Dioxide 25 mmol/L (22-30); Chloride 100 mmol/L (98-107); Estimated Creatinine Clearance 10 ml/min; Glucose 105 mg/dl (70-99); Potassium 4.4 mmol/L (3.5-5.1); Sodium 137 mmol/L (135-145); eGFR 12.06
[2025-07-11] MEDS: BACTROBAN NASAL 1 GRAM NASAL (08:52)
[2025-07-11] MEDS: NSS 500 IV (08:53)
--- NOTE | 2025-07-11 11:46 | OR.RPT ---
Operative Report
Operative Report
Date of Operation: 07/11/2025
Pre Op Diagnosis: Upper extremity brachiobasilic AV fistula (status post 1st stage of planned 2 stage basilic vein transposition)
Post Op Diagnosis: Upper extremity brachiobasilic AV fistula (status post 1st stage of planned 2 stage basilic vein transposition)
Procedure: Revision of left upper extremity brachiobasilic AV fistula with transposition of the basilic vein (second stage BVT)
Surgeon: Sonny Rodriguez III, MD
X Ray Equipment Servicer: Colby Dumont MD PGY2
Anesthesia: General
Complications: None
Estimated Blood Loss: 20 cc
History and Indications for Procedure: 65-year-old female status post first stage of a planned two-stage basilic vein transposition for hemodialysis access creation. She was brought to the operating room today for revision and transposition of the
basilic vein.
Procedure in Detail: Radha Aguilera was correctly identified and placed supine on the operating table. After adequate induction of anesthesia her left arm was abducted 90 degrees. A time out procedure was performed with the nursing and
anesthesia staff confirming the patient's identity and the nature and laterality of the procedure. The basilic vein was marked in the upper arm with ultrasound guidance. The arm was then circumferentially prepped and draped in the usual sterile
fashion. We made an incision over the medial upper arm. The entire basilic vein was dissected with careful sharp dissection. All branches were ligated and divided between silk ties and metal clips. The vein was good caliber along the entire course
and had an excellent thrill. Once the entire vein had been carefully dissected we then created a gentle curved tunnel lateral to the incision over the bicep with a tunneling device. Proximal control was obtained on the vein with a profunda clamp.
The vein was marked and then transected near the arterial anastomosis. The vein was then brought through the tunnel carefully. The vein was flushed with heparinized saline with no resistance. The ends were spatulated appropriately and then two ends
of the vein were anastomosed to one another in an end-to-end fashion using a running 7-0 Prolene suture. At the completion of the anastomosis the clamp was released and flow restored through the fistula. There was an excellent thrill in the tunnel.
The suture line was inspected for hemostasis and this was achieved. The wound was irrigated with warm saline solution. Hemostasis was achieved in the wound bed. The wound was then closed in multiple layers and skin glue was applied. The patient had
an easily palpable thrill in the tunnel at the conclusion of the case.
The patient tolerated the procedure well was taken to the recovery room in good condition.
Attestation: I was present and responsible for the entire procedure.
Signed:
Sonny Rodriguez III, MD
[facility] Vascular Surgery
[phone] (egmr)
--- NOTE | 2025-07-11 12:05 | W.IMMPOSTOP ---
Surgical Immed Post Op Note
-
Primary Surgeon: Sonny Rodriguez III, MD
Assisting Surgeon: Colby Dumont MD PGY2
Pre-op Diagnosis: ESRD
Post-op Diagnosis: ESRD
Procedure Performed: 2nd stage basilic vein transposition of AVF
Anesthesia Type: General
Specimen / Cultures: None
Estimated Blood Loss: 20 cc
Complications: None
Operative Findings: 2nd stage basilic vein transposition of AVF. Palpable thrill of superificialized basilic vein segment at conclusion of procedure
[2025-07-11] MEDS: TYLENOL 650 MG PO (13:06)
== END 2025-07-11 13:46 | disposition home or self-care (01) ==
LOC: CATH 07:49
PROVIDERS: ATTENDING PHYSICIAN Surgery Vascular Surgery; OTHER PHYSICIAN Internal Medicine Cardiovascular Disease; PRIMARYCARE PHYSICIAN Family Medicine
DX: N18.6 End stage renal disease (principal); I77.0 Arteriovenous fistula, acquired
CPT/HCPCS: 36832; 80048; 85027; 85610; 85730; 93005

== ENCOUNTER → 2025-08-03 10:25 | Outpatient (REF) | payer MEDICARE, SELFPAY | LOC: RAD 10:25 | PROVIDERS: ATTENDING PHYSICIAN Registered Nurse; FAMILY PHYSICIAN Family Medicine | DX: I77.0 Arteriovenous fistula, acquired (principal) | CPT/HCPCS: 93990 ==